=== PATIENT | female | born 1945 | race Caucasian/White ===

== ENCOUNTER 2021-10-24 14:24 | Inpatient (IN) | payer MEDICARE, BC ==
[~2021-10-24] VITALS: Ht 162.6 cm; Wt 88.7 kg
[~2021-10-24 14:24] MED LIST: ACET500T68 PO; APIX5TAB PO; ATOR10TA60 PO; CEFD300C PO; CHOL200059 PO; DILT120C99 PO; DIPH25CA58 PO; EZET10TA20 PO; GLUC-142 PO; IRBE300T23 PO; LACT1CAP21 PO; METO50TA4 PO; NYST15PO9 TP
--- NOTE | 2021-10-24 14:34 | PHYS DOC ---
Past Medical History Smoking Status: Never Smoker General Adult EDM: Chief Complaint: ABNORMAL LABS HPI: HPI: Patient is a 76-year-old female who presents to the emergency department for abnormal labs. Patient resides at [facility]. They did routine lab work and noted that her creatinine was 6.3 and her potassium was 5.7. Patient has a history of A. fib, dementia, anxiety, stage IV/V chronic kidney disease and congestive heart failure. He takes apixaban and Lasix. Patient has no complaints of pain, chest pain, shortness of breath, fevers, increased weight gain, increased leg swelling. Her vital signs are stable. Review of Systems: Review of Systems: Constitutional: negative unless reported in HPI Eyes: negative unless reported in HPI HENT: negative unless reported in HPI Respiratory: negative unless reported in HPI Cardiovascular: negative unless reported in HPI GI: negative unless reported in HPI : negative unless reported in HPI Musculoskeletal: negative unless reported in HPI Integument: negative unless reported in HPI Neurologic: negative unless reported in HPI Endocrine: negative unless reported in HPI Lymphatic: negative unless reported in HPI Psychiatric: negative unless reported in HPI Heart Score: C/O Chest Pain: No Risk Factors: Risk Factors: DM, Current or recent (<one month) smoker, HTN, HLP, family history of CAD, obesity. Risk Scores: Score 0 - 3: 2.5% MACE over next 6 weeks - Discharge Home Score 4 - 6: 20.3% MACE over next 6 weeks - Admit for Clinical Observation Score 7 - 10: 72.7% MACE over next 6 weeks - Early Invasive Strategies Allergies: Allergies: Allergies Coded Allergies Type Severity Reaction Last Updated Verified No Known Drug Allergies 12/17/20 No Physical Exam: PE: Constitutional: Well developed, well nourished, no acute distress, non-toxic appearance. [] HENT: Normocephalic, atraumatic, bilateral external ears normal, oropharynx sh[address] st, no oral exudates, nose normal. [] Eyes: PERRL, EOMI, conjunctiva normal, no discharge. [] Neck: Normal range of motion, no stridor Cardiovascular:Heart rate regular, irregular rhythm, no murmur [] Lungs & Thorax: Bilateral breath sounds clear to auscultation [] Abdomen: Bowel sounds normal, soft, no tenderness, no masses, no pulsatile masses. [] Skin: Warm, dry, no erythema, no rash. [] Back: Normal range of motion Extremities: No tenderness, no cyanosis, no clubbing, ROM intact, 1+ edema noted bilateral lower extremities Neurologic: Alert and oriented X 3, normal motor function, normal sensory function, no focal deficits noted. [] Psychologic: Affect normal, judgement normal, mood normal. [] Current Patient Data: Labs: Laboratory Tests Test 10/24/21 15:00 White Blood Count 11.0 x10^3/uL Red Blood Count 3.82 x10^6/uL Hemoglobin 12.1 g/dL Hematocrit 36.8 % Mean Corpuscular Volume 96 fL Mean Corpuscular Hemoglobin 32 pg Mean Corpuscular Hemoglobin Concent 33 g/dL Red Cell Distribution Width 16.2 % Platelet Count 230 x10^3/uL Neutrophils (%) (Auto) 81 % Lymphocytes (%) (Auto) 9 % Monocytes (%) (Auto) 7 % Eosinophils (%) (Auto) 2 % Basophils (%) (Auto) 1 % Neutrophils # (Auto) 8.9 x10^3/uL Lymphocytes # (Auto) 1.0 x10^3/uL Monocytes # (Auto) 0.8 x10^3/uL Eosinophils # (Auto) 0.2 x10^3/uL Basophils # (Auto) 0.1 x10^3/uL Sodium Level 130 mmol/L Potassium Level 6.2 mmol/L Chloride Level 100 mmol/L Carbon Dioxide Level 17 mmol/L Anion Gap 13 Blood Urea Nitrogen 123 mg/dL Creatinine 6.2 mg/dL Estimated GFR (Cockcroft-Gault) 6.5 BUN/Creatinine Ratio 20 Glucose Level 105 mg/dL Calcium Level 9.0 mg/dL Total Bilirubin 0.4 mg/dL Aspartate Amino Transf (AST/SGOT) 16 U/L Alanine Aminotransferase (ALT/SGPT) 14 U/L Alkaline Phosphatase 125 U/L Troponin I High Sensitivity 7 ng/L OA-Vex-H-Type Natriuretic Peptide 2064 pg/mL Total Protein 7.5 g/dL Albumin 3.3 g/dL Albumin/Globulin Ratio 0.8 Current Medications Medications (Trade) Dose Ordered Sig/Cailin Route PRN Reason Start Time Stop Time Status Last Admin Dose Admin Sodium Chloride 1,000 ml @ 75 mls/hr 1X ONCE IV 10/24/21 16:30 10/25/21 05:49 EKG: EKG: EKG performed by ER staff at 1525 shows A. fib, patient has a history of A. fib, rate of 61, no STEMI ready by Dr. Stringer[] Radiology/Procedures: Radiology/Procedures: []PROCEDURE: PORTABLE CHEST 1V XR CHEST 1V History: Renal failure Comparison: 08/27/2021 Technique: Portable AP radiograph of the chest. Findings: Mild elevation of the right diaphragm similar to comparison. No focal airspace consolidation, pleural effusion or pneumothorax. Cardiac silhouette is enlarged and there is cephalization of pulmonary vasculature. The osseous structures demonstrate advanced degenerative changes in the shoulders. Soft tissues are unremarkable. Impression: 1. Cardiomegaly with pulmonary vascular congestion. Electronically signed by: Tyrese Shah MD (10/24/2021 3:45 PM) [id number] DICTATED and SIGNED BY: TYRESE SHAH MD DATE: 10/24/21 [id number] Course & Med Decision Making: Course & Med Decision Making Pertinent Labs and Imaging studies reviewed. (See chart for details) [] Patient presents to the emergency department for abnormal labs with an elevated creatinine of 6.3 and potassium of 5.7. Patient has no current complaints. Patient does have a history of chronic kidney disease stage IV/V without dialysis. Work-up in the ER consisted of blood work, EKG, chest x-ray. Chest x-ray shows cardiomegaly and pulmonary vascular congestion. BNP [id number], normal CBC, potassium was 6.2, creatinine was 6.2, BUN was 123. I discussed these findings with Dr. Santamaria with nephrology and she is advised to administer IV fluids at 75ml/hr and place a Serrano and order urinalysis. I discussed these findings with Dr. Coffey who agreed to admit the patient under his services for hyperkalemia and chronic kidney disease. ER bridge orders placed at this time 1620. Bety Disclaimer: Bety Disclaimer: This electronic medical record was generated, in whole or in part, using a voice recognition dictation system. Departure Departure Impression: Primary Impression: Hyperkalemia Additional Impression: Chronic kidney disease Qualified Codes: N18.9 - Chronic kidney disease, unspecified Disposition: ADMITTED INPATIENT Admitting Physician: [facility] Condition: GOOD (Dr. Vivar) Referrals: VAUGHN CERVANTES MD (PCP) ELVIRA AVILES APRN Oct 24, 2021 14:34
[2021-10-24 15:05] LABS: BASO # 0.1 x10^3/uL (0.0-0.2); BASO % 1 % (0-3); EOS # 0.2 x10^3/uL (0.0-0.7); EOS % 2 % (0-3); HEMATOCRIT 36.8 % (36.0-47.0); HEMOGLOBIN 12.1 g/dL (12.0-15.5); LYMPH % 9 % (24-48); MEAN CORPUSCULAR HEMOGLOBIN 32 pg (25-35); MEAN CORPUSCULAR HGB CONC 33 g/dL (31-37); MEAN CORPUSCULAR VOLUME 96 fL (79-100); MONO # 0.8 x10^3/uL (0.0-1.1); MONO % 7 % (0-9); NEUT # 8.9 x10^3/uL (1.8-7.7); NEUT % 81 % (31-73); PLATELET COUNT 230 x10^3/uL (140-400); RED BLOOD COUNT 3.82 x10^6/uL (3.50-5.40); RED CELL DISTRIBUTION WIDTH 16.2 % (11.5-14.5)
[2021-10-24 15:25] LABS: ALBUMIN 3.3 g/dL (3.4-5.0); ALBUMIN/GLOBULIN RATIO 0.8 (1.0-1.7); CREATININE 6.2 mg/dL (0.6-1.0); GFR 6.5; TOTAL BILIRUBIN 0.4 mg/dL (0.2-1.0); TOTAL PROTEIN 7.5 g/dL (6.4-8.2)
[2021-10-24 15:29] LABS: POTASSIUM 6.2 mmol/L (3.5-5.1)
--- NOTE | 2021-10-24 15:34 | EKG ---
[facility] [address] [place] [address] Test Date: 2021-10-24 Test Time: 15:25:55 Pat Name: VICKY FOSTER Department: Room: Gender: F [employer] Director: : 1945 Requested By: ELVIRA AVILES Order Number: [id number] Reading MD: Marvin Szymanski MD Measurements Intervals [place] Rate: 61 P: ME: QRS: 197 QRSD: 84 T: 184 QT: 416 QTc: 424 Interpretive Statements PROBABLE ATRIAL FIBRILLATION Electronically Signed On 10-28-2021 9:36:46 DISTRIBUTION A [employer]EMAN by Marvin Szymanski MD
--- NOTE | 2021-10-24 15:47 | RAD ---
XR CHEST 1V History: Renal failure Comparison: 08/27/2021 Technique: Portable AP radiograph of the chest. Findings: Mild elevation of the right diaphragm similar to comparison. No focal airspace consolidation, pleural effusion or pneumothorax. Cardiac silhouette is enlarged and there is cephalization of pulmonary vas culature. The osseous structures demonstrate advanced degenerative changes in the shoulders. Soft tis sues are unremarkable. Impression: 1. Cardiomegaly with pulmonary vascular congestion. Electronically signed by: Tyrese Mandel MD (10/24/2021 3:45 PM) [id number]
[2021-10-24] MEDS ORDERED: IV NORMAL SALINE 1000ML BAG 1,000 ML IV ONE (16:30)
--- NOTE | 2021-10-24 19:14 | PDOC1 ---
History and Physical Date of Service: DOS: DATE: 10/24/21 TIME: 19:05 Chief Complaint: Chief Complain: abnormal labs History of Present Illness: HPI: ED HPI Patient is a 76-year-old female who presents to the emergency department for abnormal labs. Patient resides at [facility]. They did routine lab work and noted that her creatinine was 6.3 and her potassium was 5.7. Patient has a history of A. fib, dementia, anxiety, stage IV/V chronic kidney disease and congestive heart failure. He takes apixaban and Lasix. Patient has no complaints of pain, chest pain, shortness of breath, fevers, increased weight gain, increased leg swelling. Her vital signs are stable. When I evaluated the patient in the emergency department she was resting in bed. Informed the degree of her kidney injury; she reported to me that she does not know of any kidney problems that she has but it does look like on chart review she is CKD stage IV. Recommended that she be admitted and she initially was resistant. Said she would like to return to her . After telling her she could necessitate dialysis and if leaving may not make it back to the hospital alive. She understood this and still wanted to discharge. ER provider Nicolasa graciously spoke with patient who was then agreeable to admission. Past Medical/Surgical History: PMH/PSH: Hypertension, hyperlipidemia Allergies: Allergies: Coded Allergies: No Known Drug Allergies (Unverified , 10/24/21) Family History: Family History: Hypertension Social History: Social History: Denies alcohol tobacco or drug use Current Medications: Current Medications Current Medications Sodium Chloride 1,000 ml @ 75 mls/hr 1X ONCE IV Last administered on 10/24/21at 16:30; Start 10/24/21 at 16:30; Stop 10/25/21 at 05:49 Active Scripts Active Reported Osteo Bi-Flex Tablet (Glucosamine/D3/Boswellia Nancy) 1 Each Tablet 1 Each PO DAILY Irbesartan 300 Mg Tablet 300 Mg PO DAILY Benadryl (Diphenhydramine Hcl) 25 Mg Capsule 1 Cap PO QHS 30 Days Diltiazem 24HR Cd (Diltiazem Hcl) 120 Mg Cap.er.24h 120 Mg PO DAILY Nystatin 15 Gm Powder 1 Bryan TP BID 7 Days apply to affected area(s) Toprol XL (Metoprolol Succinate) 50 Mg Tab.er.24h 50 Mg PO BID Culturelle (Lactobacillus Rhamnosus Gg) 1 Each Capsule 1 Cap PO BID 30 Days Zetia (Ezetimibe) 10 Mg Tablet 10 Mg PO DAILY Vitamin D3 (Cholecalciferol (Vitamin D3)) 50 Mcg Tablet 50 Mcg PO DAILY Atorvastatin Calcium 10 Mg Tablet 10 Mg PO HS Acetaminophen 500 Mg Tablet 500 Mg PO PRN TID PRN ROS: Review of Systems Review of System Unless noted in HPI 14 point review of systems was negative Physical Exam: Vital Signs: Vital Signs Date Time Temp Pulse Resp B/P (MAP) Pulse Ox O2 Delivery O2 Flow Rate FiO2 10/24/21 17:46 65 17 101/59 (73) 97 Room Air 10/24/21 14:32 97.8 97.8 Physcial Exam: GEN: No apparent distress. Alert and oriented HEENT: Normal cephalic, atraumatic, external auditory canals are patent EYES: Extraocular muscles are intact, pupil are equally round and reactive to light and accommodation MUSCULOSKELETAL: Well developed , well nourished, good range of motion ENDOCRINE: No thyromegaly was palpated LYMPHATICS: No cervical chain or axillary nodes were noted HEMATOPOIETIC: No bruising NECK: Supple, no JVD, no thyromegaly was noted LUNGS: Clear to auscultation in all lung hodgson without rhonchi or wheezing HEART: RRR, S!, S2 present. Peripheral pulses intact, no obvious murmurs noted ABDOMEN: Soft, nontender. Positive bowel sounds, no organomegaly, normal bowel sounds EXTREMITIES: Without clubbing, cyanosis, or edema. Pedal pulses intact. Negative Homans sign NEUROLOGIC: Normal speech and tone. A&O x 3, moves all extremities, no obvious focal deficits PSYCHIATRIC: Normal affect, normal mood. Stable SKIN: No ulcerations or rashes, good skin turgor, no jaundice VASCULAR: Good capillary refill, neurovascular bundle appears to be intact Labs: Labs: Laboratory Tests Test 10/24/21 15:00 White Blood Count 11.0 x10^3/uL (4.0-11.0) Red Blood Count 3.82 x10^6/uL (3.50-5.40) Hemoglobin 12.1 g/dL (12.0-15.5) Hematocrit 36.8 % (36.0-47.0) Mean Corpuscular Volume 96 fL (79-100) Mean Corpuscular Hemoglobin 32 pg (25-35) Mean Corpuscular Hemoglobin Concent 33 g/dL (31-37) Red Cell Distribution Width 16.2 % (11.5-14.5) Platelet Count 230 x10^3/uL (140-400) Neutrophils (%) (Auto) 81 % (31-73) Lymphocytes (%) (Auto) 9 % (24-48) Monocytes (%) (Auto) 7 % (0-9) Eosinophils (%) (Auto) 2 % (0-3) Basophils (%) (Auto) 1 % (0-3) Neutrophils # (Auto) 8.9 x10^3/uL (1.8-7.7) Lymphocytes # (Auto) 1.0 x10^3/uL (1.0-4.8) Monocytes # (Auto) 0.8 x10^3/uL (0.0-1.1) Eosinophils # (Auto) 0.2 x10^3/uL (0.0-0.7) Basophils # (Auto) 0.1 x10^3/uL (0.0-0.2) Sodium Level 130 mmol/L (136-145) Potassium Level 6.2 mmol/L (3.5-5.1) Chloride Level 100 mmol/L (98-107) Carbon Dioxide Level 17 mmol/L (21-32) Anion Gap 13 (6-14) Blood Urea Nitrogen 123 mg/dL (7-20) Creatinine 6.2 mg/dL (0.6-1.0) Estimated GFR (Cockcroft-Gault) 6.5 BUN/Creatinine Ratio 20 (6-20) Glucose Level 105 mg/dL (70-99) Calcium Level 9.0 mg/dL (8.5-10.1) Total Bilirubin 0.4 mg/dL (0.2-1.0) Aspartate Amino Transf (AST/SGOT) 16 U/L (15-37) Alanine Aminotransferase (ALT/SGPT) 14 U/L (14-59) Alkaline Phosphatase 125 U/L (46-116) Troponin I High Sensitivity 7 ng/L (4-50) AG-Ora-Z-Type Natriuretic Peptide 2064 pg/mL (0-449) Total Protein 7.5 g/dL (6.4-8.2) Albumin 3.3 g/dL (3.4-5.0) Albumin/Globulin Ratio 0.8 (1.0-1.7) Laboratory Tests Test 10/24/21 15:00 White Blood Count 11.0 x10^3/uL (4.0-11.0) Red Blood Count 3.82 x10^6/uL (3.50-5.40) Hemoglobin 12.1 g/dL (12.0-15.5) Hematocrit 36.8 % (36.0-47.0) Mean Corpuscular Volume 96 fL (79-100) Mean Corpuscular Hemoglobin 32 pg (25-35) Mean Corpuscular Hemoglobin Concent 33 g/dL (31-37) Red Cell Distribution Width 16.2 % (11.5-14.5) Platelet Count 230 x10^3/uL (140-400) Neutrophils (%) (Auto) 81 % (31-73) Lymphocytes (%) (Auto) 9 % (24-48) Monocytes (%) (Auto) 7 % (0-9) Eosinophils (%) (Auto) 2 % (0-3) Basophils (%) (Auto) 1 % (0-3) Neutrophils # (Auto) 8.9 x10^3/uL (1.8-7.7) Lymphocytes # (Auto) 1.0 x10^3/uL (1.0-4.8) Monocytes # (Auto) 0.8 x10^3/uL (0.0-1.1) Eosinophils # (Auto) 0.2 x10^3/uL (0.0-0.7) Basophils # (Auto) 0.1 x10^3/uL (0.0-0.2) Sodium Level 130 mmol/L (136-145) Potassium Level 6.2 mmol/L (3.5-5.1) Chloride Level 100 mmol/L (98-107) Carbon Dioxide Level 17 mmol/L (21-32) Anion Gap 13 (6-14) Blood Urea Nitrogen 123 mg/dL (7-20) Creatinine 6.2 mg/dL (0.6-1.0) Estimated GFR (Cockcroft-Gault) 6.5 BUN/Creatinine Ratio 20 (6-20) Glucose Level 105 mg/dL (70-99) Calcium Level 9.0 mg/dL (8.5-10.1) Total Bilirubin 0.4 mg/dL (0.2-1.0) Aspartate Amino Transf (AST/SGOT) 16 U/L (15-37) Alanine Aminotransferase (ALT/SGPT) 14 U/L (14-59) Alkaline Phosphatase 125 U/L (46-116) Troponin I High Sensitivity 7 ng/L (4-50) YF-Hbp-N-Type Natriuretic Peptide 2064 pg/mL (0-449) Total Protein 7.5 g/dL (6.4-8.2) Albumin 3.3 g/dL (3.4-5.0) Albumin/Globulin Ratio 0.8 (1.0-1.7) Assessment/Plan Assessment/Plan LOGAN on CKD, hyperkalemia history hypertension hyperlipidemia early dementia -Presented today from care facility due to abnormal lab work notably creatinine up to 6.2 and potassium 6.2 -History of CKD stage IV on chart review. -Nephrology consulted in emergency room recommended starting fluids placing Serrano and checking UA -We will need to be cautious with fluids given pulmonary vascular congestion; will at least check an echocardiogram as I do not see one in our system -May necessitate dialysis will hold off on placing temporary catheter and defer this to nephrology -Daily BMP monitor ins and outs -Renal diet -DVT prophylaxis -Home meds resumed as indicated Justifications for Admission Other Justification AMANDA GERARDO MD Oct 24, 2021 19:14
[2021-10-24] MEDS ORDERED: SODIUM POLYSTYRENE SULFON/SORB 15 GM/60 ML ORAL.SUSP. PO ONE (19:15)
[2021-10-24] MEDS ORDERED: ONDANSETRON PF 4 MG/2 ML VIAL. IVP PRN (19:15)
[2021-10-24] MEDS ORDERED: ELECTROLYTE (NON-ICU) PROTOCOL. MC PRN (19:15)
[2021-10-24] MEDS ORDERED: CALCIUM CARBONATE 500 MG TAB.CHEW PO PRN (19:15)
[2021-10-24] MEDS ORDERED: ACETAMINOPHEN 325 MG TABLET. PO PRN (19:15)
[2021-10-24 21:04] VITALS: BP 110/59
[2021-10-24] MEDS: SENNOSIDES/DOCUSATE 8.6/50MG TABLET. PO SCH (22:03)
[2021-10-24] MEDS: ATORVASTATIN CALCIUM 10 MG TABLET. PO SCH (22:03)
[2021-10-24] MEDS: HEPARIN for SUB-Q USE 5,000 UNIT/ML VIAL. SQ SCH (22:04)
[2021-10-24 23:41] VITALS: BP 105/63
[2021-10-25 03:41] VITALS: BP 119/60
[2021-10-25 07:00] VITALS: BP 125/68
[2021-10-25] MEDS ORDERED: ALBUMIN HUMAN 25% 200 ML IV PRN (07:45)
[2021-10-25] MEDS ORDERED: DIALYSIS PATIENT. MC PRN ×2 (07:45)
[2021-10-25] MEDS ORDERED: 0.9 % SODIUM CHLORIDE 10 ML DISP.SYRIN. IV PRN ×2 (07:45)
[2021-10-25] MEDS ORDERED: IV NORMAL SALINE 1000ML BAG 1,000 ML IV PRN ×2 (07:45)
[2021-10-25 08:16] LABS: BASO % 1 % (0-3); EOS # 0.4 x10^3/uL (0.0-0.7); EOS % 4 % (0-3); HEMATOCRIT 37.5 % (36.0-47.0); HEMOGLOBIN 12.4 g/dL (12.0-15.5); LYMPH # 0.9 x10^3/uL (1.0-4.8); LYMPH % 10 % (24-48); MEAN CORPUSCULAR HEMOGLOBIN 32 pg (25-35); MEAN CORPUSCULAR HGB CONC 33 g/dL (31-37); MEAN CORPUSCULAR VOLUME 98 fL (79-100); MONO # 0.6 x10^3/uL (0.0-1.1); MONO % 7 % (0-9); NEUT # 6.6 x10^3/uL (1.8-7.7); NEUT % 78 % (31-73); PLATELET COUNT 208 x10^3/uL (140-400); RED BLOOD COUNT 3.85 x10^6/uL (3.50-5.40); RED CELL DISTRIBUTION WIDTH 16.1 % (11.5-14.5); WHITE BLOOD COUNT 8.4 x10^3/uL (4.0-11.0)
[2021-10-25 08:46] LABS: ALBUMIN/GLOBULIN RATIO 0.7 (1.0-1.7); CALCIUM 8.7 mg/dL (8.5-10.1); CREATININE 5.6 mg/dL (0.6-1.0); GFR 7.3; TOTAL BILIRUBIN 0.4 mg/dL (0.2-1.0); TOTAL PROTEIN 7.1 g/dL (6.4-8.2)
[2021-10-25] MEDS: HEPARIN for SUB-Q USE 5,000 UNIT/ML VIAL. SQ SCH ×2 (09:00→21:21)
[2021-10-25 09:16] LABS: POTASSIUM 5.1 mmol/L (3.5-5.1)
--- NOTE | 2021-10-25 10:05 | PDOC2 ---
CONSULT Date of Consult Date of Consult DATE: 10/25/21 TIME: 09:55 Reason for Consult Reason for Consult: LOGAN on CKD Source Source: Chart review History of Present Illness Reason for Visit: Patient is a 76-year-old CF who presents to the emergency department for abnormal labs. Patient resides at [facility]. They did routine lab work and noted that her creatinine was 6.3 and her potassium was 5.7. Patient has a history of A. fib, dementia, anxiety, stage IV/V chronic kidney disease and congestive heart failure. . Patient has no complaints of pain, chest pain, shortness of breath, fevers, increased weight gain, increased leg swelling. Denies any N/V/D . Denies any Urinary complaints .Reports never seen a Kidney doctor Past Medical History Past Medical History Significant for chronic kidney disease, morbid obesity with a body mass index more than 30, bilateral osteoarthritis of both knee joints, hypertensive disorder, chronic atrial fibrillation, hyperlipidemia, hyperglycemia, chronic pain syndrome and long-term use of anticoagulation. Family History Family History Only child , no siblings Her father in the early 70s due to myocardial infarction. Mother in her early 80s secondary to myocardial infarction. Social History Social History She is , has no children. She never smoked, does not drink alcohol or use recreational drugs. She is a carbajal. her is demented and cannot take care of himself. ALCOHOL: none Drugs: None Current Problem List Problem List Problems Medical Problems: (1) Chronic kidney disease Status: Acute (2) Hyperkalemia Status: Acute Current Medications Current Medications Current Medications Sodium Chloride 1,000 ml @ 75 mls/hr 1X ONCE IV Last administered on 10/24/21at 16:30; Start 10/24/21 at 16:30; Stop 10/25/21 at 05:49; Status DC Atorvastatin Calcium (Lipitor) 10 mg HS PO Last administered on 10/24/21at 22:03; Start 10/24/21 at 21:00 Diltiazem HCl (Cardizem 24hr Cd) 120 mg DAILY PO ; Start 10/25/21 at 09:00 EZETIMIBE (Zetia) 10 mg DAILY PO ; Start 10/25/21 at 09:00 Metoprolol Succinate (Toprol Xl) 50 mg DAILY PO ; Start 10/25/21 at 09:00 Vitamin D (Vitamin D3) 2,000 unit DAILY PO ; Start 10/25/21 at 09:00 Ondansetron HCl (Zofran) 4 mg PRN Q6HRS PRN IVP NAUSEA/VOMITING; Start 10/24/21 at 19:15 Calcium Carbonate/ Glycine (Tums) 500 mg PRN Q3HRS PRN PO UPSET STOMACH; Start 10/24/21 at 19:15 Zolpidem Tartrate (Ambien) 5 mg PRN QHS PRN PO INSOMNIA, MAY REPEAT IN 1HR; Start 10/24/21 at 19:15 Info (Non-Icu Electrolyte Protocol) 1 ea PRN DAILY PRN MC SEE COMMENTS; Start 10/24/21 at 19:15 Acetaminophen (Tylenol) 650 mg PRN Q6HRS PRN PO Headaches, Temp > 101.5F; Start 10/24/21 at 19:15 Senna/Docusate Sodium (Senna Plus) 1 tab BID PO Last administered on 10/24/21at 22:03; Start 10/24/21 at 21:00 Heparin Sodium (Porcine) (Heparin Sodium) 5,000 unit Q12HR SQ Last administered on 10/24/21at 22:04; Start 10/24/21 at 21:00 Sodium Polystyrene Sulfonate (Kayexalate) 15 gm 1X ONCE PO Last administered on 10/24/21at 22:05; Start 10/24/21 at 19:15; Stop 10/24/21 at 19:16; Status DC Sodium Chloride 1,000 ml @ 1,000 mls/hr Q1H PRN IV hypotension; Start 10/25/21 at 07:45; Stop 10/25/21 at 13:44 Albumin Human 200 ml @ 200 mls/hr 1X PRN PRN IV Hypotension; Start 10/25/21 at 07:45; Stop 10/25/21 at 13:44 Sodium Chloride (Normal Saline Flush) 10 ml 1X PRN PRN IV AP catheter pack; Start 10/25/21 at 07:45; Stop 10/26/21 at 07:44 Sodium Chloride (Normal Saline Flush) 10 ml 1X PRN PRN IV SUPERVISOR FINISHING catheter pack; Start 10/25/21 at 07:45; Stop 10/26/21 at 07:44 Sodium Chloride 1,000 ml @ 400 mls/hr Q2H30M PRN IV PATENCY; Start 10/25/21 at 07:45; Stop 10/25/21 at 19:44 Info (PHARMACY MONITORING -- do not chart) 1 each PRN DAILY PRN MC SEE COMMENTS; Start 10/25/21 at 07:45; Status UNV Info (PHARMACY MONITORING -- do not chart) 1 each PRN DAILY PRN MC SEE COMMENTS; Start 10/25/21 at 07:45 Active Scripts Active Reported Osteo Bi-Flex Tablet (Glucosamine/D3/Boswellia Nancy) 1 Each Tablet 1 Each PO DAILY Irbesartan 300 Mg Tablet 300 Mg PO DAILY Benadryl (Diphenhydramine Hcl) 25 Mg Capsule 1 Cap PO QHS 30 Days Diltiazem 24HR Cd (Diltiazem Hcl) 120 Mg Cap.er.24h 120 Mg PO DAILY Nystatin 15 Gm Powder 1 Bryan TP BID 7 Days apply to affected area(s) Toprol XL (Metoprolol Succinate) 50 Mg Tab.er.24h 50 Mg PO BID Culturelle (Lactobacillus Rhamnosus Gg) 1 Each Capsule 1 Cap PO BID 30 Days Zetia (Ezetimibe) 10 Mg Tablet 10 Mg PO DAILY Vitamin D3 (Cholecalciferol (Vitamin D3)) 50 Mcg Tablet 50 Mcg PO DAILY Atorvastatin Calcium 10 Mg Tablet 10 Mg PO HS Acetaminophen 500 Mg Tablet 500 Mg PO PRN TID PRN Allergies Allergies: Coded Allergies: No Known Drug Allergies (Unverified , 10/24/21) ROS Review of System As per HPI, rest of the ROS is negative Physical Exam Physical Exam GEN: No apparent distress. HEENT: Normal cephalic, atraumatic, external auditory canals are patent NECK: Supple, LUNGS: Clear to auscultation in all lung hodgson , non labored HEART: RRR, S!, S2 present. ABDOMEN: Soft, nontender. Positive bowel sounds, no organomegaly, normal bowel sounds EXTREMITIES: Without clubbing, cyanosis, or edema. P NEUROLOGIC: Normal speech and tone. A&O x 3, moves all extremities, no obvious focal deficits PSYCHIATRIC: Normal affect, normal mood. Stable SKIN: No ulcerations or rashes, good skin turgor, no jaundice No Serrano, No CVA or SP tenderness Vital Signs Vital Signs Date Time Temp Pulse Resp B/P (MAP) Pulse Ox O2 Delivery O2 Flow Rate FiO2 10/25/21 07:00 97.6 90 18 125/68 (87) 96 Room Air 97.6 Assessment & Plan LOGAN - Vasomotor / vs progression of CKD . Discussed with FORMULA ROOM WORKER in the ER last evening to check UA and Serrano placement - Not done.Recommended cautious IVF as [employer]NER reported and CxR unremarkable Mild Improvement in BUN/Cr ,Bladder scan ordered r/o retention , Check UA . Will place Temp HDC for Possibility of Dialysis over the weekend if no improvent in renal function On ARb per home med list. Held. Didn't see diuretics mentioned in the med list documented in the chart . CT scan in december 2020- Kidneys unremarkable . Supportive care, strict I/O , avoid nephrotoxins maintain hydration CKD stage 4- based on labs from 12/2020 Cr 2.6 -2.8 @ [facility] [place] (Neph not consulted) , no prior or interval labs available to me HyperKalemia- POA- improved HTN- On ARb at home. Holding currently Hx of GI bleed December 2020 - Hospitalized at [facility], . Suspected diverticular bleed Anemia - Improved since above admission, stable Hx of A Fib Labs Labs Laboratory Tests Test 10/24/21 15:00 10/24/21 19:28 10/25/21 07:20 White Blood Count 11.0 x10^3/uL (4.0-11.0) 8.4 x10^3/uL (4.0-11.0) Red Blood Count 3.82 x10^6/uL (3.50-5.40) 3.85 x10^6/uL (3.50-5.40) Hemoglobin 12.1 g/dL (12.0-15.5) 12.4 g/dL (12.0-15.5) Hematocrit 36.8 % (36.0-47.0) 37.5 % (36.0-47.0) Mean Corpuscular Volume 96 fL (79-100) 98 fL (79-100) Mean Corpuscular Hemoglobin 32 pg (25-35) 32 pg (25-35) Mean Corpuscular Hemoglobin Concent 33 g/dL (31-37) 33 g/dL (31-37) Red Cell Distribution Width 16.2 % (11.5-14.5) 16.1 % (11.5-14.5) Platelet Count 230 x10^3/uL (140-400) 208 x10^3/uL (140-400) Neutrophils (%) (Auto) 81 % (31-73) 78 % (31-73) Lymphocytes (%) (Auto) 9 % (24-48) 10 % (24-48) Monocytes (%) (Auto) 7 % (0-9) 7 % (0-9) Eosinophils (%) (Auto) 2 % (0-3) 4 % (0-3) Basophils (%) (Auto) 1 % (0-3) 1 % (0-3) Neutrophils # (Auto) 8.9 x10^3/uL (1.8-7.7) 6.6 x10^3/uL (1.8-7.7) Lymphocytes # (Auto) 1.0 x10^3/uL (1.0-4.8) 0.9 x10^3/uL (1.0-4.8) Monocytes # (Auto) 0.8 x10^3/uL (0.0-1.1) 0.6 x10^3/uL (0.0-1.1) Eosinophils # (Auto) 0.2 x10^3/uL (0.0-0.7) 0.4 x10^3/uL (0.0-0.7) Basophils # (Auto) 0.1 x10^3/uL (0.0-0.2) 0.0 x10^3/uL (0.0-0.2) Sodium Level 130 mmol/L (136-145) 138 mmol/L (136-145) Potassium Level 6.2 mmol/L (3.5-5.1) 5.1 mmol/L (3.5-5.1) Chloride Level 100 mmol/L (98-107) 106 mmol/L (98-107) Carbon Dioxide Level 17 mmol/L (21-32) 18 mmol/L (21-32) Anion Gap 13 (6-14) 14 (6-14) Blood Urea Nitrogen 123 mg/dL (7-20) 109 mg/dL (7-20) Creatinine 6.2 mg/dL (0.6-1.0) 5.6 mg/dL (0.6-1.0) Estimated GFR (Cockcroft-Gault) 6.5 7.3 BUN/Creatinine Ratio 20 (6-20) 19 (6-20) Glucose Level 105 mg/dL (70-99) 81 mg/dL (70-99) Calcium Level 9.0 mg/dL (8.5-10.1) 8.7 mg/dL (8.5-10.1) Total Bilirubin 0.4 mg/dL (0.2-1.0) 0.4 mg/dL (0.2-1.0) Aspartate Amino Transf (AST/SGOT) 16 U/L (15-37) 14 U/L (15-37) Alanine Aminotransferase (ALT/SGPT) 14 U/L (14-59) 14 U/L (14-59) Alkaline Phosphatase 125 U/L (46-116) 121 U/L (46-116) Troponin I High Sensitivity 7 ng/L (4-50) GI-Wiu-M-Type Natriuretic Peptide 2064 pg/mL (0-449) Total Protein 7.5 g/dL (6.4-8.2) 7.1 g/dL (6.4-8.2) Albumin 3.3 g/dL (3.4-5.0) 3.0 g/dL (3.4-5.0) Albumin/Globulin Ratio 0.8 (1.0-1.7) 0.7 (1.0-1.7) SARS-CoV-2 Antigen (Rapid) Negative (NEGATIVE) Laboratory Tests Test 10/24/21 15:00 10/24/21 19:28 10/25/21 07:20 White Blood Count 11.0 x10^3/uL (4.0-11.0) 8.4 x10^3/uL (4.0-11.0) Red Blood Count 3.82 x10^6/uL (3.50-5.40) 3.85 x10^6/uL (3.50-5.40) Hemoglobin 12.1 g/dL (12.0-15.5) 12.4 g/dL (12.0-15.5) Hematocrit 36.8 % (36.0-47.0) 37.5 % (36.0-47.0) Mean Corpuscular Volume 96 fL (79-100) 98 fL (79-100) Mean Corpuscular Hemoglobin 32 pg (25-35) 32 pg (25-35) Mean Corpuscular Hemoglobin Concent 33 g/dL (31-37) 33 g/dL (31-37) Red Cell Distribution Width 16.2 % (11.5-14.5) 16.1 % (11.5-14.5) Platelet Count 230 x10^3/uL (140-400) 208 x10^3/uL (140-400) Neutrophils (%) (Auto) 81 % (31-73) 78 % (31-73) Lymphocytes (%) (Auto) 9 % (24-48) 10 % (24-48) Monocytes (%) (Auto) 7 % (0-9) 7 % (0-9) Eosinophils (%) (Auto) 2 % (0-3) 4 % (0-3) Basophils (%) (Auto) 1 % (0-3) 1 % (0-3) Neutrophils # (Auto) 8.9 x10^3/uL (1.8-7.7) 6.6 x10^3/uL (1.8-7.7) Lymphocytes # (Auto) 1.0 x10^3/uL (1.0-4.8) 0.9 x10^3/uL (1.0-4.8) Monocytes # (Auto) 0.8 x10^3/uL (0.0-1.1) 0.6 x10^3/uL (0.0-1.1) Eosinophils # (Auto) 0.2 x10^3/uL (0.0-0.7) 0.4 x10^3/uL (0.0-0.7) Basophils # (Auto) 0.1 x10^3/uL (0.0-0.2) 0.0 x10^3/uL (0.0-0.2) Sodium Level 130 mmol/L (136-145) 138 mmol/L (136-145) Potassium Level 6.2 mmol/L (3.5-5.1) 5.1 mmol/L (3.5-5.1) Chloride Level 100 mmol/L (98-107) 106 mmol/L (98-107) Carbon Dioxide Level 17 mmol/L (21-32) 18 mmol/L (21-32) Anion Gap 13 (6-14) 14 (6-14) Blood Urea Nitrogen 123 mg/dL (7-20) 109 mg/dL (7-20) Creatinine 6.2 mg/dL (0.6-1.0) 5.6 mg/dL (0.6-1.0) Estimated GFR (Cockcroft-Gault) 6.5 7.3 BUN/Creatinine Ratio 20 (6-20) 19 (6-20) Glucose Level 105 mg/dL (70-99) 81 mg/dL (70-99) Calcium Level 9.0 mg/dL (8.5-10.1) 8.7 mg/dL (8.5-10.1) Total Bilirubin 0.4 mg/dL (0.2-1.0) 0.4 mg/dL (0.2-1.0) Aspartate Amino Transf (AST/SGOT) 16 U/L (15-37) 14 U/L (15-37) Alanine Aminotransferase (ALT/SGPT) 14 U/L (14-59) 14 U/L (14-59) Alkaline Phosphatase 125 U/L (46-116) 121 U/L (46-116) Troponin I High Sensitivity 7 ng/L (4-50) OC-Zmx-I-Type Natriuretic Peptide 2064 pg/mL (0-449) Total Protein 7.5 g/dL (6.4-8.2) 7.1 g/dL (6.4-8.2) Albumin 3.3 g/dL (3.4-5.0) 3.0 g/dL (3.4-5.0) Albumin/Globulin Ratio 0.8 (1.0-1.7) 0.7 (1.0-1.7) SARS-CoV-2 Antigen (Rapid) Negative (NEGATIVE) Review All relevant outside records, renal labs, imaging studies, telemetry/EKG's were reviewed. Images Images History: Renal failure Comparison: 08/27/2021 Technique: Portable AP radiograph of the chest. Findings: Mild elevation of the right diaphragm similar to comparison. No focal airspace consolidation, pleural effusion or pneumothorax. Cardiac silhouette is enlarged and there is cephalization of pulmonary vasculature. The osseous structures demonstrate advanced degenerative changes in the shoulders. Soft tissues are unremarkable. Impression: 1. Cardiomegaly with pulmonary vascular congestion. RGEY,ADENIKE MD Oct 25, 2021 10:05
[2021-10-25] MEDS: SENNOSIDES/DOCUSATE 8.6/50MG TABLET. PO SCH ×2 (10:19→21:18)
[2021-10-25] MEDS: METOPROLOL SUCC 24HR ER 50 MG TAB.ER.24H. PO SCH (10:19)
[2021-10-25] MEDS: EZETIMIBE 10 MG TABLET. PO SCH (10:19)
[2021-10-25] MEDS: CHOLECALCIFEROL (VITAMIN D3) 1,000 UNIT TABLET PO SCH (10:20)
--- NOTE | 2021-10-25 10:45 | NUR ---
Dr Santamaria requested bladder scan on patient to check for residual and possible need for beckford catheter. Pt bladder scanned and had 436ml of residual urine left. 16fr beckford catheter inserted per sterile technique until urine visualized, secured on R leg and bag hung on bed frame. Pt cleaned up and placed in comfortable position. bed low and locked. Addendum: 10/25/21 at 1221 by ISABELLA BAÑUELOS LPN LPN urine sample collected and sent to lab.
--- NOTE | 2021-10-25 10:53 | NUR ---
TEDDY following. Discussed with RN. TEDDY verified is a SNF pt from [facility], with plans to transition to roasterman care, room air, renal diet, COVID-19 negative. Nephrology following. Pt needing dialysis per RN. TEDDY will continue to follow.
[2021-10-25 11:00] VITALS: BP 123/70
[2021-10-25 11:25] LABS: BILIRUBIN,URINE NEGATIVE (NEG); CLARITY,URINE CLEAR; COLOR,URINE YELLOW; NITRITE,URINE NEGATIVE (NEG); PROTEIN,URINE NEGATIVE (NEG-TRACE); UROBILINOGEN,URINE 0.2 mg/dL (0.2 mg/dL)
[2021-10-25 11:50] LABS: RBC,URINE 0 /HPF (0-2)
[2021-10-25 11:51] LABS: BACTERIA,URINE 0 /HPF (0-FEW); WBC,URINE 0 /HPF (0-4)
--- NOTE | 2021-10-25 12:23 | NUR ---
Job Molina is a family friend and DPOA called to consent on the non-tunneled catheter for potential dialysis. Job in agreement and verbally consented to procedure. Rosa RAIN is second witness.
[2021-10-25] MEDS ORDERED: LIDOCAINE WITH 8.4% SOD BICARB 3 ML DISP.SYRIN. ONE (12:57)
--- NOTE | 2021-10-25 13:40 | PDOC ---
[employer] PROGRESS NOTE Date of Service DOS: DATE: 10/25/21 TIME: 13:36 Chief Complaint Chief Complaint Acute on chronic kidney injury, possibly due to vasomotor nephropathy versus progression of her CKD Hyperkalemia History of hypertension History of dyslipidemia History of mild dementia Nephrology consulted in emergency room recommended starting fluids placing Serrano and checking UA -We will need to be cautious with fluids given pulmonary vascular congestion; will at least check an echocardiogram as I do not see one in our system -May necessitate dialysis will hold off on placing temporary catheter and defer this to nephrology -Daily BMP monitor ins and outs -Renal diet -DVT prophylaxis -Home meds resumed as indicated History of Present Illness History of Present Illness 76-year-old female who presents to the emergency department for abnormal labs. Patient resides at [facility]. They did routine lab work and noted that her creatinine was 6.3 and her potassium was 5.7. Patient has a history of A. fib, dementia, anxiety, stage IV/V chronic kidney disease and congestive heart failure. He takes apixaban and Lasix. Patient has no complaints of pain, chest pain, shortness of breath, fevers, increased weight gain, increased leg swelling. Her vital signs are stable. 10/25/2021 No acute events overnight. Patient seen and examined bedside. Bladder scan showed 450 cc of urine and Serrano was placed. Patient does not know why her kidney is dysfunctioning. She does take multiple blood pressure medications. She states that her blood pressure is well controlledAnd measures around 120/80. She is on 3 antihypertensive medications. Pending possible temporary HD catheter placement for possible dialysis. Continue to trend creatinine and urine output. Vitals/I&O Vitals/I&O: Vital Signs Date Time Temp Pulse Resp B/P (MAP) Pulse Ox O2 Delivery O2 Flow Rate FiO2 10/25/21 11:00 97.3 88 18 123/70 (87) 95 Room Air 97.3 I & O 10/24/21 10/24/21 10/25/21 15:00 23:00 07:00 Output Total 1 ml Balance -1 ml Physical Exam General: Alert, Cooperative Heart: Regular rate Lungs: Clear Abdomen: Normal bowel sounds Extremities: No clubbing Skin: No rashes Labs Labs: Laboratory Tests Test 10/24/21 15:00 10/24/21 19:28 10/25/21 07:20 10/25/21 11:00 White Blood Count 11.0 x10^3/uL (4.0-11.0) 8.4 x10^3/uL (4.0-11.0) Red Blood Count 3.82 x10^6/uL (3.50-5.40) 3.85 x10^6/uL (3.50-5.40) Hemoglobin 12.1 g/dL (12.0-15.5) 12.4 g/dL (12.0-15.5) Hematocrit 36.8 % (36.0-47.0) 37.5 % (36.0-47.0) Mean Corpuscular Volume 96 fL (79-100) 98 fL (79-100) Mean Corpuscular Hemoglobin 32 pg (25-35) 32 pg (25-35) Mean Corpuscular Hemoglobin Concent 33 g/dL (31-37) 33 g/dL (31-37) Red Cell Distribution Width 16.2 % (11.5-14.5) 16.1 % (11.5-14.5) Platelet Count 230 x10^3/uL (140-400) 208 x10^3/uL (140-400) Neutrophils (%) (Auto) 81 % (31-73) 78 % (31-73) Lymphocytes (%) (Auto) 9 % (24-48) 10 % (24-48) Monocytes (%) (Auto) 7 % (0-9) 7 % (0-9) Eosinophils (%) (Auto) 2 % (0-3) 4 % (0-3) Basophils (%) (Auto) 1 % (0-3) 1 % (0-3) Neutrophils # (Auto) 8.9 x10^3/uL (1.8-7.7) 6.6 x10^3/uL (1.8-7.7) Lymphocytes # (Auto) 1.0 x10^3/uL (1.0-4.8) 0.9 x10^3/uL (1.0-4.8) Monocytes # (Auto) 0.8 x10^3/uL (0.0-1.1) 0.6 x10^3/uL (0.0-1.1) Eosinophils # (Auto) 0.2 x10^3/uL (0.0-0.7) 0.4 x10^3/uL (0.0-0.7) Basophils # (Auto) 0.1 x10^3/uL (0.0-0.2) 0.0 x10^3/uL (0.0-0.2) Sodium Level 130 mmol/L (136-145) 138 mmol/L (136-145) Potassium Level 6.2 mmol/L (3.5-5.1) 5.1 mmol/L (3.5-5.1) Chloride Level 100 mmol/L (98-107) 106 mmol/L (98-107) Carbon Dioxide Level 17 mmol/L (21-32) 18 mmol/L (21-32) Anion Gap 13 (6-14) 14 (6-14) Blood Urea Nitrogen 123 mg/dL (7-20) 109 mg/dL (7-20) Creatinine 6.2 mg/dL (0.6-1.0) 5.6 mg/dL (0.6-1.0) Estimated GFR (Cockcroft-Gault) 6.5 7.3 BUN/Creatinine Ratio 20 (6-20) 19 (6-20) Glucose Level 105 mg/dL (70-99) 81 mg/dL (70-99) Calcium Level 9.0 mg/dL (8.5-10.1) 8.7 mg/dL (8.5-10.1) Total Bilirubin 0.4 mg/dL (0.2-1.0) 0.4 mg/dL (0.2-1.0) Aspartate Amino Transf (AST/SGOT) 16 U/L (15-37) 14 U/L (15-37) Alanine Aminotransferase (ALT/SGPT) 14 U/L (14-59) 14 U/L (14-59) Alkaline Phosphatase 125 U/L (46-116) 121 U/L (46-116) Troponin I High Sensitivity 7 ng/L (4-50) UZ-Oqu-A-Type Natriuretic Peptide 2064 pg/mL (0-449) Total Protein 7.5 g/dL (6.4-8.2) 7.1 g/dL (6.4-8.2) Albumin 3.3 g/dL (3.4-5.0) 3.0 g/dL (3.4-5.0) Albumin/Globulin Ratio 0.8 (1.0-1.7) 0.7 (1.0-1.7) SARS-CoV-2 RNA (CRISTIAN) Negative (Negative) SARS-CoV-2 Antigen (Rapid) Negative (NEGATIVE) Hepatitis B Surface Antigen Nonreactive (Nonreactive) Hepatitis B Surface Antibody Nonreactive Urine Collection Type Unknown Urine Color Yellow Urine Clarity Clear Urine pH 5.0 (<5.0-8.0) Urine Specific [place] 1.015 (1.000-1.030) Urine Protein Negative mg/dL (NEG-TRACE) Urine Glucose (UA) Negative mg/dL (NEG) Urine Ketones (Stick) Negative mg/dL (NEG) Urine Blood Negative (NEG) Urine Nitrite Negative (NEG) Urine Bilirubin Negative (NEG) Urine Urobilinogen Dipstick 0.2 mg/dL (0.2 mg/dL) Urine Leukocyte Esterase Negative (NEG) Urine RBC 0 /HPF (0-2) Urine WBC 0 /HPF (0-4) Urine Squamous Epithelial Cells Few /LPF Urine Bacteria 0 /HPF (0-FEW) Assessment and Plan Assessmemt and Plan Problems Medical Problems: (1) Chronic kidney disease Status: Acute (2) Hyperkalemia Status: Acute Comment Review of Relevant I have reviewed the following items mariaa (where applicable) has been applied. Medications: Current Medications Medications (Trade) Dose Ordered Sig/Cailin Route PRN Reason Start Time Stop Time Status Last Admin Dose Admin Sodium Chloride 1,000 ml @ 75 mls/hr 1X ONCE IV 10/24/21 16:30 10/25/21 05:49 DC 10/24/21 16:30 Atorvastatin Calcium (Lipitor) 10 mg HS PO 10/24/21 21:00 10/24/21 22:03 Diltiazem HCl (Cardizem 24hr Cd) 120 mg DAILY PO 10/25/21 09:00 10/25/21 10:19 EZETIMIBE (Zetia) 10 mg DAILY PO 10/25/21 09:00 10/25/21 10:19 Metoprolol Succinate (Toprol Xl) 50 mg DAILY PO 10/25/21 09:00 10/25/21 10:19 Vitamin D (Vitamin D3) 2,000 unit DAILY PO 10/25/21 09:00 10/25/21 10:20 Senna/Docusate Sodium (Senna Plus) 1 tab BID PO 10/24/21 21:00 10/25/21 10:19 Heparin Sodium (Porcine) (Heparin Sodium) 5,000 unit Q12HR SQ 10/24/21 21:00 10/24/21 22:04 Sodium Polystyrene Sulfonate (Kayexalate) 15 gm 1X ONCE PO 10/24/21 19:15 10/24/21 19:16 DC 10/24/21 22:05 Justifications for Admission Other Justification LORNE KWON MD Oct 25, 2021 13:40
[2021-10-25 15:00] VITALS: BP 90/59
--- NOTE | 2021-10-25 15:01 | RAD ---
US RENAL BILAT History: Reason: LOGAN on CKD w/ some urinary retention;Serrano placed / Spl. Instructions: / History: Comparison: CT December 19, 2020 Procedure: Transabdominal ultrasound images are obtained of the kidneys and bladder. Findings: Right kidney: measures 4.8 x 6.0 x 6.7 cm. Echogenic renal cortex. Cortical thinning. No hydronephro sis. Renal cortical calcifications. Left kidney: measures 11.3 x 5.0 x 6.6 cm. Cortical thinning with increased renal cortical echotextu re. No hydronephrosis. Left renal cyst measures 3.9 cm. No follow-up imaging is recommended per conse nsus recommendations based on imaging criteria. Renal cortical calcific effusions. Urinary bladder: Serrano catheter within decompressed urinary bladder. Aorta and IVC not well seen due to light structures. IMPRESSION: 1. Bilateral renal cortical thinning with increased echotexture and calcifications, related to chron ic renal disease. Electronically signed by: Paxton Pablo DO (10/25/2021 2:58 PM) [id number]
[2021-10-25 19:00] VITALS: BP 168/78
[2021-10-25] MEDS: ATORVASTATIN CALCIUM 10 MG TABLET. PO SCH (21:18)
[2021-10-25 23:00] VITALS: BP 116/71
[2021-10-26 03:00] VITALS: BP 132/70
[2021-10-26 07:00] VITALS: BP 116/74
[2021-10-26 08:22] LABS: ALBUMIN 3.1 g/dL (3.4-5.0); CALCIUM 8.6 mg/dL (8.5-10.1); CREATININE 4.4 mg/dL (0.6-1.0); GFR 9.7; PHOSPHORUS 4.3 mg/dL (2.6-4.7); POTASSIUM 4.5 mmol/L (3.5-5.1)
[2021-10-26] MEDS: HEPARIN for SUB-Q USE 5,000 UNIT/ML VIAL. SQ SCH ×2 (09:00→20:54)
[2021-10-26] MEDS: SENNOSIDES/DOCUSATE 8.6/50MG TABLET. PO SCH ×2 (09:00→20:48)
[2021-10-26] MEDS ORDERED: IV NORMAL SALINE 1000ML BAG 1,000 ML IV PRN ×2 (10:00)
[2021-10-26] MEDS ORDERED: ALBUMIN HUMAN 25% 200 ML IV PRN (10:00)
[2021-10-26] MEDS ORDERED: diphenhydrAMINE 50 MG/ML VIAL IV PRN (10:00)
[2021-10-26] MEDS ORDERED: DIALYSIS PATIENT. MC PRN ×2 (10:45)
[2021-10-26 11:00] VITALS: BP 133/86
--- NOTE | 2021-10-26 11:24 | PDOC ---
Dialysis Progress Note Date of Service: DATE: 10/26/21 TIME: 11:23 Dialysis Note Dialysis Note Seen on Hemodialysis, tolerating treatment ] Okay so far Vitals on Hemodialysis: Blood pressure: 136/83 pulse 89 afebrile General Appearance: Suspect underlying dementia Awake: Alert Oriented x ? 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 Vitals Vital Signs Vital Signs Date Time Temp Pulse Resp B/P (MAP) Pulse Ox O2 Delivery O2 Flow Rate FiO2 10/26/21 07:00 97.4 75 18 116/74 (88) 94 Room Air 97.4 Labs Last Labs Laboratory Tests Test 10/24/21 15:00 10/24/21 19:28 10/25/21 07:20 10/25/21 11:00 White Blood Count 11.0 x10^3/uL (4.0-11.0) 8.4 x10^3/uL (4.0-11.0) Red Blood Count 3.82 x10^6/uL (3.50-5.40) 3.85 x10^6/uL (3.50-5.40) Hemoglobin 12.1 g/dL (12.0-15.5) 12.4 g/dL (12.0-15.5) Hematocrit 36.8 % (36.0-47.0) 37.5 % (36.0-47.0) Mean Corpuscular Volume 96 fL (79-100) 98 fL (79-100) Mean Corpuscular Hemoglobin 32 pg (25-35) 32 pg (25-35) Mean Corpuscular Hemoglobin Concent 33 g/dL (31-37) 33 g/dL (31-37) Red Cell Distribution Width 16.2 % (11.5-14.5) 16.1 % (11.5-14.5) Platelet Count 230 x10^3/uL (140-400) 208 x10^3/uL (140-400) Neutrophils (%) (Auto) 81 % (31-73) 78 % (31-73) Lymphocytes (%) (Auto) 9 % (24-48) 10 % (24-48) Monocytes (%) (Auto) 7 % (0-9) 7 % (0-9) Eosinophils (%) (Auto) 2 % (0-3) 4 % (0-3) Basophils (%) (Auto) 1 % (0-3) 1 % (0-3) Neutrophils # (Auto) 8.9 x10^3/uL (1.8-7.7) 6.6 x10^3/uL (1.8-7.7) Lymphocytes # (Auto) 1.0 x10^3/uL (1.0-4.8) 0.9 x10^3/uL (1.0-4.8) Monocytes # (Auto) 0.8 x10^3/uL (0.0-1.1) 0.6 x10^3/uL (0.0-1.1) Eosinophils # (Auto) 0.2 x10^3/uL (0.0-0.7) 0.4 x10^3/uL (0.0-0.7) Basophils # (Auto) 0.1 x10^3/uL (0.0-0.2) 0.0 x10^3/uL (0.0-0.2) Sodium Level 130 mmol/L (136-145) 138 mmol/L (136-145) Potassium Level 6.2 mmol/L (3.5-5.1) 5.1 mmol/L (3.5-5.1) Chloride Level 100 mmol/L (98-107) 106 mmol/L (98-107) Carbon Dioxide Level 17 mmol/L (21-32) 18 mmol/L (21-32) Anion Gap 13 (6-14) 14 (6-14) Blood Urea Nitrogen 123 mg/dL (7-20) 109 mg/dL (7-20) Creatinine 6.2 mg/dL (0.6-1.0) 5.6 mg/dL (0.6-1.0) Estimated GFR (Cockcroft-Gault) 6.5 7.3 BUN/Creatinine Ratio 20 (6-20) 19 (6-20) Glucose Level 105 mg/dL (70-99) 81 mg/dL (70-99) Calcium Level 9.0 mg/dL (8.5-10.1) 8.7 mg/dL (8.5-10.1) Total Bilirubin 0.4 mg/dL (0.2-1.0) 0.4 mg/dL (0.2-1.0) Aspartate Amino Transf (AST/SGOT) 16 U/L (15-37) 14 U/L (15-37) Alanine Aminotransferase (ALT/SGPT) 14 U/L (14-59) 14 U/L (14-59) Alkaline Phosphatase 125 U/L (46-116) 121 U/L (46-116) Troponin I High Sensitivity 7 ng/L (4-50) IT-Hgl-C-Type Natriuretic Peptide 2064 pg/mL (0-449) Total Protein 7.5 g/dL (6.4-8.2) 7.1 g/dL (6.4-8.2) Albumin 3.3 g/dL (3.4-5.0) 3.0 g/dL (3.4-5.0) Albumin/Globulin Ratio 0.8 (1.0-1.7) 0.7 (1.0-1.7) SARS-CoV-2 RNA (CRISTIAN) Negative (Negative) SARS-CoV-2 Antigen (Rapid) Negative (NEGATIVE) Hepatitis B Surface Antigen Nonreactive (Nonreactive) Hepatitis B Surface Antibody Nonreactive Urine Collection Type Unknown Urine Color Yellow Urine Clarity Clear Urine pH 5.0 (<5.0-8.0) Urine Specific [place] 1.015 (1.000-1.030) Urine Protein Negative mg/dL (NEG-TRACE) Urine Glucose (UA) Negative mg/dL (NEG) Urine Ketones (Stick) Negative mg/dL (NEG) Urine Blood Negative (NEG) Urine Nitrite Negative (NEG) Urine Bilirubin Negative (NEG) Urine Urobilinogen Dipstick 0.2 mg/dL (0.2 mg/dL) Urine Leukocyte Esterase Negative (NEG) Urine RBC 0 /HPF (0-2) Urine WBC 0 /HPF (0-4) Urine Squamous Epithelial Cells Few /LPF Urine Bacteria 0 /HPF (0-FEW) Test 10/26/21 06:15 Sodium Level 137 mmol/L (136-145) Potassium Level 4.5 mmol/L (3.5-5.1) Chloride Level 108 mmol/L (98-107) Carbon Dioxide Level 18 mmol/L (21-32) Anion Gap 11 (6-14) Blood Urea Nitrogen 84 mg/dL (7-20) Creatinine 4.4 mg/dL (0.6-1.0) Estimated GFR (Cockcroft-Gault) 9.7 Glucose Level 84 mg/dL (70-99) Calcium Level 8.6 mg/dL (8.5-10.1) Phosphorus Level 4.3 mg/dL (2.6-4.7) Albumin 3.1 g/dL (3.4-5.0) Laboratory Tests Test 10/26/21 06:15 Sodium Level 137 mmol/L (136-145) Potassium Level 4.5 mmol/L (3.5-5.1) Chloride Level 108 mmol/L (98-107) Carbon Dioxide Level 18 mmol/L (21-32) Anion Gap 11 (6-14) Blood Urea Nitrogen 84 mg/dL (7-20) Creatinine 4.4 mg/dL (0.6-1.0) Estimated GFR (Cockcroft-Gault) 9.7 Glucose Level 84 mg/dL (70-99) Calcium Level 8.6 mg/dL (8.5-10.1) Phosphorus Level 4.3 mg/dL (2.6-4.7) Albumin 3.1 g/dL (3.4-5.0) Assessment Assessment Problems Medical Problems: (1) Chronic kidney disease Status: Acute (2) Hyperkalemia Status: Acute Plan Plan of Care Problems Medical Problems: (1) Chronic kidney disease Status: Acute (2) Hyperkalemia Status: Acute JOE HARDY MD Oct 26, 2021 11:24
--- NOTE | 2021-10-26 12:04 | PDOC ---
[employer] PROGRESS NOTE Date of Service DOS: DATE: 10/26/21 TIME: 12:03 Chief Complaint Chief Complaint Acute on chronic kidney injury, possibly due to vasomotor nephropathy versus progression of her CKD Hyperkalemia History of hypertension History of dyslipidemia History of mild dementia Nephrology consulted in emergency room recommended starting fluids placing Serrano and checking UA -We will need to be cautious with fluids given pulmonary vascular congestion; will at least check an echocardiogram as I do not see one in our system -May necessitate dialysis will hold off on placing temporary catheter and defer this to nephrology -Daily BMP monitor ins and outs -Renal diet -DVT prophylaxis -Home meds resumed as indicated History of Present Illness History of Present Illness 76-year-old female who presents to the emergency department for abnormal labs. Patient resides at [facility]. They did routine lab work and noted that her creatinine was 6.3 and her potassium was 5.7. Patient has a history of A. fib, dementia, anxiety, stage IV/V chronic kidney disease and congestive heart failure. He takes apixaban and Lasix. Patient has no complaints of pain, chest pain, shortness of breath, fevers, increased weight gain, increased leg swelling. Her vital signs are stable. 10/25/2021 No acute events overnight. Patient seen and examined bedside. Bladder scan showed 450 cc of urine and Serrano was placed. Patient does not know why her kidney is dysfunctioning. She does take multiple blood pressure medications. She states that her blood pressure is well controlledAnd measures around 120/80. She is on 3 antihypertensive medications. Pending possible temporary HD catheter placement for possible dialysis. Continue to trend creatinine and urine output. 10/26/2021 No acute events overnight. Patient seen examined bedside. Currently receiving dialysis through hemodialysis catheter and tolerating well. AF and VSS. Patient's chart, labs, images were reviewed and discussed with RN Vitals/I&O Vitals/I&O: Vital Signs Date Time Temp Pulse Resp B/P (MAP) Pulse Ox O2 Delivery O2 Flow Rate FiO2 10/26/21 08:00 Room Air 10/26/21 07:00 97.4 75 18 116/74 (88) 94 97.4 I & O 10/25/21 10/25/21 10/26/21 15:00 23:00 07:00 Intake Total 75 ml 200 ml 200 ml Balance 75 ml 200 ml 200 ml Physical Exam General: Alert, Cooperative Heart: Regular rate Lungs: Clear Abdomen: Normal bowel sounds Extremities: No clubbing Skin: No rashes Labs Labs: Laboratory Tests Test 10/26/21 06:15 Sodium Level 137 mmol/L (136-145) Potassium Level 4.5 mmol/L (3.5-5.1) Chloride Level 108 mmol/L (98-107) Carbon Dioxide Level 18 mmol/L (21-32) Anion Gap 11 (6-14) Blood Urea Nitrogen 84 mg/dL (7-20) Creatinine 4.4 mg/dL (0.6-1.0) Estimated GFR (Cockcroft-Gault) 9.7 Glucose Level 84 mg/dL (70-99) Calcium Level 8.6 mg/dL (8.5-10.1) Phosphorus Level 4.3 mg/dL (2.6-4.7) Albumin 3.1 g/dL (3.4-5.0) Assessment and Plan Assessmemt and Plan Problems Medical Problems: (1) Chronic kidney disease Status: Acute (2) Hyperkalemia Status: Acute Comment Review of Relevant I have reviewed the following items mariaa (where applicable) has been applied. Medications: Current Medications Medications (Trade) Dose Ordered Sig/Cailin Route PRN Reason Start Time Stop Time Status Last Admin Dose Admin Diphenhydramine HCl (Benadryl) 25 mg 1X PRN PRN IV ITCHING 10/26/21 10:00 10/27/21 09:59 10/26/21 11:18 Justifications for Admission Other Justification LORNE KWON MD Oct 26, 2021 12:04
[2021-10-26] MEDS: CHOLECALCIFEROL (VITAMIN D3) 1,000 UNIT TABLET PO SCH (14:34)
[2021-10-26] MEDS: METOPROLOL SUCC 24HR ER 50 MG TAB.ER.24H. PO SCH (14:34)
[2021-10-26] MEDS: EZETIMIBE 10 MG TABLET. PO SCH (14:37)
[2021-10-26 15:00] VITALS: BP 139/94
[2021-10-26 19:00] VITALS: BP 116/68
[2021-10-26] MEDS: ATORVASTATIN CALCIUM 10 MG TABLET. PO SCH (20:48)
[2021-10-26] MEDS: ZOLPIDEM 5 MG TABLET. PO PRN (20:48)
[2021-10-26 23:15] VITALS: BP 95/68
[2021-10-27 03:18] VITALS: BP 133/78
[2021-10-27 07:00] VITALS: BP 114/64
[2021-10-27 07:58] LABS: ALBUMIN 3.1 g/dL (3.4-5.0); CALCIUM 8.8 mg/dL (8.5-10.1); CREATININE 3.5 mg/dL (0.6-1.0); GFR 12.6; PHOSPHORUS 3.6 mg/dL (2.6-4.7); POTASSIUM 3.9 mmol/L (3.5-5.1)
[2021-10-27] MEDS: SENNOSIDES/DOCUSATE 8.6/50MG TABLET. PO SCH ×2 (08:59→21:07)
[2021-10-27] MEDS: EZETIMIBE 10 MG TABLET. PO SCH (09:00)
[2021-10-27] MEDS: METOPROLOL SUCC 24HR ER 50 MG TAB.ER.24H. PO SCH (09:00)
[2021-10-27] MEDS: CHOLECALCIFEROL (VITAMIN D3) 1,000 UNIT TABLET PO SCH (09:00)
[2021-10-27] MEDS: HEPARIN for SUB-Q USE 5,000 UNIT/ML VIAL. SQ SCH ×2 (09:07→21:13)
--- NOTE | 2021-10-27 09:29 | PDOC ---
DATE OF SERVICE: DOS: DATE: 10/27/21 TIME: 09:24 SUBJECTIVE ROS Follow-up for acute renal failure, possible ATN Patient is minimally verbal with significant underlying dementia CVS: no Orthopnea, no CP RESP: no SOB, no SEPULEVDA GI: no Nausea, no Vomiting : no Dysuria, no Urgency OBJECTIVE Vital Signs Vital Signs Date Time Temp Pulse Resp B/P (MAP) Pulse Ox O2 Delivery O2 Flow Rate FiO2 10/27/21 09:00 103 114/64 10/27/21 07:00 97.6 18 98 Room Air 97.6 I & 0 Intake and Output 10/27/21 07:00 Intake Total 560 ml Output Total 1750 ml Balance -1190 ml Intake Oral 560 ml Output Urine Total 1750 ml # Voids 9 PHYSICAL EXAM Physical Exam GEN: Awake, Oriented x ? 1, In no visible distress EYES: Vision Unchanged, Conjunctiva Normal EN: No EN Drainage, Mucous Membranes moist NECK: no JVD, no JVP, Supple, no Thyromegaly CVS: S1S2, possible soft murmur, No Gallop, No Rub,no Edema RESP: no Rales, no Rhonchi,no Acc. Muscle Use GI: BS + ve, NO Bruit, Non Tender, Non Distended : no CVA tenderness, no Suprapubic Tenderness DIAGNOSIS/ASSESSMENT Assessment & Plan Acute kidney injury: Baseline not known. UA was benign. Sonogram does show some cortical thinning. Unclear if she has arterionephrosclerosis leading to ESRD yet. Urine output is good as documented. Current fluid and E-lyte status does not necessitate emergent need for dialysis. Will re-evaluate for dialysis in the am. Continue IV fluids and watch trend. May need permacath placement if dialysis is to be continued hereafter. Possible intravascular volume depletion cannot be ruled out. Abnormal chest x-ray suggestive of pulmonary edema: Echocardiogram pending. Patient asymptomatic from the standpoint hence gentle IV fluids will be started. Repeat chest x-ray is ordered Metabolic acidosis: Now resolved with 1 round of dialysis. Watch on normal saline HTN: Current BP meds as reviewed. See orders for changes. Marginal tachycardia with occasional hypotension: Await echocardiogram. Consider cardiology consultation. Unclear if tachycardia suggestive of intravascular volume depletion COMMENT/RELEVANT DATA Meds Current Medications Medications (Trade) Dose Ordered Sig/Cailin Start Time Stop Time Status Last Admin Dose Admin Acetaminophen (Tylenol) 650 mg PRN Q6HRS PRN 10/24/21 19:15 Albumin Human 200 ml @ 200 mls/hr 1X PRN PRN 10/26/21 10:00 10/26/21 15:59 DC Atorvastatin Calcium (Lipitor) 10 mg HS 10/24/21 21:00 10/26/21 20:48 10 MG Calcium Carbonate/ Glycine (Tums) 500 mg PRN Q3HRS PRN 10/24/21 19:15 Diltiazem HCl (Cardizem 24hr Cd) 120 mg DAILY 10/25/21 09:00 10/27/21 09:00 120 MG Diphenhydramine HCl (Benadryl) 25 mg 1X PRN PRN 10/26/21 10:00 10/27/21 09:59 10/26/21 11:18 25 MG EZETIMIBE (Zetia) 10 mg DAILY 10/25/21 09:00 10/27/21 09:00 10 MG Heparin Sodium (Porcine) (Heparin Sodium) 5,000 unit Q12HR 10/24/21 21:00 10/27/21 09:07 5,000 UNIT Info (Non-Icu Electrolyte Protocol) 1 ea PRN DAILY PRN 10/24/21 19:15 Info (PHARMACY MONITORING -- do not chart) 1 each PRN DAILY PRN 10/26/21 10:45 Metoprolol Succinate (Toprol Xl) 50 mg DAILY 10/25/21 09:00 10/27/21 09:00 50 MG Ondansetron HCl (Zofran) 4 mg PRN Q6HRS PRN 10/24/21 19:15 Senna/Docusate Sodium (Senna Plus) 1 tab BID 10/24/21 21:00 10/27/21 08:59 1 TAB Sodium Polystyrene Sulfonate (Kayexalate) 15 gm 1X ONCE 10/24/21 19:15 10/24/21 19:16 DC 10/24/21 22:05 15 GM Sodium Chloride 1,000 ml @ 400 mls/hr Q2H30M PRN 10/26/21 10:00 10/26/21 21:59 DC Sodium Chloride (Normal Saline Flush) 10 ml 1X PRN PRN 10/25/21 07:45 10/26/21 07:44 DC Vitamin D (Vitamin D3) 2,000 unit DAILY 10/25/21 09:00 10/27/21 09:00 2,000 UNIT Zolpidem Tartrate (Ambien) 5 mg PRN QHS PRN 10/24/21 19:15 10/26/21 20:48 5 MG Lab Laboratory Tests Test 10/27/21 06:30 Sodium Level 141 mmol/L (136-145) Potassium Level 3.9 mmol/L (3.5-5.1) Chloride Level 102 mmol/L (98-107) Carbon Dioxide Level 27 mmol/L (21-32) Anion Gap 12 (6-14) Blood Urea Nitrogen 33 mg/dL (7-20) Creatinine 3.5 mg/dL (0.6-1.0) Estimated GFR (Cockcroft-Gault) 12.6 Glucose Level 98 mg/dL (70-99) Calcium Level 8.8 mg/dL (8.5-10.1) Phosphorus Level 3.6 mg/dL (2.6-4.7) Albumin 3.1 g/dL (3.4-5.0) Results All relevant outside records, renal labs, imaging studies, telemetry/EKG's were reviewed. Other Renal ultrasound 10/25/2021: Findings: Right kidney: measures 4.8 x 6.0 x 6.7 cm. Echogenic renal cortex. Cortical thinning. No hydronephrosis. Renal cortical calcifications. Left kidney: measures 11.3 x 5.0 x 6.6 cm. Cortical thinning with increased renal cortical echotexture. No hydronephrosis. Left renal cyst measures 3.9 cm. No follow-up imaging is recommended per consensus recommendations based on imaging criteria. Renal cortical calcific effusions. Urinary bladder: Serrano catheter within decompressed urinary bladder. Aorta and IVC not well seen due to light structures. IMPRESSION: 1. Bilateral renal cortical thinning with increased echotexture and calcifications, related to chronic renal disease. Justicifation of Admission Dx: Justifications for Admission: Justification of Admission Dx: Yes JOE HARDY MD Oct 27, 2021 09:29
[2021-10-27 11:00] VITALS: BP 113/70
--- NOTE | 2021-10-27 11:58 | PDOC ---
[employer] PROGRESS NOTE Date of Service DOS: DATE: 10/27/21 TIME: 11:55 Chief Complaint Chief Complaint Acute on chronic kidney injury, possibly due to vasomotor nephropathy versus progression of her CKD Hyperkalemia History of hypertension History of dyslipidemia History of mild dementia Nephrology consulted in emergency room recommended starting fluids placing Serrano and checking UA -We will need to be cautious with fluids given pulmonary vascular congestion; will at least check an echocardiogram as I do not see one in our system -May necessitate dialysis will hold off on placing temporary catheter and defer this to nephrology -Daily BMP monitor ins and outs -Renal diet -DVT prophylaxis -Home meds resumed as indicated History of Present Illness History of Present Illness 76-year-old female who presents to the emergency department for abnormal labs. Patient resides at [facility]. They did routine lab work and noted that her creatinine was 6.3 and her potassium was 5.7. Patient has a history of A. fib, dementia, anxiety, stage IV/V chronic kidney disease and congestive heart failure. He takes apixaban and Lasix. Patient has no complaints of pain, chest pain, shortness of breath, fevers, increased weight gain, increased leg swelling. Her vital signs are stable. 10/25/2021 No acute events overnight. Patient seen and examined bedside. Bladder scan showed 450 cc of urine and Serrano was placed. Patient does not know why her kidney is dysfunctioning. She does take multiple blood pressure medications. She states that her blood pressure is well controlledAnd measures around 120/80. She is on 3 antihypertensive medications. Pending possible temporary HD catheter placement for possible dialysis. Continue to trend creatinine and urine output. 10/26/2021 No acute events overnight. Patient seen examined bedside. Currently receiving dialysis through hemodialysis catheter and tolerating well. AF and VSS. Patient's chart, labs, images were reviewed and discussed with RN 10/27/2021 No acute events or night. Patient seen examined bedside. Tolerated diet hemodialysis well with improvement in her lower extremity edema. Spoke with sponsor who is also her neighbor and DPOA and helps make decisions for and . Looking to go back to [facility] [place] when medically appropriate. I believe patient will need one more dialysis sessions before discharge. Afebrile and vital signs are stable. Some tachycardia and therefore fluids were restarted before considering continue on with dialysis. Nephrology following up with this. Saturating 93% on room air. Pending PT evaluation before discharge. Patient's chart, labs, images were reviewed and discussed with RN Vitals/I&O Vitals/I&O: Vital Signs Date Time Temp Pulse Resp B/P (MAP) Pulse Ox O2 Delivery O2 Flow Rate FiO2 10/27/21 11:00 98.1 96 18 113/70 (84) 93 Room Air 98.1 I & O 10/26/21 10/26/21 10/27/21 15:00 23:00 07:00 Intake Total 380 ml 180 ml Output Total 1450 ml 200 ml 100 ml Balance -1070 ml -20 ml -100 ml Physical Exam General: Alert, Cooperative Heart: Regular rate Lungs: Clear Abdomen: Normal bowel sounds Extremities: No clubbing Skin: No rashes Labs Labs: Laboratory Tests Test 10/27/21 06:30 Sodium Level 141 mmol/L (136-145) Potassium Level 3.9 mmol/L (3.5-5.1) Chloride Level 102 mmol/L (98-107) Carbon Dioxide Level 27 mmol/L (21-32) Anion Gap 12 (6-14) Blood Urea Nitrogen 33 mg/dL (7-20) Creatinine 3.5 mg/dL (0.6-1.0) Estimated GFR (Cockcroft-Gault) 12.6 Glucose Level 98 mg/dL (70-99) Calcium Level 8.8 mg/dL (8.5-10.1) Phosphorus Level 3.6 mg/dL (2.6-4.7) Albumin 3.1 g/dL (3.4-5.0) Assessment and Plan Assessmemt and Plan Problems Medical Problems: (1) Chronic kidney disease Status: Acute (2) Hyperkalemia Status: Acute Comment Review of Relevant I have reviewed the following items mariaa (where applicable) has been applied. Justifications for Admission Other Justification LORNE KWON MD Oct 27, 2021 11:58
--- NOTE | 2021-10-27 13:18 | RAD ---
XR CHEST 1V INDICATION: Reevaluate pulmonary edema COMPARISON STUDY: 10/25/2021. FINDINGS: Life Support Devices: Right IJ dual-lumen catheter terminating in the lower SVC. Lungs: Normal lung volume. Stable mild interstitial prominence. Pleura: No pleural effusion or pneumothorax. Heart and Mediastinum: Stable cardiomediastinal silhouette and great vessels. IMPRESSION: Stable mild interstitial prominence. Electronically signed by: Cuco Johnston MD (10/27/2021 1:16 PM) [id number]
[2021-10-27] MEDS: IV NORMAL SALINE 1000ML BAG 1,000 ML IV SCH ×2 (13:52→23:50)
[2021-10-27 15:00] VITALS: BP 113/74
[2021-10-27 19:00] VITALS: BP 108/67
[2021-10-27] MEDS: ATORVASTATIN CALCIUM 10 MG TABLET. PO SCH (21:07)
[2021-10-27] MEDS: ZOLPIDEM 5 MG TABLET. PO PRN (21:07)
[2021-10-27 23:00] VITALS: BP 116/71
[2021-10-28 03:00] VITALS: BP 123/69
[2021-10-28 07:00] VITALS: BP 135/81
[2021-10-28 08:22] LABS: ALBUMIN 2.7 g/dL (3.4-5.0); CALCIUM 8.7 mg/dL (8.5-10.1); CREATININE 3.7 mg/dL (0.6-1.0); GFR 11.8; PHOSPHORUS 3.5 mg/dL (2.6-4.7); POTASSIUM 3.6 mmol/L (3.5-5.1)
[2021-10-28] MEDS ORDERED: ALBUMIN HUMAN 25% 200 ML IV PRN (09:00)
[2021-10-28] MEDS ORDERED: DIALYSIS PATIENT. MC PRN (09:00)
[2021-10-28] MEDS ORDERED: IV NORMAL SALINE 1000ML BAG 1,000 ML IV PRN ×2 (09:00)
[2021-10-28] MEDS: EZETIMIBE 10 MG TABLET. PO SCH (09:17)
[2021-10-28] MEDS: SENNOSIDES/DOCUSATE 8.6/50MG TABLET. PO SCH ×2 (09:17→20:57)
[2021-10-28] MEDS: CHOLECALCIFEROL (VITAMIN D3) 1,000 UNIT TABLET PO SCH (09:17)
[2021-10-28] MEDS: HEPARIN for SUB-Q USE 5,000 UNIT/ML VIAL. SQ SCH ×2 (09:25→21:03)
--- NOTE | 2021-10-28 09:58 | PDOC ---
DATE OF SERVICE DATE: 10/28/21 TIME: 09:54 SUBJECTIVE ROS States feeling ok Denies N/V. Getting Echo at bedside OBJECTIVE Vital Signs Vital Signs Date Time Temp Pulse Resp B/P (MAP) Pulse Ox O2 Delivery O2 Flow Rate FiO2 10/28/21 07:40 Room Air 10/28/21 07:00 97.7 88 14 135/81 (99) 93 97.7 I & 0 Intake and Output 10/28/21 07:00 Intake Total 560 ml Output Total 1100 ml Balance -540 ml Intake Oral 560 ml Output Urine Total 1100 ml PHYSICAL EXAM Physical Exam GEN: No apparent distress. HEENT: Normal cephalic, atraumatic, external auditory canals are patent NECK: Supple, LUNGS: Clear to auscultation in all lung hodgson , non labored HEART: RRR, S!, S2 present. ABDOMEN: Soft, nontender. Positive bowel sounds, no organomegaly, normal bowel sounds EXTREMITIES: Without clubbing, cyanosis, or edema. P NEUROLOGIC: Normal speech and tone. A&O x 3, moves all extremities, no obvious focal deficits PSYCHIATRIC: Normal affect, normal mood. Stable SKIN: No ulcerations or rashes, good skin turgor, no jaundice No Serrano, No CVA or SP tenderness DIAGNOSIS/ASSESSMENT Assessment & Plan LOGAN - Initiated on Dialysis 10/26, stable renal function, Non Oliguric .UA benign. Sonogram does show some cortical thinning. Current fluid and E-lyte status does not necessitate emergent need for dialysis. Will re-evaluate for dialysis in the am. May need permacath placement if dialysis is to be continued . CT scan in december 2020- Kidneys unremarkable . Supportive care, strict I/O , avoid nephrotoxins maintain hydration CKD stage 4- based [place] labs [place] [facility] [place] , no prior or interval labs available to me HyperKalemia- POA- resolved HTN- On ARb at home. Holding currently Hx of GI bleed December 2020 - Hospitalized at [facility], . Suspected diverticular bleed Anemia - Improved since above admission, stable Hx of A Fib COMMENT/RELEVANT DATA Meds Current Medications Medications (Trade) Dose Ordered Sig/Cailin Start Time Stop Time Status Last Admin Dose Admin Acetaminophen (Tylenol) 650 mg PRN Q6HRS PRN 10/24/21 19:15 Albumin Human 200 ml @ 200 mls/hr 1X PRN PRN 10/28/21 09:00 10/28/21 14:59 Atorvastatin Calcium (Lipitor) 10 mg HS 10/24/21 21:00 10/27/21 21:07 10 MG Calcium Carbonate/ Glycine (Tums) 500 mg PRN Q3HRS PRN 10/24/21 19:15 Diltiazem HCl (Cardizem 24hr Cd) 120 mg DAILY 10/25/21 09:00 10/27/21 09:00 120 MG Diphenhydramine HCl (Benadryl) 25 mg 1X PRN PRN 10/26/21 10:00 10/27/21 09:59 DC 10/26/21 11:18 25 MG EZETIMIBE (Zetia) 10 mg DAILY 10/25/21 09:00 10/28/21 09:17 10 MG Heparin Sodium (Porcine) (Heparin Sodium) 5,000 unit Q12HR 10/24/21 21:00 10/28/21 09:25 5,000 UNIT Info (Non-Icu Electrolyte Protocol) 1 ea PRN DAILY PRN 10/24/21 19:15 Info (PHARMACY MONITORING -- do not chart) 1 each PRN DAILY PRN 10/28/21 09:00 Metoprolol Succinate (Toprol Xl) 50 mg DAILY 10/25/21 09:00 10/27/21 09:00 50 MG Ondansetron HCl (Zofran) 4 mg PRN Q6HRS PRN 10/24/21 19:15 Senna/Docusate Sodium (Senna Plus) 1 tab BID 10/24/21 21:00 10/28/21 09:17 1 TAB Sodium Polystyrene Sulfonate (Kayexalate) 15 gm 1X ONCE 10/24/21 19:15 10/24/21 19:16 DC 10/24/21 22:05 15 GM Sodium Chloride 1,000 ml @ 400 mls/hr Q2H30M PRN 10/28/21 09:00 10/28/21 20:59 Sodium Chloride (Normal Saline Flush) 10 ml 1X PRN PRN 10/25/21 07:45 10/26/21 07:44 DC Vitamin D (Vitamin D3) 2,000 unit DAILY 10/25/21 09:00 10/28/21 09:17 2,000 UNIT Zolpidem Tartrate (Ambien) 5 mg PRN QHS PRN 10/24/21 19:15 10/27/21 21:07 5 MG Lab Laboratory Tests Test 10/28/21 05:50 Sodium Level 137 mmol/L (136-145) Potassium Level 3.6 mmol/L (3.5-5.1) Chloride Level 102 mmol/L (98-107) Carbon Dioxide Level 27 mmol/L (21-32) Anion Gap 8 (6-14) Blood Urea Nitrogen 35 mg/dL (7-20) Creatinine 3.7 mg/dL (0.6-1.0) Estimated GFR (Cockcroft-Gault) 11.8 Glucose Level 84 mg/dL (70-99) Calcium Level 8.7 mg/dL (8.5-10.1) Phosphorus Level 3.5 mg/dL (2.6-4.7) Albumin 2.7 g/dL (3.4-5.0) Results All relevant outside records, renal labs, imaging studies, telemetry/EKG's were reviewed. Justicifation of Admission Dx: Justifications for Admission: Justification of Admission Dx: Yes ADENIKE EDMONDS MD Oct 28, 2021 09:58
--- NOTE | 2021-10-28 10:34 | NUR ---
SW following. Chart reviewed, awaiting further determination of whether pt needs a dialysis chair time arranged. [facility] SW will continue to follow.
[2021-10-28 10:54] VITALS: BP 118/71
[2021-10-28] MEDS ORDERED: PERFLUTREN PROTEIN-A MICROSPHR 0.22 MG/ML 3 ML VIAL. IV ONE ×3 (12:00→15:32)
[2021-10-28] MEDS: IV NORMAL SALINE 1000ML BAG 1,000 ML IV SCH (13:00)
--- NOTE | 2021-10-28 14:05 | PDOC ---
[employer] PROGRESS NOTE Date of Service DOS: DATE: 10/28/21 TIME: 14:02 Chief Complaint Chief Complaint Acute on chronic kidney injury, possibly due to vasomotor nephropathy versus progression of her CKD Hyperkalemia History of hypertension History of dyslipidemia History of mild dementia Nephrology consulted in emergency room recommended starting fluids placing Serrano and checking UA -We will need to be cautious with fluids given pulmonary vascular congestion; will at least check an echocardiogram as I do not see one in our system -May necessitate dialysis will hold off on placing temporary catheter and defer this to nephrology -Daily BMP monitor ins and outs -Renal diet -DVT prophylaxis -Home meds resumed as indicated History of Present Illness History of Present Illness 76-year-old female who presents to the emergency department for abnormal labs. Patient resides at [facility]. They did routine lab work and noted that her creatinine was 6.3 and her potassium was 5.7. Patient has a history of A. fib, dementia, anxiety, stage IV/V chronic kidney disease and congestive heart failure. He takes apixaban and Lasix. Patient has no complaints of pain, chest pain, shortness of breath, fevers, increased weight gain, increased leg swelling. Her vital signs are stable. 10/25/2021 No acute events overnight. Patient seen and examined bedside. Bladder scan showed 450 cc of urine and Serrano was placed. Patient does not know why her kidney is dysfunctioning. She does take multiple blood pressure medications. She states that her blood pressure is well controlledAnd measures around 120/80. She is on 3 antihypertensive medications. Pending possible temporary HD catheter placement for possible dialysis. Continue to trend creatinine and urine output. 10/26/2021 No acute events overnight. Patient seen examined bedside. Currently receiving dialysis through hemodialysis catheter and tolerating well. AF and VSS. Patient's chart, labs, images were reviewed and discussed with RN 10/27/2021 No acute events or night. Patient seen examined bedside. Tolerated diet hemodialysis well with improvement in her lower extremity edema. Spoke with sponsor who is also her neighbor and DPOA and helps make decisions for and . Looking to go back to [facility] when medically appropriate. I believe patient will need one more dialysis sessions before discharge. Afebrile and vital signs are stable. Some tachycardia and therefore fluids were restarted before considering continue on with dialysis. Nephrology following up with this. Saturating 93% on room air. Pending PT evaluation before discharge. Patient's chart, labs, images were reviewed and discussed with RN 10/28/2021 No acute events overnight. Patient seen and examined bedside. Tolerating hemodialysis and nephrology will reevaluate in the morning. Possible [facility] placement at time of discharge. Patient's chart, labs, images were revi ewed and discussed with RN Vitals/I&O Vitals/I&O: Vital Signs Date Time Temp Pulse Resp B/P (MAP) Pulse Ox O2 Delivery O2 Flow Rate FiO2 10/28/21 10:54 98.0 94 16 118/71 (87) 94 Room Air 98.0 I & O 10/27/21 10/27/21 10/28/21 15:00 23:00 07:00 Intake Total 380 ml 180 ml Output Total 200 ml 300 ml 600 ml Balance 180 ml -120 ml -600 ml Physical Exam General: Alert, Cooperative Heart: Regular rate Lungs: Clear Abdomen: Normal bowel sounds Extremities: No clubbing Skin: No rashes Labs Labs: Laboratory Tests Test 10/28/21 05:50 Sodium Level 137 mmol/L (136-145) Potassium Level 3.6 mmol/L (3.5-5.1) Chloride Level 102 mmol/L (98-107) Carbon Dioxide Level 27 mmol/L (21-32) Anion Gap 8 (6-14) Blood Urea Nitrogen 35 mg/dL (7-20) Creatinine 3.7 mg/dL (0.6-1.0) Estimated GFR (Cockcroft-Gault) 11.8 Glucose Level 84 mg/dL (70-99) Calcium Level 8.7 mg/dL (8.5-10.1) Phosphorus Level 3.5 mg/dL (2.6-4.7) Albumin 2.7 g/dL (3.4-5.0) Assessment and Plan Assessmemt and Plan Problems Medical Problems: (1) Chronic kidney disease Status: Acute (2) Hyperkalemia Status: Acute Comment Review of Relevant I have reviewed the following items mariaa (where applicable) has been applied. Justifications for Admission Other Justification LORNE KWON MD Oct 28, 2021 14:05
[2021-10-28] MEDS: METOPROLOL SUCC 24HR ER 50 MG TAB.ER.24H. PO SCH (14:24)
[2021-10-28 15:00] VITALS: BP 111/59
--- NOTE | 2021-10-28 18:23 | CARD ---
MR#: [id number] Date of Study: 10/28/2021 Ordering Physician: AMANDA GERARDO, Referring Physician: AMANDA GERARDO, Tech: Ailyn Villalpando [facility] APPROVED REPORT EXAM: Two-dimensional and M-mode echocardiogram with Doppler and color Doppler. Other Information Quality : Technically LimitedHR: 82bpm Rhythm : Atrial FibrillationTechnically limited study due to body habitus, unable to position INDICATION Congestive Heart Failure Echo Enhancing Agent Indication: Endocardial border delineation Agent/Amount Used: Optison 2mL RISK FACTORS Hypertension Obesity Hyperlipidemia Diabetes 2D DIMENSIONS RVDd2.5 (2.9-3.5cm)Left Atrium(2D)5.9 (1.6-4.0cm) IVSd1.2 (0.7-1.1cm)Aortic Root(2D)3.5 (2.0-3.7cm) LVDd4.3 (3.9-5.9cm)LVOT Diameter2.0 (1.8-2.4cm) PWd1.2 (0.7-1.1cm)LVDs1.8 (2.5-4.0cm) FS (%) 59.4 %SV75.6 ml LVEF(%)89.2 (>50%) Aortic Valve AoV Peak Aleks.143.0cm/sAoV VTI22.8cm AO Peak GR.8.2mmHgLVOT Peak Aleks.95.3cm/s AO Mean GR.4mmHgAVA (VMAX)2.18cm2 Mitral Valve MV E Pkdcvyqr38.6cm/s Pulmonary Valve PV Peak Ejqakzky00.6cm/s Tricuspid Valve TR P. Cxiqatnx499tt/sTR Peak Gr.28mmHg LEFT VENTRICLE The left ventricle is normal size. There is mild concentric left ventricular hypertrophy. The left ve ntricular systolic function is normal and the ejection fraction is within normal range. Estimated eje ction fraction 60%. There is normal LV segmental wall motion. Tissue Doppler imaging reveals moderate left ventricular diastolic dysfunction. RIGHT VENTRICLE The right ventricle is normal size. There is normal right ventricular wall thickness. The right ventr icular systolic function is normal. ATRIA The left atrium is mildly dilated. The right atrium size is normal. The interatrial septum is intact with no evidence for an atrial septal defect or patent foramen ovale as noted on 2-D or Doppler imagi ng. AORTIC VALVE The aortic valve is not well visualized. Doppler and Color Flow revealed no significant aortic regurg itation. There is no significant aortic valvular stenosis. MITRAL VALVE The mitral valve is normal in structure and function. There is no evidence of mitral valve prolapse. There is no mitral valve stenosis. Doppler and Color Flow revealed no mitral valve regurgitation note d. TRICUSPID VALVE The tricuspid valve is normal in structure and function. Doppler and Color Flow revealed trace tricus pid regurgitation. Estimated PAP 37 mmHg. There is no tricuspid valve stenosis. PULMONIC VALVE Doppler and Color Flow revealed no pulmonic valvular regurgitation. There is no pulmonic valvular rashaun nosis. GREAT VESSELS The aortic root is normal in size. The ascending aorta is normal in size. The IVC is dilated and leda apses <50% with inspiration. PERICARDIAL EFFUSION There is no evidence of significant pericardial effusion. Critical Notification Critical Value: No <Conclusion> The left ventricular systolic function is normal and the ejection fraction is within normal range. E stimated ejection fraction 60%. There is normal LV segmental wall motion. Technically difficult study. Signed by : Marvin Szymanski, Electronically Approved : 10/28/2021 18:22:25
[2021-10-28 19:00] VITALS: BP 121/71
[2021-10-28] MEDS: ATORVASTATIN CALCIUM 10 MG TABLET. PO SCH (20:57)
[2021-10-28] MEDS: ZOLPIDEM 5 MG TABLET. PO PRN (20:57)
[2021-10-28 23:02] VITALS: BP 106/53
[2021-10-29 03:00] VITALS: BP 136/71
[2021-10-29] MEDS: IV NORMAL SALINE 1000ML BAG 1,000 ML IV SCH ×2 (06:24→21:12)
[2021-10-29 07:00] VITALS: BP 121/41
[2021-10-29 08:18] LABS: ALBUMIN 2.5 g/dL (3.4-5.0); CALCIUM 8.3 mg/dL (8.5-10.1); CREATININE 3.4 mg/dL (0.6-1.0); GFR 13.1; PHOSPHORUS 3.3 mg/dL (2.6-4.7)
[2021-10-29] MEDS: METOPROLOL SUCC 24HR ER 50 MG TAB.ER.24H. PO SCH (09:00)
[2021-10-29] MEDS: EZETIMIBE 10 MG TABLET. PO SCH (09:18)
[2021-10-29] MEDS: CHOLECALCIFEROL (VITAMIN D3) 1,000 UNIT TABLET PO SCH (09:18)
[2021-10-29] MEDS: SENNOSIDES/DOCUSATE 8.6/50MG TABLET. PO SCH ×2 (09:18→21:13)
[2021-10-29] MEDS: HEPARIN for SUB-Q USE 5,000 UNIT/ML VIAL. SQ SCH ×2 (09:22→21:00)
--- NOTE | 2021-10-29 09:39 | NUR ---
SW following. Chart reviewed, pt getting dialysis today. SW to arrange outpatient dialysis chair time if needed. SW will continue to follow.
--- NOTE | 2021-10-29 10:02 | PDOC ---
DATE OF SERVICE DATE: 10/29/21 TIME: 09:56 SUBJECTIVE ROS States feeling ok Denies N/V. OBJECTIVE Vital Signs Vital Signs Date Time Temp Pulse Resp B/P (MAP) Pulse Ox O2 Delivery O2 Flow Rate FiO2 10/29/21 07:51 Room Air 10/29/21 07:00 97.9 98 12 121/41 (67) 92 97.9 I & 0 Intake and Output 10/29/21 07:00 Intake Total 1400 ml Output Total 1200 ml Balance 200 ml Intake Oral 400 ml IV Total 1000 ml Output Urine Total 1200 ml # Bowel Movements 1 PHYSICAL EXAM Physical Exam GEN: No apparent distress. HEENT: Normal cephalic, atraumatic, external auditory canals are patent NECK: Supple, LUNGS: Clear to auscultation in all lung hodgson , non labored HEART: RRR, S!, S2 present. ABDOMEN: Soft, nontender. Positive bowel sounds, no organomegaly, normal bowel sounds EXTREMITIES: Without clubbing, cyanosis, or edema. P NEUROLOGIC: Normal speech and tone. A&O x 3, moves all extremities, no obvious focal deficits PSYCHIATRIC: Normal affect, normal mood. Stable SKIN: No ulcerations or rashes, good skin turgor, no jaundice No Serrano, No CVA or SP tenderness DIAGNOSIS/ASSESSMENT Assessment & Plan [facility] - Initiated on Dialysis 10/26, Non Oliguric .UA benign. Sonogram does show some cortical thinning. CT scan in december 2020- Kidneys unremarkable .Dialysis today . Seen during treatment , tolerating well. Continue as ordered. Gavin MELÉNDEZ Permacath placement and OP chair time before discharge Supportive care, strict I/O , avoid nephrotoxins maintain hydration Gavin RN and Dr Templeton CKD stage 4- based on labs from 12/2020 Cr 2.6 -2.8 @ [facility] – [place] (Neph not consulted) , no prior or interval labs available to me HyperKalemia- POA- resolved HTN- On ARb at home. Holding currently Hx of GI bleed December 2020 - Hospitalized at [facility], . Suspected diverticular bleed Anemia - Improved since above admission, stable Hx of A Fib COMMENT/RELEVANT DATA Meds Current Medications Medications (Trade) Dose Ordered Sig/Cailin Start Time Stop Time Status Last Admin Dose Admin Acetaminophen (Tylenol) 650 mg PRN Q6HRS PRN 10/24/21 19:15 10/28/21 20:57 650 MG Albumin Human 200 ml @ 200 mls/hr 1X PRN PRN 10/28/21 09:00 10/28/21 14:59 DC Atorvastatin Calcium (Lipitor) 10 mg HS 10/24/21 21:00 10/28/21 20:57 10 MG Calcium Carbonate/ Glycine (Tums) 500 mg PRN Q3HRS PRN 10/24/21 19:15 Diltiazem HCl (Cardizem 24hr Cd) 120 mg DAILY 10/25/21 09:00 10/27/21 09:00 120 MG Diphenhydramine HCl (Benadryl) 25 mg 1X PRN PRN 10/26/21 10:00 10/27/21 09:59 DC 10/26/21 11:18 25 MG EZETIMIBE (Zetia) 10 mg DAILY 10/25/21 09:00 10/29/21 09:18 10 MG Heparin Sodium (Porcine) (Heparin Sodium) 5,000 unit Q12HR 10/24/21 21:00 10/29/21 09:22 5,000 UNIT Info (Non-Icu Electrolyte Protocol) 1 ea PRN DAILY PRN 10/24/21 19:15 Info (PHARMACY MONITORING -- do not chart) 1 each PRN DAILY PRN 10/28/21 09:00 Metoprolol Succinate (Toprol Xl) 50 mg DAILY 10/25/21 09:00 10/27/21 09:00 50 MG Ondansetron HCl (Zofran) 4 mg PRN Q6HRS PRN 10/24/21 19:15 Perflutren Protein Type A Microsphe (Optison) 0.66 mg 1X ONCE 10/28/21 15:30 10/28/21 15:33 DC Senna/Docusate Sodium (Senna Plus) 1 tab BID 10/24/21 21:00 10/29/21 09:18 1 TAB Sodium Polystyrene Sulfonate (Kayexalate) 15 gm 1X ONCE 10/24/21 19:15 10/24/21 19:16 DC 10/24/21 22:05 15 GM Sodium Chloride 1,000 ml @ 400 mls/hr Q2H30M PRN 10/28/21 09:00 10/28/21 20:59 DC Sodium Chloride (Normal Saline Flush) 10 ml 1X PRN PRN 10/25/21 07:45 10/26/21 07:44 DC Vitamin D (Vitamin D3) 2,000 unit DAILY 10/25/21 09:00 10/29/21 09:18 2,000 UNIT Zolpidem Tartrate (Ambien) 5 mg PRN QHS PRN 10/24/21 19:15 10/28/21 20:57 5 MG Lab Laboratory Tests Test 10/29/21 07:20 Sodium Level 138 mmol/L (136-145) Potassium Level 4.0 mmol/L (3.5-5.1) Chloride Level 107 mmol/L (98-107) Carbon Dioxide Level 23 mmol/L (21-32) Anion Gap 8 (6-14) Blood Urea Nitrogen 31 mg/dL (7-20) Creatinine 3.4 mg/dL (0.6-1.0) Estimated GFR (Cockcroft-Gault) 13.1 Glucose Level 83 mg/dL (70-99) Calcium Level 8.3 mg/dL (8.5-10.1) Phosphorus Level 3.3 mg/dL (2.6-4.7) Albumin 2.5 g/dL (3.4-5.0) Results All relevant outside records, renal labs, imaging studies, telemetry/EKG's were reviewed. Justicifation of Admission Dx: Justifications for Admission: Justification of Admission Dx: Yes ADENIKE EDMONDS MD Oct 29, 2021 10:02
--- NOTE | 2021-10-29 10:45 | NUR ---
Dialysis by bed.
[2021-10-29] MEDS ORDERED: DIALYSIS PATIENT. MC PRN ×2 (11:45)
[2021-10-29] MEDS ORDERED: IV NORMAL SALINE 1000ML BAG 1,000 ML IV PRN ×2 (11:45)
[2021-10-29 13:41] LABS: PROTHROMBIN TIME PATIENT 12.7 SEC (11.7-14.0)
--- NOTE | 2021-10-29 13:59 | PDOC ---
[employer] PROGRESS NOTE Date of Service DOS: DATE: 10/29/21 TIME: 13:58 Chief Complaint Chief Complaint Acute on chronic kidney injury, possibly due to vasomotor nephropathy versus progression of her CKD Hyperkalemia History of hypertension History of dyslipidemia History of mild dementia Nephrology consulted in emergency room recommended starting fluids placing Serrano and checking UA -We will need to be cautious with fluids given pulmonary vascular congestion; will at least check an echocardiogram as I do not see one in our system -May necessitate dialysis will hold off on placing temporary catheter and defer this to nephrology -Daily BMP monitor ins and outs -Renal diet -DVT prophylaxis -Home meds resumed as indicated History of Present Illness History of Present Illness 76-year-old female who presents to the emergency department for abnormal labs. Patient resides at [facility]. They did routine lab work and noted that her creatinine was 6.3 and her potassium was 5.7. Patient has a history of A. fib, dementia, anxiety, stage IV/V chronic kidney disease and congestive heart failure. He takes apixaban and Lasix. Patient has no complaints of pain, chest pain, shortness of breath, fevers, increased weight gain, increased leg swelling. Her vital signs are stable. 10/25/2021 No acute events overnight. Patient seen and examined bedside. Bladder scan showed 450 cc of urine and Serrano was placed. Patient does not know why her kidney is dysfunctioning. She does take multiple blood pressure medications. She states that her blood pressure is well controlledAnd measures around 120/80. She is on 3 antihypertensive medications. Pending possible temporary HD catheter placement for possible dialysis. Continue to trend creatinine and urine output. 10/26/2021 No acute events overnight. Patient seen examined bedside. Currently receiving dialysis through hemodialysis catheter and tolerating well. AF and VSS. Patient's chart, labs, images were reviewed and discussed with RN 10/27/2021 No acute events or night. Patient seen examined bedside. Tolerated diet hemodialysis well with improvement in her lower extremity edema. Spoke with sponsor who is also her neighbor and DPOA and helps make decisions for and . Looking to go back to [facility] when medically appropriate. I believe patient will need one more dialysis sessions before discharge. Afebrile and vital signs are stable. Some tachycardia and therefore fluids were restarted before considering continue on with dialysis. Nephrology following up with this. Saturating 93% on room air. Pending PT evaluation before discharge. Patient's chart, labs, images were reviewed and discussed with RN 10/28/2021 No acute events overnight. Patient seen and examined bedside. Tolerating hemodialysis and nephrology will reevaluate in the morning. Possible [facility] placement at time of discharge. Patient's chart, labs, images were revi ewed and discussed with RN 10/29/2021 No acute events overnight. Patient seen and examined bedside. Patient will had from the dialysis session today and permacath placement. Pending outpatient dialysis chair time after discharge. Discussed with Dr. Santamaria. Patient's chart, labs, images were reviewed and discussed with RN Vitals/I&O Vitals/I&O: Vital Signs Date Time Temp Pulse Resp B/P (MAP) Pulse Ox O2 Delivery O2 Flow Rate FiO2 10/29/21 07:51 Room Air 10/29/21 07:00 97.9 98 12 121/41 (67) 92 97.9 I & O 10/28/21 10/28/21 10/29/21 15:00 23:00 07:00 Intake Total 200 ml 1200 ml Output Total 600 ml 600 ml Balance -400 ml 600 ml Physical Exam General: Alert, Cooperative Heart: Regular rate Lungs: Clear Abdomen: Normal bowel sounds Extremities: No clubbing Skin: No rashes Labs Labs: Laboratory Tests Test 10/29/21 07:20 10/29/21 13:05 Sodium Level 138 mmol/L (136-145) Potassium Level 4.0 mmol/L (3.5-5.1) Chloride Level 107 mmol/L (98-107) Carbon Dioxide Level 23 mmol/L (21-32) Anion Gap 8 (6-14) Blood Urea Nitrogen 31 mg/dL (7-20) Creatinine 3.4 mg/dL (0.6-1.0) Estimated GFR (Cockcroft-Gault) 13.1 Glucose Level 83 mg/dL (70-99) Calcium Level 8.3 mg/dL (8.5-10.1) Phosphorus Level 3.3 mg/dL (2.6-4.7) Albumin 2.5 g/dL (3.4-5.0) Prothrombin Time 12.7 SEC (11.7-14.0) Prothromb Time International Ratio 1.0 (0.8-1.1) Assessment and Plan Assessmemt and Plan Problems Medical Problems: (1) Chronic kidney disease Status: Acute (2) Hyperkalemia Status: Acute Comment Review of Relevant I have reviewed the following items mariaa (where applicable) has been applied. Justifications for Admission Other Justification LORNE KWON MD Oct 29, 2021 13:59
--- NOTE | 2021-10-29 14:15 | NUR ---
Pt returned back to room from dialysis by bed. No c/o at this time. Refused lunch. But wanted pudding and apple juice. Cont. monitor.
[2021-10-29 15:00] VITALS: BP 119/70
[2021-10-29 19:00] VITALS: BP 101/59
[2021-10-29] MEDS: ZOLPIDEM 5 MG TABLET. PO PRN (21:13)
[2021-10-29] MEDS: ATORVASTATIN CALCIUM 10 MG TABLET. PO SCH (21:13)
[2021-10-29 23:00] VITALS: BP 137/70
[2021-10-30 03:00] VITALS: BP 121/71
[2021-10-30] MEDS: HEPARIN for SUB-Q USE 5,000 UNIT/ML VIAL. SQ SCH ×2 (06:50→21:00)
[2021-10-30 07:32] LABS: ALBUMIN 2.2 g/dL (3.4-5.0); CALCIUM 7.3 mg/dL (8.5-10.1); CREATININE 2.1 mg/dL (0.6-1.0); GFR 22.8; PHOSPHORUS 2.3 mg/dL (2.6-4.7); POTASSIUM 3.2 mmol/L (3.5-5.1)
[2021-10-30] MEDS: METOPROLOL SUCC 24HR ER 50 MG TAB.ER.24H. PO SCH (07:33)
[2021-10-30] MEDS: SENNOSIDES/DOCUSATE 8.6/50MG TABLET. PO SCH ×2 (07:33→21:38)
[2021-10-30] MEDS: CHOLECALCIFEROL (VITAMIN D3) 1,000 UNIT TABLET PO SCH (07:34)
[2021-10-30] MEDS: EZETIMIBE 10 MG TABLET. PO SCH (07:34)
[2021-10-30 07:59] VITALS: BP 150/79
[2021-10-30] MEDS: IV NORMAL SALINE 1000ML BAG 1,000 ML IV SCH ×2 (08:39→15:46)
[2021-10-30] MEDS ORDERED: ceFAZolin 2GM PREMIX 2 GM/50 ML BAG IV ONE (11:00)
--- NOTE | 2021-10-30 11:14 | PDOC ---
DATE OF SERVICE DATE: 10/30/21 TIME: 11:07 SUBJECTIVE ROS States feeling fine . Denies any N/V OBJECTIVE Vital Signs Vital Signs Date Time Temp Pulse Resp B/P (MAP) Pulse Ox O2 Delivery O2 Flow Rate FiO2 10/30/21 07:59 98.3 120 150/79 (102) 93 98.3 10/30/21 07:36 Room Air 10/30/21 03:00 20 I & 0 Intake and Output 10/30/21 07:00 Intake Total 840 ml Output Total 700 ml Balance 140 ml Intake Oral 840 ml Output Urine Total 700 ml # Bowel Movements 1 PHYSICAL EXAM Physical Exam GEN: No apparent distress. Sitting up in bed HEENT: Normal cephalic, atraumatic, external auditory canals are patent NECK: Supple, LUNGS: Clear to auscultation in all lung hodgson , non labored HEART: RRR, S!, S2 present. ABDOMEN: Soft, nontender. Positive bowel sounds, no organomegaly, normal bowel sounds EXTREMITIES: Without clubbing, cyanosis, or edema. P NEUROLOGIC: Normal speech and tone. A&O x 3, moves all extremities, no obvious focal deficits PSYCHIATRIC: Normal affect, normal mood. Stable SKIN: No ulcerations or rashes, good skin turgor, no jaundice DIAGNOSIS/ASSESSMENT Assessment & Plan LOGAN vs New Onset ESRD - Initiated on Dialysis 10/26, Non Oliguric .UA benign. Sonogram does show some cortical thinning. CT scan in december 2020- Kidneys unremarkable . Currently No indication for dialysis today Ordered Permacath placement and SW for OP chair time Supportive care, strict I/O , avoid nephrotoxins maintain hydration . Monitor for renal recovery .Gavin RN and Dr Templeton CKD stage 4- based [place] labs [place] 12/2020 [place] [facility] [place] , no prior or interval labs available to me HyperKalemia- POA- resolved HTN- On ARb at home. Holding currently Hx of GI bleed December 2020 - Hospitalized at [facility], . Suspected diverticular bleed Anemia - Improved since above admission, stable Hx of A Fib COMMENT/RELEVANT DATA Meds Current Medications Medications (Trade) Dose Ordered Sig/Cailin Start Time Stop Time Status Last Admin Dose Admin Acetaminophen (Tylenol) 650 mg PRN Q6HRS PRN 10/24/21 19:15 10/28/21 20:57 650 MG Albumin Human 200 ml @ 200 mls/hr 1X PRN PRN 10/28/21 09:00 10/28/21 14:59 DC Atorvastatin Calcium (Lipitor) 10 mg HS 10/24/21 21:00 10/29/21 21:13 10 MG Calcium Carbonate/ Glycine (Tums) 500 mg PRN Q3HRS PRN 10/24/21 19:15 Diltiazem HCl (Cardizem 24hr Cd) 120 mg DAILY 10/25/21 09:00 10/27/21 09:00 120 MG Diphenhydramine HCl (Benadryl) 25 mg 1X PRN PRN 10/26/21 10:00 10/27/21 09:59 DC 10/26/21 11:18 25 MG EZETIMIBE (Zetia) 10 mg DAILY 10/25/21 09:00 10/29/21 09:18 10 MG Heparin Sodium (Porcine) (Heparin Sodium) 5,000 unit Q12HR 10/24/21 21:00 10/29/21 09:22 5,000 UNIT Info (Non-Icu Electrolyte Protocol) 1 ea PRN DAILY PRN 10/24/21 19:15 Info (PHARMACY MONITORING -- do not chart) 1 each PRN DAILY PRN 10/29/21 11:45 Lidocaine HCl (Buffered Lidocaine 1%) 3 ml STK-MED ONCE 10/25/21 12:57 10/29/21 13:06 DC Metoprolol Succinate (Toprol Xl) 50 mg DAILY 10/25/21 09:00 10/27/21 09:00 50 MG Ondansetron HCl (Zofran) 4 mg PRN Q6HRS PRN 10/24/21 19:15 Perflutren Protein Type A Microsphe (Optison) 0.66 mg STK-MED ONCE 10/28/21 15:32 10/29/21 13:39 DC Senna/Docusate Sodium (Senna Plus) 1 tab BID 10/24/21 21:00 10/29/21 21:13 1 TAB Sodium Polystyrene Sulfonate (Kayexalate) 15 gm 1X ONCE 10/24/21 19:15 10/24/21 19:16 DC 10/24/21 22:05 15 GM Sodium Chloride 1,000 ml @ 400 mls/hr Q2H30M PRN 10/29/21 11:45 10/29/21 23:44 DC Sodium Chloride (Normal Saline Flush) 10 ml 1X PRN PRN 10/25/21 07:45 10/26/21 07:44 DC Vitamin D (Vitamin D3) 2,000 unit DAILY 10/25/21 09:00 10/29/21 09:18 2,000 UNIT Zolpidem Tartrate (Ambien) 5 mg PRN QHS PRN 10/24/21 19:15 10/29/21 21:13 5 MG Lab Laboratory Tests Test 10/29/21 13:05 10/29/21 20:52 10/30/21 04:25 Prothrombin Time 12.7 SEC (11.7-14.0) Prothromb Time International Ratio 1.0 (0.8-1.1) Glucose (Fingerstick) 100 mg/dL (70-99) Sodium Level 143 mmol/L (136-145) Potassium Level 3.2 mmol/L (3.5-5.1) Chloride Level 110 mmol/L (98-107) Carbon Dioxide Level 23 mmol/L (21-32) Anion Gap 10 (6-14) Blood Urea Nitrogen 12 mg/dL (7-20) Creatinine 2.1 mg/dL (0.6-1.0) Estimated GFR (Cockcroft-Gault) 22.8 Glucose Level 73 mg/dL (70-99) Calcium Level 7.3 mg/dL (8.5-10.1) Phosphorus Level 2.3 mg/dL (2.6-4.7) Albumin 2.2 g/dL (3.4-5.0) Results All relevant outside records, renal labs, imaging studies, telemetry/EKG's were reviewed. Justicifation of Admission Dx: Justifications for Admission: Justification of Admission Dx: Yes ADENIKE EDMONDS MD Oct 30, 2021 11:14
[2021-10-30 11:59] VITALS: BP 131/84
[2021-10-30] MEDS ORDERED: LIDOCAINE 1%/EPI 1:100,000 20 ML VIAL. ONE (12:35)
[2021-10-30] MEDS ORDERED: MIDAZOLAM HCL/PF 2 MG/2 ML VIAL. ONE (12:38)
[2021-10-30] MEDS ORDERED: fentaNYL PF VIAL 100 MCG/2 ML VIAL ONE (12:38)
--- NOTE | 2021-10-30 13:42 | NUR ---
SW following. Discussed with RN, pt not able to get permanent dialysis catheter placed today as she was given lunch. SW awaiting one more dialysis lab to be able to send admissions packet to [facility]. SW will continue to follow.
--- NOTE | 2021-10-30 14:42 | PDOC ---
[employer] PROGRESS NOTE Date of Service DOS: DATE: 10/30/21 TIME: 14:40 Chief Complaint Chief Complaint Acute on chronic kidney injury, possibly due to vasomotor nephropathy versus progression of her CKD Hyperkalemia History of hypertension History of dyslipidemia History of mild dementia Nephrology consulted in emergency room recommended starting fluids placing Serrano and checking UA -We will need to be cautious with fluids given pulmonary vascular congestion; will at least check an echocardiogram as I do not see one in our system -May necessitate dialysis will hold off on placing temporary catheter and defer this to nephrology -Daily BMP monitor ins and outs -Renal diet -DVT prophylaxis -Home meds resumed as indicated History of Present Illness History of Present Illness 76-year-old female who presents to the emergency department for abnormal labs. Patient resides at [facility]. They did routine lab work and noted that her creatinine was 6.3 and her potassium was 5.7. Patient has a history of A. fib, dementia, anxiety, stage IV/V chronic kidney disease and congestive heart failure. He takes apixaban and Lasix. Patient has no complaints of pain, chest pain, shortness of breath, fevers, increased weight gain, increased leg swelling. Her vital signs are stable. 10/25/2021 No acute events overnight. Patient seen and examined bedside. Bladder scan showed 450 cc of urine and Serrano was placed. Patient does not know why her kidney is dysfunctioning. She does take multiple blood pressure medications. She states that her blood pressure is well controlledAnd measures around 120/80. She is on 3 antihypertensive medications. Pending possible temporary HD catheter placement for possible dialysis. Continue to trend creatinine and urine output. 10/26/2021 No acute events overnight. Patient seen examined bedside. Currently receiving dialysis through hemodialysis catheter and tolerating well. AF and VSS. Patient's chart, labs, images were reviewed and discussed with RN 10/27/2021 No acute events or night. Patient seen examined bedside. Tolerated diet hemodialysis well with improvement in her lower extremity edema. Spoke with sponsor who is also her neighbor and DPOA and helps make decisions for and . Looking to go back to [facility] [place] when medically appropriate. I believe patient will need one more dialysis sessions before discharge. Afebrile and vital signs are stable. Some tachycardia and therefore fluids were restarted before considering continue on with dialysis. Nephrology following up with this. Saturating 93% on room air. Pending PT evaluation before discharge. Patient's chart, labs, images were reviewed and discussed with RN 10/28/2021 No acute events overnight. Patient seen and examined bedside. Tolerating hemodialysis and nephrology will reevaluate in the morning. Possible [facility] [place] placement at time of discharge. Patient's chart, labs, images were revi ewed and discussed with RN 10/29/2021 No acute events overnight. Patient seen and examined bedside. Patient will had from the dialysis session today and permacath placement. Pending outpatient dialysis chair time after discharge. Discussed with Dr. Santamaria. Patient's chart, labs, images were reviewed and discussed with RN 10/30/2021 No acute events overnight. Patient seen examined bedside. Patient in good spirits. Pending permacath placement and dialysis today. Okay for discharge once dialysis chair set up with Jace and patient will return to [facility] [place]. Patient's chart, labs, images were reviewed and discussed with RN Vitals/I&O Vitals/I&O: Vital Signs Date Time Temp Pulse Resp B/P (MAP) Pulse Ox O2 Delivery O2 Flow Rate FiO2 10/30/21 11:59 98.2 118 20 131/84 (100) 96 Room Air 98.2 I & O 10/29/21 10/29/21 10/30/21 15:00 23:00 07:00 Intake Total 240 ml 400 ml 200 ml Output Total 550 ml 150 ml Balance 240 ml -150 ml 50 ml Physical Exam General: Alert, Cooperative Heart: Regular rate Lungs: Clear Abdomen: Normal bowel sounds Extremities: No clubbing Skin: No rashes Labs Labs: Laboratory Tests Test 10/29/21 20:52 10/30/21 04:25 Glucose (Fingerstick) 100 mg/dL (70-99) Sodium Level 143 mmol/L (136-145) Potassium Level 3.2 mmol/L (3.5-5.1) Chloride Level 110 mmol/L (98-107) Carbon Dioxide Level 23 mmol/L (21-32) Anion Gap 10 (6-14) Blood Urea Nitrogen 12 mg/dL (7-20) Creatinine 2.1 mg/dL (0.6-1.0) Estimated GFR (Cockcroft-Gault) 22.8 Glucose Level 73 mg/dL (70-99) Calcium Level 7.3 mg/dL (8.5-10.1) Phosphorus Level 2.3 mg/dL (2.6-4.7) Albumin 2.2 g/dL (3.4-5.0) Assessment and Plan Assessmemt and Plan Problems Medical Problems: (1) Chronic kidney disease Status: Acute (2) Hyperkalemia Status: Acute Comment Review of Relevant I have reviewed the following items mariaa (where applicable) has been applied. Justifications for Admission Other Justification LORNE KWON MD Oct 30, 2021 14:42
[2021-10-30 15:00] VITALS: BP 125/67
[2021-10-30] MEDS ORDERED: POTASSIUM CHLORIDE 20 MEQ TABLET.ER. PO SCH (15:00)
[2021-10-30] MEDS: POTASSIUM & SODIUM PHOSPHATES PACKET. PO SCH ×2 (15:45→21:38)
[2021-10-30 19:00] VITALS: BP 142/79
--- NOTE | 2021-10-30 19:55 | RAD ---
Procedure: Temporary hemodialysis catheter placement Total fluoroscopy time: 0.1 Min Dose area product 1 mGycm2 Sterility: All elements of maximal sterile barrier technique including the use of a cap, mask, steril e gown, sterile gloves, large sterile sheet, appropriate hand hygiene, and 2% chlorhexidine for cutan eous antisepsis (or acceptable alternative antiseptic per current guidelines) were followed for this procedure. Consent: The procedure was explained in its entirety to the patient or the patients designated repres entative by a member of the treatment team, including a discussion of the risks, benefits and commonl y accepted alternatives to the procedure, as well as the expected consequences of no therapy whatsoev er. Discussion of the risks included, but was not limited to, those that are most frequent and thos e that are rare but possibly severe or life-threatening, as well as the possibility of unforeseen com plications. Technique and Findings: Following informed consent, the patient was prepped and draped in the usual s terile fashion. Ultrasound interrogation of the right neck revealed patency and compressibility of t he right internal jugular vein. A 21-gauge micropuncture was then used to gain access to this vein u nder ultrasound guidance. A hard copy ultrasound image was recorded. A guidewire was advanced centra lly over which, following dilatation, a temporary dialysis catheter was placed. The new catheter wa s found to flush and aspirate normally. The catheter was secured in place. Sterile dressings were man lied. No immediate complications were identified. IMPRESSION: Placement of a temporary dialysis catheter Electronically signed by: Elpidio Day MD (10/30/2021 4:26 PM) [id number]
[2021-10-30] MEDS: ZOLPIDEM 5 MG TABLET. PO PRN (21:38)
[2021-10-30] MEDS: ATORVASTATIN CALCIUM 10 MG TABLET. PO SCH (21:38)
[2021-10-30 23:11] VITALS: BP 136/77
[2021-10-31 03:19] VITALS: BP 133/73
[2021-10-31 07:00] VITALS: BP 132/81
[2021-10-31] MEDS ORDERED: DIALYSIS PATIENT. MC PRN (08:30)
[2021-10-31] MEDS ORDERED: IV NORMAL SALINE 1000ML BAG 1,000 ML IV PRN ×2 (08:30)
[2021-10-31 08:32] LABS: ALBUMIN 2.5 g/dL (3.4-5.0); CALCIUM 8.4 mg/dL (8.5-10.1); CREATININE 2.6 mg/dL (0.6-1.0); GFR 17.8; PHOSPHORUS 3.7 mg/dL (2.6-4.7); POTASSIUM 4.4 mmol/L (3.5-5.1)
[2021-10-31] MEDS: HEPARIN for SUB-Q USE 5,000 UNIT/ML VIAL. SQ SCH ×2 (09:00→21:00)
[2021-10-31] MEDS: SENNOSIDES/DOCUSATE 8.6/50MG TABLET. PO SCH ×2 (09:00→16:07)
[2021-10-31] MEDS ORDERED: diphenhydrAMINE 50 MG/ML VIAL IV PRN ×2 (09:30)
--- NOTE | 2021-10-31 10:20 | PDOC ---
DATE OF SERVICE DATE: 10/31/21 TIME: 10:19 SUBJECTIVE ROS Seen during dialysis , No complaints . Denies any N/V OBJECTIVE Vital Signs Vital Signs Date Time Temp Pulse Resp B/P (MAP) Pulse Ox O2 Delivery O2 Flow Rate FiO2 10/31/21 07:00 97.9 111 16 132/81 (98) 96 Room Air 97.9 I & 0 Intake and Output 10/31/21 07:00 Output Total 400 ml Balance -400 ml Output Urine Total 400 ml PHYSICAL EXAM Physical Exam GEN: No apparent distress. Sitting up in bed HEENT: Normal cephalic, atraumatic, external auditory canals are patent NECK: Supple, LUNGS: Clear to auscultation in all lung hodgson , non labored HEART: RRR, S!, S2 present. ABDOMEN: Soft, nontender. Positive bowel sounds, no organomegaly, normal bowel sounds EXTREMITIES: Without clubbing, cyanosis, or edema. P NEUROLOGIC: Normal speech and tone. A&O x 3, moves all extremities, no obvious focal deficits PSYCHIATRIC: Normal affect, normal mood. Stable SKIN: No ulcerations or rashes, good skin turgor, no jaundice DIAGNOSIS/ASSESSMENT Assessment & Plan LOGAN vs New Onset ESRD - Initiated on Dialysis 10/26, Non Oliguric .UA benign. Sonogram does show some cortical thinning. CT scan in december 2020- Kidneys unremarkable . Seen during dialysis, Tolerating well. continue as ordered. Gavin MELÉNDEZ Ordered Permacath placement on 10/29 ; SW for OP chair time Supportive care, strict I/O , avoid nephrotoxins maintain hydration . Monitor for renal recovery .Gavin RN and Dr Templeton CKD stage 4- based on labs from 12/2020 Cr 2.6 -2.8 @ [facility] [place] (Neph not consulted) , no prior or interval labs available to me HyperKalemia- POA- resolved HTN- On ARb at home. Holding currently Hx of GI bleed December 2020 - Hospitalized at [facility], . Suspected diverticular bleed Anemia - Improved since above admission, stable Hx of A Fib COMMENT/RELEVANT DATA Meds Current Medications Medications (Trade) Dose Ordered Sig/Cailin Start Time Stop Time Status Last Admin Dose Admin Acetaminophen (Tylenol) 650 mg PRN Q6HRS PRN 10/24/21 19:15 10/28/21 20:57 650 MG Albumin Human 200 ml @ 200 mls/hr 1X PRN PRN 10/28/21 09:00 10/28/21 14:59 DC Atorvastatin Calcium (Lipitor) 10 mg HS 10/24/21 21:00 10/30/21 21:38 10 MG Calcium Carbonate/ Glycine (Tums) 500 mg PRN Q3HRS PRN 10/24/21 19:15 Cefazolin Sodium/ Dextrose 50 ml @ As Directed STK-MED ONCE 10/30/21 12:38 10/30/21 12:38 DC Diltiazem HCl (Cardizem 24hr Cd) 120 mg DAILY 10/25/21 09:00 10/27/21 09:00 120 MG Diphenhydramine HCl (Benadryl) 25 mg 1X PRN PRN 10/31/21 09:30 11/01/21 09:29 EZETIMIBE (Zetia) 10 mg DAILY 10/25/21 09:00 10/29/21 09:18 10 MG Fentanyl Citrate (Fentanyl 2ml Vial) 100 mcg STK-MED ONCE 10/30/21 12:38 10/30/21 12:38 DC Heparin Sodium (Porcine) (Heparin Sodium) 5,000 unit Q12HR 10/24/21 21:00 10/29/21 09:22 5,000 UNIT Info (Non-Icu Electrolyte Protocol) 1 ea PRN DAILY PRN 10/24/21 19:15 Info (PHARMACY MONITORING -- do not chart) 1 each PRN DAILY PRN 10/31/21 08:30 Lidocaine HCl (Buffered Lidocaine 1%) 3 ml STK-MED ONCE 10/25/21 12:57 10/29/21 13:06 DC Lidocaine/ Epinephrine (LIDOCAINE 1%-EPI 1:100,000 Multi-Dose) 20 ml STK-MED ONCE 10/30/21 12:35 10/30/21 12:35 DC Metoprolol Succinate (Toprol Xl) 50 mg DAILY 10/25/21 09:00 10/27/21 09:00 50 MG Midazolam HCl (Versed) 2 mg STK-MED ONCE 10/30/21 12:38 10/30/21 12:38 DC Ondansetron HCl (Zofran) 4 mg PRN Q6HRS PRN 10/24/21 19:15 Perflutren Protein Type A Microsphe (Optison) 0.66 mg STK-MED ONCE 10/28/21 15:32 10/29/21 13:39 DC Potassium Chloride (Klor-Con) 20 meq Q2H 10/30/21 15:00 10/30/21 17:01 Cancel Potassium Phos/ Sodium Phos (Phos-Nak) 1 pkt BID 10/30/21 15:00 10/30/21 21:01 DC 10/30/21 21:38 1 PKT Senna/Docusate Sodium (Senna Plus) 1 tab BID 10/24/21 21:00 10/30/21 21:38 1 TAB Sodium Polystyrene Sulfonate (Kayexalate) 15 gm 1X ONCE 10/24/21 19:15 10/24/21 19:16 DC 10/24/21 22:05 15 GM Sodium Chloride 1,000 ml @ 400 mls/hr Q2H30M PRN 10/31/21 08:30 10/31/21 20:29 Sodium Chloride (Normal Saline Flush) 10 ml 1X PRN PRN 10/25/21 07:45 10/26/21 07:44 DC Vitamin D (Vitamin D3) 2,000 unit DAILY 10/25/21 09:00 10/29/21 09:18 2,000 UNIT Zolpidem Tartrate (Ambien) 5 mg PRN QHS PRN 10/24/21 19:15 10/30/21 21:38 5 MG Lab Laboratory Tests Test 10/31/21 07:10 Sodium Level 141 mmol/L (136-145) Potassium Level 4.4 mmol/L (3.5-5.1) Chloride Level 108 mmol/L (98-107) Carbon Dioxide Level 26 mmol/L (21-32) Anion Gap 7 (6-14) Blood Urea Nitrogen 15 mg/dL (7-20) Creatinine 2.6 mg/dL (0.6-1.0) Estimated GFR (Cockcroft-Gault) 17.8 Glucose Level 81 mg/dL (70-99) Calcium Level 8.4 mg/dL (8.5-10.1) Phosphorus Level 3.7 mg/dL (2.6-4.7) Albumin 2.5 g/dL (3.4-5.0) Results All relevant outside records, renal labs, imaging studies, telemetry/EKG's were reviewed. Justicifation of Admission Dx: Justifications for Admission: Justification of Admission Dx: Yes ADENIKE EDMONDS MD Oct 31, 2021 10:20
--- NOTE | 2021-10-31 10:36 | NUR ---
[facility] following. Discussed with RN, [facility]DY faxed admissions packet for dialysis chair time to [facility]. Pt getting permanent cath placed today. [facility] will continue to follow. Addendum: 10/31/21 at 1537 by MENDEZ ESPINAL Colin contacted [facility] with a confirmed chair time at [facility] for T, , at 6am, start date 11/02/21 at 0530am. TEDDY notified Paolo at [facility] and Dr. Templeton. Plan for discharge tomorrow back to facility per Dr. Templeton.
[2021-10-31] MEDS ORDERED: LIDOCAINE 1%/EPI 1:100,000 20 ML VIAL. ONE (12:42)
[2021-10-31] MEDS ORDERED: fentaNYL PF VIAL 100 MCG/2 ML VIAL ONE (13:08)
[2021-10-31] MEDS ORDERED: MIDAZOLAM HCL/PF 2 MG/2 ML VIAL. ONE (13:08)
[2021-10-31] MEDS ORDERED: MIDAZOLAM HCL/PF 2 MG/2 ML VIAL. IV ONE (13:30)
[2021-10-31] MEDS ORDERED: LIDOCAINE 1%/EPI 1:100,000 20 ML VIAL. SQ ONE (13:30)
[2021-10-31] MEDS ORDERED: fentaNYL PF VIAL 100 MCG/2 ML VIAL IV ONE (13:30)
[2021-10-31 13:34] VITALS: BP 131/62
--- NOTE | 2021-10-31 14:26 | PDOC ---
[employer] PROGRESS NOTE Date of Service DOS: DATE: 10/31/21 TIME: 14:25 Chief Complaint Chief Complaint Acute on chronic kidney injury, possibly due to vasomotor nephropathy versus progression of her CKD Hyperkalemia History of hypertension History of dyslipidemia History of mild dementia Nephrology consulted in emergency room recommended starting fluids placing Serrano and checking UA -We will need to be cautious with fluids given pulmonary vascular congestion; will at least check an echocardiogram as I do not see one in our system -May necessitate dialysis will hold off on placing temporary catheter and defer this to nephrology -Daily BMP monitor ins and outs -Renal diet -DVT prophylaxis -Home meds resumed as indicated History of Present Illness History of Present Illness 76-year-old female who presents to the emergency department for abnormal labs. Patient resides at [facility]. They did routine lab work and noted that her creatinine was 6.3 and her potassium was 5.7. Patient has a history of A. fib, dementia, anxiety, stage IV/V chronic kidney disease and congestive heart failure. He takes apixaban and Lasix. Patient has no complaints of pain, chest pain, shortness of breath, fevers, increased weight gain, increased leg swelling. Her vital signs are stable. 10/25/2021 No acute events overnight. Patient seen and examined bedside. Bladder scan showed 450 cc of urine and Serrano was placed. Patient does not know why her kidney is dysfunctioning. She does take multiple blood pressure medications. She states that her blood pressure is well controlledAnd measures around 120/80. She is on 3 antihypertensive medications. Pending possible temporary HD catheter placement for possible dialysis. Continue to trend creatinine and urine output. 10/26/2021 No acute events overnight. Patient seen examined bedside. Currently receiving dialysis through hemodialysis catheter and tolerating well. AF and VSS. Patient's chart, labs, images were reviewed and discussed with RN 10/27/2021 No acute events or night. Patient seen examined bedside. Tolerated diet hemodialysis well with improvement in her lower extremity edema. Spoke with sponsor who is also her neighbor and DPOA and helps make decisions for and . Looking to go back to [facility] [place] when medically appropriate. I believe patient will need one more dialysis sessions before discharge. Afebrile and vital signs are stable. Some tachycardia and therefore fluids were restarted before considering continue on with dialysis. Nephrology following up with this. Saturating 93% on room air. Pending PT evaluation before discharge. Patient's chart, labs, images were reviewed and discussed with RN 10/28/2021 No acute events overnight. Patient seen and examined bedside. Tolerating hemodialysis and nephrology will reevaluate in the morning. Possible [facility] [place] placement at time of discharge. Patient's chart, labs, images were revi ewed and discussed with RN 10/29/2021 No acute events overnight. Patient seen and examined bedside. Patient will had from the dialysis session today and permacath placement. Pending outpatient dialysis chair time after discharge. Discussed with Dr. Santamaria. Patient's chart, labs, images were reviewed and discussed with RN 10/30/2021 No acute events overnight. Patient seen examined bedside. Patient in good spirits. Pending permacath placement and dialysis today. Okay for discharge once dialysis chair set up with Jace and patient will return to [facility] [place]. Patient's chart, labs, images were reviewed and discussed with RN 10/31/2021 No acute events overnight. Patient seen examined bedside. Pending per minute HD catheter placement today. We will set up outpatient dialysis chair soon. Pending discharge to [facility] [place]. Patient's chart, labs, images were reviewed and discussed with RN Vitals/I&O Vitals/I&O: Vital Signs Date Time Temp Pulse Resp B/P (MAP) Pulse Ox O2 Delivery O2 Flow Rate FiO2 10/31/21 13:34 124 22 98 Room Air 10/31/21 13:30 2.0 10/31/21 07:00 97.9 132/81 (98) 97.9 I & O 10/30/21 10/30/21 10/31/21 15:00 23:00 07:00 Output Total 400 ml Balance -400 ml Physical Exam General: Alert, Cooperative Heart: Regular rate Lungs: Clear Abdomen: Normal bowel sounds Extremities: No clubbing Skin: No rashes Labs Labs: Laboratory Tests Test 10/31/21 07:10 Sodium Level 141 mmol/L (136-145) Potassium Level 4.4 mmol/L (3.5-5.1) Chloride Level 108 mmol/L (98-107) Carbon Dioxide Level 26 mmol/L (21-32) Anion Gap 7 (6-14) Blood Urea Nitrogen 15 mg/dL (7-20) Creatinine 2.6 mg/dL (0.6-1.0) Estimated GFR (Cockcroft-Gault) 17.8 Glucose Level 81 mg/dL (70-99) Calcium Level 8.4 mg/dL (8.5-10.1) Phosphorus Level 3.7 mg/dL (2.6-4.7) Albumin 2.5 g/dL (3.4-5.0) Assessment and Plan Assessmemt and Plan Problems Medical Problems: (1) Chronic kidney disease Status: Acute (2) Hyperkalemia Status: Acute Comment Review of Relevant I have reviewed the following items mariaa (where applicable) has been applied. Medications: Current Medications Medications (Trade) Dose Ordered Sig/Cailin Route PRN Reason Start Time Stop Time Status Last Admin Dose Admin Potassium Phos/ Sodium Phos (Phos-Nak) 1 pkt BID PO 10/30/21 15:00 10/30/21 21:01 DC 10/30/21 21:38 Diphenhydramine HCl (Benadryl) 25 mg 1X PRN PRN IV ITCHING 10/31/21 09:30 11/01/21 09:29 10/31/21 09:36 Midazolam HCl (Versed) 2 mg 1X ONCE IV 10/31/21 13:30 10/31/21 13:31 DC 10/31/21 13:30 Fentanyl Citrate (Fentanyl 2ml Vial) 100 mcg 1X ONCE IV 10/31/21 13:30 10/31/21 13:31 DC 10/31/21 13:30 Lidocaine/ Epinephrine (LIDOCAINE 1%-EPI 1:100,000 Multi-Dose) 12 ml 1X ONCE SQ 10/31/21 13:30 10/31/21 13:31 DC 10/31/21 13:30 Cefazolin Sodium/ Dextrose 50 ml @ 100 mls/hr 1X ONCE IV 10/31/21 13:30 10/31/21 13:59 DC 10/31/21 13:30 Justifications for Admission Other Justification LORNE KWON MD Oct 31, 2021 14:26
[2021-10-31] MEDS ORDERED: oxyCODONE/APAP 5/325 1 TAB TABLET PO PRN (14:30)
[2021-10-31 15:00] VITALS: BP 143/72
[2021-10-31] MEDS: CHOLECALCIFEROL (VITAMIN D3) 1,000 UNIT TABLET PO SCH (16:05)
[2021-10-31] MEDS: METOPROLOL SUCC 24HR ER 50 MG TAB.ER.24H. PO SCH (16:05)
[2021-10-31] MEDS: EZETIMIBE 10 MG TABLET. PO SCH (16:07)
[2021-10-31] MEDS: IV NORMAL SALINE 1000ML BAG 1,000 ML IV SCH (16:08)
[2021-10-31 19:00] VITALS: BP 126/70
[2021-10-31] MEDS: ATORVASTATIN CALCIUM 10 MG TABLET. PO SCH (21:11)
[2021-10-31 23:27] VITALS: BP 126/65
[2021-11-01 03:36] VITALS: BP 122/69
[2021-11-01 07:00] VITALS: BP 130/67
[2021-11-01] MEDS ORDERED: SENN-209 PO (07:29)
--- NOTE | 2021-11-01 07:33 | DISCH ---
DISCHARGE INSTRUCTIONS Condition on Discharge Condition on Discharge: Stable Activity After Discharge Activity Instructions for Disc: Activity as tolerated Diet after Discharge Diet after Discharge: Cardiac Follow-Up Follow up with: PCP within 2 weeks of discharge Follow Up With: Nephrology for your scheduled hemodialysis sessions Treatment/Equipment after DC Comment: RIJ Tunneled Dialysis Catheter LORNE KWON MD Nov 01, 2021 07:33
[2021-11-01] MEDS: SENNOSIDES/DOCUSATE 8.6/50MG TABLET. PO SCH (08:33)
[2021-11-01] MEDS: IV NORMAL SALINE 1000ML BAG 1,000 ML IV SCH ×2 (08:33→10:30)
[2021-11-01] MEDS: EZETIMIBE 10 MG TABLET. PO SCH (08:36)
[2021-11-01] MEDS: METOPROLOL SUCC 24HR ER 50 MG TAB.ER.24H. PO SCH (08:36)
[2021-11-01] MEDS: CHOLECALCIFEROL (VITAMIN D3) 1,000 UNIT TABLET PO SCH (08:36)
[2021-11-01] MEDS: HEPARIN for SUB-Q USE 5,000 UNIT/ML VIAL. SQ SCH (08:44)
--- NOTE | 2021-11-01 08:49 | SNU/HH DC ---
DISCHARGE ORDERS DISCHARGE INFORMATION: DISCHARGE DATE: Nov 01, 2021 FINAL DIAGNOSIS Problems Medical Problems: (1) Chronic kidney disease Status: Acute (2) Hyperkalemia Status: Acute CONDITION ON DISCHARGE: Stable CODE STATUS: Code Status: Full FDC: SNF STAY <30 DAYS: Yes POST DISCHARGE ORDERS: ACTIVITY ORDERS: Activity as tolerated WEIGHT BEARING STATUS: As tolerated DIET AFTER DISCHARGE: Cardiac CHECKS AFTER DISCHARGE: COMMENTS: [facility] Tunneled Dialysis Catheter FOLLOW-UP: PHYSICIAN FOLLOW-UP: PCP within 2 weeks of discharge ADDITIONAL FOLLOW-UP: Nephrology for your scheduled hemodialysis sessions TREATMENT/EQUIPMENT ORDERS: Physical Therapy For: Evalulation/Treatment Occupational Therapy For: Evaluation/Treatment DISCHARGE MEDICATIONS: Home Meds Active Scripts Sennosides/Docusate Sodium (Stool Softener-Stimulant Lax) 1 Each Tablet, 1 TAB PO BID for constipation for 30 Days, #60 TAB Prov:LORNE KWON MD 11/01/21 Reported Medications Glucosamine/D3/Boswellia Nancy (Osteo Bi-Flex Tablet) 1 Each Tablet, 1 EACH PO DAILY for supplement, TAB 12/17/20 Irbesartan (IRBESARTAN) 300 Mg Tablet, 300 MG PO DAILY for heart, TAB 12/17/20 Diphenhydramine Hcl (BENADRYL) 25 Mg Capsule, 1 CAP PO QHS for sleep for 30 Days, #30 CAP 0 Refills 12/17/20 Diltiazem Hcl (DILTIAZEM 24HR CD) 120 Mg Cap.er.24h, 120 MG PO DAILY for heart rhythm, CAP.SR 12/17/20 Nystatin (NYSTATIN) 15 Gm Powder, 1 MARCIE TP BID for yeast for 7 Days, #1 BOTTLE 0 Refills apply to affected area(s) 12/17/20 Metoprolol Succinate (Toprol XL) 50 Mg Tab.er.24h, 50 MG PO BID for FOR HYPERTENSION, TAB.SR 12/17/20 Lactobacillus Rhamnosus Gg (CULTURELLE) 1 Each Capsule, 1 CAP PO BID for supplement for 30 Days, #60 CAP 0 Refills 12/17/20 Ezetimibe (ZETIA) 10 Mg Tablet, 10 MG PO DAILY for cholesterol, TAB 12/17/20 Cholecalciferol (Vitamin D3) (Vitamin D3) 50 Mcg Tablet, 50 MCG PO DAILY for supplement, TAB 12/17/20 Atorvastatin Calcium (ATORVASTATIN CALCIUM) 10 Mg Tablet, 10 MG PO HS for FOR CHOLESTEROL, #30 TAB 0 Refills 12/17/20 Acetaminophen (ACETAMINOPHEN) 500 Mg Tablet, 500 MG PO PRN TID PRN for MILD PAIN / TEMP > 100.3'F, TAB 12/17/20 LORNE KWON MD Nov 01, 2021 08:49
--- NOTE | 2021-11-01 10:00 | PDOC ---
DATE OF SERVICE DATE: 11/01/21 TIME: 09:57 SUBJECTIVE ROS No complaints . Denies any N/V OBJECTIVE Vital Signs Vital Signs Date Time Temp Pulse Resp B/P (MAP) Pulse Ox O2 Delivery O2 Flow Rate FiO2 11/01/21 08:36 82 130/67 11/01/21 07:00 98.0 17 98.0 11/01/21 03:36 95 Room Air 10/31/21 16:33 2.0 I & 0 Intake and Output 11/01/21 07:00 Output Total 200 ml Balance -200 ml Output Urine Total 200 ml PHYSICAL EXAM Physical Exam EN: No apparent distress. Sitting up in bed HEENT: Normal cephalic, atraumatic, external auditory canals are patent NECK: Supple, LUNGS: Clear to auscultation in all lung hodgson , non labored HEART: RRR, S!, S2 present. ABDOMEN: Soft, nontender. Positive bowel sounds, no organomegaly, normal bowel sounds EXTREMITIES: Without clubbing, cyanosis, or edema. P NEUROLOGIC: Normal speech and tone. A&O x 3, moves all extremities, no obvious focal deficits PSYCHIATRIC: Normal affect, normal mood. Stable SKIN: No ulcerations or rashes, good skin turgor, no jaundice DIAGNOSIS/ASSESSMENT Assessment & Plan LOGAN vs New Onset ESRD - Initiated on Dialysis 10/26, Currently on TTS schedule . Non Oliguric UA benign. Sonogram does show some cortical thinning. CT scan in december 2020- Kidneys unremarkable Ordered Permacath placement on 10/29 ; [facility] Supportive care, strict I/O , avoid nephrotoxins maintain hydration . Monitor for renal recovery .Dw Dr Templeton CKD stage 4- based on labs from 12/2020 Cr 2.6 -2.8 @ [facility] [place] (Neph not consulted) , no prior or interval labs available to me HyperKalemia- POA- resolved HTN- On ARb at home. Holding currently Hx of GI bleed December 2020 - Hospitalized at [facility], . Suspected diverticular bleed Anemia - Improved since above admission, stable Hx of A Fib COMMENT/RELEVANT DATA Meds Current Medications Medications (Trade) Dose Ordered Sig/Cailin Start Time Stop Time Status Last Admin Dose Admin Acetaminophen (Tylenol) 650 mg PRN Q6HRS PRN 10/24/21 19:15 10/28/21 20:57 650 MG Albumin Human 200 ml @ 200 mls/hr 1X PRN PRN 10/28/21 09:00 10/28/21 14:59 DC Atorvastatin Calcium (Lipitor) 10 mg HS 10/24/21 21:00 10/31/21 21:11 10 MG Calcium Carbonate/ Glycine (Tums) 500 mg PRN Q3HRS PRN 10/24/21 19:15 Cefazolin Sodium/ Dextrose 50 ml @ 100 mls/hr 1X ONCE 10/31/21 13:30 10/31/21 13:59 DC 10/31/21 13:30 100 MLS/HR Cefazolin Sodium/ Dextrose (Ancef 2gm Premix) 2 gm STK-MED ONCE 10/30/21 11:00 10/31/21 13:06 DC Diltiazem HCl (Cardizem 24hr Cd) 120 mg DAILY 10/25/21 09:00 11/01/21 08:36 120 MG Diphenhydramine HCl (Benadryl) 25 mg 1X PRN PRN 10/31/21 09:30 11/01/21 09:29 DC EZETIMIBE (Zetia) 10 mg DAILY 10/25/21 09:00 11/01/21 08:36 10 MG Fentanyl Citrate (Fentanyl 2ml Vial) 100 mcg 1X ONCE 10/31/21 13:30 10/31/21 13:31 DC 10/31/21 13:30 100 MCG Heparin Sodium (Porcine) (Heparin Sodium) 5,000 unit Q12HR 10/24/21 21:00 11/01/21 08:44 5,000 UNIT Info (Non-Icu Electrolyte Protocol) 1 ea PRN DAILY PRN 10/24/21 19:15 Info (PHARMACY MONITORING -- do not chart) 1 each PRN DAILY PRN 10/31/21 08:30 Lidocaine HCl (Buffered Lidocaine 1%) 3 ml STK-MED ONCE 10/25/21 12:57 10/29/21 13:06 DC Lidocaine/ Epinephrine (LIDOCAINE 1%-EPI 1:100,000 Multi-Dose) 12 ml 1X ONCE 10/31/21 13:30 10/31/21 13:31 DC 10/31/21 13:30 12 ML Metoprolol Succinate (Toprol Xl) 50 mg DAILY 10/25/21 09:00 11/01/21 08:36 50 MG Midazolam HCl (Versed) 2 mg 1X ONCE 10/31/21 13:30 10/31/21 13:31 DC 10/31/21 13:30 2 MG Ondansetron HCl (Zofran) 4 mg PRN Q6HRS PRN 10/24/21 19:15 Oxycodone/ Acetaminophen (Percocet 5/325) 1 tab PRN Q6HRS PRN 10/31/21 14:30 10/31/21 16:03 1 TAB Perflutren Protein Type A Microsphe (Optison) 0.66 mg STK-MED ONCE 10/28/21 15:32 10/29/21 13:39 DC Potassium Chloride (Klor-Con) 20 meq Q2H 10/30/21 15:00 10/30/21 17:01 Cancel Potassium Phos/ Sodium Phos (Phos-Nak) 1 pkt BID 10/30/21 15:00 10/30/21 21:01 DC 10/30/21 21:38 1 PKT Senna/Docusate Sodium (Senna Plus) 1 tab BID 10/24/21 21:00 10/30/21 21:38 1 TAB Sodium Polystyrene Sulfonate (Kayexalate) 15 gm 1X ONCE 10/24/21 19:15 10/24/21 19:16 DC 10/24/21 22:05 15 GM Sodium Chloride 1,000 ml @ 400 mls/hr Q2H30M PRN 10/31/21 08:30 10/31/21 20:29 DC Sodium Chloride (Normal Saline Flush) 10 ml 1X PRN PRN 10/25/21 07:45 10/26/21 07:44 DC Vitamin D (Vitamin D3) 2,000 unit DAILY 10/25/21 09:00 11/01/21 08:36 2,000 UNIT Zolpidem Tartrate (Ambien) 5 mg PRN QHS PRN 10/24/21 19:15 10/30/21 21:38 5 MG Results All relevant outside records, renal labs, imaging studies, telemetry/EKG's were reviewed. Justicifation of Admission Dx: Justifications for Admission: Justification of Admission Dx: Yes ADENIKE EDMONDS MD Nov 01, 2021 10:00
[2021-11-01] MEDS ORDERED: LIDOCAINE WITH 8.4% SOD BICARB 3 ML DISP.SYRIN. ONE (10:27)
--- NOTE | 2021-11-01 10:28 | NUR ---
TEDDY following. Discussed with RN, discharge orders faxed to [facility], awaiting transportation time. TEDDY will continue to follow. Addendum: 11/01/21 at 1303 by MENDEZ ESPINAL Transportation arranged for between [phone]. RN notified. Family aware per RN.
[2021-11-01 11:00] VITALS: BP 141/57
--- NOTE | 2021-11-01 13:01 | RAD ---
Conversion of a right internal jugular temporary hemodialysis catheter to tunneled catheter INDICATION: Longer term dialysis access needed Consent: The procedure was explained in its entirety to the patient or the patients designated repres entative by a member of the treatment team, including a discussion of the risks, benefits and commonl y accepted alternatives to the procedure, as well as the expected consequences of no therapy whatsoev er. Discussion of the risks included, but was not limited to, those that are most frequent and thos e that are rare but possibly severe or life-threatening, as well as the possibility of unforeseen com plications. Discussion: A timeout procedure was performed. The right neck and chest including the pre-existing di alysis catheter were prepped and draped using sterile barrier technique. Under fluoroscopic guidance a guidewire was advanced into the IVC. A new 19 cm tip to cuff palindrome dialysis catheter was tunne led from a small dermatotomy several centimeters inferior to the right clavicle, to the access site. We'll catheter was removed over the wire. Peel-away sheath was delivered into the right atrium. The c atheter was delivered through the peel-away sheath such that the catheter tip was in the proximal rig ht atrium with the patient supine. The catheter flushes and aspirates normally. Sterile dressings wer e applied. No immediate complications were identified. Total fluoroscopy time 0.8 minutes Dose area product 3 Alvares centimeter squared Sedation: The procedure was performed under conscious sedation including continuous cardiopulmonary m onitoring via a dedicated sedation nurse. [id number] sedation time: 27 minutes IMPRESSION: Conversion of right internal jugular temporary hemodialysis catheter to tunneled catheter . Electronically signed by: Elpidio Day MD (11/01/2021 12:59 PM) [id number]
--- NOTE | 2021-11-01 14:08 | NUR ---
Report has been called to receiving nurse Fiona at [facility]. Nurse informed of dialysis chair times. IV access has been discontinued from left arm. Belongings in room sent with patient. Pt denied having cell phone. Copy of chart info as provided by social media editor sent with patient. Have informed Job of patient's departure (Job and pt's were up to see patient approx 11:45. Fiona provided with [facility]N ph number for any questions.
--- NOTE | 2021-11-04 13:09 | PDOC3 ---
[facility]-Discharge Summary Date of Admission: Date of Admission: Oct 24, 2021 Date of Discharge: Date of Discharge: Nov 01, 2021 Discharge Diagnosis: Discharge Diagnosis: Acute on chronic kidney injury, possibly due to vasomotor nephropathy versus progression of her CKD started on hemodialysis with permacath placement during this hospitalization Hyperkalemia History of hypertension History of dyslipidemia History of mild dementia Hospital Course: Hospital Course: 76-year-old female who presents to the emergency department for abnormal labs. Patient resides at [facility]. They did routine lab work and noted that her creatinine was 6.3 and her potassium was 5.7. Patient has a history of A. fib, dementia, anxiety, stage IV/V chronic kidney disease and congestive heart failure. He takes apixaban and Lasix. Patient has no complaints of pain, chest pain, shortness of breath, fevers, increased weight gain, increased leg swelling. Her vital signs are stable. 10/25/2021 No acute events overnight. Patient seen and examined bedside. Bladder scan showed 450 cc of urine and Serrano was placed. Patient does not know why her kidney is dysfunctioning. She does take multiple blood pressure medications. She states that her blood pressure is well controlledAnd measures around 120/80. She is on 3 antihypertensive medications. Pending possible temporary HD catheter placement for possible dialysis. Continue to trend creatinine and urine output. 10/26/2021 No acute events overnight. Patient seen examined bedside. Currently receiving dialysis through hemodialysis catheter and tolerating well. AF and VSS. Patient's chart, labs, images were reviewed and discussed with RN 10/27/2021 No acute events or night. Patient seen examined bedside. Tolerated diet hemodialysis well with improvement in her lower extremity edema. Spoke with sponsor who is also her neighbor and DPOA and helps make decisions for and . Looking to go back to [facility] when medically appropriate. I believe patient will need one more dialysis sessions before discharge. Afebrile and vital signs are stable. Some tachycardia and therefore fluids were restarted before considering continue on with dialysis. Nephrology following up with this. Saturating 93% on room air. Pending PT evaluation before discharge. Patient's chart, labs, images were reviewed and discussed with RN 10/28/2021 No acute events overnight. Patient seen and examined bedside. Tolerating hemodialysis and nephrology will reevaluate in the morning. Possible [facility] placement at time of discharge. Patient's chart, labs, images were reviewed and discussed with RN 10/29/2021 No acute events overnight. Patient seen and examined bedside. Patient will had from the dialysis session today and permacath placement. Pending outpatient dialysis chair time after discharge. Discussed with Dr. Santamaria. Patient's chart, labs, images were reviewed and discussed with RN 10/30/2021 No acute events overnight. Patient seen examined bedside. Patient in good spirits. Pending permacath placement and dialysis today. Okay for discharge once dialysis chair set up with Jace and patient will return to [facility]. Patient's chart, labs, images were reviewed and discussed with RN 10/31/2021 No acute events overnight. Patient seen examined bedside. Pending per minute HD catheter placement today. We will set up outpatient dialysis chair soon. Pending discharge to [facility]. Patient's chart, labs, images were reviewed and discussed with RN By day of discharge, patient was clinically stable and tolerating hemodialysis. She will continue with her hemodialysis and follow-up with commodity management specialist closely. Patient will be discharged to [facility]. Rest of hospital course was uneventful. Disposition: Disposition/Orders: D/C to Home Activity: Activity: Resume previous activity Diet: Diet: Renal Medications: Home Meds Active Scripts Sennosides/Docusate Sodium (Stool Softener-Stimulant Lax) 1 Each Tablet, 1 TAB PO BID for constipation for 30 Days, #60 TAB Prov:LORNE KWON MD 11/01/21 Reported Medications Glucosamine/D3/Boswellia Nancy (Osteo Bi-Flex Tablet) 1 Each Tablet, 1 EACH PO DAILY for supplement, TAB 12/17/20 Irbesartan (IRBESARTAN) 300 Mg Tablet, 300 MG PO DAILY for heart, TAB 12/17/20 Diphenhydramine Hcl (BENADRYL) 25 Mg Capsule, 1 CAP PO QHS for sleep for 30 Days, #30 CAP 0 Refills 12/17/20 Diltiazem Hcl (DILTIAZEM 24HR CD) 120 Mg Cap.er.24h, 120 MG PO DAILY for heart rhythm, CAP.SR 12/17/20 Nystatin (NYSTATIN) 15 Gm Powder, 1 MARCIE TP BID for yeast for 7 Days, #1 BOTTLE 0 Refills apply to affected area(s) 12/17/20 Metoprolol Succinate (Toprol XL) 50 Mg Tab.er.24h, 50 MG PO BID for FOR HYPERTENSION, TAB.SR 12/17/20 Lactobacillus Rhamnosus Gg (CULTURELLE) 1 Each Capsule, 1 CAP PO BID for supplement for 30 Days, #60 CAP 0 Refills 12/17/20 Ezetimibe (ZETIA) 10 Mg Tablet, 10 MG PO DAILY for cholesterol, TAB 12/17/20 Cholecalciferol (Vitamin D3) (Vitamin D3) 50 Mcg Tablet, 50 MCG PO DAILY for supplement, TAB 12/17/20 Atorvastatin Calcium (ATORVASTATIN CALCIUM) 10 Mg Tablet, 10 MG PO HS for FOR CH OLESTEROL, #30 TAB 0 Refills 12/17/20 Acetaminophen (ACETAMINOPHEN) 500 Mg Tablet, 500 MG PO PRN TID PRN for MILD PAIN / TEMP > 100.3'F, TAB 12/17/20 Scheduled Atorvastatin Calcium (Atorvastatin Calcium), 10 MG PO HS, (Reported) Cholecalciferol (Vitamin D3) (Vitamin D3), 50 MCG PO DAILY, (Reported) Diltiazem Hcl (Diltiazem 24HR Cd), 120 MG PO DAILY, (Reported) Diphenhydramine Hcl (Benadryl), 1 CAP PO QHS, (Reported) Ezetimibe (Zetia), 10 MG PO DAILY, (Reported) Glucosamine/D3/Boswellia Nancy (Osteo Bi-Flex Tablet), 1 EACH PO DAILY, (Repor antwan) Irbesartan (Irbesartan), 300 MG PO DAILY, (Reported) Lactobacillus Rhamnosus Gg (Culturelle), 1 CAP PO BID, (Reported) Metoprolol Succinate (Toprol XL), 50 MG PO BID, (Reported) Nystatin (Nystatin), 1 MARCIE TP BID, (Reported) Sennosides/Docusate Sodium (Stool Softener-Stimulant Lax), 1 TAB PO BID Scheduled PRN Acetaminophen (Acetaminophen), 500 MG PO PRN TID PRN for MILD PAIN / TEMP > 100.3'F, (Reported) Total Time: Total Time: Total time spent was 34 minutes in preparing scripts, discharge planning with SWI and RN and preparing this discharge summary Patient seen and examined on day of discharge. No acute abnormal findings. Justicifation of Admission Dx: Justifications for Admission: Justification of Admission Dx: Yes LORNE KWON MD Nov 04, 2021 13:09
== END 2021-11-01 14:00 | DRG 674 ==
LOC: ER 14:24 → 5 NORTH 17:46
PROVIDERS: ADMIT Student in an Organized Health Care Education/Training Program; ATTEND Student in an Organized Health Care Education/Training Program
PROC: 5A1D70Z Performance of Urinary Filtration, Intermittent, Less than 6 Hours Per Day (ICD-10-PCS; 2021-10-26)
PROC: 5A1D70Z Performance of Urinary Filtration, Intermittent, Less than 6 Hours Per Day (ICD-10-PCS; 2021-10-27)
PROC: 02HV33Z Insertion of Infusion Device into Superior Vena Cava, Percutaneous Approach (ICD-10-PCS; principal; 2021-10-30)
PROC: B548ZZA Ultrasonography of Superior Vena Cava, Guidance (ICD-10-PCS; 2021-10-30)
PROC: 5A1D70Z Performance of Urinary Filtration, Intermittent, Less than 6 Hours Per Day (ICD-10-PCS; 2021-10-31)
PROC: 0JH63XZ Insertion of Tunneled Vascular Access Device into Chest Subcutaneous Tissue and Fascia, Percutaneous Approach (ICD-10-PCS; 2021-11-01)
PROC: 02PAX3Z Removal of Infusion Device from Heart, External Approach (ICD-10-PCS; 2021-11-01)
PROC: 02H633Z Insertion of Infusion Device into Right Atrium, Percutaneous Approach (ICD-10-PCS; 2021-11-01)
PROC: B5181ZA Fluoroscopy of Superior Vena Cava using Low Osmolar Contrast, Guidance (ICD-10-PCS; 2021-11-01)
DX: N17.9 Acute kidney failure, unspecified (principal); I13.0 Hypertensive heart and chronic kidney disease with heart failure and stage 1 through stage 4 chronic kidney disease, or unspecified chronic kidney disease; I48.20 Chronic atrial fibrillation, unspecified; E87.5 Hyperkalemia; N18.4 Chronic kidney disease, stage 4 (severe); E78.5 Hyperlipidemia, unspecified; F03.90 Unspecified dementia, unspecified severity, without behavioral disturbance, psychotic disturbance, mood disturbance, and anxiety; G89.4 Chronic pain syndrome; I50.9 Heart failure, unspecified; Z82.49 Family history of ischemic heart disease and other diseases of the circulatory system; Z99.2 Dependence on renal dialysis; E66.01 Morbid (severe) obesity due to excess calories; F41.9 Anxiety disorder, unspecified; M19.90 Unspecified osteoarthritis, unspecified site; D64.9 Anemia, unspecified
CPT/HCPCS: 96360; 99285; C8929; 36415; 36556; 36581; 71045; 76770; 77001; 80053; 80069; 81001; 82962; 83880; 84484; 85025; 85610; 86704; 86706; 87340; 87426; 93005; 99152; 99153; C1750; C1892; J0690; J1200; J1644; J2250; J3010; J3490; J7030; Q9956; U0003; U0005; G0378

== ENCOUNTER 2021-11-08 10:50 | Emergency (ER) | payer BC, MEDICARE ==
[~2021-11-08] VITALS: Ht 165.1 cm; Wt 90.9 kg
[~2021-11-08 10:50] MED LIST changes: +SENN-209 PO
--- NOTE | 2021-11-08 10:58 | PHYS DOC ---
Past Medical History Past Surgical History: Other Additional Past Surgical Histo: patient unsure Smoking Status: Never Smoker Alcohol Use: None General Adult EDM: Chief Complaint: HYPERTENSION HPI: HPI: Patient is a 76 year old female brought in by EMS from her group home facility for reported low oxygen level. The patient denies dyspnea. She denies chest pain. Reportedly, her room air oxygen saturation was in the high 80s. EMS placed her on 3 L per nasal cannula. She is taken off of oxygen on arrival, her oxygen saturation has been stable on room air, in the mid and high 90s. She also had some relative hypotension in route. The patient has chronic atrial fibrillation, she is anticoagulated. The patient reports generalized but chronic weakness, which is unchanged. She has multiple bruises, specifically of her right knee and her right scalp. She reports that about 1 week ago, she fell off of the toilet, while waiting for help from someone from her facility. She denies loss of consciousness. She denies dizziness. She denies headache. She denies abdominal pain, nausea, vomiting. She does report slightly decreased appetite. She has recently had a negative rapid Covid antigen test. She has b een vaccinated against Covid per her report. She denies any cough or hemoptysis. Review of Systems: Review of Systems: Constitutional: Denies fever or chills. [] Eyes: Denies change in visual acuity. [] HENT: Denies nasal congestion or sore throat. [] Respiratory: Denies cough or shortness of breath. [] Cardiovascular: Denies chest pain GI: Denies abdominal pain, nausea, vomiting, or diarrhea : Denies urinary symptoms Musculoskeletal: Denies back pain or joint pain. [] Integument: Denies rash. Multiple bruises--scalp, shoulder, hands, right knee Neurologic: Denies headache, focal weakness or sensory changes. Generalized weakness. Psychiatric: Denies depression or anxiety. [] Heart Score: C/O Chest Pain: No Risk Factors: Risk Factors: DM, Current or recent (<one month) smoker, HTN, HLP, family history of CAD, obesity. Risk Scores: Score 0 - 3: 2.5% MACE over next 6 weeks - Discharge Home Score 4 - 6: 20.3% MACE over next 6 weeks - Admit for Clinical Observation Score 7 - 10: 72.7% MACE over next 6 weeks - Early Invasive Strategies Allergies: Allergies: Allergies Coded Allergies Type Severity Reaction Last Updated Verified No Known Drug Allergies 10/24/21 No Physical Exam: PE: Constitutional: Well developed, well nourished, no acute distress, non-toxic appearance. Chronically ill appearing. HENT: Soft tissue swelling and contusion of the right frontal and parietal scalp. No tenderness. No step-offs. Oropharynx is patent and clear, mucous membranes are tacky. TMs are clear bilaterally. No otorrhea no hemotympanum. Nares are patent without rhinorrhea epistaxis Eyes: PERRL, EOMI, conjunctiva demonstrate mild pallor, no discharge. No nystagmus. No scleral icterus. Neck: Normal range of motion, no tenderness, supple, no stridor. No midline tenderness or step-offs. No deformity. Cardiovascular: Irregularly irregular, atrial fibrillation with rapid ventricular response, rate in the 110s to 120s, +2 radial pulses bilaterally. Cap refill is brisk. Lungs & Thorax: Mildly diminished breath sounds in bilateral bases. Mid and upper lung hodgson are clear to auscultation bilaterally, no rales, rhonchi or wheezes, no stridor. Equal chest rise. Speaks in full and clear senses. No cyanosis. No evidence of distress Abdomen: Maggie is obese, soft, nondistended, nontender to palpation. No obvious flank or abdominal ecchymoses. No palpable pulsatile mass noted Skin: Warm, dry, no erythema, no rash. No open wounds. Contusion of the right scalp, as detailed above. There is a large contusion of the right anterior knee. There is a small contusion of the posterior right shoulder. Multiple superficial contusions of bilateral hands and bilateral forearms, mostly involving the dorsal surfaces of each. No focal areas of tenderness. Back: No tenderness, no CVA tenderness. No deformity. Moderate kyphosis. No midline tenderness or step-offs Extremities: Pelvis is stable. No focal tenderness. Moderate soft tissue swelling and contusion of the right anterior knee. Superficial contusion of the right posterior shoulder. Contusions of the bilateral upper extremities, as detailed above. No focal bony tenderness. Full painless active and passive range of motion of bilateral upper and lower extremities, all joints. Mildly limited active range of motion of the right knee, secondary to soft tissue swelling. No calf tenderness is noted. Neurologic: She is awake, alert, oriented x3, no facial asymmetry, generalized but nonfocal and symmetric proximal weakness. Equal cpo bilaterally. No limb ataxia. Speech is clear and fluent. Sensation is grossly intact. Psychologic: Affect is flat, she is cooperative. [] EKG: EKG: EKG is interpreted at 1105 Rhythm is irreguarly irregular, AF with RVR Rate is 110 bpm [place] is left Low voltage artifact No STEMI Radiology/Procedures: Radiology/Procedures: IMAGING REPORT Signed PATIENT: VICKY FOSTER ACCOUNT: [id number] : 1945 LOCATION: ER AGE: 76 SEX: F EXAM STATUS: REG ER ORD. PHYSICIAN: JOVANNI CAMACHO DO REASON: weakness PROCEDURE: PORTABLE CHEST 1V XR CHEST 1V History: Fall, weakness. Comparison: 10/27/2021 Technique: Portable AP chest radiograph. FINDINGS/ IMPRESSION: Tubes and lines: Right IJ approach dialysis catheter with tip at the lower SVC. Lungs and pleura: Lungs are hyperinflated. No focal consolidation, pleural effusion or pneumothorax. Cardiac silhouette and pulmonary vasculature: Heart size is normal. Minimal prominence of the pulmonary vasculature. Osseous structures and other: Advanced degenerative changes of the shoulders. Multilevel marginal osteophytes in the thoracic spine. Electronically signed by: Tyrese Shah MD (11/08/2021 12:11 PM) [id number] DICTATED and SIGNED BY: TYRESE SHAH MD DATE: 11/08/21 [id number] IMAGING REPORT Signed PATIENT: VICKY FOSTER ACCOUNT: [id number] : 1945 LOCATION: ER AGE: 76 SEX: F EXAM STATUS: REG ER ORD. PHYSICIAN: JOVANNI CAMACHO DO REASON: weakness, hip pain PROCEDURE: PELVIS XR PELVIS 1-2V Clinical Indication: Reason: weakness, hip pain / Spl. Instructions: / History: Comparison: None. Findings: No acute displaced pelvic fracture is identified. No dislocation of the hips. There is moderate arthropathy of the hips. The sacroiliac joints are symmetric. There is degenerative spondylosis of the visualized lumbar spine. Soft tissues unremarkable. IMPRESSION: No acute fracture. Electronically signed by: Liam Mcdonald MD (11/08/2021 12:19 PM) [id number] DICTATED and SIGNED BY: LIAM MCDONALD MD DATE: 11/08/21 [id number] IMAGING REPORT Signed PATIENT: VICKY FOSTER ACCOUNT: [id number] : 1945 LOCATION: ER AGE: 76 SEX: F EXAM STATUS: REG ER ORD. PHYSICIAN: JOVANNI CAMACHO DO REASON: weakness, rt knee pain PROCEDURE: KNEE RIGHT 3V XR KNEE 3 VIEWS_RT Clinical Indication: Reason: weakness, rt knee pain / Spl. Instructions: / History: Comparison: None. Findings: There is severe medial compartment narrowing. There are large tricompartmental marginal osteophytes. There is moderate patellofemoral joint space narrowing. Large patellar enthesophyte. Question suprapatellar loose joint body. No acute fracture is seen. No joint effusion is seen. Patella in anatomic position. Arterial calcifications are noted. IMPRESSION: 1. No acute fracture. 2. Severe arthropathy. 3. Question loose joint body. Electronically signed by: Liam Mcdonald MD (11/08/2021 12:16 PM) [id number] DICTATED and SIGNED BY: LIAM MCDONALD MD DATE: 11/08/21 [id number] 0 IMAGING REPORT Signed PATIENT: VICKY FOSTER ACCOUNT: [id number] : 1945 LOCATION: ER AGE: 76 SEX: F EXAM STATUS: REG ER ORD. PHYSICIAN: JOVANNI CAMACHO DO REASON: fall, scalp contusion PROCEDURE: CT HEAD AND CERVICAL SPINE WO CT HEAD AND C-SPINE WO History: Fall, scalp contusion Comparison: None. Technique: Noncontrast CT of the head and cervical spine. Findings: CT HEAD: There is no evidence for intracranial mass or hemorrhage. There is no hydrocephalus or midline shift. No abnormal extra-axial fluid collections are present. No evidence of acute territorial infarction. Periventricular and deep white matter hypodensity compatible with chronic microvascular ischemic changes. Mild bilateral maxillary sinus mucoperiosteal thickening. The mastoid air cells are clear. There is a partially calcified subcutaneous nodule in the posterior occipital scalp measuring 1.6 cm. No skull fracture. Mild hyperostosis frontalis. CT CERVICAL SPINE: There is no evidence for fracture in the cervical spine. Alignment is normal. Disc space narrowing C5-C6 and C6-C7 with uncovertebral hypertrophy and facet hypertrophy at multiple levels. Neural foraminal narrowing on the left at C4-C5 and C3-C4 No destructive osseous lesions are seen. Limited evaluation of the soft tissues of the neck and of the upper chest is unremarkable. Partially visualized right chest IJ dialysis catheter. The lung apices are clear. Enlarged right thyroid nodule measuring approximately 2.8 cm diameter. Impression: 1. No acute intracranial findings. 2. No acute osseous abnormality in the cervical spine. 3. Large right thyroid nodule measuring approximately 2.8 cm diameter. Recommend thyroid ultrasound for further evaluation. ------- Exposure: One or more of the following individualized dose reduction techniques were utilized for this examination: 1. Automated exposure control 2. Adjustment of the mA and/or kV according to patient size 3. Use of iterative reconstruction technique. Electronically signed by: Tyrese Shah MD (11/08/2021 12:22 PM) [id number] DICTATED and SIGNED BY: TYRESE SHAH MD DATE: 11/08/21 [id number] 0 Course & Med Decision Making: Course & Med Decision Making Pertinent Labs and Imaging studies reviewed. (See chart for details) Patient is given IV fluids. She reports feeling much better. She is urinated several times. She still atrial fibrillation, however her heart rate is in the 80s and 90s. Blood pressure is markedly improved. Lactic acid trended down to normal. She clinically does not appear to be septic. She has no leukocytosis. Her renal failure is chronic, creatinine is at baseline. Anion gap is normal. She denies any other subjective complaints. She is afebrile. I have discussed all the findings, differential diagnosis and plan of care with the patient. There is no current indication for the invasive exam, imaging or admission based on current clinical presentation. If blood cultures returned positive or abnormal, she should be contacted or notified about these results. She will be discharged back to her group home facility. She should continue taking metoprolol as directed. She may continue taking anticoagulant medication as directed. Strict return precautions are provided. Dragon Disclaimer: Dragon Disclaimer: This electronic medical record was generated, in whole or in part, using a voice recognition dictation system. Departure Departure Impression: Primary Impression: Dehydration Additional Impressions: Chronic kidney disease on chronic dialysis Lactic acidosis Chronic atrial fibrillation History of fall Scalp contusion Qualified Codes: S00.03XA - Contusion of scalp, initial encounter Contusion of right knee Qualified Codes: S80.01XA - Contusion of right knee, initial encounter Disposition: 03 ASSISTED FACILITY Condition: STABLE Referrals: VAUGHN CERVANTES MD (PCP) Patient Instructions: Atrial Fibrillation, Dehydration, Adult Additional Instructions: Please return to the ER for chest pain, shortness of breath, uncontrolled vomiting, abdominal pain, if you have any acute injury or trauma or any other concerns. You appear to have been dehydrated today. Your oxygen level has been normal. Your chest x-ray does not show any fluid or pneumonia. Your blood pressure was slightly low, but improved greatly with IV fluids. Your atrial fibrillation is chronic, please continue taking your regularly prescribed medications for this. You may continue taking your blood thinning medication as directed. Your CAT scans and x-rays did not show any broken bones or bleeding. Please contact your primary care doctor for further follow-up and management. JOVANNI CAMACHO DO Nov 08, 2021 10:58
[2021-11-08] MEDS ORDERED: IV NORMAL SALINE 1000ML BAG 1,000 ML IV ONE ×2 (11:15→12:45)
[2021-11-08 11:43] LABS: BASO # 0.1 x10^3/uL (0.0-0.2); BASO % 1 % (0-3); EOS # 0.3 x10^3/uL (0.0-0.7); EOS % 3 % (0-3); HEMATOCRIT 36.3 % (36.0-47.0); HEMOGLOBIN 11.9 g/dL (12.0-15.5); LYMPH # 1.4 x10^3/uL (1.0-4.8); LYMPH % 15 % (24-48); MEAN CORPUSCULAR HEMOGLOBIN 32 pg (25-35); MEAN CORPUSCULAR HGB CONC 33 g/dL (31-37); MEAN CORPUSCULAR VOLUME 97 fL (79-100); MONO % 11 % (0-9); NEUT # 6.7 x10^3/uL (1.8-7.7); NEUT % 71 % (31-73); PLATELET COUNT 273 x10^3/uL (140-400); RED BLOOD COUNT 3.75 x10^6/uL (3.50-5.40); WHITE BLOOD COUNT 9.4 x10^3/uL (4.0-11.0)
[2021-11-08 11:58] LABS: CREATININE 3.1 mg/dL (0.6-1.0); GFR 14.5; POTASSIUM 3.7 mmol/L (3.5-5.1)
[2021-11-08 12:11] LABS: ALBUMIN 2.6 g/dL (3.4-5.0); ALBUMIN/GLOBULIN RATIO 0.8 (1.0-1.7); MAGNESIUM 1.7 mg/dL (1.8-2.4); PHOSPHORUS 2.8 mg/dL (2.6-4.7); TOTAL BILIRUBIN 0.6 mg/dL (0.2-1.0); TOTAL PROTEIN 5.9 g/dL (6.4-8.2)
--- NOTE | 2021-11-08 12:13 | RAD ---
XR CHEST 1V History: Fall, weakness. Comparison: 10/27/2021 Technique: Portable AP chest radiograph. FINDINGS/ IMPRESSION: Tubes and lines: Right IJ approach dialysis catheter with tip at the lower SVC. Lungs and pleura: Lungs are hyperinflated. No focal consolidation, pleural effusion or pneumothorax. Cardiac silhouette and pulmonary vasculature: Heart size is normal. Minimal prominence of the pulmona ry vasculature. Osseous structures and other: Advanced degenerative changes of the shoulders. Multilevel marginal ost eophytes in the thoracic spine. Electronically signed by: Tyrese Mandel MD (11/08/2021 12:11 PM) [id number]
--- NOTE | 2021-11-08 12:18 | RAD ---
XR KNEE 3 VIEWS_RT Clinical Indication: Reason: weakness, rt knee pain / Spl. Instructions: / History: Comparison: None. Findings: There is severe medial compartment narrowing. There are large tricompartmental marginal osteophytes. There is moderate patellofemoral joint space narrowing. Large patellar enthesophyte. Question suprapa tellar loose joint body. No acute fracture is seen. No joint effusion is seen. Patella in anatomic po sition. Arterial calcifications are noted. IMPRESSION: 1. No acute fracture. 2. Severe arthropathy. 3. Question loose joint body. Electronically signed by: Liam Mcdonald MD (11/08/2021 12:16 PM) [id number]
[2021-11-08 12:19] LABS: INFLUENZA A PATIENT NEGATIVE (NEGATIVE); INFLUENZA B PATIENT NEGATIVE (NEGATIVE)
--- NOTE | 2021-11-08 12:21 | RAD ---
XR PELVIS 1-2V Clinical Indication: Reason: weakness, hip pain / Spl. Instructions: / History: Comparison: None. Findings: No acute displaced pelvic fracture is identified. No dislocation of the hips. There is moderate arthr opathy of the hips. The sacroiliac joints are symmetric. There is degenerative spondylosis of the vis ualized lumbar spine. Soft tissues unremarkable. IMPRESSION: No acute fracture. Electronically signed by: Liam Mcdonald MD (11/08/2021 12:19 PM) [id number]
--- NOTE | 2021-11-08 12:25 | RAD ---
CT HEAD AND C-SPINE WO History: Fall, scalp contusion Comparison: None. Technique: Noncontrast CT of the head and cervical spine. Findings: CT HEAD: There is no evidence for intracranial mass or hemorrhage. There is no hydrocephalus or midline shift. No abnormal extra-axial fluid collections are present. No evidence of acute territorial infarction. Periventricular and deep white matter hypodensity compat ible with chronic microvascular ischemic changes. Mild bilateral maxillary sinus mucoperiosteal thickening. The mastoid air cells are clear. There is a partially calcified subcutaneous nodule in the posterior occipital scalp measuring 1.6 cm. No skull fracture. Mild hyperostosis frontalis. CT CERVICAL SPINE: There is no evidence for fracture in the cervical spine. Alignment is normal. Disc space narrowing C5-C6 and C6-C7 with uncovertebral hypertrophy and facet hypertrophy at multiple levels. Neural foraminal narrowing on the left at C4-C5 and C3-C4 No destructive osseous lesions are seen. Limited evaluation of the soft tissues of the neck and of the upper chest is unremarkable. Partially visualized right chest IJ dialysis catheter. The lung apices are clear. Enlarged right thyroid nodule measuring approximately 2.8 cm diameter. Impression: 1. No acute intracranial findings. 2. No acute osseous abnormality in the cervical spine. 3. Large right thyroid nodule measuring approximately 2.8 cm diameter. Recommend thyroid ultrasound for further evaluation. ------- Exposure: One or more of the following individualized dose reduction techniques were utilized for thi s examination: 1. Automated exposure control 2. Adjustment of the mA and/or kV according to patient size 3. Use of iterative reconstruction technique. Electronically signed by: Tyrese Mandel MD (11/08/2021 12:22 PM) [id number]
--- NOTE | 2021-11-08 17:00 | EKG ---
[facility] [address] [place] [address] Test Date: 2021-11-08 Test Time: 11:01:40 Pat Name: VICKY FOSTER Department: Room: Gender: F [employer]: : 1945 Requested By: JOVANNI CAMACHO Order Number: [id number] Reading MD: Cain Ruvalcaba Measurements Intervals Ages [place] Rate: 110 P: MO: QRS: -24 QRSD: 72 T: -9 QT: 350 QTc: 479 Interpretive Statements ATRIAL FIBRILLATION LEFTWARD AXIS LOW LIMB LEAD VOLTAGE Electronically Signed On 11-11-2021 12:22:48 [employer] by Cain Ruvalcaba
[2021-11-08 18:50] VITALS: BP 159/94
== END 2021-11-08 21:10 | disposition home or self-care (01) ==
LOC: ER 10:50
DX: S00.03XA Contusion of scalp, initial encounter (principal); S80.01XA Contusion of right knee, initial encounter; N18.6 End stage renal disease; Z20.822 Contact with and (suspected) exposure to COVID-19; E87.2 Acidosis; I48.20 Chronic atrial fibrillation, unspecified; Z91.81 History of falling; E86.0 Dehydration; W18.11XA Fall from or off toilet without subsequent striking against object, initial encounter; Y93.89 Activity, other specified; Y92.89 Other specified places as the place of occurrence of the external cause; Y99.8 Other external cause status
CPT/HCPCS: 36415; 70450; 71045; 72125; 72170; 73562; 80053; 82550; 83605; 83735; 83880; 84100; 84484; 85025; 87040; 87426; 87428; 93005; 96360; 96361; 99285; J7030; U0003; U0005

== ENCOUNTER 2021-12-24 13:37 | Inpatient (IN) | payer MEDICARE, BC ==
[~2021-12-24] VITALS: Ht 165.1 cm; Wt 73.9 kg
--- NOTE | 2021-12-24 13:59 | PHYS DOC ---
Past Medical History Additional Past Medical Histor: COVID-AUG 2021 Past Surgical History: Other Additional Past Surgical Histo: patient unsure Smoking Status: Never Smoker Alcohol Use: None Adult General Chief Complaint Chief Complaint: ALTERED MENTAL STATUS HPI HPI Patient is a 76 year old female who presents with confusion. The patient resides at a assisted care facility or custodial. Her mental status has declined for the last 2 or 3 days according to staff members there. When arnaldo stafford arrived to dialysis today the dialysis team also noticed an alteration in the patient's level of consciousness and she was thus transported to the emergency department. The patient is pretty much a nonhistorian. She was noted to have an axillary temp of 99.7. She did have a cath urine specimen obtained today as the patient has a history of recently diagnosed UTI, urine is come back cloudy. We are unable to obtain any further history at this time due to the patient's alteration in level of consciousness. Review of Systems Review of Systems Review of systems not obtainable secondary to patient's altered level of consciousness Current Medications Current Medications Current Medications Medications (Trade) Dose Ordered Sig/Cailin Start Time Stop Time Status Last Admin Dose Admin Ceftriaxone Sodium (Rocephin) 1 gm 1X ONCE 12/24/21 14:00 12/24/21 14:01 DC 12/24/21 14:38 1 GM Vancomycin HCl 1 gm/Sodium Chloride 250 ml @ 166.667 mls/hr 1X ONCE 12/24/21 14:30 12/24/21 15:59 DC 12/24/21 15:52 166.667 MLS/HR Allergies Allergies Allergies Coded Allergies Type Severity Reaction Last Updated Verified No Known Drug Allergies 10/24/21 No Physical Exam Physical Exam Constitutional: Somewhat disheveled 76-year-old female who looks her stated age HENT: Normocephalic, atraumatic, bilateral external ears normal, mucosa dry, nose normal. Eyes: EOMI, conjunctiva normal, no discharge. Neck: Normal range of motion, supple, no stridor, no meningeal signs. Cardiovascular: Regular rate and rhythm Lungs & Thorax: Bilateral breath sounds clear to auscultation Abdomen: Soft, no tenderness or obvious masses Skin: Warm, dry, no erythema, stage II decubitus ulcers over the sacrum Extremities: No tenderness, no cyanosis, no clubbing, ROM intact, chronic venous stasis changes of the lower extremities bilaterally Neurologic: Patient is not alert nor oriented, she does not have any focal sensory or motor deficits. Psychologic: Flat affect, somewhat irritable mood. Current Patient Data Vital Signs Vital Signs Date Time Temp Pulse Resp B/P (MAP) Pulse Ox O2 Delivery O2 Flow Rate FiO2 12/24/21 16:04 99.7 69 20 159/84 (109) 99 Nasal Cannula 2.0 99.7 Lab Values Laboratory Tests Test 12/24/21 13:42 12/24/21 13:54 12/24/21 14:47 Urine Opiates Screen Neg (NEG) Urine Methadone Screen Neg (NEG) Urine Barbiturates Neg (NEG) Urine Phencyclidine Screen Neg (NEG) Urine Amphetamine/Methamphetamine Neg (NEG) Urine Benzodiazepines Screen Neg (NEG) Urine Cocaine Screen Neg (NEG) Urine Cannabinoids Screen Neg (NEG) Urine Ethyl Alcohol Neg (NEG) White Blood Count 18.4 x10^3/uL (4.0-11.0) H Red Blood Count 3.17 x10^6/uL (3.50-5.40) L Hemoglobin 10.3 g/dL (12.0-15.5) L Hematocrit 31.4 % (36.0-47.0) L Mean Corpuscular Volume 99 fL (79-100) Mean Corpuscular Hemoglobin 33 pg (25-35) Mean Corpuscular Hemoglobin Concent 33 g/dL (31-37) Red Cell Distribution Width 16.1 % (11.5-14.5) H Platelet Count 356 x10^3/uL (140-400) Neutrophils (%) (Auto) 87 % (31-73) H Lymphocytes (%) (Auto) 7 % (24-48) L Monocytes (%) (Auto) 6 % (0-9) Eosinophils (%) (Auto) 0 % (0-3) Basophils (%) (Auto) 0 % (0-3) Neutrophils # (Auto) 16.1 x10^3/uL (1.8-7.7) H Lymphocytes # (Auto) 1.2 x10^3/uL (1.0-4.8) Monocytes # (Auto) 1.1 x10^3/uL (0.0-1.1) Eosinophils # (Auto) 0.0 x10^3/uL (0.0-0.7) Basophils # (Auto) 0.0 x10^3/uL (0.0-0.2) Segmented Neutrophils % 92 % (35-66) H Lymphocytes % 6 % (24-48) L Monocytes % 2 % (0-10) Platelet Estimate Increased (ADEQUATE) Rachna Cells Present Prothrombin Time 27.4 SEC (11.7-14.0) H Prothrombin Time INR 2.6 (0.8-1.1) H Activated Partial Thromboplast Time 49 SEC (24-38) H Sodium Level 139 mmol/L (136-145) Potassium Level 4.0 mmol/L (3.5-5.1) Chloride Level 99 mmol/L (98-107) Carbon Dioxide Level 28 mmol/L (21-32) Anion Gap 12 (6-14) Blood Urea Nitrogen 81 mg/dL (7-20) H Creatinine 4.9 mg/dL (0.6-1.0) H Estimated GFR (Cockcroft-Gault) 8.6 BUN/Creatinine Ratio 17 (6-20) Glucose Level 119 mg/dL (70-99) H Lactic Acid Level 2.8 mmol/L (0.4-2.0) H Calcium Level 9.7 mg/dL (8.5-10.1) Magnesium Level 2.7 mg/dL (1.8-2.4) H Total Bilirubin 0.7 mg/dL (0.2-1.0) Aspartate Amino Transferase (AST) 49 U/L (15-37) H Alanine Aminotransferase (ALT) 19 U/L (14-59) Alkaline Phosphatase 123 U/L (46-116) H Creatine Kinase 390 U/L (26-192) H Troponin I High Sensitivity 30 ng/L (4-50) C-Reactive Protein, Quantitative 304.2 mg/L (0-3.3) H Total Protein 7.2 g/dL (6.4-8.2) Albumin 1.8 g/dL (3.4-5.0) L Albumin/Globulin Ratio 0.3 (1.0-1.7) L Lipase 159 U/L (73-393) Salicylates Level 2.4 mg/dL (2.8-20.0) L Salicylate Last Dose Date Unknown Salicylate Last Dose Time Unknown Acetaminophen Level < 2 mcg/ml (10-30) L Acetaminophen Last Dose Date Unknown Acetaminophen Last Dose Time Unknown Ethyl Alcohol Level < 10 mg/dL (0-10) Influenza Type A Antigen Negative (NEGATIVE) Influenza Type B Antigen Negative (NEGATIVE) SARS-CoV-2 Antigen (Rapid) Negative (NEGATIVE) Laboratory Tests 12/24/21 13:54 Laboratory Tests 12/24/21 13:54 EKG EKG [] Interpretation Time: Twelve-lead EKG shows a sinus rhythm with a rate of 82 bpm. NJ, QRS and QT corrected intervals are within normal limits with a borderline QRS at [address] segment elevation or depression. Borderline left axis deviation. Radiology/Procedures Radiology/Procedures [] Impressions: PATIENT: LEROY FOSTERCOUNT: [id number]#: [id number] : 1945 LOCATION: ER AGE: 76 SEX: F EXAM STATUS: PRE ER ORD. PHYSICIAN: JESS ODONNELL MD REASON: fever PROCEDURE: CHEST AP ONLY XR CHEST 1V History: Reason: fever / Spl. Instructions: / History: Comparison: November 08, 2021 Findings: Mild left basilar linear atelectasis. No consolidation or pleural effusion. Normal heart size. No pneumothorax. 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 Unchanged left-sided central line. Mild elevation of the right hemidiaphragm. Impression: 1. Mild linear left basilar atelectasis. Electronically signed by: Paxton Pablo DO (12/24/2021 2:13 PM) [id number] DICTATED and SIGNED BY: PAXTON PABLO DO DATE: 12/24/21 1412 Course & Med Decision Making Course & Med Decision Making Pertinent Labs and Imaging studies reviewed. (See chart for details) [] Is a 76-year-old female with altered mentation. She was recently diagnosed with urinary tract infection I suspect she continues to have 1. We are not able to obtain enough urine for the lab to do a urinalysis for us. She does have a white count of 18,000 and a axillary temp of 99.7. We have held off on fluid boluses as it is unclear whether she was completely dialyzed today or not and she is not tachycardic nor hypotensive. We have given her ceftriaxone and vancomycin as well. I spoke to the hospitalist has been kind enough to keep her for further management, patient is in stable guarded condition. Dragon Disclaimer Dragon Disclaimer This electronic medical record was generated, in whole or in part, using a voice recognition dictation system. Departure Departure Impression: Primary Impression: Sepsis Additional Impressions: UTI (urinary tract infection) Decubitus ulcer Disposition: ADMITTED INPATIENT Condition: GUARDED Referrals: TSERING MATHIS (PCP) Problem Qualifiers JESS ODONNELL MD Dec 24, 2021 13:59
[2021-12-24] MEDS ORDERED: cefTRIAXone IV Push 1 GM VIAL. IVP ONE (14:00)
[2021-12-24 14:14] LABS: BASO % 0 % (0-3); EOS % 0 % (0-3); HEMATOCRIT 31.4 % (36.0-47.0); HEMOGLOBIN 10.3 g/dL (12.0-15.5); LYMPH # 1.2 x10^3/uL (1.0-4.8); LYMPH % 7 % (24-48); MEAN CORPUSCULAR HEMOGLOBIN 33 pg (25-35); MEAN CORPUSCULAR HGB CONC 33 g/dL (31-37); MEAN CORPUSCULAR VOLUME 99 fL (79-100); MONO # 1.1 x10^3/uL (0.0-1.1); MONO % 6 % (0-9); NEUT # 16.1 x10^3/uL (1.8-7.7); NEUT % 87 % (31-73); PLATELET COUNT 356 x10^3/uL (140-400); RED BLOOD COUNT 3.17 x10^6/uL (3.50-5.40); RED CELL DISTRIBUTION WIDTH 16.1 % (11.5-14.5); WHITE BLOOD COUNT 18.4 x10^3/uL (4.0-11.0)
--- NOTE | 2021-12-24 14:16 | RAD ---
XR CHEST 1V History: Reason: fever / Spl. Instructions: / History: Comparison: November 08, 2021 Findings: Mild left basilar linear atelectasis. No consolidation or pleural effusion. Normal heart size. No pne umothorax. 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 U nchanged left-sided central line. Mild elevation of the right hemidiaphragm. Impression: 1. Mild linear left basilar atelectasis. Electronically signed by: Paxton Pablo DO (12/24/2021 2:13 PM) [id number]
[2021-12-24 14:23] LABS: CALCIUM 9.7 mg/dL (8.5-10.1); CREATININE 4.9 mg/dL (0.6-1.0); GFR 8.6
[2021-12-24 14:25] LABS: BARBITURATES NEG (NEG); BENZODIAZEPINES NEG (NEG); CANNABINOIDS NEG (NEG); COCAINE NEG (NEG); METHADONE NEG (NEG); OPIATES NEG (NEG); PHENCYCLIDINE NEG (NEG)
[2021-12-24 14:27] LABS: ACETAMIN < 2 mcg/ml (10-30); ETHANOL < 10 mg/dL (0-10); SALIC 2.4 mg/dL (2.8-20.0)
[2021-12-24 14:27] LABS: AMPHETAMINE/METHAMPHETAMINE NEG (NEG)
[2021-12-24 14:30] LABS: ALBUMIN 1.8 g/dL (3.4-5.0); ALBUMIN/GLOBULIN RATIO 0.3 (1.0-1.7); MAGNESIUM 2.7 mg/dL (1.8-2.4); TOTAL BILIRUBIN 0.7 mg/dL (0.2-1.0); TOTAL PROTEIN 7.2 g/dL (6.4-8.2)
[2021-12-24] MEDS ORDERED: VANCOMYCIN 1 GM in IV NORMAL SALINE 250ML 250 ML IV ONE (14:30)
[2021-12-24 14:31] LABS: PROTHROMBIN TIME PATIENT 27.4 SEC (11.7-14.0)
[2021-12-24 14:52] LABS: % LYMPHS 6 % (24-48); % MONOS 2 % (0-10); % SEGS 92 % (35-66); C-REACTIVE PROTEIN 304.2 mg/L (0-3.3)
[2021-12-24 14:54] LABS: BURR CELLS PRESENT; PLT ESTIMATE INCREASED (ADEQUATE)
[2021-12-24 15:19] LABS: INFLUENZA A PATIENT NEGATIVE (NEGATIVE); INFLUENZA B PATIENT NEGATIVE (NEGATIVE)
--- NOTE | 2021-12-24 19:14 | PDOC1 ---
History and Physical Date of Admission Date of Admission DATE: 12/24/21 TIME: 19:10 Source Source: Chart review History of Present Illness History of Present Illness Ms. Cook is a 76 year old female admit form her dialysis with acute confusion. She lives at assisted care facility, and they reported a mental status declined over days and very confused today at HD. TOday, she withdrawn and lethargic and did not talk and was transported to the emergency department. T 99.7 noted in ER, with cloudy urine gladys has a sacaral ulcer, and was recently diagnosed with a UTI, Past Medical History Cardiovascular: HTN Renal/: Chronic renal failure Past Surgical History Past Surgical History: Other Family History Family History: No Significant Social History Smoke: No ALCOHOL: none Drugs: None Current Problem List Problem List Problems Medical Problems: (1) Decubitus ulcer Status: Acute (2) Sepsis Status: Acute (3) UTI (urinary tract infection) Status: Acute Current Medications Current Medications Current Medications Ceftriaxone Sodium (Rocephin) 1 gm 1X ONCE IVP Last administered on 12/24/21at 14:38; Start 12/24/21 at 14:00; Stop 12/24/21 at 14:01; Status DC Vancomycin HCl 1 gm/Sodium Chloride 250 ml @ 166.667 mls/hr 1X ONCE IV Last administered on 12/24/21at 15:52; Start 12/24/21 at 14:30; Stop 12/24/21 at 15:59; Status DC Active Scripts Active Stool Softener-Stimulant Lax (Sennosides/Docusate Sodium) 1 Each Tablet 1 Tab PO BID 30 Days Reported Osteo Bi-Flex Tablet (Glucosamine/D3/Boswellia Nancy) 1 Each Tablet 1 Each PO DAILY Irbesartan 300 Mg Tablet 300 Mg PO DAILY Benadryl (Diphenhydramine Hcl) 25 Mg Capsule 1 Cap PO QHS 30 Days Diltiazem 24HR Cd (Diltiazem Hcl) 120 Mg Cap.er.24h 120 Mg PO DAILY Nystatin 15 Gm Powder 1 Bryan TP BID 7 Days apply to affected area(s) Toprol XL (Metoprolol Succinate) 50 Mg Tab.er.24h 50 Mg PO BID Culturelle (Lactobacillus Rhamnosus Gg) 1 Each Capsule 1 Cap PO BID 30 Days Zetia (Ezetimibe) 10 Mg Tablet 10 Mg PO DAILY Vitamin D3 (Cholecalciferol (Vitamin D3)) 50 Mcg Tablet 50 Mcg PO DAILY Atorvastatin Calcium 10 Mg Tablet 10 Mg PO HS Acetaminophen 500 Mg Tablet 500 Mg PO PRN TID PRN Allergies Allergies: Coded Allergies: No Known Drug Allergies (Unverified , 10/24/21) ROS Review of System unable, acute confusion Physical Exam General: Cooperative, No acute distress, Other (looks away, does not talk, does follow some commands, poor eye contact, no verbal) Abdomen: Normal bowel sounds, No tenderness Extremities: No edema, Normal pulses Skin: Other (sacral ulcer) Neuro: Normal gait, Normal tone Psych/Mental Status: Mood NL Vitals Vitals Vital Signs Date Time Temp Pulse Resp B/P (MAP) Pulse Ox O2 Delivery O2 Flow Rate FiO2 12/24/21 18:34 99.7 84 24 144/89 (107) 96 Nasal Cannula 2.0 99.7 Labs Labs Laboratory Tests Test 12/24/21 13:42 12/24/21 13:54 12/24/21 14:47 12/24/21 17:35 Urine Opiates Screen Neg (NEG) Urine Methadone Screen Neg (NEG) Urine Barbiturates Neg (NEG) Urine Phencyclidine Screen Neg (NEG) Urine Amphetamine/Methamphetamine Neg (NEG) Urine Benzodiazepines Screen Neg (NEG) Urine Cocaine Screen Neg (NEG) Urine Cannabinoids Screen Neg (NEG) Urine Ethyl Alcohol Neg (NEG) White Blood Count 18.4 x10^3/uL (4.0-11.0) Red Blood Count 3.17 x10^6/uL (3.50-5.40) Hemoglobin 10.3 g/dL (12.0-15.5) Hematocrit 31.4 % (36.0-47.0) Mean Corpuscular Volume 99 fL (79-100) Mean Corpuscular Hemoglobin 33 pg (25-35) Mean Corpuscular Hemoglobin Concent 33 g/dL (31-37) Red Cell Distribution Width 16.1 % (11.5-14.5) Platelet Count 356 x10^3/uL (140-400) Neutrophils (%) (Auto) 87 % (31-73) Lymphocytes (%) (Auto) 7 % (24-48) Monocytes (%) (Auto) 6 % (0-9) Eosinophils (%) (Auto) 0 % (0-3) Basophils (%) (Auto) 0 % (0-3) Neutrophils # (Auto) 16.1 x10^3/uL (1.8-7.7) Lymphocytes # (Auto) 1.2 x10^3/uL (1.0-4.8) Monocytes # (Auto) 1.1 x10^3/uL (0.0-1.1) Eosinophils # (Auto) 0.0 x10^3/uL (0.0-0.7) Basophils # (Auto) 0.0 x10^3/uL (0.0-0.2) Segmented Neutrophils % 92 % (35-66) Lymphocytes % 6 % (24-48) Monocytes % 2 % (0-10) Platelet Estimate Increased (ADEQUATE) Martell Cells Present Prothrombin Time 27.4 SEC (11.7-14.0) Prothromb Time International Ratio 2.6 (0.8-1.1) Activated Partial Thromboplast Time 49 SEC (24-38) Sodium Level 139 mmol/L (136-145) Potassium Level 4.0 mmol/L (3.5-5.1) Chloride Level 99 mmol/L (98-107) Carbon Dioxide Level 28 mmol/L (21-32) Anion Gap 12 (6-14) Blood Urea Nitrogen 81 mg/dL (7-20) Creatinine 4.9 mg/dL (0.6-1.0) Estimated GFR (Cockcroft-Gault) 8.6 BUN/Creatinine Ratio 17 (6-20) Glucose Level 119 mg/dL (70-99) Lactic Acid Level 2.8 mmol/L (0.4-2.0) 2.5 mmol/L (0.4-2.0) Calcium Level 9.7 mg/dL (8.5-10.1) Magnesium Level 2.7 mg/dL (1.8-2.4) Total Bilirubin 0.7 mg/dL (0.2-1.0) Aspartate Amino Transf (AST/SGOT) 49 U/L (15-37) Alanine Aminotransferase (ALT/SGPT) 19 U/L (14-59) Alkaline Phosphatase 123 U/L (46-116) Creatine Kinase 390 U/L (26-192) Troponin I High Sensitivity 30 ng/L (4-50) C-Reactive Protein, Quantitative 304.2 mg/L (0-3.3) Total Protein 7.2 g/dL (6.4-8.2) Albumin 1.8 g/dL (3.4-5.0) Albumin/Globulin Ratio 0.3 (1.0-1.7) Lipase 159 U/L (73-393) Salicylates Level 2.4 mg/dL (2.8-20.0) Salicylate Last Dose Date Unknown Salicylate Last Dose Time Unknown Acetaminophen Level < 2 mcg/ml (10-30) Acetaminophen Last Dose Date Unknown Acetaminophen Last Dose Time Unknown Ethyl Alcohol Level < 10 mg/dL (0-10) Influenza Type A Antigen Negative (NEGATIVE) Influenza Type B Antigen Negative (NEGATIVE) SARS-CoV-2 Antigen (Rapid) Negative (NEGATIVE) Laboratory Tests Test 12/24/21 13:42 12/24/21 13:54 12/24/21 14:47 12/24/21 17:35 Urine Opiates Screen Neg (NEG) Urine Methadone Screen Neg (NEG) Urine Barbiturates Neg (NEG) Urine Phencyclidine Screen Neg (NEG) Urine Amphetamine/Methamphetamine Neg (NEG) Urine Benzodiazepines Screen Neg (NEG) Urine Cocaine Screen Neg (NEG) Urine Cannabinoids Screen Neg (NEG) Urine Ethyl Alcohol Neg (NEG) White Blood Count 18.4 x10^3/uL (4.0-11.0) Red Blood Count 3.17 x10^6/uL (3.50-5.40) Hemoglobin 10.3 g/dL (12.0-15.5) Hematocrit 31.4 % (36.0-47.0) Mean Corpuscular Volume 99 fL (79-100) Mean Corpuscular Hemoglobin 33 pg (25-35) Mean Corpuscular Hemoglobin Concent 33 g/dL (31-37) Red Cell Distribution Width 16.1 % (11.5-14.5) Platelet Count 356 x10^3/uL (140-400) Neutrophils (%) (Auto) 87 % (31-73) Lymphocytes (%) (Auto) 7 % (24-48) Monocytes (%) (Auto) 6 % (0-9) Eosinophils (%) (Auto) 0 % (0-3) Basophils (%) (Auto) 0 % (0-3) Neutrophils # (Auto) 16.1 x10^3/uL (1.8-7.7) Lymphocytes # (Auto) 1.2 x10^3/uL (1.0-4.8) Monocytes # (Auto) 1.1 x10^3/uL (0.0-1.1) Eosinophils # (Auto) 0.0 x10^3/uL (0.0-0.7) Basophils # (Auto) 0.0 x10^3/uL (0.0-0.2) Segmented Neutrophils % 92 % (35-66) Lymphocytes % 6 % (24-48) Monocytes % 2 % (0-10) Platelet Estimate Increased (ADEQUATE) Rachna Cells Present Prothrombin Time 27.4 SEC (11.7-14.0) Prothromb Time International Ratio 2.6 (0.8-1.1) Activated Partial Thromboplast Time 49 SEC (24-38) Sodium Level 139 mmol/L (136-145) Potassium Level 4.0 mmol/L (3.5-5.1) Chloride Level 99 mmol/L (98-107) Carbon Dioxide Level 28 mmol/L (21-32) Anion Gap 12 (6-14) Blood Urea Nitrogen 81 mg/dL (7-20) Creatinine 4.9 mg/dL (0.6-1.0) Estimated GFR (Cockcroft-Gault) 8.6 BUN/Creatinine Ratio 17 (6-20) Glucose Level 119 mg/dL (70-99) Lactic Acid Level 2.8 mmol/L (0.4-2.0) 2.5 mmol/L (0.4-2.0) Calcium Level 9.7 mg/dL (8.5-10.1) Magnesium Level 2.7 mg/dL (1.8-2.4) Total Bilirubin 0.7 mg/dL (0.2-1.0) Aspartate Amino Transf (AST/SGOT) 49 U/L (15-37) Alanine Aminotransferase (ALT/SGPT) 19 U/L (14-59) Alkaline Phosphatase 123 U/L (46-116) Creatine Kinase 390 U/L (26-192) Troponin I High Sensitivity 30 ng/L (4-50) C-Reactive Protein, Quantitative 304.2 mg/L (0-3.3) Total Protein 7.2 g/dL (6.4-8.2) Albumin 1.8 g/dL (3.4-5.0) Albumin/Globulin Ratio 0.3 (1.0-1.7) Lipase 159 U/L (73-393) Salicylates Level 2.4 mg/dL (2.8-20.0) Salicylate Last Dose Date Unknown Salicylate Last Dose Time Unknown Acetaminophen Level < 2 mcg/ml (10-30) Acetaminophen Last Dose Date Unknown Acetaminophen Last Dose Time Unknown Ethyl Alcohol Level < 10 mg/dL (0-10) Influenza Type A Antigen Negative (NEGATIVE) Influenza Type B Antigen Negative (NEGATIVE) SARS-CoV-2 Antigen (Rapid) Negative (NEGATIVE) VTE Prophylaxis Ordered VTE Prophylaxis Devices: No VTE Pharmacological Prophylaxi: Yes Assessment/Plan Assessment/Plan acute metabolic encephalopathy ESRD, sepsis, UTI, got vanc and rocephin, cont rocephin, check random vanc lab obese, BMI 33 weakness, debility, sacral wound htn lipids INR is therapeutic, I amsure of indication admit Justifications for Admission Other Justification ASTRID MATHIS MD Dec 24, 2021 19:14
[2021-12-24] MEDS ORDERED: ACETAMINOPHEN 500 MG TABLET PO PRN (19:15)
[2021-12-24 20:00] VITALS: BP 156/72
[2021-12-24] MEDS: SENNOSIDES/DOCUSATE 8.6/50MG TABLET. PO SCH (20:59)
[2021-12-24] MEDS: NYSTATIN TOPICAL POWDER 15GM BOTTLE. TP SCH (21:00)
[2021-12-24] MEDS: METOPROLOL SUCC 24HR ER 50 MG TAB.ER.24H. PO SCH (21:00)
[2021-12-24] MEDS: ATORVASTATIN CALCIUM 10 MG TABLET. PO SCH (21:00)
[2021-12-24 23:12] VITALS: BP 121/72
[2021-12-25 03:00] VITALS: BP_SYST 121
--- NOTE | 2021-12-25 06:03 | EKG ---
[facility] [address] [place] [address] Test Date: 2021-12-24 Test Time: 14:34:32 Pat Name: VICKY FOSTER Department: Room: [facility] Gender: F Call Center Associate: : 1945 Requested By: JESS ODONNELL Order Number: [id number] Reading MD: Marvin Szymanski MD Measurements Intervals Beatrice Rate: 82 P: 6 WV: 182 QRS: -22 QRSD: 78 T: 43 QT: 402 QTc: 473 Interpretive Statements SINUS RHYTHM Low limb lead voltage Left axis deviation NON-SPECIFIC ST/T CHANGES Electronically Signed On 12-27-2021 17:58:16 CDT by Marvin Szymanski MD
[2021-12-25 07:00] VITALS: BP 112/58
--- NOTE | 2021-12-25 08:12 | PDOC ---
[employer] PROGRESS NOTE Date of Service DOS: DATE: 12/25/21 TIME: 08:10 Chief Complaint Chief Complaint Acute metabolic encephalopathy ESRD, Sepsis, UTI, got vanc and rocephin, cont rocephin, check random vanc lab Obese, BMI 33 Weakness, debility Sacral wound HTN History of Present Illness History of Present Illness Ms Cook is a 76yo female with PMHx dementia and new ESRD who was admitted through the ED for worsening confusion. 12/25: Blood cultures positive x2 for gram-positive cocci. Still pretty confused. Discussed with nephrology likely will need dialysis next 2 days and potential blood cultures versus her dialysis line may need it removed and temporary dialysis catheter inserted. Will consult infectious diseases in the meantime. Vitals/I&O Vitals/I&O: Vital Signs Date Time Temp Pulse Resp B/P (MAP) Pulse Ox O2 Delivery O2 Flow Rate FiO2 12/25/21 03:00 97.6 96 18 121/ 96 Room Air 2.0 97.6 I & O 12/24/21 12/24/21 12/25/21 15:00 23:00 07:00 Intake Total 250 ml 0 ml Output Total 1 ml Balance 250 ml -1 ml Physical Exam General: Cooperative, No acute distress, Other (looks away, does not talk, does follow some commands, poor eye contact, no verbal) Lungs: Clear Abdomen: Normal bowel sounds, No tenderness Extremities: No edema, Normal pulses Skin: Other (sacral ulcer) Labs Labs: Laboratory Tests Test 12/24/21 13:42 12/24/21 13:54 12/24/21 14:47 12/24/21 17:35 Urine Opiates Screen Neg (NEG) Urine Methadone Screen Neg (NEG) Urine Barbiturates Neg (NEG) Urine Phencyclidine Screen Neg (NEG) Urine Amphetamine/Methamphetamine Neg (NEG) Urine Benzodiazepines Screen Neg (NEG) Urine Cocaine Screen Neg (NEG) Urine Cannabinoids Screen Neg (NEG) Urine Ethyl Alcohol Neg (NEG) White Blood Count 18.4 x10^3/uL (4.0-11.0) Red Blood Count 3.17 x10^6/uL (3.50-5.40) Hemoglobin 10.3 g/dL (12.0-15.5) Hematocrit 31.4 % (36.0-47.0) Mean Corpuscular Volume 99 fL (79-100) Mean Corpuscular Hemoglobin 33 pg (25-35) Mean Corpuscular Hemoglobin Concent 33 g/dL (31-37) Red Cell Distribution Width 16.1 % (11.5-14.5) Platelet Count 356 x10^3/uL (140-400) Neutrophils (%) (Auto) 87 % (31-73) Lymphocytes (%) (Auto) 7 % (24-48) Monocytes (%) (Auto) 6 % (0-9) Eosinophils (%) (Auto) 0 % (0-3) Basophils (%) (Auto) 0 % (0-3) Neutrophils # (Auto) 16.1 x10^3/uL (1.8-7.7) Lymphocytes # (Auto) 1.2 x10^3/uL (1.0-4.8) Monocytes # (Auto) 1.1 x10^3/uL (0.0-1.1) Eosinophils # (Auto) 0.0 x10^3/uL (0.0-0.7) Basophils # (Auto) 0.0 x10^3/uL (0.0-0.2) Segmented Neutrophils % 92 % (35-66) Lymphocytes % 6 % (24-48) Monocytes % 2 % (0-10) Platelet Estimate Increased (ADEQUATE) Rachna Cells Present Prothrombin Time 27.4 SEC (11.7-14.0) Prothromb Time International Ratio 2.6 (0.8-1.1) Activated Partial Thromboplast Time 49 SEC (24-38) Sodium Level 139 mmol/L (136-145) Potassium Level 4.0 mmol/L (3.5-5.1) Chloride Level 99 mmol/L (98-107) Carbon Dioxide Level 28 mmol/L (21-32) Anion Gap 12 (6-14) Blood Urea Nitrogen 81 mg/dL (7-20) Creatinine 4.9 mg/dL (0.6-1.0) Estimated GFR (Cockcroft-Gault) 8.6 BUN/Creatinine Ratio 17 (6-20) Glucose Level 119 mg/dL (70-99) Lactic Acid Level 2.8 mmol/L (0.4-2.0) 2.5 mmol/L (0.4-2.0) Calcium Level 9.7 mg/dL (8.5-10.1) Magnesium Level 2.7 mg/dL (1.8-2.4) Total Bilirubin 0.7 mg/dL (0.2-1.0) Aspartate Amino Transf (AST/SGOT) 49 U/L (15-37) Alanine Aminotransferase (ALT/SGPT) 19 U/L (14-59) Alkaline Phosphatase 123 U/L (46-116) Creatine Kinase 390 U/L (26-192) Troponin I High Sensitivity 30 ng/L (4-50) C-Reactive Protein, Quantitative 304.2 mg/L (0-3.3) Total Protein 7.2 g/dL (6.4-8.2) Albumin 1.8 g/dL (3.4-5.0) Albumin/Globulin Ratio 0.3 (1.0-1.7) Lipase 159 U/L (73-393) Salicylates Level 2.4 mg/dL (2.8-20.0) Salicylate Last Dose Date Unknown Salicylate Last Dose Time Unknown Acetaminophen Level < 2 mcg/ml (10-30) Acetaminophen Last Dose Date Unknown Acetaminophen Last Dose Time Unknown Ethyl Alcohol Level < 10 mg/dL (0-10) Influenza Type A Antigen Negative (NEGATIVE) Influenza Type B Antigen Negative (NEGATIVE) SARS-CoV-2 Antigen (Rapid) Negative (NEGATIVE) Assessment and Plan Assessmemt and Plan Problems Medical Problems: (1) Decubitus ulcer Status: Acute (2) Sepsis Status: Acute (3) UTI (urinary tract infection) Status: Acute Comment Review of Relevant I have reviewed the following items mariaa (where applicable) has been applied. Medications: Current Medications Medications (Trade) Dose Ordered Sig/Cailin Route PRN Reason Start Time Stop Time Status Last Admin Dose Admin Ceftriaxone Sodium (Rocephin) 1 gm 1X ONCE IVP 12/24/21 14:00 12/24/21 14:01 DC 12/24/21 14:38 Vancomycin HCl 1 gm/Sodium Chloride 250 ml @ 166.667 mls/hr 1X ONCE IV 12/24/21 14:30 12/24/21 15:59 DC 12/24/21 15:52 Atorvastatin Calcium (Lipitor) 10 mg HS PO 12/24/21 21:00 12/24/21 21:00 Metoprolol Succinate (Toprol Xl) 50 mg BID PO 12/24/21 21:00 12/24/21 21:00 Senna/Docusate Sodium (Senna Plus) 1 tab BID PO 12/24/21 21:00 12/24/21 20:59 Justifications for Admission Other Justification AMANDA VELAZCO MD Dec 25, 2021 08:11
[2021-12-25] MEDS: METOPROLOL SUCC 24HR ER 50 MG TAB.ER.24H. PO SCH ×2 (09:00→11:07)
[2021-12-25] MEDS ORDERED: cefTRIAXone IV Push 1 GM VIAL. IVP SCH (09:00)
[2021-12-25] MEDS: SENNOSIDES/DOCUSATE 8.6/50MG TABLET. PO SCH ×3 (09:00→20:43)
--- NOTE | 2021-12-25 09:09 | PDOC2 ---
CONSULT Date of Consult Date of Consult DATE: 12/25/21 TIME: 09:09 Reason for Consult Reason for Consult: ESRD Referring Physician Referring Physician: Dr Miller Source Source: Chart review History of Present Illness Reason for Visit: Patient is a 76 year old CF who presents to the ER with confusion. She resides at a assisted care facility or custodial. Her mental status has declined for the last 2 or 3 days according to staff members . She went for dialysis today the dialysis on 12/24 and noticed alteration in the patient's level of consciousness by the staff . She was transported to the emergency department. Unable to obtain history from the patient MS . No reported N/V.No diarrhea. No CP In the ER she was noted to have an axillary temp of 99.7. Cath urine specimen obtained in the ER as she has recent diagnosed UTI, urine was cloudy. . Past Medical History Cardiovascular: HTN Renal/: Chronic renal failure Past Surgical History Past Surgical History: Other Family History Family History: No Significant Social History No ALCOHOL: none Drugs: None Current Problem List Problem List Problems Medical Problems: (1) Decubitus ulcer Status: Acute (2) Sepsis Status: Acute (3) UTI (urinary tract infection) Status: Acute Current Medications Current Medications Current Medications Ceftriaxone Sodium (Rocephin) 1 gm 1X ONCE IVP Last administered on 12/24/21at 14:38; Start 12/24/21 at 14:00; Stop 12/24/21 at 14:01; Status DC Vancomycin HCl 1 gm/Sodium Chloride 250 ml @ 166.667 mls/hr 1X ONCE IV Last administered on 12/24/21at 15:52; Start 12/24/21 at 14:30; Stop 12/24/21 at 15:59; Status DC Ceftriaxone Sodium (Rocephin) 1 gm DAILY IVP ; Start 12/25/21 at 09:00 Acetaminophen (Tylenol) 500 mg PRN TID PRN PO MILD PAIN / TEMP > 100.3'F; Start 12/24/21 at 19:15 Atorvastatin Calcium (Lipitor) 10 mg HS PO Last administered on 12/24/21at 21:00; Start 12/24/21 at 21:00 Diltiazem HCl (Cardizem 24hr Cd) 120 mg DAILY PO ; Start 12/25/21 at 09:00 Metoprolol Succinate (Toprol Xl) 50 mg BID PO Last administered on 12/24/21at 2 1:00; Start 12/24/21 at 21:00 Nystatin (Nystop) 1 bryan BID TP ; Start 12/24/21 at 21:00 Senna/Docusate Sodium (Senna Plus) 1 tab BID PO Last administered on 12/24/21at 20:59; Start 12/24/21 at 21:00 Active Scripts Active Stool Softener-Stimulant Lax (Sennosides/Docusate Sodium) 1 Each Tablet 1 Tab PO BID 30 Days Reported Osteo Bi-Flex Tablet (Glucosamine/D3/Boswellia Nancy) 1 Each Tablet 1 Each PO DAILY Irbesartan 300 Mg Tablet 300 Mg PO DAILY Benadryl (Diphenhydramine Hcl) 25 Mg Capsule 1 Cap PO QHS 30 Days Diltiazem 24HR Cd (Diltiazem Hcl) 120 Mg Cap.er.24h 120 Mg PO DAILY Nystatin 15 Gm Powder 1 Bryan TP BID 7 Days apply to affected area(s) Toprol XL (Metoprolol Succinate) 50 Mg Tab.er.24h 50 Mg PO BID Culturelle (Lactobacillus Rhamnosus Gg) 1 Each Capsule 1 Cap PO BID 30 Days Zetia (Ezetimibe) 10 Mg Tablet 10 Mg PO DAILY Vitamin D3 (Cholecalciferol (Vitamin D3)) 50 Mcg Tablet 50 Mcg PO DAILY Atorvastatin Calcium 10 Mg Tablet 10 Mg PO HS Acetaminophen 500 Mg Tablet 500 Mg PO PRN TID PRN Allergies Allergies: Coded Allergies: No Known Drug Allergies (Unverified , 10/24/21) ROS Review of System Unable to Obtain 2/2 AMS. Rest as in HPI Physical Exam Physical Exam GEN: Mild Resp distress HEENT: Normal cephalic, atraumatic, O2 by NC NECK: Supple, LUNGS: Decreased at bases Mildly labored HEART: RRR, S!, S2 present. ABDOMEN: Soft, nontender. Positive bowel sounds, no organomegaly EXTREMITIES: Without clubbing, cyanosis, or edema. NEUROLOGIC: Awake , Not answering questions , moves all extremities PSYCHIATRIC: Unable to Obtain SKIN: No ulcerations or rashes, No Serrano, No CVA or SP tenderness Has Tunneled HDC Rt side Vital Signs Vital Signs Date Time Temp Pulse Resp B/P (MAP) Pulse Ox O2 Delivery O2 Flow Rate FiO2 12/25/21 03:00 97.6 96 18 121/ 96 Room Air 2.0 97.6 Assessment & Plan ESRD - Dx with LOGAN on CKD 4 in Oct , initiated on Dialysis 10/26, Sonogram does show some cortical thinning. Has been on Dialysis since- TTS at [facility] . Dialyzed yesterday only for an hour, sent to ER . CxR no e/o Congestion/Pulm edema reported Dialysis today , discussed treatment plan with Bruce Access- Tunneled HDC Acute metabolic encephalopathy suspect 2/2 sepsis . ID consult Sepsis/ Elevated WBC - ? Infected Tunneled HDC . Currently on vanc and rocephin . UA unremarkable, no e/o UTI ID consult pending Sacral wound HTN-BP's on the low side Hx of GI bleed December 2020 - Hospitalized at [facility], . Suspected diverticular bleed Anemia - Noted Hgb trended down, Monitor Hx of A Fib Labs Labs Laboratory Tests Test 12/24/21 13:42 12/24/21 13:54 12/24/21 14:47 12/24/21 17:35 Urine Opiates Screen Neg (NEG) Urine Methadone Screen Neg (NEG) Urine Barbiturates Neg (NEG) Urine Phencyclidine Screen Neg (NEG) Urine Amphetamine/Methamphetamine Neg (NEG) Urine Benzodiazepines Screen Neg (NEG) Urine Cocaine Screen Neg (NEG) Urine Cannabinoids Screen Neg (NEG) Urine Ethyl Alcohol Neg (NEG) White Blood Count 18.4 x10^3/uL (4.0-11.0) Red Blood Count 3.17 x10^6/uL (3.50-5.40) Hemoglobin 10.3 g/dL (12.0-15.5) Hematocrit 31.4 % (36.0-47.0) Mean Corpuscular Volume 99 fL (79-100) Mean Corpuscular Hemoglobin 33 pg (25-35) Mean Corpuscular Hemoglobin Concent 33 g/dL (31-37) Red Cell Distribution Width 16.1 % (11.5-14.5) Platelet Count 356 x10^3/uL (140-400) Neutrophils (%) (Auto) 87 % (31-73) Lymphocytes (%) (Auto) 7 % (24-48) Monocytes (%) (Auto) 6 % (0-9) Eosinophils (%) (Auto) 0 % (0-3) Basophils (%) (Auto) 0 % (0-3) Neutrophils # (Auto) 16.1 x10^3/uL (1.8-7.7) Lymphocytes # (Auto) 1.2 x10^3/uL (1.0-4.8) Monocytes # (Auto) 1.1 x10^3/uL (0.0-1.1) Eosinophils # (Auto) 0.0 x10^3/uL (0.0-0.7) Basophils # (Auto) 0.0 x10^3/uL (0.0-0.2) Segmented Neutrophils % 92 % (35-66) Lymphocytes % 6 % (24-48) Monocytes % 2 % (0-10) Platelet Estimate Increased (ADEQUATE) Rachna Cells Present Prothrombin Time 27.4 SEC (11.7-14.0) Prothromb Time International Ratio 2.6 (0.8-1.1) Activated Partial Thromboplast Time 49 SEC (24-38) Sodium Level 139 mmol/L (136-145) Potassium Level 4.0 mmol/L (3.5-5.1) Chloride Level 99 mmol/L (98-107) Carbon Dioxide Level 28 mmol/L (21-32) Anion Gap 12 (6-14) Blood Urea Nitrogen 81 mg/dL (7-20) Creatinine 4.9 mg/dL (0.6-1.0) Estimated GFR (Cockcroft-Gault) 8.6 BUN/Creatinine Ratio 17 (6-20) Glucose Level 119 mg/dL (70-99) Lactic Acid Level 2.8 mmol/L (0.4-2.0) 2.5 mmol/L (0.4-2.0) Calcium Level 9.7 mg/dL (8.5-10.1) Magnesium Level 2.7 mg/dL (1.8-2.4) Total Bilirubin 0.7 mg/dL (0.2-1.0) Aspartate Amino Transf (AST/SGOT) 49 U/L (15-37) Alanine Aminotransferase (ALT/SGPT) 19 U/L (14-59) Alkaline Phosphatase 123 U/L (46-116) Creatine Kinase 390 U/L (26-192) Troponin I High Sensitivity 30 ng/L (4-50) C-Reactive Protein, Quantitative 304.2 mg/L (0-3.3) Total Protein 7.2 g/dL (6.4-8.2) Albumin 1.8 g/dL (3.4-5.0) Albumin/Globulin Ratio 0.3 (1.0-1.7) Lipase 159 U/L (73-393) Salicylates Level 2.4 mg/dL (2.8-20.0) Salicylate Last Dose Date Unknown Salicylate Last Dose Time Unknown Acetaminophen Level < 2 mcg/ml (10-30) Acetaminophen Last Dose Date Unknown Acetaminophen Last Dose Time Unknown Ethyl Alcohol Level < 10 mg/dL (0-10) Influenza Type A Antigen Negative (NEGATIVE) Influenza Type B Antigen Negative (NEGATIVE) SARS-CoV-2 Antigen (Rapid) Negative (NEGATIVE) Laboratory Tests Test 12/24/21 13:42 12/24/21 13:54 12/24/21 14:47 12/24/21 17:35 Urine Opiates Screen Neg (NEG) Urine Methadone Screen Neg (NEG) Urine Barbiturates Neg (NEG) Urine Phencyclidine Screen Neg (NEG) Urine Amphetamine/Methamphetamine Neg (NEG) Urine Benzodiazepines Screen Neg (NEG) Urine Cocaine Screen Neg (NEG) Urine Cannabinoids Screen Neg (NEG) Urine Ethyl Alcohol Neg (NEG) White Blood Count 18.4 x10^3/uL (4.0-11.0) Red Blood Count 3.17 x10^6/uL (3.50-5.40) Hemoglobin 10.3 g/dL (12.0-15.5) Hematocrit 31.4 % (36.0-47.0) Mean Corpuscular Volume 99 fL (79-100) Mean Corpuscular Hemoglobin 33 pg (25-35) Mean Corpuscular Hemoglobin Concent 33 g/dL (31-37) Red Cell Distribution Width 16.1 % (11.5-14.5) Platelet Count 356 x10^3/uL (140-400) Neutrophils (%) (Auto) 87 % (31-73) Lymphocytes (%) (Auto) 7 % (24-48) Monocytes (%) (Auto) 6 % (0-9) Eosinophils (%) (Auto) 0 % (0-3) Basophils (%) (Auto) 0 % (0-3) Neutrophils # (Auto) 16.1 x10^3/uL (1.8-7.7) Lymphocytes # (Auto) 1.2 x10^3/uL (1.0-4.8) Monocytes # (Auto) 1.1 x10^3/uL (0.0-1.1) Eosinophils # (Auto) 0.0 x10^3/uL (0.0-0.7) Basophils # (Auto) 0.0 x10^3/uL (0.0-0.2) Segmented Neutrophils % 92 % (35-66) Lymphocytes % 6 % (24-48) Monocytes % 2 % (0-10) Platelet Estimate Increased (ADEQUATE) Rachna Cells Present Prothrombin Time 27.4 SEC (11.7-14.0) Prothromb Time International Ratio 2.6 (0.8-1.1) Activated Partial Thromboplast Time 49 SEC (24-38) Sodium Level 139 mmol/L (136-145) Potassium Level 4.0 mmol/L (3.5-5.1) Chloride Level 99 mmol/L (98-107) Carbon Dioxide Level 28 mmol/L (21-32) Anion Gap 12 (6-14) Blood Urea Nitrogen 81 mg/dL (7-20) Creatinine 4.9 mg/dL (0.6-1.0) Estimated GFR (Cockcroft-Gault) 8.6 BUN/Creatinine Ratio 17 (6-20) Glucose Level 119 mg/dL (70-99) Lactic Acid Level 2.8 mmol/L (0.4-2.0) 2.5 mmol/L (0.4-2.0) Calcium Level 9.7 mg/dL (8.5-10.1) Magnesium Level 2.7 mg/dL (1.8-2.4) Total Bilirubin 0.7 mg/dL (0.2-1.0) Aspartate Amino Transf (AST/SGOT) 49 U/L (15-37) Alanine Aminotransferase (ALT/SGPT) 19 U/L (14-59) Alkaline Phosphatase 123 U/L (46-116) Creatine Kinase 390 U/L (26-192) Troponin I High Sensitivity 30 ng/L (4-50) C-Reactive Protein, Quantitative 304.2 mg/L (0-3.3) Total Protein 7.2 g/dL (6.4-8.2) Albumin 1.8 g/dL (3.4-5.0) Albumin/Globulin Ratio 0.3 (1.0-1.7) Lipase 159 U/L (73-393) Salicylates Level 2.4 mg/dL (2.8-20.0) Salicylate Last Dose Date Unknown Salicylate Last Dose Time Unknown Acetaminophen Level < 2 mcg/ml (10-30) Acetaminophen Last Dose Date Unknown Acetaminophen Last Dose Time Unknown Ethyl Alcohol Level < 10 mg/dL (0-10) Influenza Type A Antigen Negative (NEGATIVE) Influenza Type B Antigen Negative (NEGATIVE) SARS-CoV-2 Antigen (Rapid) Negative (NEGATIVE) Review All relevant outside records, renal labs, imaging studies, telemetry/EKG's were reviewed. Images Images History: Reason: fever / Spl. Instructions: / History: Comparison: November 08, 2021 Findings: Mild left basilar linear atelectasis. No consolidation or pleural effusion. Normal heart size. No pneumothorax. 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 Unchanged left-sided central line. Mild elevation of the right hemidiaphragm. Impression: 1. Mild linear left basilar atelectasis. ADENIKE EDMONDS MD Dec 25, 2021 09:09
[2021-12-25] MEDS: NYSTATIN TOPICAL POWDER 15GM BOTTLE. TP SCH ×2 (10:58→20:43)
[2021-12-25 11:00] VITALS: BP 117/56
--- NOTE | 2021-12-25 11:16 | NUR ---
This RN attempted to administer pt her morning medications, pt not following commands and spit pills out. Pt continues saying "help me." Unable to obtain any meaningful information from pt. Pt's respirations 24, all other VSS. Dr. Miller notified of situation. Orders placed by Dr. Miller.
[2021-12-25] MEDS: APIXABAN 5 MG TABLET. PO SCH ×2 (11:29→20:42)
[2021-12-25] MEDS ORDERED: IV NORMAL SALINE 1000ML BAG 1,000 ML IV PRN ×2 (12:15)
--- NOTE | 2021-12-25 12:15 | NUR ---
SW following. Discussed with RN. TEDDY verified pt is a SNF resident at [facility] LV, 2L, renal diet, rapid COVID-19 negative. ID, Woundcare and Nephrology following. Pt does dialysis. SW will continue to follow.
[2021-12-25] MEDS ORDERED: DIALYSIS PATIENT. MC PRN (12:30)
[2021-12-25] MEDS: MIDODRINE 2.5 MG TABLET PO SCH ×2 (12:50→18:00)
[2021-12-25] MEDS: ceFAZolin SODIUM IV Push 1 GM VIAL. IVP SCH (14:20)
[2021-12-25] MEDS: VANCOMYCIN PER PHARMACY MC PRN (15:11)
[2021-12-25 19:00] VITALS: BP 82/51
[2021-12-25] MEDS ORDERED: VANCOMYCIN 1 GM in IV NORMAL SALINE 250ML 250 ML IV ONE (20:00)
[2021-12-25] MEDS: ATORVASTATIN CALCIUM 10 MG TABLET. PO SCH (20:42)
--- NOTE | 2021-12-25 20:43 | NUR ---
Unable to administer oral medications at this time. Pt will not open mouth and swats at pills when administration attempted.
[2021-12-25] MEDS ORDERED: DEXTROSE 5% IV SCH (21:00)
[2021-12-25] MEDS ORDERED: CEFAZOLIN SODIUM IV SCH (21:00)
--- NOTE | 2021-12-25 22:09 | CONS ---
DATE OF CONSULTATION: 12/25/2021 REQUESTING PHYSICIAN: Dr. Miller. REASON FOR CONSULTATION: Blood culture positive. HISTORY OF PRESENT ILLNESS: This is a 76-year-old female who is a correction resident, also has dementia, who was brought in because of confusion. The patient was withdrawn and lethargic. The patient had low-grade fever, leukocytosis and blood culture done, which are positive with Gram-positive cocci in clusters. The patient was given one dose of vancomycin, is on Rocephin. The patient is awake, says something that I am unable to understand. According to RN, there is no nausea, vomiting, diarrhea. PAST MEDICAL HISTORY: Positive for end-stage renal disease, on hemodialysis, dementia, congestive heart failure, peripheral vascular disease, hyperlipidemia, atrial fibrillation, hypertension, history of depression, anxiety. SOCIAL HISTORY: Negative for smoking, alcohol, illicit drug use. snf resident. ALLERGIES: No known drug allergies. CURRENT MEDICATIONS: Reviewed. REVIEW OF SYSTEMS: As in HPI. All other systems reviewed are negative. PHYSICAL EXAMINATION: GENERAL: Alert, but not oriented female, not in distress. VITAL SIGNS: Temperature max is 99.7, pulse 77, respirations 24, blood pressure 117/56. HEENT: Both pupils are round and reacting. No conjunctival lesion, no lesion in the mouth. NECK: Supple, no JVP, no lymphadenopathy. LUNGS: Clear. HEART: S1, S2, regular. ABDOMEN: Soft, nontender, no organomegaly. EXTREMITIES: No edema, cyanosis. SKIN: Unremarkable. Hemodialysis tunneled catheter in the right upper chest, which is not showing obvious signs of infection. NEUROLOGIC: The patient is awake, mumbles few words, but really meaningful communication not possible. LABORATORY DATA: White count is 18.4. BUN and creatinine 81 and 4.9. Lactic acid up to 2.8. Blood culture, Gram-positive cocci in clusters, ID pending. Chest x-ray is unremarkable. IMPRESSION: 1. Encephalopathy. 2. Fever. 3. Leukocytosis. 4. Gram-positive cocci in clusters bacteremia. 5. End-stage renal disease, on hemodialysis. 6. Hypertension. 7. Congestive heart failure. RECOMMENDATIONS: We will use vancomycin and cefazolin. Await for identification. Supportive care and we will continue to follow. Thank you very much, Dr. Miller, for giving me opportunity to participate in this patient's care. COMPA/SAADIA/AMI DR: COMPA/shellie TID: [id number]
[2021-12-25 23:00] VITALS: BP 92/42
[2021-12-26 03:00] VITALS: BP 128/52
[2021-12-26] MEDS ORDERED: VANCOMYCIN RANDOM LEVEL. MC ONE (07:00)
[2021-12-26] MEDS: MIDODRINE 2.5 MG TABLET PO SCH ×3 (07:00→18:00)
[2021-12-26 07:08] LABS: BASO # 0.1 x10^3/uL (0.0-0.2); BASO % 0 % (0-3); EOS % 0 % (0-3); HEMATOCRIT 31.5 % (36.0-47.0); HEMOGLOBIN 10.3 g/dL (12.0-15.5); LYMPH # 1.5 x10^3/uL (1.0-4.8); LYMPH % 10 % (24-48); MEAN CORPUSCULAR HEMOGLOBIN 32 pg (25-35); MEAN CORPUSCULAR HGB CONC 33 g/dL (31-37); MEAN CORPUSCULAR VOLUME 99 fL (79-100); MONO # 1.1 x10^3/uL (0.0-1.1); MONO % 7 % (0-9); NEUT # 12.4 x10^3/uL (1.8-7.7); NEUT % 83 % (31-73); PLATELET COUNT 388 x10^3/uL (140-400); RED CELL DISTRIBUTION WIDTH 15.7 % (11.5-14.5); WHITE BLOOD COUNT 15.1 x10^3/uL (4.0-11.0)
[2021-12-26 07:26] LABS: CALCIUM 9.7 mg/dL (8.5-10.1); CREATININE 3.1 mg/dL (0.6-1.0); GFR 14.5
[2021-12-26] MEDS ORDERED: IV NORMAL SALINE 1000ML BAG 1,000 ML IV PRN ×2 (07:45)
[2021-12-26] MEDS ORDERED: DIALYSIS PATIENT. MC PRN ×2 (07:45)
[2021-12-26] MEDS: ASPIRIN ENTERIC COATED 81 MG TABLET.DR. PO SCH (08:00)
[2021-12-26] MEDS: APIXABAN 5 MG TABLET. PO SCH ×2 (09:00→21:40)
[2021-12-26] MEDS: SENNOSIDES/DOCUSATE 8.6/50MG TABLET. PO SCH ×2 (09:00→21:40)
[2021-12-26] MEDS: CITALOPRAM 20 MG TABLET. PO SCH (09:00)
--- NOTE | 2021-12-26 09:46 | PDOC ---
DATE OF SERVICE DATE: 12/26/21 TIME: 09:45 SUBJECTIVE ROS Speaking a few words today, slightly more alert Breathing improved OBJECTIVE Vital Signs Vital Signs Date Time Temp Pulse Resp B/P (MAP) Pulse Ox O2 Delivery O2 Flow Rate FiO2 12/26/21 03:00 97.5 85 20 128/52 (77) 92 Nasal Cannula 2.0 97.5 I & 0 Intake and Output 12/26/21 07:00 Intake Total 0 ml Balance 0 ml Intake Oral 0 ml PHYSICAL EXAM Physical Exam GEN: NAD HEENT: Normal cephalic, atraumatic, O2 by NC NECK: Supple, LUNGS: Decreased at bases Non labored HEART: RRR, S!, S2 present. ABDOMEN: Soft, nontender. Positive bowel sounds, no organomegaly EXTREMITIES: Without clubbing, cyanosis, or edema. NEUROLOGIC: Awake , says only yes , moves all extremities PSYCHIATRIC: Unable to Obtain SKIN: No ulcerations or rashes, No Serrano, No CVA or SP tenderness Has Tunneled HDC Rt side DIAGNOSIS/ASSESSMENT Assessment & Plan ESRD - Dx with LOGAN on CKD 4 in Oct , initiated on Dialysis 10/26, Sonogram does show some cortical thinning. Has been on Dialysis since- TTS at [facility] . Dialyzed yesterday Dialysis again today , seen during treatment , tolerating well. Continue as ordered. Gavin DRn Access- Tunneled HDC . Recommend DC Permacath after dialysis today; replace with Temp HDC . Will need Perm HDC prior to dc after OKed by ID . GAVIN Primary Acute metabolic encephalopathy suspect 2/2 sepsis . ID consult Sepsis/ Elevated WBC - ? Infected Tunneled HDC . Currently on vanc and rocephin . UA unremarkable, no e/o UTI ID following Sacral wound HTN-BP's on the low side Hx of GI bleed December 2020 - Hospitalized at [facility], . Suspected diverticular bleed Anemia - Noted Hgb trended down, Monitor Hx of A Fib COMMENT/RELEVANT DATA Meds Current Medications Medications (Trade) Dose Ordered Sig/Cailin Start Time Stop Time Status Last Admin Dose Admin Acetaminophen (Tylenol) 500 mg PRN TID PRN 12/24/21 19:15 Apixaban (Eliquis) 5 mg BID 12/25/21 11:30 Aspirin (Ecotrin) 81 mg [id number] 12/26/21 08:00 Atorvastatin Calcium (Lipitor) 10 mg HS 12/24/21 21:00 12/24/21 21:00 10 MG Cefazolin Sodium (Ancef) 1 gm Q24H 12/25/21 14:00 12/25/21 14:20 1 GM Cefazolin Sodium 500 mg/Dextrose 50 ml @ 100 mls/hr Q12HR 12/25/21 21:00 UNV Ceftriaxone Sodium (Rocephin) 1 gm DAILY 12/25/21 09:00 12/25/21 13:01 DC 12/25/21 11:03 1 GM Citalopram Hydrobromide (CeleXA) 20 mg DAILY 12/26/21 09:00 Diltiazem HCl (Cardizem 24hr Cd) 120 mg DAILY 12/25/21 09:00 12/25/21 11:26 DC Info (PHARMACY MONITORING -- do not chart) 1 each PRN DAILY PRN 12/26/21 07:45 Metoprolol Succinate (Toprol Xl) 50 mg BID 12/24/21 21:00 12/25/21 11:26 DC 12/24/21 21:00 50 MG Midodrine (Proamatine) 2.5 mg [id number] 12/25/21 13:00 Nystatin (Nystop) 1 man BID 12/24/21 21:00 12/25/21 10:58 1 MAN Olanzapine (ZyPREXA ZYDIS) 5 mg PRN BID PRN 12/25/21 11:30 12/25/21 14:21 5 MG Senna/Docusate Sodium (Senna Plus) 1 tab BID 12/24/21 21:00 12/24/21 20:59 1 TAB Sodium Chloride 1,000 ml @ 400 mls/hr Q2H30M PRN 12/26/21 07:45 12/26/21 19:44 Vancomycin HCl (Vanco Per Pharmacy) 1 each PRN DAILY PRN 12/25/21 13:00 12/25/21 15:11 1 EACH Vancomycin HCl (Vancomycin Random Level) 1 each 1X ONCE 12/26/21 07:00 12/26/21 07:01 DC Vancomycin HCl 1 gm/Sodium Chloride 250 ml @ 250 mls/hr 1X ONCE 12/25/21 20:00 12/25/21 20:59 DC 12/25/21 20:40 250 MLS/HR Lab Laboratory Tests Test 12/26/21 06:55 White Blood Count 15.1 x10^3/uL (4.0-11.0) Red Blood Count 3.20 x10^6/uL (3.50-5.40) Hemoglobin 10.3 g/dL (12.0-15.5) Hematocrit 31.5 % (36.0-47.0) Mean Corpuscular Volume 99 fL (79-100) Mean Corpuscular Hemoglobin 32 pg (25-35) Mean Corpuscular Hemoglobin Concent 33 g/dL (31-37) Red Cell Distribution Width 15.7 % (11.5-14.5) Platelet Count 388 x10^3/uL (140-400) Neutrophils (%) (Auto) 83 % (31-73) Lymphocytes (%) (Auto) 10 % (24-48) Monocytes (%) (Auto) 7 % (0-9) Eosinophils (%) (Auto) 0 % (0-3) Basophils (%) (Auto) 0 % (0-3) Neutrophils # (Auto) 12.4 x10^3/uL (1.8-7.7) Lymphocytes # (Auto) 1.5 x10^3/uL (1.0-4.8) Monocytes # (Auto) 1.1 x10^3/uL (0.0-1.1) Eosinophils # (Auto) 0.0 x10^3/uL (0.0-0.7) Basophils # (Auto) 0.1 x10^3/uL (0.0-0.2) Sodium Level 144 mmol/L (136-145) Potassium Level 4.0 mmol/L (3.5-5.1) Chloride Level 104 mmol/L (98-107) Carbon Dioxide Level 28 mmol/L (21-32) Anion Gap 12 (6-14) Blood Urea Nitrogen 39 mg/dL (7-20) Creatinine 3.1 mg/dL (0.6-1.0) Estimated GFR (Cockcroft-Gault) 14.5 Glucose Level 92 mg/dL (70-99) Calcium Level 9.7 mg/dL (8.5-10.1) Random Vancomycin Level 29.4 mcg/mL Results All relevant outside records, renal labs, imaging studies, telemetry/EKG's were reviewed. Cassandration of Admission Dx: Justifications for Admission: Justification of Admission Dx: Yes ADENIKE EDMONDS MD Dec 26, 2021 09:46
[2021-12-26 09:47] VITALS: BP 109/67
--- NOTE | 2021-12-26 12:24 | PDOC ---
[employer] PROGRESS NOTE Date of Service DOS: DATE: 12/26/21 TIME: 12:21 Chief Complaint Chief Complaint Staph aureus bacteremia Acute metabolic/infectious encephalopathy ESRD, Sepsis, UTI, got vanc and rocephin, cont rocephin, check random vanc lab Obese, BMI 33 Weakness, debility Sacral wound HTN Pending blood culture sensitivities Appreciate ID recommendations to continue vancomycin and cefepime Nephrology consult for hemodialysis IR consult for removal of permacath and replacement with temporary HD catheter. Plan for permanent HD catheter placement once clearance of staph aureus in the blood. Will coordinate with ID. History of Present Illness History of Present Illness Ms Cook is a 76yo female with PMHx dementia and new ESRD who was admitted through the ED for worsening confusion. 12/25: Blood cultures positive x2 for gram-positive cocci. Still pretty confused. Discussed with nephrology likely will need dialysis next 2 days and potential blood cultures versus her dialysis line may need it removed and temporary dialysis catheter inserted. Will consult infectious diseases in the meantime. 12/26/2021 No acute events overnight. Patient seen examined during dialysis. Still confused. Plan for permacath remova and placement with a temporary catheter. Patient's chart, labs, images were reviewed and discussed with RN Vitals/I&O Vitals/I&O: Vital Signs Date Time Temp Pulse Resp B/P (MAP) Pulse Ox O2 Delivery O2 Flow Rate FiO2 12/26/21 09:47 99.5 109 20 109/67 (81) 98 Nasal Cannula 2.0 99.5 I & O 12/25/21 12/25/21 12/26/21 15:00 23:00 07:00 Intake Total 0 ml 10 ml Balance 0 ml 10 ml Physical Exam General: Cooperative, No acute distress, Other (looks away, does not talk, does follow some commands, poor eye contact, no verbal) Lungs: Clear Abdomen: Normal bowel sounds, No tenderness Extremities: No edema, Normal pulses Skin: Other (sacral ulcer) Labs Labs: Laboratory Tests Test 12/26/21 06:55 White Blood Count 15.1 x10^3/uL (4.0-11.0) Red Blood Count 3.20 x10^6/uL (3.50-5.40) Hemoglobin 10.3 g/dL (12.0-15.5) Hematocrit 31.5 % (36.0-47.0) Mean Corpuscular Volume 99 fL (79-100) Mean Corpuscular Hemoglobin 32 pg (25-35) Mean Corpuscular Hemoglobin Concent 33 g/dL (31-37) Red Cell Distribution Width 15.7 % (11.5-14.5) Platelet Count 388 x10^3/uL (140-400) Neutrophils (%) (Auto) 83 % (31-73) Lymphocytes (%) (Auto) 10 % (24-48) Monocytes (%) (Auto) 7 % (0-9) Eosinophils (%) (Auto) 0 % (0-3) Basophils (%) (Auto) 0 % (0-3) Neutrophils # (Auto) 12.4 x10^3/uL (1.8-7.7) Lymphocytes # (Auto) 1.5 x10^3/uL (1.0-4.8) Monocytes # (Auto) 1.1 x10^3/uL (0.0-1.1) Eosinophils # (Auto) 0.0 x10^3/uL (0.0-0.7) Basophils # (Auto) 0.1 x10^3/uL (0.0-0.2) Sodium Level 144 mmol/L (136-145) Potassium Level 4.0 mmol/L (3.5-5.1) Chloride Level 104 mmol/L (98-107) Carbon Dioxide Level 28 mmol/L (21-32) Anion Gap 12 (6-14) Blood Urea Nitrogen 39 mg/dL (7-20) Creatinine 3.1 mg/dL (0.6-1.0) Estimated GFR (Cockcroft-Gault) 14.5 Glucose Level 92 mg/dL (70-99) Calcium Level 9.7 mg/dL (8.5-10.1) Random Vancomycin Level 29.4 mcg/mL Assessment and Plan Assessmemt and Plan Problems Medical Problems: (1) Decubitus ulcer Status: Acute (2) Sepsis Status: Acute (3) UTI (urinary tract infection) Status: Acute Comment Review of Relevant I have reviewed the following items mariaa (where applicable) has been applied. Medications: Current Medications Medications (Trade) Dose Ordered Sig/Cailin Route PRN Reason Start Time Stop Time Status Last Admin Dose Admin Vancomycin HCl (Vanco Per Pharmacy) 1 each PRN DAILY PRN MC SEE COMMENTS 3/23/22 13:00 12/25/21 15:11 Cefazolin Sodium (Ancef) 1 gm Q24H IVP 12/25/21 14:00 12/25/21 14:20 Vancomycin HCl 1 gm/Sodium Chloride 250 ml @ 250 mls/hr 1X ONCE IV 12/25/21 20:00 12/25/21 20:59 DC 12/25/21 20:40 Justifications for Admission Other Justification LORNE KWON MD Dec 26, 2021 12:24
--- NOTE | 2021-12-26 13:29 | PDOC ---
Infectious Disease Note Subjective Subjective pt is feeling good says ROS ROS no n/v/d/sob Vital Sign Vital Signs Vital Signs Date Time Temp Pulse Resp B/P (MAP) Pulse Ox O2 Delivery O2 Flow Rate FiO2 12/26/21 09:47 99.5 109 20 109/67 (81) 98 Nasal Cannula 2.0 99.5 Physical Exam PHYSICAL EXAM GENERAL: Alert, but not oriented female, not in distress. VITAL SIGNS: stable HEENT: Both pupils are round and reacting. No conjunctival lesion, no lesion in the mouth. NECK: Supple, no JVP, no lymphadenopathy. LUNGS: Clear. HEART: S1, S2, regular. ABDOMEN: Soft, nontender, no organomegaly. EXTREMITIES: No edema, cyanosis. SKIN: Unremarkable. Hemodialysis tunneled catheter in the right upper chest, which is not showing obvious signs of infection. NEUROLOGIC: The patient is awake, mumbles few words, but really meaningful communication not possible. Labs Lab Laboratory Tests Test 12/26/21 06:55 White Blood Count 15.1 x10^3/uL (4.0-11.0) Red Blood Count 3.20 x10^6/uL (3.50-5.40) Hemoglobin 10.3 g/dL (12.0-15.5) Hematocrit 31.5 % (36.0-47.0) Mean Corpuscular Volume 99 fL (79-100) Mean Corpuscular Hemoglobin 32 pg (25-35) Mean Corpuscular Hemoglobin Concent 33 g/dL (31-37) Red Cell Distribution Width 15.7 % (11.5-14.5) Platelet Count 388 x10^3/uL (140-400) Neutrophils (%) (Auto) 83 % (31-73) Lymphocytes (%) (Auto) 10 % (24-48) Monocytes (%) (Auto) 7 % (0-9) Eosinophils (%) (Auto) 0 % (0-3) Basophils (%) (Auto) 0 % (0-3) Neutrophils # (Auto) 12.4 x10^3/uL (1.8-7.7) Lymphocytes # (Auto) 1.5 x10^3/uL (1.0-4.8) Monocytes # (Auto) 1.1 x10^3/uL (0.0-1.1) Eosinophils # (Auto) 0.0 x10^3/uL (0.0-0.7) Basophils # (Auto) 0.1 x10^3/uL (0.0-0.2) Sodium Level 144 mmol/L (136-145) Potassium Level 4.0 mmol/L (3.5-5.1) Chloride Level 104 mmol/L (98-107) Carbon Dioxide Level 28 mmol/L (21-32) Anion Gap 12 (6-14) Blood Urea Nitrogen 39 mg/dL (7-20) Creatinine 3.1 mg/dL (0.6-1.0) Estimated GFR (Cockcroft-Gault) 14.5 Glucose Level 92 mg/dL (70-99) Calcium Level 9.7 mg/dL (8.5-10.1) Random Vancomycin Level 29.4 mcg/mL Micro Microbiology 12/24/21 Blood Culture - Preliminary, Resulted Staphylococcus Aureus Objective Assessment IMPRESSION: 1. Encephalopathy. 2. Fever. 3. Leukocytosis. 4. Gram-positive cocci in clusters bacteremia./staph aureus 5. End-stage renal disease, on hemodialysis. 6. Hypertension. 7. Congestive heart failure. Plan Plan of Care cont antibiotics HD cath removal today Temp cath tomorrow MARTHA HARDY MD Dec 26, 2021 13:29
[2021-12-26] MEDS: VANCOMYCIN PER PHARMACY MC PRN (14:13)
--- NOTE | 2021-12-26 14:18 | NUR ---
Pharmacy Vancomycin Dosing Note S:Consulted to monitor and dose vancomycin started 12/24/21. O:VICKY FOSTER is a 76 year old F with Cellulitis Other Antibiotics: CEFAZOLIN LABS: Last BUN: 39 Last Creatinine: 3.1 Creatinine Clearance: DIALYSIS PATIENT mL/min Last WBC: 15.1 Tmax (past 24 hours): 99.8 Drug Levels: Last Random level: 29.4 on 12/26/21 at 0655 Last dose given 12/24/21 at 1552 Vancomycin Dosing: Loading Dose: 1000 mg x1 Target Trough: 10-20 A: Based on: elevated RANDOM 29.4 plan repeat RANDOM 12/28 AM P: 1. Begin Vancomycin IV Dose Per Levels 2. Follow up Random level as above 3. Pharmacy will continue to monitor, follow and adjust therapy as needed. NORBERTO JAVIER RPH, 12/26/21 [id number]
[2021-12-26] MEDS: ceFAZolin SODIUM IV Push 1 GM VIAL. IVP SCH (14:52)
[2021-12-26] MEDS: NYSTATIN TOPICAL POWDER 15GM BOTTLE. TP SCH ×2 (14:59→21:39)
[2021-12-26 15:00] VITALS: BP 93/46
--- NOTE | 2021-12-26 15:21 | RAD ---
Removal of right internal jugular tunneled hemodialysis catheter. 12/26/2021 1:20 PM Indication: Infection Discussion: The catheter was removed by the medical technologist chief under supervision of the radiologi st. The procedure was explained in its entirety to the patient or the patients designated representat loco by a member of the treatment team, including a discussion of the risks, benefits and commonly acc epted alternatives to the procedure, as well as the expected consequences of no therapy whatsoever. Discussion of the risks included, but was not limited to, those that are most frequent and those amber t are rare but possibly severe or life-threatening, as well as the possibility of unforeseen complica tions. The procedure was performed at the patient's bedside. A time procedure was performed. The [facility] chest including the catheter was prepped and draped using sterile barrier technique. The catheter was removed traction. Manual pressure was held. Sterile dressings were applied. Impression: Removal of right internal jugular tunneled hemodialysis catheter Electronically signed by: Elpidio Day MD (12/26/2021 3:18 PM) [id number]
--- NOTE | 2021-12-26 16:30 | NUR ---
Wound/Ostomy Care Wound Type/Assessment: 76 y/o female seen for several wound. Wound #1 is a Stage 2 skin tear with partial tissue loss. Wound #2 is located at the left upper thigh/groin area and is Stage 2 pressure injury related to a tight brief. Wound 3 is located on coccyx and is a Stage 3 pressure ulcer. Wounds were cleaned and assessed (see interventions for detailed assessment). Currently all wounds present with no odor or signs of active infection. Patient was assessed for additional wounds and positioned for comfort and offloading of coccyx. Treatment Recommendations/Plan: After cleaning and assessment, Xeroform and Aquacel foam applied to each active wound. Education provided: None at this time. Offloading surface/device: Wedge to back and pillows to float heels and protect knees Recommended Referrals/Tests: None Discharge Recommendations for dressings: Maintain current treatment.
[2021-12-26] MEDS ORDERED: IV NORMAL SALINE 250ML 250 ML IV ONE (18:30)
[2021-12-26 19:00] VITALS: BP 135/68
--- NOTE | 2021-12-26 19:38 | NUR ---
Dialysis cath removed at bedside today, temporary to be placed tomorrow. Dressing CD&I will continue to monitor.
--- NOTE | 2021-12-26 20:00 | NUR ---
Assessment completed, dialysis catheter site dressing CDI. No s/s of pain. Call light in reach. Bed alarm on.
[2021-12-26] MEDS: ATORVASTATIN CALCIUM 10 MG TABLET. PO SCH (21:40)
[2021-12-26 22:57] VITALS: BP 109/63
[2021-12-27 03:03] VITALS: BP 110/62
[2021-12-27 07:00] VITALS: BP 105/54
[2021-12-27] MEDS: MIDODRINE 2.5 MG TABLET PO SCH ×3 (07:00→18:00)
[2021-12-27] MEDS: ASPIRIN ENTERIC COATED 81 MG TABLET.DR. PO SCH (08:00)
[2021-12-27] MEDS: SENNOSIDES/DOCUSATE 8.6/50MG TABLET. PO SCH ×2 (09:00→20:55)
[2021-12-27] MEDS: CITALOPRAM 20 MG TABLET. PO SCH (09:00)
--- NOTE | 2021-12-27 09:13 | PDOC ---
[employer] PROGRESS NOTE Date of Service DOS: DATE: 12/27/21 TIME: 09:12 Chief Complaint Chief Complaint Staph aureus bacteremia Acute metabolic/infectious encephalopathy ESRD, Sepsis, UTI, got vanc and rocephin, cont rocephin, check random vanc lab Obese, BMI 33 Weakness, debility Sacral wound HTN Pending blood culture sensitivities Appreciate ID recommendations to continue vancomycin and cefepime Nephrology consult for hemodialysis IR consult for removal of permacath and replacement with temporary HD catheter. Plan for permanent HD catheter placement once clearance of staph aureus in the blood. Will coordinate with ID. History of Present Illness History of Present Illness Ms Cook is a 76yo female with PMHx dementia and new ESRD who was admitted through the ED for worsening confusion. 12/25: Blood cultures positive x2 for gram-positive cocci. Still pretty confused. Discussed with nephrology likely will need dialysis next 2 days and potential blood cultures versus her dialysis line may need it removed and temporary dialysis catheter inserted. Will consult infectious diseases in the meantime. 12/26/2021 No acute events overnight. Patient seen examined during dialysis. Still confused. Plan for permacath remova and placement with a temporary catheter. Patient's chart, labs, images were reviewed and discussed with RN 12/27/21 No acute events overnight. Pt seen and examined bedside. Pleasantly confused. AF and VSS. Plan for temp cath placement today. Patient's chart, labs, images were reviewed and discussed with RN Vitals/I&O Vitals/I&O: Vital Signs Date Time Temp Pulse Resp B/P (MAP) Pulse Ox O2 Delivery O2 Flow Rate FiO2 12/27/21 07:00 98.4 59 20 105/54 (71) 91 Nasal Cannula 2.0 98.4 I & O 12/26/21 12/26/21 12/27/21 15:00 23:00 07:00 Intake Total 50 ml 0 ml Output Total 400 ml Balance -350 ml 0 ml Physical Exam Physical Exam: GENERAL: Alert, but not oriented female, not in distress. VITAL SIGNS: stable HEENT: Both pupils are round and reacting. No conjunctival lesion, no lesion in the mouth. NECK: Supple, no JVP, no lymphadenopathy. LUNGS: Clear. HEART: S1, S2, regular. ABDOMEN: Soft, nontender, no organomegaly. EXTREMITIES: No edema, cyanosis. SKIN: Unremarkable. Hemodialysis tunneled catheter in the right upper chest, which is not showing obvious signs of infection. NEUROLOGIC: The patient is awake, mumbles few words, but really meaningful communication not possible. General: Cooperative, No acute distress, Other (looks away, does not talk, does follow some commands, poor eye contact, no verbal) Lungs: Clear Abdomen: Normal bowel sounds, No tenderness Extremities: No edema, Normal pulses Skin: Other (sacral ulcer) Assessment and Plan Assessmemt and Plan Problems Medical Problems: (1) Decubitus ulcer Status: Acute (2) Sepsis Status: Acute (3) UTI (urinary tract infection) Status: Acute Comment Review of Relevant I have reviewed the following items mariaa (where applicable) has been applied. Medications: Current Medications Medications (Trade) Dose Ordered Sig/Cailin Route PRN Reason Start Time Stop Time Status Last Admin Dose Admin Sodium Chloride 250 ml @ 250 mls/hr 1X ONCE IV 12/26/21 18:30 12/26/21 19:29 DC 12/26/21 18:30 Justifications for Admission Other Justification LORNE KWON MD Dec 27, 2021 09:13
--- NOTE | 2021-12-27 10:40 | NUR ---
SW following. Discussed with RN, pt from [facility], 2L, renal diet, COVID-19 negative. Pt having temporary dialysis cath placed today. Pt not medically ready for discharge. Updates faxed to [facility]. SW will continue to follow.
[2021-12-27] MEDS ORDERED: LIDOCAINE WITH 8.4% SOD BICARB 3 ML DISP.SYRIN. ONE ×2 (10:43→12:50)
[2021-12-27] MEDS ORDERED: HEPARIN for ARTERIAL LINE 0 ML ONE (10:43)
[2021-12-27] MEDS ORDERED: IODIXANOL 320 MG/ML 100 ML VIAL. ONE (10:43)
[2021-12-27 11:00] VITALS: BP 98/54
--- NOTE | 2021-12-27 12:56 | PDOC ---
Infectious Disease Note Subjective Subjective Patient is mumbling ROS ROS No nausea vomiting diarrhea or fever Vital Sign Vital Signs Vital Signs Date Time Temp Pulse Resp B/P (MAP) Pulse Ox O2 Delivery O2 Flow Rate FiO2 12/27/21 11:00 98.4 61 22 98/54 (69) 94 Nasal Cannula 2.0 98.4 Physical Exam PHYSICAL EXAM GENERAL: Alert, but not oriented female, not in distress. VITAL SIGNS: stable HEENT: Both pupils are round and reacting. No conjunctival lesion, no lesion in the mouth. NECK: Supple, no JVP, no lymphadenopathy. LUNGS: Clear. HEART: S1, S2, regular. ABDOMEN: Soft, nontender, no organomegaly. EXTREMITIES: No edema, cyanosis. SKIN: Unremarkable. Hemodialysis tunneled catheter in the right upper chest, which is not showing obvious signs of infection. NEUROLOGIC: The patient is awake, mumbles few words, but really meaningful communication not possible. Labs Micro Microbiology 12/24/21 Blood Culture - Preliminary, Resulted Staphylococcus Aureus Objective Assessment IMPRESSION: 1. Encephalopathy. 2. Fever. 3. Leukocytosis. 4. MSSA bacteremia 5. End-stage renal disease, on hemodialysis. 6. Hypertension. 7. Congestive heart failure. Plan Plan of Care cont antibiotics HD cath removed Temp cath today Repeat blood culture MARTHA HARDY MD Dec 27, 2021 12:56
[2021-12-27] MEDS ORDERED: LIDOCAINE WITH 8.4% SOD BICARB 3 ML DISP.SYRIN. INJ ONE (13:00)
--- NOTE | 2021-12-27 14:22 | PDOC ---
DATE OF SERVICE DATE: 12/27/21 TIME: 14:19 SUBJECTIVE ROS Stable, No acute concerns OBJECTIVE Vital Signs Vital Signs Date Time Temp Pulse Resp B/P (MAP) Pulse Ox O2 Delivery O2 Flow Rate FiO2 12/27/21 11:00 98.4 61 22 98/54 (69) 94 Nasal Cannula 2.0 98.4 I & 0 Intake and Output 12/27/21 07:00 Intake Total 50 ml Output Total 400 ml Balance -350 ml Intake Oral 50 ml Output Urine Total 400 ml PHYSICAL EXAM Physical Exam GEN: NAD HEENT: Normal cephalic, atraumatic, O2 by NC NECK: Supple, LUNGS: Decreased at bases Non labored HEART: RRR, S!, S2 present. ABDOMEN: Soft, nontender. Positive bowel sounds, no organomegaly EXTREMITIES: Without clubbing, cyanosis, or edema. NEUROLOGIC: Awake , says only yes , moves all extremities PSYCHIATRIC: Unable to Obtain SKIN: No ulcerations or rashes, No Serrano, No CVA or SP tenderness Has Tunneled HDC Rt side DIAGNOSIS/ASSESSMENT Assessment & Plan ESRD - Dx with [facility]AN on CKD 4 in Oct , initiated on Dialysis 10/26, Sonogram does show some cortical thinning. Has been on Dialysis since- TTS at [facility] . Dialyzed yesterday Dialysis again today , seen during treatment , tolerating well. Continue as ordered. Gavin Barrera Access- Tunneled HDC - Removed 12/26 . Scheduled for Temp HDC today- discussed with historical records administrator metabolic encephalopathy suspect 2/2 sepsis . ID consult Sepsis/ Elevated WBC - Infected Tunneled HDC , removed, Tip Staph aureus . UA unremarkable, ID following Sacral wound HTN-BP's on the low side Hx of GI bleed December 2020 - Hospitalized at [facility], . Suspected diverticular bleed Anemia - hgb stable Hx of A Fib COMMENT/RELEVANT DATA Meds Current Medications Medications (Trade) Dose Ordered Sig/Cailin Start Time Stop Time Status Last Admin Dose Admin Acetaminophen (Tylenol) 500 mg PRN TID PRN 12/24/21 19:15 Apixaban (Eliquis) 5 mg BID 12/25/21 11:30 12/27/21 13:19 DC Aspirin (Ecotrin) 81 mg [id number] 12/26/21 08:00 Atorvastatin Calcium (Lipitor) 10 mg HS 12/24/21 21:00 12/24/21 21:00 10 MG Cefazolin Sodium (Ancef) 1 gm Q24H 12/25/21 14:00 12/26/21 14:52 1 GM Cefazolin Sodium 500 mg/Dextrose 50 ml @ 100 mls/hr Q12HR 12/25/21 21:00 UNV Ceftriaxone Sodium (Rocephin) 1 gm DAILY 12/25/21 09:00 12/25/21 13:01 DC 12/25/21 11:03 1 GM Citalopram Hydrobromide (CeleXA) 20 mg DAILY 12/26/21 09:00 Diltiazem HCl (Cardizem 24hr Cd) 120 mg DAILY 12/25/21 09:00 12/25/21 11:26 DC Heparin Sodium (Porcine) (Heparin Sodium) 5,000 unit Q8HRS 12/27/21 14:00 Heparin Sodium/ Sodium Chloride 0 ml @ As Directed STK-MED ONCE 12/27/21 10:43 12/27/21 11:03 DC Info (PHARMACY MONITORING -- do not chart) 1 each PRN DAILY PRN 12/26/21 07:45 Cancel Iodixanol (Visipaque 320) 100 ml STK-MED ONCE 12/27/21 10:43 12/27/21 11:03 DC Lidocaine HCl (Buffered Lidocaine 1%) 6 ml 1X ONCE 12/27/21 13:00 12/27/21 13:01 DC 12/27/21 13:43 5 ML Metoprolol Succinate (Toprol Xl) 50 mg BID 12/24/21 21:00 12/25/21 11:26 DC 12/24/21 21:00 50 MG Midodrine (Proamatine) 2.5 mg [id number] 12/25/21 13:00 12/26/21 14:54 2.5 MG Nystatin (Nystop) 1 man BID 12/24/21 21:00 12/26/21 21:39 1 MAN Olanzapine (ZyPREXA ZYDIS) 5 mg PRN BID PRN 12/25/21 11:30 12/25/21 14:21 5 MG Senna/Docusate Sodium (Senna Plus) 1 tab BID 12/24/21 21:00 12/24/21 20:59 1 TAB Sodium Chloride 250 ml @ 250 mls/hr 1X ONCE 12/26/21 18:30 12/26/21 19:29 DC 12/26/21 18:30 250 MLS/HR Vancomycin HCl (Vanco Per Pharmacy) 1 each PRN DAILY PRN 12/25/21 13:00 12/27/21 12:57 DC 12/26/21 14:13 1 EACH Vancomycin HCl (Vancomycin Random Level) 1 each 1X ONCE 12/28/21 05:00 12/27/21 12:58 DC Vancomycin HCl 1 gm/Sodium Chloride 250 ml @ 250 mls/hr 1X ONCE 12/25/21 20:00 12/25/21 20:59 DC 12/25/21 20:40 250 MLS/HR Results All relevant outside records, renal labs, imaging studies, telemetry/EKG's were reviewed. Justicifation of Admission Dx: Justifications for Admission: Justification of Admission Dx: Yes ADENIKE EDMONDS MD Dec 27, 2021 14:22
[2021-12-27 15:00] VITALS: BP 98/54
--- NOTE | 2021-12-27 15:29 | RAD ---
Procedure: Temporary hemodialysis catheter placement Total fluoroscopy time: 0.5 Min Dose area product 2 mGycm2 Sterility: All elements of maximal sterile barrier technique including the use of a cap, mask, steril e gown, sterile gloves, large sterile sheet, appropriate hand hygiene, and 2% chlorhexidine for cutan eous antisepsis (or acceptable alternative antiseptic per current guidelines) were followed for this procedure. Consent: The procedure was explained in its entirety to the patient or the patients designated repres entative by a member of the treatment team, including a discussion of the risks, benefits and commonl y accepted alternatives to the procedure, as well as the expected consequences of no therapy whatsoev er. Discussion of the risks included, but was not limited to, those that are most frequent and thos e that are rare but possibly severe or life-threatening, as well as the possibility of unforeseen com plications. Technique and Findings: Following informed consent, the patient was prepped and draped in the usual s terile fashion. Ultrasound interrogation of the right neck revealed patency and compressibility of t he right internal jugular vein. A 21-gauge micropuncture was then used to gain access to this vein u nder ultrasound guidance. A hard copy ultrasound image was recorded. A guidewire was advanced centra lly over which, following dilatation, a temporary dialysis catheter was placed. The new catheter wa s found to flush and aspirate normally. The catheter was secured in place. Sterile dressings were man lied. No immediate complications were identified. IMPRESSION: Placement of a temporary dialysis catheter Electronically signed by: Elpidio Day MD (12/27/2021 3:27 PM) [id number]
[2021-12-27] MEDS: ceFAZolin SODIUM IV Push 1 GM VIAL. IVP SCH (15:47)
[2021-12-27] MEDS: NYSTATIN TOPICAL POWDER 15GM BOTTLE. TP SCH ×2 (15:48→20:59)
[2021-12-27] MEDS: HEPARIN for SUB-Q USE 5,000 UNIT/ML VIAL. SQ SCH ×2 (15:53→21:00)
[2021-12-27 19:00] VITALS: BP 84/39
[2021-12-27] MEDS: ATORVASTATIN CALCIUM 10 MG TABLET. PO SCH (20:55)
[2021-12-27] MEDS ORDERED: DIGOXIN IV 500 MCG/2 ML AMPUL. IV ONE (22:00)
[2021-12-27] MEDS ORDERED: IV NORMAL SALINE 1000ML BAG 1,000 ML IV ONE (22:00)
[2021-12-27 23:00] VITALS: BP 122/78
[2021-12-28] VITALS (8 sets, daily range): BP systolic 85–134; BP diastolic 45–66
[2021-12-28] MEDS: METOPROLOL IV PUSH 5 MG/5 ML VIAL. IVP SCH ×4 (00:14→18:00)
[2021-12-28] MEDS ORDERED: VANCOMYCIN RANDOM LEVEL. MC ONE (05:00)
[2021-12-28] MEDS: HEPARIN for SUB-Q USE 5,000 UNIT/ML VIAL. SQ SCH ×3 (06:21→21:15)
[2021-12-28] MEDS: MIDODRINE 2.5 MG TABLET PO SCH ×4 (06:23→18:00)
[2021-12-28] MEDS ORDERED: DIALYSIS PATIENT. MC PRN ×2 (07:15)
[2021-12-28] MEDS ORDERED: IV NORMAL SALINE 1000ML BAG 1,000 ML IV PRN ×2 (07:15)
[2021-12-28] MEDS: SENNOSIDES/DOCUSATE 8.6/50MG TABLET. PO SCH ×2 (09:00→21:13)
--- NOTE | 2021-12-28 09:55 | PDOC ---
Dialysis Progress Note Date of Service: DATE: 12/28/21 TIME: 09:53 Dialysis Note Dialysis Note Seen on Hemodialysis, tolerating treatment Okay Vitals on Hemodialysis: 95 / 67 103 afeb General Appearance: confused, altered on HD Neck: No JVD or JVP Chest: CTA Jim Heart: S1 S2 Abdomen - Soft NTND Extremities - Tr Edema ESRD: Dialysis as below F 180 NR 3.0 Hrs 3 K 2.5 Ca 140 Na 35 HC03 Qb 350 + Qd 500+ Heparin 0 Units Uf 0 Kgs or to dry weight as tolerate May give 25-50 gms of 25% Albumin if needed to maintain Hemodynamic stability Treatment plan reviewed and discussed with software developer consultant Vitals Vital Signs Vital Signs Date Time Temp Pulse Resp B/P (MAP) Pulse Ox O2 Delivery O2 Flow Rate FiO2 12/28/21 08:17 120 20 93/60 (71) 95 Nasal Cannula 3.0 12/28/21 03:00 98.6 98.6 Assessment Assessment Problems Medical Problems: (1) Decubitus ulcer Status: Acute (2) Sepsis Status: Acute (3) UTI (urinary tract infection) Status: Acute Plan Plan of Care Problems Medical Problems: (1) Decubitus ulcer Status: Acute (2) Sepsis Status: Acute (3) UTI (urinary tract infection) Status: Acute JOE HARDY MD Dec 28, 2021 09:55
--- NOTE | 2021-12-28 10:46 | PDOC ---
[employer] PROGRESS NOTE Date of Service DOS: DATE: 12/28/21 TIME: 10:42 Chief Complaint Chief Complaint MSSA bacteremia Acute metabolic/infectious encephalopathy ESRD, Sepsis, UTI, got vanc and rocephin, cont rocephin, check random vanc lab status post temp cath placement on 12/27/2021 Obese, BMI 33 Weakness, debility Sacral wound HTN Albumin infusion during dialysis Appreciate ID recommendations to continue vancomycin and cefepime Nephrology consult for hemodialysis IR consult for removal of permacath and replacement with temporary HD catheter. Plan for permanent HD catheter placement once clearance of staph aureus in the blood. Will coordinate with ID. History of Present Illness History of Present Illness Ms Cook is a 76yo female with PMHx dementia and new ESRD who was admitted through the ED for worsening confusion. 12/25: Blood cultures positive x2 for gram-positive cocci. Still pretty confused. Discussed with nephrology likely will need dialysis next 2 days and potential blood cultures versus her dialysis line may need it removed and temporary dialysis catheter inserted. Will consult infectious diseases in the meantime. 12/26/2021 No acute events overnight. Patient seen examined during dialysis. Still confused. Plan for permacath remova and placement with a temporary catheter. Patient's chart, labs, images were reviewed and discussed with RN 12/27/21 No acute events overnight. Pt seen and examined bedside. Pleasantly confused. AF and VSS. Plan for temp cath placement today. Patient's chart, labs, images were reviewed and discussed with RN 12/28/2021 No acute events overnight. Patient seen examined bedside. Patient still co nfused. Hypotensive down into the 90s over 60s. Patient currently seen in dialysis and getting albumin transfusion. Patient's chart, labs, images were reviewed and discussed with RN Vitals/I&O Vitals/I&O: Vital Signs Date Time Temp Pulse Resp B/P (MAP) Pulse Ox O2 Delivery O2 Flow Rate FiO2 12/28/21 08:17 120 20 93/60 (71) 95 Nasal Cannula 3.0 12/28/21 03:00 98.6 98.6 I & O 12/27/21 12/27/21 12/28/21 15:00 23:00 07:00 Intake Total 0 ml 0 ml Output Total 0 ml Balance 0 ml 0 ml Physical Exam Physical Exam: GENERAL: Alert, but not oriented female, not in distress. VITAL SIGNS: stable HEENT: Both pupils are round and reacting. No conjunctival lesion, no lesion in the mouth. NECK: Supple, no JVP, no lymphadenopathy. LUNGS: Clear. HEART: S1, S2, regular. ABDOMEN: Soft, nontender, no organomegaly. EXTREMITIES: No edema, cyanosis. SKIN: Unremarkable. Hemodialysis tunneled catheter in the right upper chest, which is not showing obvious signs of infection. NEUROLOGIC: The patient is awake, mumbles few words, but really meaningful communication not possible. General: Alert, Cooperative, No acute distress, Other (looks away, does not talk, does follow some commands, poor eye contact, no verbal) Lungs: Clear Abdomen: Normal bowel sounds, No tenderness Extremities: No edema, Normal pulses Skin: Other (sacral ulcer) Assessment and Plan Assessmemt and Plan Problems Medical Problems: (1) Decubitus ulcer Status: Acute (2) Sepsis Status: Acute (3) UTI (urinary tract infection) Status: Acute Comment Review of Relevant I have reviewed the following items mariaa (where applicable) has been applied. Medications: Current Medications Medications (Trade) Dose Ordered Sig/Cailin Route PRN Reason Start Time Stop Time Status Last Admin Dose Admin Lidocaine HCl (Buffered Lidocaine 1%) 6 ml 1X ONCE INJ 12/27/21 13:00 12/27/21 13:01 DC 12/27/21 13:43 Heparin Sodium (Porcine) (Heparin Sodium) 5,000 unit Q8HRS SQ 12/27/21 14:00 12/28/21 06:21 Digoxin (Lanoxin) 250 mcg 1X ONCE IV 12/27/21 22:00 12/27/21 22:01 DC 12/27/21 21:49 Metoprolol Tartrate (Lopressor Vial) 5 mg Q6HRS IVP 12/28/21 00:00 12/28/21 06:23 Sodium Chloride 1,000 ml @ 150 mls/hr 1X ONCE IV 12/27/21 22:00 12/28/21 04:39 DC 12/27/21 21:58 Albumin Human 100 ml @ 100 mls/hr 1X ONCE IV 12/28/21 11:00 12/28/21 11:59 12/28/21 10:19 Justifications for Admission Other Justification LORNE KWON MD Dec 28, 2021 10:46
[2021-12-28] MEDS ORDERED: ALBUMIN HUMAN 25% 100 ML IV ONE (11:00)
[2021-12-28] MEDS: CITALOPRAM 20 MG TABLET. PO SCH (12:51)
[2021-12-28] MEDS: ASPIRIN ENTERIC COATED 81 MG TABLET.DR. PO SCH (12:53)
[2021-12-28] MEDS: NYSTATIN TOPICAL POWDER 15GM BOTTLE. TP SCH ×2 (13:00→21:13)
[2021-12-28] MEDS: ceFAZolin SODIUM IV Push 1 GM VIAL. IVP SCH (15:55)
[2021-12-28] MEDS: ATORVASTATIN CALCIUM 10 MG TABLET. PO SCH (21:13)
[2021-12-29] VITALS (7 sets, daily range): BP systolic 90–120; BP diastolic 40–70
[2021-12-29] MEDS: METOPROLOL IV PUSH 5 MG/5 ML VIAL. IVP SCH ×4 (00:23→19:39)
[2021-12-29] MEDS: HEPARIN for SUB-Q USE 5,000 UNIT/ML VIAL. SQ SCH ×3 (06:35→21:15)
[2021-12-29] MEDS: MIDODRINE 2.5 MG TABLET PO SCH ×3 (07:00→18:00)
--- NOTE | 2021-12-29 07:19 | NUR ---
Lab called @ 0614 w/ + BC 2/ bottles (gram + cocci in clusters). Dr. Pizarro notified @ 0680 and gave NNO. ID already following.
[2021-12-29] MEDS: SENNOSIDES/DOCUSATE 8.6/50MG TABLET. PO SCH ×2 (09:00→21:16)
[2021-12-29] MEDS: CITALOPRAM 20 MG TABLET. PO SCH (10:19)
[2021-12-29] MEDS: ASPIRIN ENTERIC COATED 81 MG TABLET.DR. PO SCH (10:19)
[2021-12-29] MEDS: NYSTATIN TOPICAL POWDER 15GM BOTTLE. TP SCH ×2 (10:20→21:17)
--- NOTE | 2021-12-29 11:28 | PDOC ---
Infectious Disease Note Subjective Subjective Patient is mumbling ROS ROS no n/v/d/ Vital Sign Vital Signs Vital Signs Date Time Temp Pulse Resp B/P (MAP) Pulse Ox O2 Delivery O2 Flow Rate FiO2 12/29/21 08:00 Nasal Cannula 3.0 12/29/21 07:00 103 115/55 12/29/21 07:00 97.7 18 90 97.7 Physical Exam PHYSICAL EXAM GENERAL: Alert, but not oriented female, not in distress. VITAL SIGNS: stable HEENT: Both pupils are round and reacting. No conjunctival lesion, no lesion in the mouth. NECK: Supple, no JVP, no lymphadenopathy. LUNGS: Clear. HEART: S1, S2, regular. ABDOMEN: Soft, nontender, no organomegaly. EXTREMITIES: No edema, cyanosis. SKIN: Unremarkable. Hemodialysis tunneled catheter in the right upper chest, which is not showing obvious signs of infection. NEUROLOGIC: The patient is awake, mumbles few words, but really meaningful communication not possible. Labs Micro Microbiology 12/24/21 Blood Culture - Preliminary, Resulted Staphylococcus Aureus Objective Assessment IMPRESSION: 1. Encephalopathy. 2. Fever. 3. Leukocytosis. 4. MSSA bacteremia 5. End-stage renal disease, on hemodialysis. 6. Hypertension. 7. Congestive heart failure. Plan Plan of Care cont antibiotics HD cath removed Temp cath Repeat blood culture + MARTHA HARDY MD Dec 29, 2021 11:28
--- NOTE | 2021-12-29 11:37 | PDOC ---
[employer] PROGRESS NOTE Date of Service DOS: DATE: 12/29/21 TIME: 11:36 Chief Complaint Chief Complaint MSSA bacteremia Acute metabolic/infectious encephalopathy ESRD, Sepsis, UTI, got vanc and rocephin, cont rocephin, check random vanc lab status post temp cath placement on 12/27/2021 Obese, BMI 33 Weakness, debility Sacral wound HTN Albumin infusion during dialysis Appreciate ID recommendations to continue vancomycin and cefepime Nephrology consult for hemodialysis IR consult for removal of permacath and replacement with temporary HD catheter. Plan for permanent HD catheter placement once clearance of staph aureus in the blood. Will coordinate with ID. History of Present Illness History of Present Illness Ms Cook is a 76yo female with PMHx dementia and new ESRD who was admitted through the ED for worsening confusion. 12/25: Blood cultures positive x2 for gram-positive cocci. Still pretty confused. Discussed with nephrology likely will need dialysis next 2 days and potential blood cultures versus her dialysis line may need it removed and temporary dialysis catheter inserted. Will consult infectious diseases in the meantime. 12/26/2021 No acute events overnight. Patient seen examined during dialysis. Still confused. Plan for permacath remova and placement with a temporary catheter. Patient's chart, labs, images were reviewed and discussed with RN 12/27/21 No acute events overnight. Pt seen and examined bedside. Pleasantly confused. AF and VSS. Plan for temp cath placement today. Patient's chart, labs, images were reviewed and discussed with RN 12/28/2021 No acute events overnight. Patient seen examined bedside. Patient still co nfused. Hypotensive down into the 90s over 60s. Patient currently seen in dialysis and getting albumin transfusion. Patient's chart, labs, images were reviewed and discussed with RN 12/29/2021 No acute events overnight. Patient seen examined bedside. AF and VSS still confused and lethargic appearing. Blood pressures have improved after dialysis and albumin infusion. Blood culture still persistently positive. Repeat blood cultures drawn today. Patient's chart, labs, images were reviewed and discussed with RN Vitals/I&O Vitals/I&O: Vital Signs Date Time Temp Pulse Resp B/P (MAP) Pulse Ox O2 Delivery O2 Flow Rate FiO2 12/29/21 08:00 Nasal Cannula 3.0 12/29/21 07:00 103 115/55 12/29/21 07:00 97.7 18 90 97.7 I & O 12/28/21 12/28/21 12/29/21 15:00 23:00 07:00 Intake Total 120 ml 60 ml Balance 120 ml 60 ml Physical Exam Physical Exam: GENERAL: Alert, but not oriented female, not in distress. VITAL SIGNS: stable HEENT: Both pupils are round and reacting. No conjunctival lesion, no lesion in the mouth. NECK: Supple, no JVP, no lymphadenopathy. LUNGS: Clear. HEART: S1, S2, regular. ABDOMEN: Soft, nontender, no organomegaly. EXTREMITIES: No edema, cyanosis. SKIN: Unremarkable. Hemodialysis tunneled catheter in the right upper chest, which is not showing obvious signs of infection. NEUROLOGIC: The patient is awake, mumbles few words, but really meaningful communication not possible. General: Alert, Cooperative, No acute distress, Other (looks away, does not talk, does follow some commands, poor eye contact, no verbal) Lungs: Clear Abdomen: Normal bowel sounds, No tenderness Extremities: No edema, Normal pulses Skin: Other (sacral ulcer) Assessment and Plan Assessmemt and Plan Problems Medical Problems: (1) Decubitus ulcer Status: Acute (2) Sepsis Status: Acute (3) UTI (urinary tract infection) Status: Acute Comment Review of Relevant I have reviewed the following items mariaa (where applicable) has been applied. Justifications for Admission Other Justification LORNE KWON MD Dec 29, 2021 11:37
[2021-12-29] MEDS ORDERED: LACTOBACILLUS RHAMNOSUS GG 1 CAPSULE. PO SCH (12:00)
--- NOTE | 2021-12-29 13:17 | PDOC ---
DATE OF SERVICE: DOS: DATE: 12/29/21 TIME: 13:16 SUBJECTIVE ROS Follow-up for ESRD on hemodialysis Thursday Patient currently claims she is feeling better. She appears to look a little better also Still not awake and alert enough to answer review of system questions OBJECTIVE Vital Signs Vital Signs Date Time Temp Pulse Resp B/P (MAP) Pulse Ox O2 Delivery O2 Flow Rate FiO2 12/29/21 08:00 Nasal Cannula 3.0 12/29/21 07:00 103 115/55 12/29/21 07:00 97.7 18 90 97.7 I & 0 Intake and Output 12/29/21 07:00 Intake Total 180 ml Balance 180 ml Intake Oral 180 ml # Voids 1 PHYSICAL EXAM Physical Exam GEN: Awake, Oriented x 0-1, In no distress EYES: Vision Unchanged, Conjunctiva Normal EN: No EN Drainage, Mucous Membranes moist NECK: no JVD, no JVP, Supple, no Thyromegaly CVS: S1S2, soft murmur, ongoing tachycardia RESP: no Rales, no Rhonchi,no Acc. Muscle Use GI: BS + ve, NO Bruit, Non Tender, Non Distended : no CVA tenderness, no Suprapubic Tenderness DIAGNOSIS/ASSESSMENT Assessment & Plan ESRD: Current fluid and E-lyte status does not necessitate emergent need for dialysis. Will re-evaluate for dialysis in the am and continue on TTSat schedule. ANEMIA; Epogen as ordered/needed, transfuse as needed Hypotension: Now resolved. May need IV normal saline boluses or IV albumin BONE & MINERAL: Follow phosphorus levels and alter binder regimen as needed is on oral intake Infected dialysis access, permacath once cleared by infectious disease specialist COMMENT/RELEVANT DATA Meds Current Medications Medications (Trade) Dose Ordered Sig/Cailin Start Time Stop Time Status Last Admin Dose Admin Acetaminophen (Tylenol) 500 mg PRN TID PRN 12/24/21 19:15 Albumin Human 100 ml @ 100 mls/hr 1X ONCE 12/28/21 11:00 12/28/21 11:59 DC 12/28/21 10:19 100 MLS/HR Apixaban (Eliquis) 5 mg BID 12/25/21 11:30 12/27/21 13:19 DC Aspirin (Ecotrin) 81 mg [id number] 12/26/21 08:00 12/29/21 10:19 81 MG Atorvastatin Calcium (Lipitor) 10 mg HS 12/24/21 21:00 12/28/21 21:13 10 MG Cefazolin Sodium (Ancef) 1 gm Q24H 12/25/21 14:00 12/28/21 15:55 1 GM Cefazolin Sodium 500 mg/Dextrose 50 ml @ 100 mls/hr Q12HR 12/25/21 21:00 UNV Ceftriaxone Sodium (Rocephin) 1 gm DAILY 12/25/21 09:00 12/25/21 13:01 DC 12/25/21 11:03 1 GM Citalopram Hydrobromide (CeleXA) 20 mg DAILY 12/26/21 09:00 12/29/21 10:19 20 MG Digoxin (Lanoxin) 250 mcg 1X ONCE 12/27/21 22:00 12/27/21 22:01 DC 12/27/21 21:49 250 MCG Diltiazem HCl (Cardizem 24hr Cd) 120 mg DAILY 12/25/21 09:00 12/25/21 11:26 DC Heparin Sodium (Porcine) (Heparin Sodium) 5,000 unit Q8HRS 12/27/21 14:00 12/29/21 06:35 5,000 UNIT Heparin Sodium/ Sodium Chloride 0 ml @ As Directed STK-MED ONCE 12/27/21 10:43 12/27/21 11:03 DC Info (PHARMACY MONITORING -- do not chart) 1 each PRN DAILY PRN 12/28/21 07:15 Iodixanol (Visipaque 320) 100 ml STK-MED ONCE 12/27/21 10:43 12/27/21 11:03 DC Lactobacillus Rhamnosus (Culturelle) 1 cap BID 12/29/21 12:00 Cancel Lidocaine HCl (Buffered Lidocaine 1%) 6 ml 1X ONCE 12/27/21 13:00 12/27/21 13:01 DC 12/27/21 13:43 5 ML Metoprolol Succinate (Toprol Xl) 50 mg BID 12/24/21 21:00 12/25/21 11:26 DC 12/24/21 21:00 50 MG Metoprolol Tartrate (Lopressor Vial) 5 mg Q6HRS 12/28/21 00:00 12/29/21 06:33 5 MG Midodrine (Proamatine) 2.5 mg [id number] 12/25/21 13:00 12/28/21 12:51 2.5 MG Nystatin (Nystop) 1 man BID 12/24/21 21:00 12/29/21 10:20 1 MAN Olanzapine (ZyPREXA ZYDIS) 5 mg PRN BID PRN 12/25/21 11:30 12/25/21 14:21 5 MG Senna/Docusate Sodium (Senna Plus) 1 tab BID 12/24/21 21:00 12/28/21 21:13 1 TAB Sodium Chloride 1,000 ml @ 400 mls/hr Q2H30M PRN 12/28/21 07:15 12/28/21 19:14 DC Vancomycin HCl (Vanco Per Pharmacy) 1 each PRN DAILY PRN 12/25/21 13:00 12/27/21 12:57 DC 12/26/21 14:13 1 EACH Vancomycin HCl (Vancomycin Random Level) 1 each 1X ONCE 12/28/21 05:00 12/27/21 12:58 DC Vancomycin HCl 1 gm/Sodium Chloride 250 ml @ 250 mls/hr 1X ONCE 12/25/21 20:00 12/25/21 20:59 DC 12/25/21 20:40 250 MLS/HR Results All relevant outside records, renal labs, imaging studies, telemetry/EKG's were reviewed. Justicifation of Admission Dx: Justifications for Admission: Justification of Admission Dx: Yes JOE HARDY MD Dec 29, 2021 13:17
[2021-12-29] MEDS ORDERED: ALBUMIN HUMAN 5% 500 ML IV ONE (14:00)
[2021-12-29] MEDS: ceFAZolin SODIUM IV Push 1 GM VIAL. IVP SCH (15:41)
[2021-12-29] MEDS: ATORVASTATIN CALCIUM 10 MG TABLET. PO SCH (21:16)
[2021-12-30 03:16] VITALS: BP 80/39
[2021-12-30] MEDS: METOPROLOL IV PUSH 5 MG/5 ML VIAL. IVP SCH ×6 (06:00→23:29)
[2021-12-30] MEDS: MIDODRINE 2.5 MG TABLET PO SCH ×3 (06:09→17:00)
[2021-12-30] MEDS: HEPARIN for SUB-Q USE 5,000 UNIT/ML VIAL. SQ SCH ×3 (06:10→21:32)
[2021-12-30 07:00] VITALS: BP 98/53
[2021-12-30] MEDS: ASPIRIN ENTERIC COATED 81 MG TABLET.DR. PO SCH (08:57)
[2021-12-30] MEDS: SENNOSIDES/DOCUSATE 8.6/50MG TABLET. PO SCH ×2 (08:57→21:26)
[2021-12-30] MEDS: CITALOPRAM 20 MG TABLET. PO SCH (08:57)
[2021-12-30] MEDS: NYSTATIN TOPICAL POWDER 15GM BOTTLE. TP SCH ×2 (08:59→21:26)
[2021-12-30 11:00] VITALS: BP 89/62
--- NOTE | 2021-12-30 11:06 | PDOC ---
[employer] PROGRESS NOTE Date of Service DOS: DATE: 12/30/21 TIME: 11:05 Chief Complaint Chief Complaint MSSA bacteremia Acute metabolic/infectious encephalopathy ESRD, Sepsis, UTI, got vanc and rocephin, cont rocephin, check random vanc lab status post temp cath placement on 12/27/2021 Obese, BMI 33 Weakness, debility Sacral wound HTN Albumin infusion during dialysis Appreciate ID recommendations to continue vancomycin and cefepime Nephrology consult for hemodialysis IR consult for removal of permacath and replacement with temporary HD catheter. Plan for permanent HD catheter placement once clearance of staph aureus in the blood. Will coordinate with ID. History of Present Illness History of Present Illness Ms Cook is a 76yo female with PMHx dementia and new ESRD who was admitted through the ED for worsening confusion. 12/25: Blood cultures positive x2 for gram-positive cocci. Still pretty confused. Discussed with nephrology likely will need dialysis next 2 days and potential blood cultures versus her dialysis line may need it removed and temporary dialysis catheter inserted. Will consult infectious diseases in the meantime. 12/26/2021 No acute events overnight. Patient seen examined during dialysis. Still confused. Plan for permacath remova and placement with a temporary catheter. Patient's chart, labs, images were reviewed and discussed with RN 12/27/21 No acute events overnight. Pt seen and examined bedside. Pleasantly confused. AF and VSS. Plan for temp cath placement today. Patient's chart, labs, images were reviewed and discussed with RN 12/28/2021 No acute events overnight. Patient seen examined bedside. Patient still co nfused. Hypotensive down into the 90s over 60s. Patient currently seen in dialysis and getting albumin transfusion. Patient's chart, labs, images were reviewed and discussed with RN 12/29/2021 No acute events overnight. Patient seen examined bedside. AF and VSS still confused and lethargic appearing. Blood pressures have improved after dialysis and albumin infusion. Blood culture still persistently positive. Repeat blood cultures drawn today. Patient's chart, labs, images were reviewed and discussed with RN 12/30 Patient evaluated examined at bedside. Quite lethargic and confused still but easily awoken. Blood culture still positive. Infectious disease following. Dialysis per nephrology. Vitals/I&O Vitals/I&O: Vital Signs Date Time Temp Pulse Resp B/P (MAP) Pulse Ox O2 Delivery O2 Flow Rate FiO2 12/30/21 07:00 98.3 98 20 98/53 (68) 93 Room Air 98.3 12/29/21 20:26 3.0 I & O 12/29/21 12/29/21 12/30/21 15:00 23:00 07:00 Intake Total 60 ml Balance 60 ml Physical Exam Physical Exam: GENERAL: Alert, but not oriented female, not in distress. VITAL SIGNS: stable HEENT: Both pupils are round and reacting. No conjunctival lesion, no lesion in the mouth. NECK: Supple, no JVP, no lymphadenopathy. LUNGS: Clear. HEART: S1, S2, regular. ABDOMEN: Soft, nontender, no organomegaly. EXTREMITIES: No edema, cyanosis. SKIN: Unremarkable. Hemodialysis tunneled catheter in the right upper chest, which is not showing obvious signs of infection. NEUROLOGIC: The patient is awake, mumbles few words, but really meaningful communication not possible. General: Alert, Cooperative, No acute distress, Other (looks away, does not talk, does follow some commands, poor eye contact, no verbal) Heart: Regular rate Lungs: Clear Abdomen: Normal bowel sounds, No tenderness Extremities: No edema, Normal pulses Skin: Other (sacral ulcer) Assessment and Plan Assessmemt and Plan Problems Medical Problems: (1) Decubitus ulcer Status: Acute (2) Sepsis Status: Acute (3) UTI (urinary tract infection) Status: Acute Comment Review of Relevant I have reviewed the following items mariaa (where applicable) has been applied. Medications: Current Medications Medications (Trade) Dose Ordered Sig/Cailin Route PRN Reason Start Time Stop Time Status Last Admin Dose Admin Albumin Human 500 ml @ 100 mls/hr 1X ONCE IV 12/29/21 14:00 12/29/21 18:59 DC 12/29/21 15:41 Justifications for Admission Other Justification AMANDA GERARDO MD Dec 30, 2021 11:06
--- NOTE | 2021-12-30 11:20 | PDOC ---
DATE OF SERVICE DATE: 12/30/21 TIME: 11:18 SUBJECTIVE ROS Stable, No acute concerns OBJECTIVE Vital Signs Vital Signs Date Time Temp Pulse Resp B/P (MAP) Pulse Ox O2 Delivery O2 Flow Rate FiO2 12/30/21 11:00 98.1 99 20 89/62 (71) 96 Room Air 98.1 12/29/21 20:26 3.0 I & 0 Intake and Output 12/30/21 07:00 Intake Total 60 ml Balance 60 ml Intake Oral 60 ml # Voids 1 PHYSICAL EXAM Physical Exam GEN: NAD HEENT: Normal cephalic, atraumatic, O2 by NC NECK: Supple, LUNGS: Decreased at bases Non labored HEART: RRR, S!, S2 present. ABDOMEN: Soft, nontender. Positive bowel sounds, no organomegaly EXTREMITIES: Without clubbing, cyanosis, or edema. NEUROLOGIC: Awake , says only yes , moves all extremities PSYCHIATRIC: Unable to Obtain SKIN: No ulcerations or rashes, No Serrano, No CVA or SP tenderness Has Tunneled HDC Rt side DIAGNOSIS/ASSESSMENT Assessment & Plan ESRD - Dx with LOGAN on CKD 4 in Oct , initiated on Dialysis 10/26, Sonogram does show some cortical thinning. Has been on Dialysis since- TTS at [facility] . No Indication for HD today Access- Temp HDC . Tunneled HDC - Removed 12/26 . New permcath prior to dc once cleared by infectious disease specialist Acute metabolic encephalopathy suspect 2/2 sepsis . Improved Sepsis/ Elevated WBC - Infected Tunneled HDC , removed, Tip Staph aureus . UA unremarkable, Repeat blood culture neg from 12/29 ID following Sacral wound HTN-BP's on the low side Hx of GI bleed December 2020 - Hospitalized at [facility], . Suspected diverticular bleed Anemia - hgb stable Hx of A Fib COMMENT/RELEVANT DATA Meds Current Medications Medications (Trade) Dose Ordered Sig/Cailin Start Time Stop Time Status Last Admin Dose Admin Acetaminophen (Tylenol) 500 mg PRN TID PRN 12/24/21 19:15 Albumin Human 500 ml @ 100 mls/hr 1X ONCE 12/29/21 14:00 12/29/21 18:59 DC 12/29/21 15:41 100 MLS/HR Apixaban (Eliquis) 5 mg BID 12/25/21 11:30 12/27/21 13:19 DC Aspirin (Ecotrin) 81 mg [id number] 12/26/21 08:00 12/30/21 08:57 81 MG Atorvastatin Calcium (Lipitor) 10 mg HS 12/24/21 21:00 12/29/21 21:16 10 MG Cefazolin Sodium (Ancef) 1 gm Q24H 12/25/21 14:00 12/29/21 15:41 1 GM Cefazolin Sodium 500 mg/Dextrose 50 ml @ 100 mls/hr Q12HR 12/25/21 21:00 UNV Ceftriaxone Sodium (Rocephin) 1 gm DAILY 12/25/21 09:00 12/25/21 13:01 DC 12/25/21 11:03 1 GM Citalopram Hydrobromide (CeleXA) 20 mg DAILY 12/26/21 09:00 12/30/21 08:57 20 MG Digoxin (Lanoxin) 250 mcg 1X ONCE 12/27/21 22:00 12/27/21 22:01 DC 12/27/21 21:49 250 MCG Diltiazem HCl (Cardizem 24hr Cd) 120 mg DAILY 12/25/21 09:00 12/25/21 11:26 DC Heparin Sodium (Porcine) (Heparin Sodium) 5,000 unit Q8HRS 12/27/21 14:00 12/30/21 06:10 5,000 UNIT Heparin Sodium/ Sodium Chloride 0 ml @ As Directed STK-MED ONCE 12/27/21 10:43 12/27/21 11:03 DC Info (PHARMACY MONITORING -- do not chart) 1 each PRN DAILY PRN 12/28/21 07:15 Iodixanol (Visipaque 320) 100 ml STK-MED ONCE 12/27/21 10:43 12/27/21 11:03 DC Lactobacillus Rhamnosus (Culturelle) 1 cap BID 12/29/21 12:00 Cancel Lidocaine HCl (Buffered Lidocaine 1%) 6 ml 1X ONCE 12/27/21 13:00 12/27/21 13:01 DC 12/27/21 13:43 5 ML Metoprolol Succinate (Toprol Xl) 50 mg BID 12/24/21 21:00 12/25/21 11:26 DC 12/24/21 21:00 50 MG Metoprolol Tartrate (Lopressor Vial) 5 mg Q6HRS 12/28/21 00:00 12/30/21 06:54 5 MG Midodrine (Proamatine) 2.5 mg [id number] 12/25/21 13:00 12/30/21 06:09 2.5 MG Nystatin (Nystop) 1 man BID 12/24/21 21:00 12/30/21 08:59 1 MAN Olanzapine (ZyPREXA ZYDIS) 5 mg PRN BID PRN 12/25/21 11:30 12/25/21 14:21 5 MG Senna/Docusate Sodium (Senna Plus) 1 tab BID 12/24/21 21:00 12/30/21 08:57 1 TAB Sodium Chloride 1,000 ml @ 400 mls/hr Q2H30M PRN 12/28/21 07:15 12/28/21 19:14 DC Vancomycin HCl (Vanco Per Pharmacy) 1 each PRN DAILY PRN 12/25/21 13:00 12/27/21 12:57 DC 12/26/21 14:13 1 EACH Vancomycin HCl (Vancomycin Random Level) 1 each 1X ONCE 12/28/21 05:00 12/27/21 12:58 DC Vancomycin HCl 1 gm/Sodium Chloride 250 ml @ 250 mls/hr 1X ONCE 12/25/21 20:00 12/25/21 20:59 DC 12/25/21 20:40 250 MLS/HR Results All relevant outside records, renal labs, imaging studies, telemetry/EKG's were reviewed. Justicifation of Admission Dx: Justifications for Admission: Justification of Admission Dx: Yes ADENIKE EDMONDS MD Dec 30, 2021 11:20
--- NOTE | 2021-12-30 12:06 | PDOC ---
Infectious Disease Note Subjective Subjective Patient is mumbling ROS ROS no n/v/d/sob Vital Sign Vital Signs Vital Signs Date Time Temp Pulse Resp B/P (MAP) Pulse Ox O2 Delivery O2 Flow Rate FiO2 12/30/21 11:22 99 89/62 12/30/21 11:00 98.1 20 96 Room Air 98.1 12/29/21 20:26 3.0 Physical Exam PHYSICAL EXAM GENERAL: Alert, but not oriented female, not in distress. VITAL SIGNS: stable HEENT: Both pupils are round and reacting. No conjunctival lesion, no lesion in the mouth. NECK: Supple, no JVP, no lymphadenopathy. LUNGS: Clear. HEART: S1, S2, regular. ABDOMEN: Soft, nontender, no organomegaly. EXTREMITIES: No edema, cyanosis. SKIN: Unremarkable. Hemodialysis tunneled catheter in the right upper chest, which is not showing obvious signs of infection. NEUROLOGIC: The patient is awake, mumbles few words, but really meaningful communication not possible. Labs Micro Microbiology 12/24/21 Blood Culture - Preliminary, Resulted Staphylococcus Aureus Objective Assessment IMPRESSION: 1. Encephalopathy. 2. Fever. 3. Leukocytosis. 4. MSSA bacteremia 12/24 and 12/27 5. End-stage renal disease, on hemodialysis. 6. Hypertension. 7. Congestive heart failure. Plan Plan of Care cont antibiotics HD cath removed Temp cath Repeat blood culture neg from 12/29 MARTHA HARDY MD Dec 30, 2021 12:06
[2021-12-30] MEDS: ceFAZolin SODIUM IV Push 1 GM VIAL. IVP SCH (13:08)
[2021-12-30 15:00] VITALS: BP 133/54
--- NOTE | 2021-12-30 17:53 | NUR ---
Wound/Ostomy Care Wound Type/Assessment: Patient seen per follow up for wound care regarding skin tears to right lower leg, left lower leg skin tears, pressure ulcers to left and right buttocks, and DTI to the left upper medial thigh. Wounds cleansed and assessed. See wound assessment for details. Currently all wounds present with no odor or signs of active infection. Skin tears are healing from last assessment, buttocks shows improvement as well, good skin edges with granulation and minimal slough. Treatment Recommendations/Plan: Recommendations for xeroform gauze and foams to left and right lower legs and left and right buttock wounds. Change on and Thursday. Continue to apply skin prep daily to the left DTI thigh wound and leave patient brief less. Dressings applied and no other wounds noted upon complete head to toe assessment. Education provided: Unable to educate patient due to mental status. Offloading surface/device: Patient turned to left side using wedge and bilateral heels floated using pillows. Recommended Referrals/Tests: None Discharge Recommendations for dressings: Dressing change instructions left in room. Bed lowered and call light in reach and bed alarm in place. Wound care will follow on 01/06/22.
[2021-12-30] MEDS: METOPROLOL IV PUSH 5 MG/5 ML VIAL. IVP PRN (18:29)
[2021-12-30 19:00] VITALS: BP 106/59
[2021-12-30] MEDS: ATORVASTATIN CALCIUM 10 MG TABLET. PO SCH (21:26)
[2021-12-30 23:00] VITALS: BP 102/52
[2021-12-31 03:00] VITALS: BP 96/46
[2021-12-31] MEDS: HEPARIN for SUB-Q USE 5,000 UNIT/ML VIAL. SQ SCH ×3 (04:55→21:55)
[2021-12-31] MEDS: METOPROLOL IV PUSH 5 MG/5 ML VIAL. IVP SCH ×5 (04:57→23:38)
[2021-12-31 07:00] VITALS: BP 82/55
[2021-12-31] MEDS: MIDODRINE 2.5 MG TABLET PO SCH ×3 (07:37→17:33)
[2021-12-31] MEDS ORDERED: IV NORMAL SALINE 1000ML BAG 1,000 ML IV PRN ×2 (07:45)
[2021-12-31] MEDS ORDERED: DIALYSIS PATIENT. MC PRN ×2 (07:45)
--- NOTE | 2021-12-31 09:56 | PDOC ---
DATE OF SERVICE DATE: 12/31/21 TIME: 09:56 SUBJECTIVE ROS Stable, No acute concerns OBJECTIVE Vital Signs Vital Signs Date Time Temp Pulse Resp B/P (MAP) Pulse Ox O2 Delivery O2 Flow Rate FiO2 12/31/21 08:00 Nasal Cannula 2.0 12/31/21 07:37 114 92/50 12/31/21 07:00 97.7 18 97 97.7 I & 0 Intake and Output 12/31/21 07:00 Intake Total 250 ml Balance 250 ml Intake Oral 250 ml # Voids 4 PHYSICAL EXAM Physical Exam GEN: NAD HEENT: Normal cephalic, atraumatic, O2 by NC NECK: Supple, LUNGS: Decreased at bases Non labored HEART: RRR, S!, S2 present. ABDOMEN: Soft, nontender. Positive bowel sounds, no organomegaly EXTREMITIES: Without clubbing, cyanosis, or edema. NEUROLOGIC: Awake , says only yes , moves all extremities PSYCHIATRIC: Unable to Obtain SKIN: No ulcerations or rashes, No Serrano, No CVA or SP tenderness Has Tunneled HDC Rt side DIAGNOSIS/ASSESSMENT Assessment & Plan ESRD - Dx with LOGAN on CKD 4 in Oct , initiated on Dialysis 10/26, Sonogram does show some cortical thinning. Has been on Dialysis since- TTS at [facility] . Seen during treatment .No complaints, tolerating well. Continue as ordered, Gavin MELÉNDEZ Access- Temp HDC . Tunneled HDC - Removed 12/26 . Needs permcath prior to dc once cleared by infectious disease specialist Acute metabolic encephalopathy suspect 2/2 sepsis . Improved Sepsis/ Elevated WBC - Infected Tunneled HDC , removed, Tip Staph aureus . UA unremarkable, Repeat blood culture neg from 12/29 ID following Sacral wound HTN-BP's on the low side Hx of GI bleed December 2020 - Hospitalized at [facility], . Suspected diverticular bleed Anemia - hgb stable Hx of A Fib COMMENT/RELEVANT DATA Meds Current Medications Medications (Trade) Dose Ordered Sig/Cailin Start Time Stop Time Status Last Admin Dose Admin Acetaminophen (Tylenol) 500 mg PRN TID PRN 12/24/21 19:15 Albumin Human 500 ml @ 100 mls/hr 1X ONCE 12/29/21 14:00 12/29/21 18:59 DC 12/29/21 15:41 100 MLS/HR Apixaban (Eliquis) 5 mg BID 12/25/21 11:30 12/27/21 13:19 DC Aspirin (Ecotrin) 81 mg [id number] 12/26/21 08:00 12/30/21 08:57 81 MG Atorvastatin Calcium (Lipitor) 10 mg HS 12/24/21 21:00 12/30/21 21:26 10 MG Cefazolin Sodium (Ancef) 1 gm Q24H 12/25/21 14:00 12/30/21 13:08 1 GM Cefazolin Sodium 500 mg/Dextrose 50 ml @ 100 mls/hr Q12HR 12/25/21 21:00 UNV Ceftriaxone Sodium (Rocephin) 1 gm DAILY 12/25/21 09:00 12/25/21 13:01 DC 12/25/21 11:03 1 GM Citalopram Hydrobromide (CeleXA) 20 mg DAILY 12/26/21 09:00 12/30/21 08:57 20 MG Digoxin (Lanoxin) 250 mcg 1X ONCE 12/27/21 22:00 12/27/21 22:01 DC 12/27/21 21:49 250 MCG Diltiazem HCl (Cardizem 24hr Cd) 120 mg DAILY 12/25/21 09:00 12/25/21 11:26 DC Heparin Sodium (Porcine) (Heparin Sodium) 5,000 unit Q8HRS 12/27/21 14:00 12/31/21 04:55 5,000 UNIT Heparin Sodium/ Sodium Chloride 0 ml @ As Directed STK-MED ONCE 12/27/21 10:43 12/27/21 11:03 DC Info (PHARMACY MONITORING -- do not chart) 1 each PRN DAILY PRN 12/31/21 07:45 Iodixanol (Visipaque 320) 100 ml STK-MED ONCE 12/27/21 10:43 12/27/21 11:03 DC Lactobacillus Rhamnosus (Culturelle) 1 cap BID 12/29/21 12:00 Cancel Lidocaine HCl (Buffered Lidocaine 1%) 6 ml 1X ONCE 12/27/21 13:00 12/27/21 13:01 DC 12/27/21 13:43 5 ML Metoprolol Succinate (Toprol Xl) 50 mg BID 12/24/21 21:00 12/25/21 11:26 DC 12/24/21 21:00 50 MG Metoprolol Tartrate (Lopressor Vial) 5 mg Q6HRS 12/28/21 00:00 12/31/21 04:57 5 MG Midodrine (Proamatine) 2.5 mg [id number] 12/25/21 13:00 12/31/21 07:37 2.5 MG Nystatin (Nystop) 1 man BID 12/24/21 21:00 12/30/21 21:26 1 MAN Olanzapine (ZyPREXA ZYDIS) 5 mg PRN BID PRN 12/25/21 11:30 12/30/21 21:26 5 MG Senna/Docusate Sodium (Senna Plus) 1 tab BID 12/24/21 21:00 12/30/21 21:26 1 TAB Sodium Chloride 1,000 ml @ 400 mls/hr Q2H30M PRN 12/31/21 07:45 12/31/21 19:44 Vancomycin HCl (Vanco Per Pharmacy) 1 each PRN DAILY PRN 12/25/21 13:00 12/27/21 12:57 DC 12/26/21 14:13 1 EACH Vancomycin HCl (Vancomycin Random Level) 1 each 1X ONCE 12/28/21 05:00 12/27/21 12:58 DC Vancomycin HCl 1 gm/Sodium Chloride 250 ml @ 250 mls/hr 1X ONCE 12/25/21 20:00 12/25/21 20:59 DC 12/25/21 20:40 250 MLS/HR Results All relevant outside records, renal labs, imaging studies, telemetry/EKG's were reviewed. Justicifation of Admission Dx: Justifications for Admission: Justification of Admission Dx: Yes ADENIKE EDMONDS MD Dec 31, 2021 09:56
[2021-12-31 10:23] LABS: CALCIUM 8.9 mg/dL (8.5-10.1); CREATININE 2.3 mg/dL (0.6-1.0); GFR 20.5; POTASSIUM 3.2 mmol/L (3.5-5.1)
[2021-12-31] MEDS: CITALOPRAM 20 MG TABLET. PO SCH (11:28)
[2021-12-31] MEDS: SENNOSIDES/DOCUSATE 8.6/50MG TABLET. PO SCH ×2 (11:28→21:09)
[2021-12-31] MEDS: ASPIRIN ENTERIC COATED 81 MG TABLET.DR. PO SCH (11:28)
[2021-12-31] MEDS: NYSTATIN TOPICAL POWDER 15GM BOTTLE. TP SCH ×2 (11:29→21:10)
[2021-12-31 12:33] VITALS: BP 92/80
--- NOTE | 2021-12-31 12:51 | PDOC ---
[employer] PROGRESS NOTE Date of Service DOS: DATE: 12/31/21 TIME: 12:50 Chief Complaint Chief Complaint MSSA bacteremia Acute metabolic/infectious encephalopathy ESRD, Sepsis, UTI, got vanc and rocephin, cont rocephin, check random vanc lab status post temp cath placement on 12/27/2021 Obese, BMI 33 Weakness, debility Sacral wound HTN Albumin infusion during dialysis Appreciate ID recommendations to continue vancomycin and cefepime Nephrology consult for hemodialysis IR consult for removal of permacath and replacement with temporary HD catheter. Plan for permanent HD catheter placement once clearance of staph aureus in the blood. Will coordinate with ID. History of Present Illness History of Present Illness Ms Cook is a 76yo female with PMHx dementia and new ESRD who was admitted through the ED for worsening confusion. 12/25: Blood cultures positive x2 for gram-positive cocci. Still pretty confused. Discussed with nephrology likely will need dialysis next 2 days and potential blood cultures versus her dialysis line may need it removed and temporary dialysis catheter inserted. Will consult infectious diseases in the meantime. 12/26/2021 No acute events overnight. Patient seen examined during dialysis. Still confused. Plan for permacath remova and placement with a temporary catheter. Patient's chart, labs, images were reviewed and discussed with RN 12/27/21 No acute events overnight. Pt seen and examined bedside. Pleasantly confused. AF and VSS. Plan for temp cath placement today. Patient's chart, labs, images were reviewed and discussed with RN 12/28/2021 No acute events overnight. Patient seen examined bedside. Patient still co nfused. Hypotensive down into the 90s over 60s. Patient currently seen in dialysis and getting albumin transfusion. Patient's chart, labs, images were reviewed and discussed with RN 12/29/2021 No acute events overnight. Patient seen examined bedside. AF and VSS still confused and lethargic appearing. Blood pressures have improved after dialysis and albumin infusion. Blood culture still persistently positive. Repeat blood cultures drawn today. Patient's chart, labs, images were reviewed and discussed with RN 12/30 Patient evaluated examined at bedside. Quite lethargic and confused still but easily awoken. Blood culture still positive. Infectious disease following. Dialysis per nephrology. 12/31 Evaluated examined at bedside. Repeat cultures finally negative to date. Continue antibiotics. ID nephro following. Vitals/I&O Vitals/I&O: Vital Signs Date Time Temp Pulse Resp B/P (MAP) Pulse Ox O2 Delivery O2 Flow Rate FiO2 12/31/21 12:35 76 92/80 12/31/21 12:33 98.8 98.8 12/31/21 08:00 Nasal Cannula 2.0 12/31/21 07:00 18 97 I & O 12/30/21 12/30/21 12/31/21 15:00 23:00 07:00 Intake Total 100 ml 150 ml Balance 100 ml 150 ml Physical Exam Physical Exam: GENERAL: Alert, but not oriented female, not in distress. VITAL SIGNS: stable HEENT: Both pupils are round and reacting. No conjunctival lesion, no lesion in the mouth. NECK: Supple, no JVP, no lymphadenopathy. LUNGS: Clear. HEART: S1, S2, regular. ABDOMEN: Soft, nontender, no organomegaly. EXTREMITIES: No edema, cyanosis. SKIN: Unremarkable. Hemodialysis tunneled catheter in the right upper chest, which is not showing obvious signs of infection. NEUROLOGIC: The patient is awake, mumbles few words, but really meaningful communication not possible. General: Alert, Cooperative, No acute distress, Other (looks away, does not talk, does follow some commands, poor eye contact, no verbal) Heart: Regular rate Lungs: Clear Abdomen: Normal bowel sounds, No tenderness Extremities: No edema, Normal pulses Skin: Other (sacral ulcer) Labs Labs: Laboratory Tests Test 12/31/21 10:00 Sodium Level 143 mmol/L (136-145) Potassium Level 3.2 mmol/L (3.5-5.1) Chloride Level 104 mmol/L (98-107) Carbon Dioxide Level 28 mmol/L (21-32) Anion Gap 11 (6-14) Blood Urea Nitrogen 19 mg/dL (7-20) Creatinine 2.3 mg/dL (0.6-1.0) Estimated GFR (Cockcroft-Gault) 20.5 Glucose Level 78 mg/dL (70-99) Calcium Level 8.9 mg/dL (8.5-10.1) Assessment and Plan Assessmemt and Plan Problems Medical Problems: (1) Decubitus ulcer Status: Acute (2) Sepsis Status: Acute (3) UTI (urinary tract infection) Status: Acute Comment Review of Relevant I have reviewed the following items mariaa (where applicable) has been applied. Justifications for Admission Other Justification AMANDA GERARDO MD Dec 31, 2021 12:51
[2021-12-31] MEDS: ceFAZolin SODIUM IV Push 1 GM VIAL. IVP SCH (13:17)
--- NOTE | 2021-12-31 13:50 | PDOC ---
Infectious Disease Note Subjective Subjective Patient is sleepy ROS ROS No nausea vomiting diarrhea or fever per RN Vital Sign Vital Signs Vital Signs Date Time Temp Pulse Resp B/P (MAP) Pulse Ox O2 Delivery O2 Flow Rate FiO2 12/31/21 12:35 76 92/80 12/31/21 12:33 98.8 98.8 12/31/21 08:00 Nasal Cannula 2.0 12/31/21 07:00 18 97 Physical Exam PHYSICAL EXAM GENERAL: Alert, but not oriented female, not in distress. VITAL SIGNS: stable HEENT: Both pupils are round and reacting. No conjunctival lesion, no lesion in the mouth. NECK: Supple, no JVP, no lymphadenopathy. LUNGS: Clear. HEART: S1, S2, regular. ABDOMEN: Soft, nontender, no organomegaly. EXTREMITIES: No edema, cyanosis. SKIN: Unremarkable. Hemodialysis tunneled catheter in the right upper chest, which is not showing obvious signs of infection. NEUROLOGIC: The patient is awake, mumbles few words, but really meaningful communication not possible. Labs Lab Laboratory Tests Test 12/31/21 10:00 Sodium Level 143 mmol/L (136-145) Potassium Level 3.2 mmol/L (3.5-5.1) Chloride Level 104 mmol/L (98-107) Carbon Dioxide Level 28 mmol/L (21-32) Anion Gap 11 (6-14) Blood Urea Nitrogen 19 mg/dL (7-20) Creatinine 2.3 mg/dL (0.6-1.0) Estimated GFR (Cockcroft-Gault) 20.5 Glucose Level 78 mg/dL (70-99) Calcium Level 8.9 mg/dL (8.5-10.1) Micro Microbiology 12/24/21 Blood Culture - Preliminary, Resulted Staphylococcus Aureus Objective Assessment IMPRESSION: 1. Encephalopathy. 2. Fever. 3. Leukocytosis. 4. MSSA bacteremia 12/24 and 12/27 5. End-stage renal disease, on hemodialysis. 6. Hypertension. 7. Congestive heart failure. Plan Plan of Care cont antibiotics HD cath removed Temp cath Repeat blood culture neg from 12/29 If blood culture negative tomorrow permacath can be done and then patient can be discharged to [facility] on IV cefazolin through dialysis for 6 weeks Ideally patient needs comfort care MARTHA HARDY MD Dec 31, 2021 13:50
[2021-12-31 15:00] VITALS: BP 97/56
[2021-12-31] MEDS: ASCORBIC ACID 500 MG TABLET PO SCH (15:03)
[2021-12-31] MEDS: MULTIVITAMIN with MINERAL TABLET. PO SCH (15:04)
--- NOTE | 2021-12-31 16:44 | NUR ---
SS following up with discharge planning. SS reviewed pt chart and discussed with pt RN. Pt is currently requiring oxygen at two liters nasal canula. COVID19 negative. ID and Nephrology following. Pt on IV Ancef. Hemodialysis Thursday, , and Thursday. Pt is resident from [facility] in [place], ; fax [phone]. SS will continue to follow for discharge planning.
[2021-12-31 19:00] VITALS: BP 98/55
[2021-12-31] MEDS: ATORVASTATIN CALCIUM 10 MG TABLET. PO SCH (21:10)
[2021-12-31 23:00] VITALS: BP 91/52
[2022-01-01 03:00] VITALS: BP 93/44
[2022-01-01] MEDS: METOPROLOL IV PUSH 5 MG/5 ML VIAL. IVP SCH ×2 (05:54→11:23)
[2022-01-01] MEDS: HEPARIN for SUB-Q USE 5,000 UNIT/ML VIAL. SQ SCH ×2 (05:57→10:59)
[2022-01-01] MEDS: MIDODRINE 2.5 MG TABLET PO SCH ×3 (06:54→17:29)
[2022-01-01 07:00] VITALS: BP 85/42
[2022-01-01] MEDS: ASCORBIC ACID 500 MG TABLET PO SCH (08:33)
[2022-01-01] MEDS: MULTIVITAMIN with MINERAL TABLET. PO SCH (08:33)
[2022-01-01] MEDS: ASPIRIN ENTERIC COATED 81 MG TABLET.DR. PO SCH (08:34)
[2022-01-01] MEDS: SENNOSIDES/DOCUSATE 8.6/50MG TABLET. PO SCH ×3 (08:34→22:05)
[2022-01-01] MEDS: CITALOPRAM 20 MG TABLET. PO SCH (08:34)
[2022-01-01] MEDS: NYSTATIN TOPICAL POWDER 15GM BOTTLE. TP SCH ×3 (08:34→22:05)
--- NOTE | 2022-01-01 10:08 | PDOC ---
[employer] PROGRESS NOTE Date of Service DOS: DATE: 01/01/22 TIME: 10:06 Chief Complaint Chief Complaint MSSA bacteremia Acute metabolic/infectious encephalopathy ESRD, Sepsis, UTI, got vanc and rocephin, cont rocephin, check random vanc lab status post temp cath placement on 12/27/2021 Obese, BMI 33 Weakness, debility Sacral wound HTN Albumin infusion during dialysis Appreciate ID recommendations to continue vancomycin and cefepime Nephrology consult for hemodialysis IR consult for removal of permacath and replacement with temporary HD catheter. Plan for permanent HD catheter placement once clearance of staph aureus in the blood. Will coordinate with ID. History of Present Illness History of Present Illness Ms Cook is a 76yo female with PMHx dementia and new ESRD who was admitted through the ED for worsening confusion. 12/25: Blood cultures positive x2 for gram-positive cocci. Still pretty confused. Discussed with nephrology likely will need dialysis next 2 days and potential blood cultures versus her dialysis line may need it removed and temporary dialysis catheter inserted. Will consult infectious diseases in the meantime. 12/26/2021 No acute events overnight. Patient seen examined during dialysis. Still confused. Plan for permacath remova and placement with a temporary catheter. Patient's chart, labs, images were reviewed and discussed with RN 12/27/21 No acute events overnight. Pt seen and examined bedside. Pleasantly confused. AF and VSS. Plan for temp cath placement today. Patient's chart, labs, images were reviewed and discussed with RN 12/28/2021 No acute events overnight. Patient seen examined bedside. Patient still co nfused. Hypotensive down into the 90s over 60s. Patient currently seen in dialysis and getting albumin transfusion. Patient's chart, labs, images were reviewed and discussed with RN 12/29/2021 No acute events overnight. Patient seen examined bedside. AF and VSS still confused and lethargic appearing. Blood pressures have improved after dialysis and albumin infusion. Blood culture still persistently positive. Repeat blood cultures drawn today. Patient's chart, labs, images were reviewed and discussed with RN 12/30 Patient evaluated examined at bedside. Quite lethargic and confused still but easily awoken. Blood culture still positive. Infectious disease following. Dialysis per nephrology. 12/31 Evaluated examined at bedside. Repeat cultures finally negative to date. Continue antibiotics. ID nephro following. 01/01 Patient seen and examined at bedside. Resting in bed and lethargic when I woke her and she quickly fell back asleep. Cultures have finally cleared consult to interventional radiology for permacath placement for antibiotics and dialysis. Hopeful for discharge in the next 24 hours. Vitals/I&O Vitals/I&O: Vital Signs Date Time Temp Pulse Resp B/P (MAP) Pulse Ox O2 Delivery O2 Flow Rate FiO2 01/01/22 08:00 Nasal Cannula 2.0 01/01/22 07:00 98.9 118 32 85/42 (56) 90 98.9 I & O 12/31/21 12/31/21 01/01/22 15:00 23:00 07:00 Intake Total 0 ml Output Total 0 ml Balance 0 ml 0 ml Physical Exam Physical Exam: GENERAL: Alert, but not oriented female, not in distress. VITAL SIGNS: stable HEENT: Both pupils are round and reacting. No conjunctival lesion, no lesion in the mouth. NECK: Supple, no JVP, no lymphadenopathy. LUNGS: Clear. HEART: S1, S2, regular. ABDOMEN: Soft, nontender, no organomegaly. EXTREMITIES: No edema, cyanosis. SKIN: Unremarkable. Hemodialysis tunneled catheter in the right upper chest, which is not showing obvious signs of infection. NEUROLOGIC: The patient is awake, mumbles few words, but really meaningful communication not possible. General: Alert, Cooperative, No acute distress, Other (looks away, does not talk, does follow some commands, poor eye contact, no verbal) Heart: Regular rate Lungs: Clear Abdomen: Normal bowel sounds, No tenderness Extremities: No edema, Normal pulses Skin: Other (sacral ulcer) Assessment and Plan Assessmemt and Plan Problems Medical Problems: (1) Decubitus ulcer Status: Acute (2) Sepsis Status: Acute (3) UTI (urinary tract infection) Status: Acute Comment Review of Relevant I have reviewed the following items mariaa (where applicable) has been applied. Medications: Current Medications Medications (Trade) Dose Ordered Sig/Cailin Route PRN Reason Start Time Stop Time Status Last Admin Dose Admin Multivitamins (Thera M Plus) 1 tab DAILY PO 12/31/21 15:00 01/01/22 08:33 Ascorbic Acid (Vitamin C) 500 mg DAILY PO 12/31/21 15:00 01/01/22 08:33 Justifications for Admission Other Justification AMANDA GERARDO MD Jan 01, 2022 10:08
--- NOTE | 2022-01-01 10:29 | PDOC ---
DATE OF SERVICE DATE: 01/01/22 TIME: 10:26 SUBJECTIVE ROS Stable, sleeping , arousable OBJECTIVE Vital Signs Vital Signs Date Time Temp Pulse Resp B/P (MAP) Pulse Ox O2 Delivery O2 Flow Rate FiO2 01/01/22 08:00 Nasal Cannula 2.0 01/01/22 07:00 98.9 118 32 85/42 (56) 90 98.9 I & 0 Intake and Output 01/01/22 07:00 Intake Total 0 ml Output Total 0 ml Balance 0 ml Intake Oral 0 ml Output Urine Total 0 ml # Voids 2 PHYSICAL EXAM Physical Exam GEN: NAD HEENT: Normal cephalic, atraumatic, O2 by NC NECK: Supple, LUNGS: Decreased at bases Non labored HEART: RRR, S!, S2 present. ABDOMEN: Soft, nontender. Positive bowel sounds, no organomegaly EXTREMITIES: Without clubbing, cyanosis, or edema. NEUROLOGIC: Awake , says only yes , moves all extremities PSYCHIATRIC: Unable to Obtain SKIN: No ulcerations or rashes, No Serrano, No CVA or SP tenderness Has Tunneled HDC Rt side DIAGNOSIS/ASSESSMENT Assessment & Plan ESRD - Dx with [facility] on CKD 4 in Oct , initiated on Dialysis 10/26, Sonogram does show some cortical thinning. Has been on Dialysis since- TTS at [facility] . No indication for dialysis today Access- Temp HDC . Tunneled HDC - Removed 12/26 . Permcath ordered - Cx Negative, cleared by infectious disease specialist Acute metabolic encephalopathy suspect 2/2 sepsis . Improved Sepsis/ Elevated WBC - Infected Tunneled HDC , removed, Tip Staph aureus . UA unremarkable, Repeat blood culture neg from 12/29 ID following Sacral wound HTN-BP's on the low side Hx of GI bleed December 2020 - Hospitalized at [facility], . Suspected diverticular bleed Anemia - hgb stable Hx of A Fib COMMENT/RELEVANT DATA Meds Current Medications Medications (Trade) Dose Ordered Sig/Cailin Start Time Stop Time Status Last Admin Dose Admin Acetaminophen (Tylenol) 500 mg PRN TID PRN 12/24/21 19:15 Albumin Human 500 ml @ 100 mls/hr 1X ONCE 12/29/21 14:00 12/29/21 18:59 DC 12/29/21 15:41 100 MLS/HR Apixaban (Eliquis) 5 mg BID 12/25/21 11:30 12/27/21 13:19 DC Ascorbic Acid (Vitamin C) 500 mg DAILY 12/31/21 15:00 01/01/22 08:33 500 MG Aspirin (Ecotrin) 81 mg [id number] 12/26/21 08:00 01/01/22 08:34 81 MG Atorvastatin Calcium (Lipitor) 10 mg HS 12/24/21 21:00 12/31/21 21:10 10 MG Cefazolin Sodium (Ancef) 1 gm Q24H 12/25/21 14:00 12/31/21 13:17 1 GM Cefazolin Sodium 500 mg/Dextrose 50 ml @ 100 mls/hr Q12HR 12/25/21 21:00 UNV Ceftriaxone Sodium (Rocephin) 1 gm DAILY 12/25/21 09:00 12/25/21 13:01 DC 12/25/21 11:03 1 GM Citalopram Hydrobromide (CeleXA) 20 mg DAILY 12/26/21 09:00 01/01/22 08:34 20 MG Digoxin (Lanoxin) 250 mcg 1X ONCE 12/27/21 22:00 12/27/21 22:01 DC 12/27/21 21:49 250 MCG Diltiazem HCl (Cardizem 24hr Cd) 120 mg DAILY 12/25/21 09:00 12/25/21 11:26 DC Heparin Sodium (Porcine) (Heparin Sodium) 5,000 unit Q8HRS 12/27/21 14:00 01/01/22 05:57 5,000 UNIT Heparin Sodium/ Sodium Chloride 0 ml @ As Directed STK-MED ONCE 12/27/21 10:43 12/27/21 11:03 DC Info (PHARMACY MONITORING -- do not chart) 1 each PRN DAILY PRN 12/31/21 07:45 Iodixanol (Visipaque 320) 100 ml STK-MED ONCE 12/27/21 10:43 12/27/21 11:03 DC Lactobacillus Rhamnosus (Culturelle) 1 cap BID 12/29/21 12:00 Cancel Lidocaine HCl (Buffered Lidocaine 1%) 6 ml 1X ONCE 12/27/21 13:00 12/27/21 13:01 DC 12/27/21 13:43 5 ML Metoprolol Succinate (Toprol Xl) 50 mg BID 12/24/21 21:00 12/25/21 11:26 DC 12/24/21 21:00 50 MG Metoprolol Tartrate (Lopressor Vial) 5 mg Q6HRS 12/28/21 00:00 12/31/21 23:38 5 MG Midodrine (Proamatine) 2.5 mg [id number] 12/25/21 13:00 01/01/22 06:54 2.5 MG Multivitamins (Thera M Plus) 1 tab DAILY 12/31/21 15:00 01/01/22 08:33 1 TAB Nystatin (Nystop) 1 man BID 12/24/21 21:00 01/01/22 08:34 1 MAN Olanzapine (ZyPREXA ZYDIS) 5 mg PRN BID PRN 12/25/21 11:30 12/30/21 21:26 5 MG Senna/Docusate Sodium (Senna Plus) 1 tab BID 12/24/21 21:00 01/01/22 08:34 1 TAB Sodium Chloride 1,000 ml @ 400 mls/hr Q2H30M PRN 12/31/21 07:45 12/31/21 19:44 DC Vancomycin HCl (Vanco Per Pharmacy) 1 each PRN DAILY PRN 12/25/21 13:00 12/27/21 12:57 DC 12/26/21 14:13 1 EACH Vancomycin HCl (Vancomycin Random Level) 1 each 1X ONCE 12/28/21 05:00 12/27/21 12:58 DC Vancomycin HCl 1 gm/Sodium Chloride 250 ml @ 250 mls/hr 1X ONCE 12/25/21 20:00 12/25/21 20:59 DC 12/25/21 20:40 250 MLS/HR Results All relevant outside records, renal labs, imaging studies, telemetry/EKG's were reviewed. Justicifation of Admission Dx: Justifications for Admission: Justification of Admission Dx: Yes ADENIKE EDMONDS MD Jan 01, 2022 10:29
--- NOTE | 2022-01-01 10:59 | NUR ---
Held 01/01 Heparin due to procedure in early AM
[2022-01-01 11:09] LABS: PROTHROMBIN TIME PATIENT 19.9 SEC (11.7-14.0)
--- NOTE | 2022-01-01 13:02 | PDOC ---
Infectious Disease Note Subjective Subjective Patient is awake able to say she is feeling okay ROS ROS No nausea vomiting diarrhea Vital Sign Vital Signs Vital Signs Date Time Temp Pulse Resp B/P (MAP) Pulse Ox O2 Delivery O2 Flow Rate FiO2 01/01/22 12:41 118 85/42 01/01/22 08:00 Nasal Cannula 2.0 01/01/22 07:00 98.9 32 90 98.9 Physical Exam PHYSICAL EXAM GENERAL: Alert, but not oriented female, not in distress. VITAL SIGNS: stable HEENT: Both pupils are round and reacting. No conjunctival lesion, no lesion in the mouth. NECK: Supple, no JVP, no lymphadenopathy. LUNGS: Clear. HEART: S1, S2, regular. ABDOMEN: Soft, nontender, no organomegaly. EXTREMITIES: No edema, cyanosis. SKIN: Unremarkable. Hemodialysis tunneled catheter in the right upper chest, which is not showing obvious signs of infection. NEUROLOGIC: The patient is awake, mumbles few words, but really meaningful communication not possible. Labs Lab Laboratory Tests Test 01/01/22 10:45 Prothrombin Time 19.9 SEC (11.7-14.0) Prothromb Time International Ratio 1.7 (0.8-1.1) Micro Microbiology 12/24/21 Blood Culture - Preliminary, Resulted Staphylococcus Aureus Objective Assessment IMPRESSION: 1. Encephalopathy. 2. Fever. 3. Leukocytosis. 4. MSSA bacteremia 12/24 and 12/27 5. End-stage renal disease, on hemodialysis. 6. Hypertension. 7. Congestive heart failure. Plan Plan of Care cont antibiotics HD cath removed Temp cath Repeat blood culture neg from 12/29 permacath can be done and then patient can be discharged to [facility] on IV cefazolin through dialysis for 6 weeks Ideally patient needs comfort care MARTHA HARDY MD Jan 01, 2022 13:02
--- NOTE | 2022-01-01 13:03 | NUR ---
SS following up with discharge planning. SS reviewed pt chart and discussed with pt RN. Pt is currently requiring oxygen at two liters nasal canula. COVID19 negative. Pt on IV Ancef. Hemodialysis Thursday, , and Thursday. Pt is resident from [facility] in [place], ; fax [phone]. Clinical updates phoned and faxed to [facility] in [place]. SS will continue to follow for discharge planning. Addendum: 01/01/22 at 1421 by ELIESER MARCUS SS SS received script for IV Cefazolin at dialysis. SS phoned and faxed script and clinical to [facility], ; fax [phone]. Pt's RN notified.
[2022-01-01] MEDS: ceFAZolin SODIUM IV Push 1 GM VIAL. IVP SCH (13:13)
[2022-01-01 13:55] VITALS: BP 100/36
[2022-01-01 15:00] VITALS: BP 106/67
[2022-01-01 19:47] VITALS: BP 106/53
[2022-01-01] MEDS: ATORVASTATIN CALCIUM 10 MG TABLET. PO SCH ×2 (21:00→22:05)
[2022-01-01] MEDS: LACTOBACILLUS RHAMNOSUS GG 1 CAPSULE. PO SCH ×2 (21:00→22:04)
[2022-01-01 23:55] VITALS: BP 124/67
[2022-01-02 03:20] VITALS: BP 112/58
[2022-01-02] MEDS: MIDODRINE 2.5 MG TABLET PO SCH ×3 (05:22→16:56)
[2022-01-02 07:00] VITALS: BP 113/68
[2022-01-02 08:28] LABS: CALCIUM 9.5 mg/dL (8.5-10.1); CREATININE 5.4 mg/dL (0.6-1.0); GFR 7.7; POTASSIUM 4.1 mmol/L (3.5-5.1)
[2022-01-02] MEDS ORDERED: LIDOCAINE 1%/EPI 1:100,000 20 ML VIAL. ONE (08:32)
[2022-01-02] MEDS: SENNOSIDES/DOCUSATE 8.6/50MG TABLET. PO SCH ×2 (08:43→21:00)
[2022-01-02] MEDS: CITALOPRAM 20 MG TABLET. PO SCH (08:43)
[2022-01-02] MEDS: ASCORBIC ACID 500 MG TABLET PO SCH (08:43)
[2022-01-02] MEDS: LACTOBACILLUS RHAMNOSUS GG 1 CAPSULE. PO SCH ×2 (08:44→21:00)
[2022-01-02] MEDS: MULTIVITAMIN with MINERAL TABLET. PO SCH (08:44)
[2022-01-02] MEDS: ASPIRIN ENTERIC COATED 81 MG TABLET.DR. PO SCH (08:44)
[2022-01-02] MEDS: NYSTATIN TOPICAL POWDER 15GM BOTTLE. TP SCH ×2 (08:44→21:00)
[2022-01-02] MEDS ORDERED: fentaNYL PF VIAL 100 MCG/2 ML VIAL ONE (09:07)
[2022-01-02] MEDS ORDERED: MIDAZOLAM HCL/PF 2 MG/2 ML VIAL. ONE (09:07)
--- NOTE | 2022-01-02 09:12 | PDOC ---
DATE OF SERVICE DATE: 01/02/22 TIME: 09:12 SUBJECTIVE ROS Stable OBJECTIVE Vital Signs Vital Signs Date Time Temp Pulse Resp B/P (MAP) Pulse Ox O2 Delivery O2 Flow Rate FiO2 01/02/22 08:44 134 113/68 01/02/22 08:00 Nasal Cannula 2.0 01/02/22 07:00 99.2 20 93 99.2 I & 0 Intake and Output 01/02/22 07:00 Intake Total 210 ml Balance 210 ml Intake Oral 210 ml PHYSICAL EXAM Physical Exam GEN: NAD HEENT: Normal cephalic, atraumatic, O2 by NC NECK: Supple, LUNGS: Decreased at bases Non labored HEART: RRR, S!, S2 present. ABDOMEN: Soft, nontender. Positive bowel sounds, no organomegaly EXTREMITIES: Without clubbing, cyanosis, or edema. NEUROLOGIC: Awake , says only yes , moves all extremities PSYCHIATRIC: Unable to Obtain SKIN: No ulcerations or rashes, No Serrano, No CVA or SP tenderness Has Tunneled HDC Rt side DIAGNOSIS/ASSESSMENT Assessment & Plan ESRD - Dx with [facility] on CKD 4 in Oct , initiated on Dialysis 10/2021, Sonogram does show some cortical thinning. Has been on Dialysis since- TTS at [facility] . Dialysis today , discussed treatment plan with [facility]- scheduled for Tunneled HDC today Acute metabolic encephalopathy suspect 2/2 sepsis . Improved Sepsis/ Elevated WBC - Infected Tunneled HDC , removed, Tip Staph aureus . UA unremarkable, Repeat blood culture neg from 12/29 ID following Sacral wound HTN-BP's on the low side Hx of GI bleed December 2020 - Hospitalized at [facility], . Suspected diverticular bleed Anemia - hgb stable Hx of A Fib COMMENT/RELEVANT DATA Meds Current Medications Medications (Trade) Dose Ordered Sig/Cailin Start Time Stop Time Status Last Admin Dose Admin Acetaminophen (Tylenol) 500 mg PRN TID PRN 12/24/21 19:15 Albumin Human 500 ml @ 100 mls/hr 1X ONCE 12/29/21 14:00 12/29/21 18:59 DC 12/29/21 15:41 100 MLS/HR Apixaban (Eliquis) 5 mg BID 01/02/22 21:00 Ascorbic Acid (Vitamin C) 500 mg DAILY 12/31/21 15:00 01/02/22 08:43 500 MG Aspirin (Ecotrin) 81 mg [id number] 12/26/21 08:00 01/02/22 08:44 81 MG Atorvastatin Calcium (Lipitor) 10 mg HS 12/24/21 21:00 12/31/21 21:10 10 MG Cefazolin Sodium (Ancef) 1 gm Q24H 12/25/21 14:00 01/01/22 13:13 1 GM Cefazolin Sodium 500 mg/Dextrose 50 ml @ 100 mls/hr Q12HR 12/25/21 21:00 UNV Ceftriaxone Sodium (Rocephin) 1 gm DAILY 12/25/21 09:00 12/25/21 13:01 DC 12/25/21 11:03 1 GM Citalopram Hydrobromide (CeleXA) 20 mg DAILY 12/26/21 09:00 01/02/22 08:43 20 MG Digoxin (Lanoxin) 250 mcg 1X ONCE 12/27/21 22:00 12/27/21 22:01 DC 12/27/21 21:49 250 MCG Diltiazem HCl (Cardizem 24hr Cd) 120 mg DAILY 01/01/22 18:00 01/02/22 08:44 120 MG Fentanyl Citrate (Fentanyl 2ml Vial) 100 mcg STK-MED ONCE 01/02/22 09:07 01/02/22 09:08 DC Heparin Sodium (Porcine) (Heparin Sodium) 5,000 unit Q8HRS 12/27/21 14:00 01/01/22 21:01 DC 01/01/22 05:57 5,000 UNIT Heparin Sodium/ Sodium Chloride 0 ml @ As Directed STK-MED ONCE 12/27/21 10:43 12/27/21 11:03 DC Info (PHARMACY MONITORING -- do not chart) 1 each PRN DAILY PRN 12/31/21 07:45 Iodixanol (Visipaque 320) 100 ml STK-MED ONCE 12/27/21 10:43 12/27/21 11:03 DC Lactobacillus Rhamnosus (Culturelle) 1 cap BID 01/01/22 21:00 01/02/22 08:44 1 CAP Lidocaine HCl (Buffered Lidocaine 1%) 6 ml 1X ONCE 12/27/21 13:00 12/27/21 13:01 DC 12/27/21 13:43 5 ML Lidocaine/ Epinephrine (LIDOCAINE 1%-EPI 1:100,000 Multi-Dose) 20 ml STK-MED ONCE 01/02/22 08:32 01/02/22 08:32 DC Metoprolol Succinate (Toprol Xl) 50 mg BID 12/24/21 21:00 12/25/21 11:26 DC 12/24/21 21:00 50 MG Metoprolol Tartrate (Lopressor Vial) 5 mg Q6HRS 12/28/21 00:00 01/01/22 12:56 DC 12/31/21 23:38 5 MG Midazolam HCl (Versed) 2 mg STK-MED ONCE 01/02/22 09:07 01/02/22 09:08 DC Midodrine (Proamatine) 2.5 mg [id number] 12/25/21 13:00 01/01/22 17:29 2.5 MG Multivitamins (Thera M Plus) 1 tab DAILY 12/31/21 15:00 01/02/22 08:44 1 TAB Nystatin (Nystop) 1 man BID 12/24/21 21:00 01/02/22 08:44 1 MAN Olanzapine (ZyPREXA ZYDIS) 5 mg PRN BID PRN 12/25/21 11:30 12/30/21 21:26 5 MG Senna/Docusate Sodium (Senna Plus) 1 tab BID 12/24/21 21:00 01/02/22 08:43 1 TAB Sodium Chloride 1,000 ml @ 400 mls/hr Q2H30M PRN 12/31/21 07:45 12/31/21 19:44 DC Vancomycin HCl (Vanco Per Pharmacy) 1 each PRN DAILY PRN 12/25/21 13:00 12/27/21 12:57 DC 12/26/21 14:13 1 EACH Vancomycin HCl (Vancomycin Random Level) 1 each 1X ONCE 12/28/21 05:00 12/27/21 12:58 DC Vancomycin HCl 1 gm/Sodium Chloride 250 ml @ 250 mls/hr 1X ONCE 12/25/21 20:00 12/25/21 20:59 DC 12/25/21 20:40 250 MLS/HR Lab Laboratory Tests Test 01/01/22 10:45 01/02/22 07:25 Prothrombin Time 19.9 SEC (11.7-14.0) Prothromb Time International Ratio 1.7 (0.8-1.1) Sodium Level 140 mmol/L (136-145) Potassium Level 4.1 mmol/L (3.5-5.1) Chloride Level 103 mmol/L (98-107) Carbon Dioxide Level 25 mmol/L (21-32) Anion Gap 12 (6-14) Blood Urea Nitrogen 45 mg/dL (7-20) Creatinine 5.4 mg/dL (0.6-1.0) Estimated GFR (Cockcroft-Gault) 7.7 Glucose Level 73 mg/dL (70-99) Calcium Level 9.5 mg/dL (8.5-10.1) Results All relevant outside records, renal labs, imaging studies, telemetry/EKG's were reviewed. Justicifation of Admission Dx: Justifications for Admission: Justification of Admission Dx: Yes ADENIKE EDMONDS MD Jan 02, 2022 09:12
[2022-01-02] MEDS ORDERED: ceFAZolin SODIUM IV Push 1 GM VIAL. IVP ONE ×2 (09:41→10:00)
[2022-01-02] MEDS ORDERED: MIDAZOLAM HCL/PF 2 MG/2 ML VIAL. IV ONE (10:00)
[2022-01-02] MEDS ORDERED: fentaNYL PF VIAL 100 MCG/2 ML VIAL IV ONE (10:00)
[2022-01-02] MEDS ORDERED: LIDOCAINE 1%/EPI 1:100,000 20 ML VIAL. INJ ONE (10:00)
[2022-01-02 10:06] VITALS: BP 129/61
[2022-01-02 11:00] VITALS: BP 100/58
--- NOTE | 2022-01-02 11:06 | PDOC2 ---
JACKY HOLT [employer] 01/02/22 1106: CARDIAC CONSULT DATE OF CONSULT Date of Consult DATE: 01/02/22 TIME: 11:03 REASON FOR CONSULT Reason for Consult: AFIB with RVR REFERRING PHYSICIAN Referring Physician: Dr. Vivar SOURCE Source: Chart review, Patient HISTORY OF PRESENT ILLNESS HISTORY OF PRESENT ILLNESS This is a 76 yo female who presented from nursing facility secondary to altered mental status. Was noted with leukocytosis, fever, and bacteremia. Patient has a history of AFIB and was noted in AFIB with RVR, which prompted this consult. Patient is presently drowsy and unable to provide meaningful information. Does deny any chest pain, palpitations, dizziness, or nausea/vomiting. PAST MEDICAL HISTORY Past Medical History Cardiovascular: AFIB, CAD, CHF, HTN, hyperipidemia, AFIB Psych: Anxiety Musculoskeletal: Osteoarthritis Renal/: Chronic renal insuff PAST SURGICAL HISTORY Past Surgical History: No pertinent history FAMILY HISTORY Family History: Heart Disease, Hypertension SOCIAL HISTORY Smoke: No ALCOHOL: none Drugs: None Lives: Custodial CURRENT MEDICATIONS CURRENT MEDICATIONS Current Medications Medications (Trade) Dose Ordered Sig/Cailin Route PRN Reason Start Time Stop Time Status Last Admin Dose Admin Lactobacillus Rhamnosus (Culturelle) 1 cap BID PO 01/01/22 21:00 01/02/22 08:44 Diltiazem HCl (Cardizem 24hr Cd) 120 mg DAILY PO 01/01/22 18:00 01/02/22 08:44 Midazolam HCl (Versed) 2 mg 1X ONCE IV 01/02/22 10:00 01/02/22 10:04 DC 01/02/22 10:00 Fentanyl Citrate (Fentanyl 2ml Vial) 100 mcg 1X ONCE IV 01/02/22 10:00 01/02/22 10:04 DC 01/02/22 10:00 Lidocaine/ Epinephrine (LIDOCAINE 1%-EPI 1:100,000 Multi-Dose) 20 ml 1X ONCE INJ 01/02/22 10:00 01/02/22 10:04 DC 01/02/22 10:00 Cefazolin Sodium (Ancef) 1 gm 1X ONCE IVP 01/02/22 10:00 01/02/22 10:04 DC 01/02/22 10:00 ALLERGIES ALLERGIES: Coded Allergies: No Known Drug Allergies (Unverified , 10/24/21) ROS Review of System 14point ROS conducted with pertinent positives noted above in HPI PHYSICAL EXAM General: Alert, Cooperative, No acute distress HEENT: Atraumatic Lungs: Other (diminished bases) Abdomen: Soft Extremities: No edema Skin: No significant lesion Neuro: Sensation intact Psych/Mental Status: Other (drowsy, confused ) MUSCULOSKELETAL: Osteoarthritic changes both hands VITALS/I&O VITALS/I&O: Vital Signs Date Time Temp Pulse Resp B/P (MAP) Pulse Ox O2 Delivery O2 Flow Rate FiO2 01/02/22 10:06 122 17 97 Nasal Cannula 2.0 01/02/22 08:44 113/68 01/02/22 07:00 99.2 99.2 I & O 01/01/22 01/01/22 01/02/22 14:59 22:59 06:59 Intake Total 100 ml 110 ml 0 ml Balance 100 ml 110 ml 0 ml LABS Lab: Laboratory Tests Test 01/02/22 07:25 Sodium Level 140 mmol/L (136-145) Potassium Level 4.1 mmol/L (3.5-5.1) Chloride Level 103 mmol/L (98-107) Carbon Dioxide Level 25 mmol/L (21-32) Anion Gap 12 (6-14) Blood Urea Nitrogen 45 mg/dL (7-20) H Creatinine 5.4 mg/dL (0.6-1.0) H Estimated GFR (Cockcroft-Gault) 7.7 Glucose Level 73 mg/dL (70-99) Calcium Level 9.5 mg/dL (8.5-10.1) Laboratory Tests 01/02/22 07:25 ECHOCARDIOGRAM ECHOCARDIOGRAM <Conclusion> The left ventricular systolic function is normal and the ejection fraction is within normal range. Estimated ejection fraction 60%. There is normal LV segmental wall motion. Technically difficult study. DATE: 10/28/21 [id number] ASSESSMENT/PLAN ASSESSMENT/PLAN 1. Chronic AFIB, with RVR; on Cardizem for rate control. Also given IV lopressor 2. Leukocytosis, fevers, sepsis, UTI 3. MSSA bacteremia 4. Acute metabolic encephalopathy 5. ESRD on HD 6. Chronic diastolic CHF; appears compensated 7. HTN; low end 8. Weakness, debility, sacral wound Recommendations Unable to uptitrate Cardizem due to low end blood pressure Will discontinue Cardizem and start metoprolol for rate control May also use IV digoxin sparingly Eliquis for stroke prophylaxis. Fluid offloading/management via HD Ongoing antibiotic therapy, treatment of sepsis/bacteremia Supportive care BARRY CHESTER MD 01/02/22 3483: CARDIAC CONSULT ASSESSMENT/PLAN ASSESSMENT/PLAN Patient seen and examined. Agree with above nurse practitioner note. JACKY HOLT APRN Jan 02, 2022 11:06 BARRY CHESTER MD Jan 02, 2022 17:59
[2022-01-02] MEDS ORDERED: DIALYSIS PATIENT. MC PRN (11:15)
[2022-01-02] MEDS ORDERED: IV NORMAL SALINE 1000ML BAG 1,000 ML IV PRN ×2 (11:15)
[2022-01-02] MEDS: METOPROLOL IV PUSH 5 MG/5 ML VIAL. IVP PRN (11:59)
--- NOTE | 2022-01-02 12:00 | NUR ---
SS following up with discharge planning. SS reviewed pt chart and discussed with pt RN. Pt is resident from [facility] in [place], ; fax [phone]. COVID19 negative. Pt on IV Ancef. Pt has outpatient hemodialysis at [facility], ; fax [phone]. IV antibiotics have been arranged with [facility] in [place]. Pt is currently requiring oxygen at two liters nasal canula. NPO. ST evaluation and video swallow tomorrow. SS will continue to follow for discharge planning.
[2022-01-02] MEDS: ceFAZolin SODIUM IV Push 1 GM VIAL. IVP SCH (13:03)
--- NOTE | 2022-01-02 13:57 | PDOC ---
Infectious Disease Note Subjective Subjective Patient is awake able to say she is feeling better ROS ROS No nausea vomiting diarrhea chest pain shortness of breath Vital Sign Vital Signs Vital Signs Date Time Temp Pulse Resp B/P (MAP) Pulse Ox O2 Delivery O2 Flow Rate FiO2 01/02/22 11:59 117 100/58 01/02/22 10:06 17 97 Nasal Cannula 2.0 01/02/22 07:00 99.2 99.2 Physical Exam PHYSICAL EXAM GENERAL: Alert, but not oriented female, not in distress. VITAL SIGNS: stable HEENT: Both pupils are round and reacting. No conjunctival lesion, no lesion in the mouth. NECK: Supple, no JVP, no lymphadenopathy. LUNGS: Clear. HEART: S1, S2, regular. ABDOMEN: Soft, nontender, no organomegaly. EXTREMITIES: No edema, cyanosis. SKIN: Unremarkable. Hemodialysis tunneled catheter in the right upper chest, which is not showing obvious signs of infection. NEUROLOGIC: The patient is awake, mumbles few words, but really meaningful communication not possible. Labs Lab Laboratory Tests Test 01/02/22 07:25 Sodium Level 140 mmol/L (136-145) Potassium Level 4.1 mmol/L (3.5-5.1) Chloride Level 103 mmol/L (98-107) Carbon Dioxide Level 25 mmol/L (21-32) Anion Gap 12 (6-14) Blood Urea Nitrogen 45 mg/dL (7-20) Creatinine 5.4 mg/dL (0.6-1.0) Estimated GFR (Cockcroft-Gault) 7.7 Glucose Level 73 mg/dL (70-99) Calcium Level 9.5 mg/dL (8.5-10.1) Micro Microbiology 12/24/21 Blood Culture - Preliminary, Resulted Staphylococcus Aureus Objective Assessment IMPRESSION: 1. Encephalopathy. 2. Fever. 3. Leukocytosis. 4. MSSA bacteremia 12/24 and 12/27 5. End-stage renal disease, on hemodialysis. 6. Hypertension. 7. Congestive heart failure. Plan Plan of Care cont antibiotics Repeat blood culture neg from 12/29 Continue cefazolin Patient will need postdialysis 2 g to a gram and 3 g for 6 weeks Follow-up with us in 3 weeks MARTHA HARDY MD Jan 02, 2022 13:57
--- NOTE | 2022-01-02 14:08 | RAD ---
Procedure: Exchange of a temporary for tunneled hemodialysis catheter Clinical Indication: Adult female requiring long-term hemodialysis Sedation: Conscious sedation using a combination of Versed and fentanyl was provided for 17 minutes, including continuous monitoring of the patients heart rate, rhythm, blood pressure, oxygen saturation and level of arousability by a trained independent observer. Antibiotics: Antibiotic was administered intravenously within 1 hour of the procedure start time. Exposure: Kerma-Area Product: 2 Gycm2 Sterility: All elements of maximal sterile barrier technique including the use of a cap, mask, steril e gown, sterile gloves, large sterile sheet, appropriate hand hygiene, and 2% chlorhexidine for cutan eous antisepsis (or acceptable alternative antiseptic per current guidelines) were followed for this procedure. Consent: The procedure was explained in its entirety to the patient or the patients designated repres entative by a member of the treatment team, including a discussion of the risks, benefits and commonl y accepted alternatives to the procedure, as well as the expected consequences of not performing the procedure. Discussion of the risks included, but was not limited to, those that are most frequent an d those that are rare but possibly severe or life-threatening, as well as the possibility of unforese en complications. Technique and Findings: Following informed consent, the patient was prepped and draped in usual steri le fashion. Preliminary fluoroscopic spot view revealed an intact temporary hemodialysis catheter. 1 percent lidocaine was used to achieve local anesthesia over the right anterior chest wall and a small dermatotomy was made. A 23 Center palindrome tunneled hemodialysis catheter was then tunneled subcut aneously towards the neck dermatotomy. The existing catheter was then removed over wire and a large c aliber peel-away sheath was placed and used under fluoroscopic guidance to deploy the new tunnel cath eter such that the distal tip resided in the right atrium. Manual flow rates were assessed and found to be excellent. The new catheter was flushed, capped, and sutured to the skin. Single 4-0 Vicryl sut ure was used to close the dermatotomy over the neck. Complications: No immediate Impression: 1. Exchange of a temporary for tunneled hemodialysis catheter through same venous access as described . PQRS Compliance Statement: One or more of the following individualized dose reduction techniques were utilized for this examinat ion: 1. Automated exposure control 2. Adjustment of the mA and/or kV according to patient size 3. Use of iterative reconstruction technique Electronically signed by: Fran Reis MD (01/02/2022 2:05 PM) [id number]
[2022-01-02 19:00] VITALS: BP 141/75
[2022-01-02] MEDS: ATORVASTATIN CALCIUM 10 MG TABLET. PO SCH (21:00)
[2022-01-02] MEDS: APIXABAN 5 MG TABLET. PO SCH (21:00)
[2022-01-02 23:00] VITALS: BP 91/39
[2022-01-02] MEDS ORDERED: fentaNYL PF VIAL 100 MCG/2 ML VIAL IVP PRN (23:45)
[2022-01-03 03:00] VITALS: BP 98/46
[2022-01-03] MEDS: MIDODRINE 2.5 MG TABLET PO SCH ×2 (05:41→14:25)
[2022-01-03 07:00] VITALS: BP 133/74
[2022-01-03] MEDS: ASPIRIN ENTERIC COATED 81 MG TABLET.DR. PO SCH (08:00)
[2022-01-03] MEDS: SENNOSIDES/DOCUSATE 8.6/50MG TABLET. PO SCH (09:00)
[2022-01-03] MEDS ORDERED: METOPROLOL TART IMMED RELEASE 50 MG TABLET. PO SCH (09:00)
[2022-01-03] MEDS: LACTOBACILLUS RHAMNOSUS GG 1 CAPSULE. PO SCH (09:00)
[2022-01-03] MEDS: MULTIVITAMIN with MINERAL TABLET. PO SCH (09:00)
[2022-01-03] MEDS: ASCORBIC ACID 500 MG TABLET PO SCH (09:00)
--- NOTE | 2022-01-03 09:51 | PDOC ---
LEANDRA MARTI OUTREACH LIBRARIAN 01/03/22 0951: CARDIO Progress Notes Date and Time Date of Service 01/03/2022 Time of Evaluation 0930 Subjective Subjective: No Chest Pain, No shortness of breath, No Palpitations Vitals Vitals Vital Signs Date Time Temp Pulse Resp B/P (MAP) Pulse Ox O2 Delivery O2 Flow Rate FiO2 01/03/22 07:00 97.5 110 19 133/74 (93) 93 Nasal Cannula 2.0 97.5 Weight Weight [ ] Input and Output Intake and Output Intake and Output 01/03/22 07:00 Intake Total 50 ml Balance 50 ml Intake Oral 50 ml # Voids 4 Microbiology Micro Microbiology 12/29/21 Blood Culture - Preliminary, Resulted NO GROWTH AFTER 4 DAYS 12/26/21 Aerobic Culture - Final, Complete Staphylococcus Aureus Physical Exam HEENT: Neck Supple W Full Motion Chest: Symmetric LUNGS: Other (diminished bases) Heart: irregularly irregular (AFIB) Abdomen: Soft N/T Extremities: No Calf Tenderness, Other (trace to 1+ bilateral LE pitting edema) Neurology: alert, follow commands Assessment Assessment 1. Chronic AFIB with RVR: rate 100-120 2. Leukocytosis, fevers, sepsis, UTI 3. MSSA bacteremia 4. Acute metabolic encephalopathy 5. ESRD on HD 6. Chronic diastolic CHF; appears compensated 7. HTN; low end 8. Weakness, debility, sacral wound Recommendations Continue metoprolol PO when able to take PO. dig IV x1 May also use IV digoxin sparingly Eliquis for stroke prophylaxis. Fluid offloading/management via HD Ongoing antibiotic therapy, treatment of sepsis/bacteremia Supportive care Justicifation of Admission Dx: Justifications for Admission: Justification of Admission Dx: Yes BARRY CHESTER MD 01/03/22 2089: CARDIO Progress Notes Plan Plan Pt. seen and examined. Agree with above BARREL RIFLER HOOK note. Supportive care. LEANDRA MARTI OUTREACH LIBRARIAN Jan 03, 2022 09:51 BARRY CHESTER MD Jan 03, 2022 23:09
[2022-01-03] MEDS ORDERED: DIGOXIN IV 500 MCG/2 ML AMPUL. IV ONE (10:00)
--- NOTE | 2022-01-03 10:16 | PDOC ---
[facility] PROGRESS NOTE Date of Service DOS: Late entry for 01/02/22 Chief Complaint Chief Complaint MSSA bacteremia Acute metabolic/infectious encephalopathy ESRD, Sepsis, UTI, got vanc and rocephin, cont rocephin, check random vanc lab status post temp cath placement on 12/27/2021 Obese, BMI 33 Weakness, debility Sacral wound HTN Albumin infusion during dialysis Appreciate ID recommendations to continue vancomycin and cefepime Nephrology consult for hemodialysis IR consult for removal of permacath and replacement with temporary HD catheter. Plan for permanent HD catheter placement once clearance of staph aureus in the blood. Will coordinate with ID. History of Present Illness History of Present Illness Ms Cook is a 76yo female with PMHx dementia and new ESRD who was admitted through the ED for worsening confusion. 12/25: Blood cultures positive x2 for gram-positive cocci. Still pretty c onfused. Discussed with nephrology likely will need dialysis next 2 days and potential blood cultures versus her dialysis line may need it removed and temporary dialysis catheter inserted. Will consult infectious diseases in the meantime. 12/26/2021 No acute events overnight. Patient seen examined during dialysis. Still confused. Plan for permacath remova and placement with a temporary catheter. Patient's chart, labs, images were reviewed and discussed with RN 12/27/21 No acute events overnight. Pt seen and examined bedside. Pleasantly confused. AF and VSS. Plan for temp cath placement today. Patient's chart, labs, images were reviewed and discussed with RN 12/28/2021 No acute events overnight. Patient seen examined bedside. Patient still confus ed. Hypotensive down into the 90s over 60s. Patient currently seen in dialysis and getting albumin transfusion. Patient's chart, labs, images were reviewed and discussed with RN 12/29/2021 No acute events overnight. Patient seen examined bedside. AF and VSS still confused and lethargic appearing. Blood pressures have improved after dialysis and albumin infusion. Blood culture still persistently positive. Repeat blood cultures drawn today. Patient's chart, labs, images were reviewed and discussed with RN 12/30 Patient evaluated examined at bedside. Quite lethargic and confused still but easily awoken. Blood culture still positive. Infectious disease following. Dialysis per nephrology. 12/31 Evaluated examined at bedside. Repeat cultures finally negative to date. Continue antibiotics. ID nephro following. 01/01 Patient seen and examined at bedside. Resting in bed and lethargic when I woke her and she quickly fell back asleep. Cultures have finally cleared consult to interventional radiology for permacath placement for antibiotics and dialysis. Hopeful for discharge in the next 24 hours. 01/02 Evaluate examined at bedside. Resting in bed. Still NPO. Planning for swallow study tomorrow. Vitals/I&O Vitals/I&O: Vital Signs Date Time Temp Pulse Resp B/P (MAP) Pulse Ox O2 Delivery O2 Flow Rate FiO2 01/03/22 07:00 97.5 110 19 133/74 (93) 93 Nasal Cannula 2.0 97.5 I & O 01/02/22 01/02/22 01/03/22 15:00 23:00 07:00 Intake Total 50 ml 0 ml 0 ml Balance 50 ml 0 ml 0 ml Physical Exam Physical Exam: GENERAL: Alert, but not oriented female, not in distress. VITAL SIGNS: stable HEENT: Both pupils are round and reacting. No conjunctival lesion, no lesion in the mouth. NECK: Supple, no JVP, no lymphadenopathy. LUNGS: Clear. HEART: S1, S2, regular. ABDOMEN: Soft, nontender, no organomegaly. EXTREMITIES: No edema, cyanosis. SKIN: Unremarkable. Hemodialysis tunneled catheter in the right upper chest, which is not showing obvious signs of infection. NEUROLOGIC: The patient is awake, mumbles few words, but really meaningful communication not possible. General: Alert, Cooperative, No acute distress Heart: Regular rate Lungs: Clear Abdomen: Soft Extremities: No edema Skin: No significant lesion Assessment and Plan Assessmemt and Plan Problems Medical Problems: (1) Decubitus ulcer Status: Acute (2) Sepsis Status: Acute (3) UTI (urinary tract infection) Status: Acute Comment Review of Relevant I have reviewed the following items mariaa (where applicable) has been applied. Justifications for Admission Other Justification AMANDA GERARDO MD Jan 03, 2022 10:16
--- NOTE | 2022-01-03 10:17 | PDOC ---
[facility] [facility] PROGRESS NOTE Date of Service DOS: DATE: 01/03/22 TIME: 10:16 Chief Complaint Chief Complaint MSSA bacteremia Acute metabolic/infectious encephalopathy ESRD, Sepsis, UTI, got vanc and rocephin, cont rocephin, check random vanc lab status post temp cath placement on 12/27/2021 Obese, BMI 33 Weakness, debility Sacral wound HTN Albumin infusion during dialysis Appreciate ID recommendations to continue vancomycin and cefepime Nephrology consult for hemodialysis IR consult for removal of permacath and replacement with temporary HD catheter. Plan for permanent HD catheter placement once clearance of staph aureus in the blood. Will coordinate with ID. History of Present Illness History of Present Illness Ms Cook is a 76yo female with PMHx dementia and new ESRD who was admitted through the ED for worsening confusion. 12/25: Blood cultures positive x2 for gram-positive cocci. Still pretty confused. Discussed with nephrology likely will need dialysis next 2 days and potential blood cultures versus her dialysis line may need it removed and temporary dialysis catheter inserted. Will consult infectious diseases in the meantime. 12/26/2021 No acute events overnight. Patient seen examined during dialysis. Still confused. Plan for permacath remova and placement with a temporary catheter. Patient's chart, labs, images were reviewed and discussed with RN 12/27/21 No acute events overnight. Pt seen and examined bedside. Pleasantly confused. AF and VSS. Plan for temp cath placement today. Patient's chart, labs, images were reviewed and discussed with RN 12/28/2021 No acute events overnight. Patient seen examined bedside. Patient still con fused. Hypotensive down into the 90s over 60s. Patient currently seen in dialysis and getting albumin transfusion. Patient's chart, labs, images were reviewed and discussed with RN 12/29/2021 No acute events overnight. Patient seen examined bedside. AF and VSS still confused and lethargic appearing. Blood pressures have improved after dialysis and albumin infusion. Blood culture still persistently positive. Repeat blood cultures drawn today. Patient's chart, labs, images were reviewed and discussed with RN 12/30 Patient evaluated examined at bedside. Quite lethargic and confused still but easily awoken. Blood culture still positive. Infectious disease following. Dialysis per nephrology. 12/31 Evaluated examined at bedside. Repeat cultures finally negative to date. Continue antibiotics. ID nephro following. 01/01 Patient seen and examined at bedside. Resting in bed and lethargic when I woke her and she quickly fell back asleep. Cultures have finally cleared consult to interventional radiology for permacath placement for antibiotics and dialysis. Hopeful for discharge in the next 24 hours. 01/02 Evaluate examined at bedside. Resting in bed. Still NPO. Planning for swallow study tomorrow. 01/03 Patient evaluated examined at bedside. Resting in bed. Lethargic today. Permacath in place and functioning. Dialysis today. Required one-time dose of digoxin. Remains NPO. Speech eval. Vitals/I&O Vitals/I&O: Vital Signs Date Time Temp Pulse Resp B/P (MAP) Pulse Ox O2 Delivery O2 Flow Rate FiO2 01/03/22 07:00 97.5 110 19 133/74 (93) 93 Nasal Cannula 2.0 97.5 I & O 01/02/22 01/02/22 01/03/22 15:00 23:00 07:00 Intake Total 50 ml 0 ml 0 ml Balance 50 ml 0 ml 0 ml Physical Exam Physical Exam: GENERAL: Alert, but not oriented female, not in distress. VITAL SIGNS: stable HEENT: Both pupils are round and reacting. No conjunctival lesion, no lesion in the mouth. NECK: Supple, no JVP, no lymphadenopathy. LUNGS: Clear. HEART: S1, S2, regular. ABDOMEN: Soft, nontender, no organomegaly. EXTREMITIES: No edema, cyanosis. SKIN: Unremarkable. Hemodialysis tunneled catheter in the right upper chest, which is not showing obvious signs of infection. NEUROLOGIC: The patient is awake, mumbles few words, but really meaningful communication not possible. General: Alert, Cooperative, No acute distress Heart: Regular rate Lungs: Clear Abdomen: Soft Extremities: No edema Skin: No significant lesion Assessment and Plan Assessmemt and Plan Problems Medical Problems: (1) Decubitus ulcer Status: Acute (2) Sepsis Status: Acute (3) UTI (urinary tract infection) Status: Acute Comment Review of Relevant I have reviewed the following items mariaa (where applicable) has been applied. Justifications for Admission Other Justification AMANDA GERARDO MD Jan 03, 2022 10:17
--- NOTE | 2022-01-03 10:35 | PDOC ---
DATE OF SERVICE DATE: 01/03/22 TIME: 10:32 SUBJECTIVE ROS States feeling cold, Denies any N/V. No SOB at rest OBJECTIVE Vital Signs Vital Signs Date Time Temp Pulse Resp B/P (MAP) Pulse Ox O2 Delivery O2 Flow Rate FiO2 01/03/22 10:30 105 100/47 01/03/22 07:00 97.5 19 93 Nasal Cannula 2.0 97.5 I & 0 Intake and Output 01/03/22 07:00 Intake Total 50 ml Balance 50 ml Intake Oral 50 ml # Voids 4 PHYSICAL EXAM Physical Exam GEN: NAD HEENT: Normal cephalic, atraumatic, O2 by NC NECK: Supple, LUNGS: Decreased at bases Non labored HEART: RRR, S!, S2 present. ABDOMEN: Soft, nontender. Positive bowel sounds, no organomegaly EXTREMITIES: Without clubbing, cyanosis, or edema. NEUROLOGIC: Awake , says only yes , moves all extremities PSYCHIATRIC: Unable to Obtain SKIN: No ulcerations or rashes, No Serrano, No CVA or SP tenderness Has Tunneled HDC Rt side DIAGNOSIS/ASSESSMENT Assessment & Plan DIAGNOSIS/ASSESSMENT Assessment & Plan ESRD - Dx with LOGAN on CKD 4 in Oct , initiated on Dialysis 10/2021, Sonogram does show some cortical thinning. Has been on Dialysis since- TTS at [facility] .No indication for dialysis today Access- Tunneled HDC replaced 01/02/22 Acute metabolic encephalopathy suspect 2/2 sepsis . Improved some, not sure if back to her baseline Sepsis/ Elevated WBC - Infected Tunneled HDC , removed, Tip Staph aureus . UA unremarkable, Repeat blood culture neg from 12/29 ID following Sacral wound HTN-BP's on the low side Hx of GI bleed December 2020 - Hospitalized at [facility], . Suspected diverticular bleed Anemia - hgb stable Hx of A Fib COMMENT/RELEVANT DATA Meds Current Medications Medications (Trade) Dose Ordered Sig/Cailin Start Time Stop Time Status Last Admin Dose Admin Acetaminophen (Tylenol) 500 mg PRN TID PRN 12/24/21 19:15 Albumin Human 500 ml @ 100 mls/hr 1X ONCE 12/29/21 14:00 12/29/21 18:59 DC 12/29/21 15:41 100 MLS/HR Apixaban (Eliquis) 5 mg BID 01/02/22 21:00 Ascorbic Acid (Vitamin C) 500 mg DAILY 12/31/21 15:00 01/02/22 08:43 500 MG Aspirin (Ecotrin) 81 mg DAILYWBKFT 12/26/21 08:00 01/02/22 08:44 81 MG Atorvastatin Calcium (Lipitor) 10 mg HS 12/24/21 21:00 12/31/21 21:10 10 MG Cefazolin Sodium (Ancef) 1 gm 1X ONCE 01/02/22 10:00 01/02/22 10:04 DC 01/02/22 10:00 1 GM Cefazolin Sodium 500 mg/Dextrose 50 ml @ 100 mls/hr Q12HR 12/25/21 21:00 UNV Ceftriaxone Sodium (Rocephin) 1 gm DAILY 12/25/21 09:00 12/25/21 13:01 DC 12/25/21 11:03 1 GM Citalopram Hydrobromide (CeleXA) 20 mg DAILY 12/26/21 09:00 01/02/22 08:43 20 MG Digoxin (Lanoxin) 250 mcg 1X ONCE 01/03/22 10:00 01/03/22 10:01 DC 01/03/22 10:30 250 MCG Diltiazem HCl (Cardizem 24hr Cd) 120 mg DAILY 01/01/22 18:00 01/02/22 13:33 DC 01/02/22 08:44 120 MG Fentanyl Citrate (Fentanyl 2ml Vial) 25 mcg PRN Q3HRS PRN 01/02/22 23:45 Heparin Sodium (Porcine) (Heparin Sodium) 5,000 unit Q8HRS 12/27/21 14:00 01/01/22 21:01 DC 01/01/22 05:57 5,000 UNIT Heparin Sodium/ Sodium Chloride 0 ml @ As Directed STK-MED ONCE 12/27/21 10:43 12/27/21 11:03 DC Info (PHARMACY MONITORING -- do not chart) 1 each PRN DAILY PRN 01/02/22 11:15 Iodixanol (Visipaque 320) 100 ml STK-MED ONCE 12/27/21 10:43 12/27/21 11:03 DC Lactobacillus Rhamnosus (Culturelle) 1 cap BID 01/01/22 21:00 01/02/22 08:44 1 CAP Lidocaine HCl (Buffered Lidocaine 1%) 6 ml 1X ONCE 12/27/21 13:00 12/27/21 13:01 DC 12/27/21 13:43 5 ML Lidocaine/ Epinephrine (LIDOCAINE 1%-EPI 1:100,000 Multi-Dose) 20 ml 1X ONCE 01/02/22 10:00 01/02/22 10:04 DC 01/02/22 10:00 12 ML Metoprolol Succinate (Toprol Xl) 50 mg BID 12/24/21 21:00 12/25/21 11:26 DC 12/24/21 21:00 50 MG Metoprolol Tartrate (Lopressor Vial) 5 mg Q6HRS 12/28/21 00:00 01/01/22 12:56 DC 12/31/21 23:38 5 MG Metoprolol Tartrate (Lopressor) 50 mg BID 01/03/22 09:00 Midazolam HCl (Versed) 2 mg 1X ONCE 01/02/22 10:00 01/02/22 10:04 DC 01/02/22 10:00 1 MG Midodrine (Proamatine) 2.5 mg [id number] 12/25/21 13:00 01/01/22 17:29 2.5 MG Multivitamins (Thera M Plus) 1 tab DAILY 12/31/21 15:00 01/02/22 08:44 1 TAB Nystatin (Nystop) 1 man BID 12/24/21 21:00 01/02/22 21:00 1 MAN Olanzapine (ZyPREXA ZYDIS) 5 mg PRN BID PRN 12/25/21 11:30 12/30/21 21:26 5 MG Senna/Docusate Sodium (Senna Plus) 1 tab BID 12/24/21 21:00 01/02/22 08:43 1 TAB Sodium Chloride 1,000 ml @ 400 mls/hr Q2H30M PRN 01/02/22 11:15 01/02/22 23:14 DC Vancomycin HCl (Vanco Per Pharmacy) 1 each PRN DAILY PRN 12/25/21 13:00 12/27/21 12:57 DC 12/26/21 14:13 1 EACH Vancomycin HCl (Vancomycin Random Level) 1 each 1X ONCE 12/28/21 05:00 12/27/21 12:58 DC Vancomycin HCl 1 gm/Sodium Chloride 250 ml @ 250 mls/hr 1X ONCE 12/25/21 20:00 12/25/21 20:59 DC 12/25/21 20:40 250 MLS/HR Results All relevant outside records, renal labs, imaging studies, telemetry/EKG's were reviewed. Justicifation of Admission Dx: Justifications for Admission: Justification of Admission Dx: Yes ADENIKE EDMONDS MD Jan 03, 2022 10:34
[2022-01-03 11:00] VITALS: BP 98/47
[2022-01-03] MEDS ORDERED: ASPI-886 PO (11:57)
[2022-01-03] MEDS ORDERED: METO50TA6 PO (11:57)
[2022-01-03] MEDS ORDERED: CITA20TA9 PO (11:57)
[2022-01-03] MEDS ORDERED: MIDO2.5T PO (11:57)
[2022-01-03] MEDS ORDERED: APIX5TAB PO (11:57)
--- NOTE | 2022-01-03 11:59 | SNU/HH DC ---
DISCHARGE ORDERS DISCHARGE INFORMATION: DISCHARGE DATE: Jan 03, 2022 FINAL DIAGNOSIS Problems Medical Problems: (1) Decubitus ulcer Status: Acute (2) Sepsis Status: Acute (3) UTI (urinary tract infection) Status: Acute CONDITION ON DISCHARGE: Stable CODE STATUS: Code Status: Full FPC: SNF STAY <30 DAYS: No POST DISCHARGE ORDERS: ACTIVITY ORDERS: Activity as tolerated WEIGHT BEARING STATUS: As tolerated DIET AFTER DISCHARGE: Cardiac CHECKS AFTER DISCHARGE: CHECKS AFTER DISCHARGE: Check blood press - daily COMMENTS: TDC TREATMENT/EQUIPMENT ORDERS: Physical Therapy For: Evalulation/Treatment Occupational Therapy For: Evaluation/Treatment DISCHARGE MEDICATIONS: Home Meds Active Scripts Aspirin (ASPIRIN EC) 81 Mg Tablet.dr, 81 MG PO DAILYWBKFT for cad for 30 Days, #30 TAB.SR Prov:AMANDA GERARDO MD 01/03/22 Citalopram Hydrobromide (CELEXA) 20 Mg Tablet, 20 MG PO DAILY for mdd for 30 Days, #30 TAB Prov:AMANDA GERARDO MD 01/03/22 Apixaban (ELIQUIS) 5 Mg Tablet, 5 MG PO BID for stroke for 30 Days, #60 TAB Prov:AMANDA GERARDO MD 01/03/22 Metoprolol Tartrate (METOPROLOL TARTRATE) 50 Mg Tablet, 50 MG PO BID for htn for 30 Days, #60 TAB Prov:AMANDA GERARDO MD 01/03/22 Midodrine Hcl (MIDODRINE HCL) 2.5 Mg Tablet, 2.5 MG PO [id number] for hypotension for 30 Days, #90 TAB Prov:AMANDA GERARDO MD 01/03/22 Sennosides/Docusate Sodium (Stool Softener-Stimulant Lax) 1 Each Tablet, 1 TAB PO BID for constipation for 30 Days, #60 TAB Prov:LORNE KWON MD 11/01/21 Reported Medications Glucosamine/D3/Boswellia Nancy (Osteo Bi-Flex Tablet) 1 Each Tablet, 1 EACH PO DAILY for supplement, TAB 12/17/20 Irbesartan (IRBESARTAN) 300 Mg Tablet, 300 MG PO DAILY for heart, TAB 12/17/20 Diphenhydramine Hcl (BENADRYL) 25 Mg Capsule, 1 CAP PO QHS for sleep for 30 Days, #30 CAP 0 Refills 12/17/20 Nystatin (NYSTATIN) 15 Gm Powder, 1 MARCIE TP BID for yeast for 7 Days, #1 BOTTLE 0 Refills apply to affected area(s) 12/17/20 Lactobacillus Rhamnosus Gg (CULTURELLE) 1 Each Capsule, 1 CAP PO BID for supplement for 30 Days, #60 CAP 0 Refills 12/17/20 Ezetimibe (ZETIA) 10 Mg Tablet, 10 MG PO DAILY for cholesterol, TAB 12/17/20 Cholecalciferol (Vitamin D3) (Vitamin D3) 50 Mcg Tablet, 50 MCG PO DAILY for supplement, TAB 12/17/20 Atorvastatin Calcium (ATORVASTATIN CALCIUM) 10 Mg Tablet, 10 MG PO HS for FOR CHOLESTEROL, #30 TAB 0 Refills 12/17/20 Acetaminophen (ACETAMINOPHEN) 500 Mg Tablet, 500 MG PO PRN TID PRN for MILD PAIN / TEMP > 100.3'F, TAB 12/17/20 Discontinued Reported Medications Diltiazem Hcl (DILTIAZEM 24HR CD) 120 Mg Cap.er.24h, 120 MG PO DAILY for heart rhythm, CAP.SR 12/17/20 Metoprolol Succinate (Toprol XL) 50 Mg Tab.er.24h, 50 MG PO BID for FOR HYPERTENSION, TAB.SR 12/17/20 AMANDA GERARDO MD Jan 03, 2022 11:58
--- NOTE | 2022-01-03 13:17 | NUR ---
SS following up with discharge planning. SS reviewed pt chart and discussed with pt RN. Pt is currently on room air. COVID19 negative. PO diet now. Discharge orders received for return to [facility] in [place], ; fax [phone]. IV antibiotics arranged through [facility], ; fax [phone]. Discharge orders sent to [facility]. Pt will discharge today and return to [facility] at 1330. [facility] to provide transportation. Pt's RN notified. Packet placed on chart.
--- NOTE | 2022-01-03 13:19 | PDOC ---
Infectious Disease Note Subjective Subjective Patient is awake able to say she is feeling better ROS ROS No nausea vomiting diarrhea Vital Sign Vital Signs Vital Signs Date Time Temp Pulse Resp B/P (MAP) Pulse Ox O2 Delivery O2 Flow Rate FiO2 01/03/22 11:00 97.3 109 19 98/47 (64) 92 Room Air 97.3 01/03/22 07:00 2.0 Physical Exam PHYSICAL EXAM GENERAL: Alert, but not oriented female, not in distress. VITAL SIGNS: stable HEENT: Both pupils are round and reacting. No conjunctival lesion, no lesion in the mouth. NECK: Supple, no JVP, no lymphadenopathy. LUNGS: Clear. HEART: S1, S2, regular. ABDOMEN: Soft, nontender, no organomegaly. EXTREMITIES: No edema, cyanosis. SKIN: Unremarkable. Hemodialysis tunneled catheter in the right upper chest, which is not showing obvious signs of infection. NEUROLOGIC: The patient is awake, mumbles few words, but really meaningful communication not possible. Labs Micro Microbiology 12/24/21 Blood Culture - Preliminary, Resulted Staphylococcus Aureus Objective Assessment IMPRESSION: 1. Encephalopathy. 2. Fever. 3. Leukocytosis. 4. MSSA bacteremia 12/24 and 12/27 5. End-stage renal disease, on hemodialysis. 6. Hypertension. 7. Congestive heart failure. Plan Plan of Care cont antibiotics Repeat blood culture neg from 12/29 Continue cefazolin Patient will need postdialysis 2 g to a gram and 3 g for 6 weeks Follow-up with us in 3 weeks MARTHA HARDY MD Jan 03, 2022 13:19
[2022-01-03] MEDS: ceFAZolin SODIUM IV Push 1 GM VIAL. IVP SCH (14:00)
[2022-01-03] MEDS: APIXABAN 5 MG TABLET. PO SCH (14:25)
[2022-01-03] MEDS: CITALOPRAM 20 MG TABLET. PO SCH (14:26)
[2022-01-03] MEDS: NYSTATIN TOPICAL POWDER 15GM BOTTLE. TP SCH (14:26)
[2022-01-03 15:00] VITALS: BP 93/60
--- NOTE | 2022-01-03 17:15 | NUR ---
Patient has been discharged for transfer back to [facility] after being evaluated by PT for ability to travel per w/. Patient unable to stand, but did tolerate sitting on side of bed with blood pressure actually going up a little and not dropping. Patient was transferred to / with use of lift. Patient's eyeglasses on patient at discharge, gown and washable "chux" returned with patient. Facility notifed that patient was leaving
--- NOTE | 2022-01-20 22:03 | PDOC3 ---
[facility]-Dis[facility] Summary Date of Admission: Date of Admission: Dec 24, 2021 Date of Discharge: Date of Discharge: Jan 03, 2022 Admission Diagnosis: Admitting Diagnosis: esrd bacteremia Hospital Course: Hospital Course: Chief Complaint MSSA bacteremia Acute metabolic/infectious encephalopathy ESRD, Sepsis, UTI, got vanc and rocephin, cont rocephin, check random vanc lab status post temp cath placement on 12/27/2021 Obese, BMI 33 Weakness, debility Sacral wound HTN Albumin infusion during dialysis Appreciate ID recommendations to continue vancomycin and cefepime Nephrology consult for hemodialysis IR consult for removal of permacath and replacement with temporary HD catheter. Plan for permanent HD catheter placement once clearance of staph aureus in the blood. Will coordinate with ID. History of Present Illness History of Present Illness Ms Cook is a 76yo female with PMHx dementia and new ESRD who was admitted through the ED for worsening confusion. 12/25: Blood cultures positive x2 for gram-positive cocci. Still pretty confused. Discussed with nephrology likely will need dialysis next 2 days and potential blood cultures versus her dialysis line may need it removed and temporary dialysis catheter inserted. Will consult infectious diseases in the meantime. 12/26/2021 No acute events overnight. Patient seen examined during dialysis. Still confused. Plan for permacath remova and placement with a temporary catheter. Patient's chart, labs, images were reviewed and discussed with RN 12/27/21 No acute events overnight. Pt seen and examined bedside. Pleasantly confused. AF and VSS. Plan for temp cath placement today. Patient's chart, labs, images were reviewed and discussed with RN 12/28/2021 No acute events overnight. Patient seen examined bedside. Patient still confused. Hypotensive down into the 90s over 60s. Patient currently seen in dialysis and getting albumin transfusion. Patient's chart, labs, images were reviewed and discussed with RN 12/29/2021 No acute events overnight. Patient seen examined bedside. AF and VSS still confused and lethargic appearing. Blood pressures have improved after dialysis and albumin infusion. Blood culture still persistently positive. Repeat blood cultures drawn today. Patient's chart, labs, images were reviewed and discussed with RN 12/30 Patient evaluated examined at bedside. Quite lethargic and confused still but easily awoken. Blood culture still positive. Infectious disease following. Dialysis per nephrology. 12/31 Evaluated examined at bedside. Repeat cultures finally negative to date. Continue antibiotics. ID nephro following. 01/01 Patient seen and examined at bedside. Resting in bed and lethargic when I woke her and she quickly fell back asleep. Cultures have finally cleared consult to interventional radiology for permacath placement for antibiotics and dialysis. Hopeful for discharge in the next 24 hours. 01/02 Evaluate examined at bedside. Resting in bed. Still NPO. Planning for swallow study tomorrow. 01/03 Patient evaluated examined at bedside. Resting in bed. Lethargic today. Permacath in place and functioning. Dialysis today. Required one-time dose of digoxin. Remains NPO. Speech eval. d/c today Disposition: Disposition/Orders: D/C to Another Facility Activity: Activity: Resume previous activity Diet: Diet: Renal Medications: Home Meds Active Scripts Sennosides/Docusate Sodium (Stool Softener-Stimulant Lax) 1 Each Tablet, 1 TAB PO BID for constipation for 30 Days, #60 TAB Prov:LRONE KWON MD 11/01/21 Reported Medications Glucosamine/D3/Boswellia Nancy (Osteo Bi-Flex Tablet) 1 Each Tablet, 1 EACH PO DAILY for supplement, TAB 12/17/20 Nystatin (NYSTATIN) 15 Gm Powder, 1 MARCIE TP BID for yeast for 7 Days, #1 BOTTLE 0 Refills apply to affected area(s) 12/17/20 Lactobacillus Rhamnosus Gg (CULTURELLE) 1 Each Capsule, 1 CAP PO BID for supplement for 30 Days, #60 CAP 0 Refills 12/17/20 Cholecalciferol (Vitamin D3) (Vitamin D3) 50 Mcg Tablet, 50 MCG PO DAILY for supplement, TAB 12/17/20 Discontinued Reported Medications Irbesartan (IRBESARTAN) 300 Mg Tablet, 300 MG PO DAILY for heart, TAB 12/17/20 Diphenhydramine Hcl (BENADRYL) 25 Mg Capsule, 1 CAP PO QHS for sleep for 30 Days, #30 CAP 0 Refills 12/17/20 Ezetimibe (ZETIA) 10 Mg Tablet, 10 MG PO DAILY for cholesterol, TAB 12/17/20 Atorvastatin Calcium (ATORVASTATIN CALCIUM) 10 Mg Tablet, 10 MG PO HS for FOR CHOLESTEROL, #30 TAB 0 Refills 12/17/20 Acetaminophen (ACETAMINOPHEN) 500 Mg Tablet, 500 MG PO PRN TID PRN for MILD PAIN / TEMP > 100.3'F, TAB 12/17/20 Discontinued Scripts Aspirin (ASPIRIN EC) 81 Mg Tablet.dr, 81 MG PO DAILYWBKFT for cad for 30 Days, #30 TAB.SR Prov:AMANDA GERARDO MD 01/03/22 Citalopram Hydrobromide (CELEXA) 20 Mg Tablet, 20 MG PO DAILY for mdd for 30 Days, #30 TAB Prov:AMANDA GERARDO MD 01/03/22 Apixaban (ELIQUIS) 5 Mg Tablet, 5 MG PO BID for stroke for 30 Days, #60 TAB Prov:AMANDA GERARDO MD 01/03/22 Metoprolol Tartrate (METOPROLOL TARTRATE) 50 Mg Tablet, 50 MG PO BID for htn for 30 Days, #60 TAB Prov:AMANDA GERARDO MD 01/03/22 Midodrine Hcl (MIDODRINE HCL) 2.5 Mg Tablet, 2.5 MG PO [id number] for hypotension for 30 Days, #90 TAB Prov:AMANDA GERARDO MD 01/03/22 Scheduled Cholecalciferol (Vitamin D3) (Vitamin D3), 50 MCG PO DAILY, (Reported) Glucosamine/D3/Boswellia Nancy (Osteo Bi-Flex Tablet), 1 EACH PO DAILY, (Reported) Lactobacillus Rhamnosus Gg (Culturelle), 1 CAP PO BID, (Reported) Nystatin (Nystatin), 1 MARCIE TP BID, (Reported) Sennosides/Docusate Sodium (Stool Softener-Stimulant Lax), 1 TAB PO BID Discontinued Medications Acetaminophen (Acetaminophen), 500 MG PO PRN TID PRN for MILD PAIN / TEMP > 100.3'F, (Reported) Apixaban (Eliquis), 5 MG PO BID Aspirin (Aspirin Ec), 81 MG PO DAILYWBKFT Atorvastatin Calcium (Atorvastatin Calcium), 10 MG PO HS, (Reported) Citalopram Hydrobromide (Celexa), 20 MG PO DAILY Diphenhydramine Hcl (Benadryl), 1 CAP PO QHS, (Reported) Ezetimibe (Zetia), 10 MG PO DAILY, (Reported) Irbesartan (Irbesartan), 300 MG PO DAILY, (Reported) Metoprolol Tartrate (Metoprolol Tartrate), 50 MG PO BID Midodrine Hcl (Midodrine Hcl), 2.5 MG PO [id number] Justicifation of Admission Dx: Justifications for Admission: Justification of Admission Dx: Yes AMANDA GERARDO MD Jan 20, 2022 22:03
== END 2022-01-03 17:15 | DRG 871 ==
LOC: ER 13:37 → 5 NORTH 16:40
PROVIDERS: ADMIT Internal Medicine; ATTEND Internal Medicine
PROC: 5A1D70Z Performance of Urinary Filtration, Intermittent, Less than 6 Hours Per Day (ICD-10-PCS; 2021-12-30)
PROC: 0JH63XZ Insertion of Tunneled Vascular Access Device into Chest Subcutaneous Tissue and Fascia, Percutaneous Approach (ICD-10-PCS; principal; 2022-01-02)
PROC: 02H633Z Insertion of Infusion Device into Right Atrium, Percutaneous Approach (ICD-10-PCS; 2022-01-02)
PROC: B5181ZA Fluoroscopy of Superior Vena Cava using Low Osmolar Contrast, Guidance (ICD-10-PCS; 2022-01-02)
PROC: 02PAX3Z Removal of Infusion Device from Heart, External Approach (ICD-10-PCS; 2022-01-02)
PROC: 02H633Z Insertion of Infusion Device into Right Atrium, Percutaneous Approach (ICD-10-PCS; 2022-01-02)
PROC: 0JH63XZ Insertion of Tunneled Vascular Access Device into Chest Subcutaneous Tissue and Fascia, Percutaneous Approach (ICD-10-PCS; 2022-01-02)
PROC: 5A1D70Z Performance of Urinary Filtration, Intermittent, Less than 6 Hours Per Day (ICD-10-PCS; 2022-01-02)
PROC: 5A1D70Z Performance of Urinary Filtration, Intermittent, Less than 6 Hours Per Day (ICD-10-PCS; 2022-01-03)
DX: A41.9 Sepsis, unspecified organism (principal); G93.41 Metabolic encephalopathy; N18.6 End stage renal disease; I13.2 Hypertensive heart and chronic kidney disease with heart failure and with stage 5 chronic kidney disease, or end stage renal disease; I48.20 Chronic atrial fibrillation, unspecified; I50.32 Chronic diastolic (congestive) heart failure; J98.11 Atelectasis; N39.0 Urinary tract infection, site not specified; A41.01 Sepsis due to Methicillin susceptible Staphylococcus aureus; D64.9 Anemia, unspecified; E66.9 Obesity, unspecified; E78.5 Hyperlipidemia, unspecified; F03.90 Unspecified dementia, unspecified severity, without behavioral disturbance, psychotic disturbance, mood disturbance, and anxiety; I25.10 Atherosclerotic heart disease of native coronary artery without angina pectoris; I73.9 Peripheral vascular disease, unspecified; L89.90 Pressure ulcer of unspecified site, unspecified stage; Z68.33 Body mass index [BMI] 33.0-33.9, adult; Z82.49 Family history of ischemic heart disease and other diseases of the circulatory system; Z99.2 Dependence on renal dialysis; F32.A Depression, unspecified; F41.9 Anxiety disorder, unspecified; M19.90 Unspecified osteoarthritis, unspecified site
CPT/HCPCS: 36415; 36556; 36581; 36589; 51702; 71045; 76937; 77001; 80048; 80053; 80202; 80307; 80329; 82550; 83605; 83690; 83735; 84484; 85007; 85025; 85610; 85730; 86140; 87040; 87071; 87077; 87186; 87428; 93005; 96365; 96366; 96375; 99152; C1750; C1892; G0480; J0690; J0696; J1160; J1644; J2250; J3010; J3370; J3490; J7030; J7050; P9045; P9046; U0003; 92526-GN; 92610-GN; 97530-GP; 99285-25; G0378

== ENCOUNTER 2022-01-04 10:48 | Inpatient (IN) | payer MEDICARE, BC ==
[~2022-01-04] VITALS: Ht 165.1 cm; Wt 78.6 kg
[~2022-01-04 10:48] MED LIST changes: +ASPI-886 PO; +CITA20TA9 PO; +METO50TA6 PO; +MIDO2.5T PO
[2022-01-04 11:49] LABS: BASO # 0.1 x10^3/uL (0.0-0.2); BASO % 0 % (0-3); EOS % 0 % (0-3); HEMATOCRIT 31.6 % (36.0-47.0); HEMOGLOBIN 10.2 g/dL (12.0-15.5); LYMPH # 1.4 x10^3/uL (1.0-4.8); LYMPH % 9 % (24-48); MEAN CORPUSCULAR HEMOGLOBIN 32 pg (25-35); MEAN CORPUSCULAR HGB CONC 32 g/dL (31-37); MEAN CORPUSCULAR VOLUME 99 fL (79-100); MONO # 1.2 x10^3/uL (0.0-1.1); MONO % 8 % (0-9); NEUT # 12.4 x10^3/uL (1.8-7.7); NEUT % 82 % (31-73); PLATELET COUNT 368 x10^3/uL (140-400); RED BLOOD COUNT 3.18 x10^6/uL (3.50-5.40); RED CELL DISTRIBUTION WIDTH 15.2 % (11.5-14.5)
[2022-01-04 12:00] LABS: ANION GAP 13 (6-14); BLOOD UREA NITROGEN 36 mg/dL (7-20); BUN/CREATININE RATIO 8 (6-20); CALCIUM 9.7 mg/dL (8.5-10.1); CARBON DIOXIDE 26 mmol/L (21-32); CHLORIDE 100 mmol/L (98-107); CREATININE 4.8 mg/dL (0.6-1.0); GFR 8.8; GLUCOSE 91 mg/dL (70-99); POTASSIUM 4.6 mmol/L (3.5-5.1); SODIUM 139 mmol/L (136-145)
--- NOTE | 2022-01-04 12:06 | RAD ---
CT Head W/O Contrast: History: Altered mental status Comparison: November 08, 2021 Axial images were obtained without contrast. There is moderate diffuse atrophy. There is no mass effect, extraaxial fluid collections or hydrocep halus. There is no gross bleed. Marked, patchy periventricular and subcortical white matter hypoatte nuation is seen. There is no focal loss of fisher-white matter distinction to suggest acute ischemia, i.e. stroke. Impression: Atrophy and chronic white matter changes. No acute findings. End of impression PQRS Compliance Statement: One or more of the following individualized dose reduction techniques were utilized for this examinat ion: 1. Automated exposure control 2. Adjustment of the mA and/or kV according to patient size 3. Use of iterative reconstruction technique Electronically signed by: Elan Ruiz III, MD (01/04/2022 12:03 PM) [facility]
[2022-01-04 12:08] LABS: ALBUMIN 2.2 g/dL (3.4-5.0); ALBUMIN/GLOBULIN RATIO 0.4 (1.0-1.7); ALK PHOS 105 U/L (46-116); AST (SGOT) 31 U/L (15-37); TOTAL BILIRUBIN 0.9 mg/dL (0.2-1.0)
--- NOTE | 2022-01-04 12:15 | RAD ---
PROCEDURE: XR CHEST 1V.01/04/2022 12:11 PM REASON FOR STUDY: Reason: ams / Spl. Instructions: / History: . COMPARISON: Study of 12/24/2021. FINDINGS: Dialysis catheter remains in place. No new infiltrate or effusion is seen. Prominent arthri tic changes are again shown at the shoulders. IMPRESSION: No acute abnormality. Electronically signed by: Cain Gerber Jr., MD (01/04/2022 12:12 PM) [id number]
[2022-01-04 12:17] LABS: ALT (SGPT) < 6 U/L (14-59)
[2022-01-04 12:32] LABS: BASE EXCESS ABG 1 mmol/L (-3-3); HCO3 ABG 23 mmol/L (21-28); PCO2 ABG 29 mmHg (35-46); PO2 ABG 85 mmHg (65-108); SAT O2 ABG 96 % (92-99)
[2022-01-04 12:33] LABS: FIO2 ABG 21
[2022-01-04 13:23] LABS: AMORPHOUS SEDIMENT,UR PRESENT /HPF; BACTERIA,URINE FEW /HPF (0-FEW); HYALINE CASTS, URINE OCCASIONAL /HPF
[2022-01-04] MEDS ORDERED: CEFEPIME HCL IV Push 2 GM VIAL. IVP ONE (13:45)
[2022-01-04] MEDS ORDERED: VANCOMYCIN PER PHARMACY MC ONE (13:45)
[2022-01-04] MEDS ORDERED: VANCOMYCIN 1.5 GM in IV NORMAL SALINE 500ML BAG 500 ML IV ONE (14:00)
[2022-01-04 14:23] LABS: PROTHROMBIN TIME PATIENT 25.7 SEC (11.7-14.0)
[2022-01-04] MEDS ORDERED: IV NORMAL SALINE 1000ML BAG 1,000 ML IV ONE (15:15)
--- NOTE | 2022-01-04 15:38 | PDOC1 ---
History and Physical Date of Admission Date of Admission DATE: 01/04/22 TIME: 15:38 Identification/Chief Complaint Chief Complaint Altered mental status Source Source: Caregiver, Chart review History of Present Illness History of Present Illness Ms Cook is a 76yo female with PMHx dementia and new ESRD who was admitted through the ED for worsening confusion. She was recently discharged from the hospital for acute encephalopathy secondary to presumed dialysis catheter infection comes in with altered mental status from her residential. Patient is lethargic but reported to be her baseline and her previous notes. History is limited due to patient's mental status. WBC elevated at 15. Labs otherwise consistent with ESRD. UA with large leukocyte esterase EKG by my interpretation is atrial fibrillation, rate relatively tachycardic Chest radiograph with dialysis catheter positioned well. CT head with no acute findings. Admitted for further care. Past Medical History Cardiovascular: HTN Renal/: Chronic renal failure Past Surgical History Past Surgical History: No pertinent history Family History Family History: Heart Disease, Hypertension Social History Smoke: No (unknown) ALCOHOL: none Drugs: None Current Medications Current Medications Current Medications Cefepime HCl (Maxipime) 2 gm 1X ONCE IVP Last administered on 01/04/22at 14:07; Start 01/04/22 at 13:45; Stop 01/04/22 at 13:46; Status DC Vancomycin HCl (Vanco Per Pharmacy) 1 each 1X ONCE [facility] ; Start 01/04/22 at 13:45; Stop 01/04/22 at 13:46; Status DC Vancomycin HCl 1.5 gm/Sodium Chloride 500 ml @ 250 mls/hr 1X ONCE IV Last administered on 01/04/22at 14:08; Start 01/04/22 at 14:00; Stop 01/04/22 at 15:59 Sodium Chloride 1,000 ml @ 1,000 mls/hr 1X ONCE IV ; Start 01/04/22 at 15:15; Stop 01/04/22 at 16:14 Active Scripts Active Aspirin Ec (Aspirin) 81 Mg Tablet.dr 81 Mg PO DAILYWBKFT 30 Days Celexa (Citalopram Hydrobromide) 20 Mg Tablet 20 Mg PO DAILY 30 Days Eliquis (Apixaban) 5 Mg Tablet 5 Mg PO BID 30 Days Metoprolol Tartrate 50 Mg Tablet 50 Mg PO BID 30 Days Midodrine Hcl 2.5 Mg Tablet 2.5 Mg PO [id number] 30 Days Stool Softener-Stimulant Lax (Sennosides/Docusate Sodium) 1 Each Tablet 1 Tab PO BID 30 Days Reported Osteo Bi-Flex Tablet (Glucosamine/D3/Boswellia Nancy) 1 Each Tablet 1 Each PO DAILY Irbesartan 300 Mg Tablet 300 Mg PO DAILY Benadryl (Diphenhydramine Hcl) 25 Mg Capsule 1 Cap PO QHS 30 Days Nystatin 15 Gm Powder 1 Bryan TP BID 7 Days apply to affected area(s) Culturelle (Lactobacillus Rhamnosus Gg) 1 Each Capsule 1 Cap PO BID 30 Days Zetia (Ezetimibe) 10 Mg Tablet 10 Mg PO DAILY Vitamin D3 (Cholecalciferol (Vitamin D3)) 50 Mcg Tablet 50 Mcg PO DAILY Atorvastatin Calcium 10 Mg Tablet 10 Mg PO HS Acetaminophen 500 Mg Tablet 500 Mg PO PRN TID PRN Allergies Allergies: Coded Allergies: No Known Drug Allergies (Unverified , 10/24/21) ROS Review of System Attempted 11 point ROS, patient moaning, unable to relate any of her history does not know she is on dialysis. Limited by confusion and dementia Physical Exam General: Alert, Cooperative, moderate distress HEENT: Atraumatic, PERRLA, EOMI, Mucous membr. moist/pink Lungs: Clear to auscultation, Normal air movement Heart: irregularly irregular Abdomen: Normal bowel sounds, Soft, No tenderness, No hepatosplenomegaly, No masses Extremities: Normal pulses Skin: Other (Gluteal ulcer) Neuro: Normal tone, Sensation intact, Cranial nerves 3-12 NL, Reflexes 2+ Psych/Mental Status: Other (Confused) Vitals Vitals Vital Signs Date Time Temp Pulse Resp B/P (MAP) Pulse Ox O2 Delivery O2 Flow Rate FiO2 01/04/22 10:48 97.9 107 18 131/61 (84) 94 Room Air 97.9 Labs Labs Laboratory Tests Test 01/04/22 11:15 01/04/22 12:20 01/04/22 12:30 01/04/22 12:43 White Blood Count 15.0 x10^3/uL (4.0-11.0) Red Blood Count 3.18 x10^6/uL (3.50-5.40) Hemoglobin 10.2 g/dL (12.0-15.5) Hematocrit 31.6 % (36.0-47.0) Mean Corpuscular Volume 99 fL (79-100) Mean Corpuscular Hemoglobin 32 pg (25-35) Mean Corpuscular Hemoglobin Concent 32 g/dL (31-37) Red Cell Distribution Width 15.2 % (11.5-14.5) Platelet Count 368 x10^3/uL (140-400) Neutrophils (%) (Auto) 82 % (31-73) Lymphocytes (%) (Auto) 9 % (24-48) Monocytes (%) (Auto) 8 % (0-9) Eosinophils (%) (Auto) 0 % (0-3) Basophils (%) (Auto) 0 % (0-3) Neutrophils # (Auto) 12.4 x10^3/uL (1.8-7.7) Lymphocytes # (Auto) 1.4 x10^3/uL (1.0-4.8) Monocytes # (Auto) 1.2 x10^3/uL (0.0-1.1) Eosinophils # (Auto) 0.0 x10^3/uL (0.0-0.7) Basophils # (Auto) 0.1 x10^3/uL (0.0-0.2) Prothrombin Time 25.7 SEC (11.7-14.0) Prothromb Time International Ratio 2.4 (0.8-1.1) Fibrinogen 686 mg/dL (200-440) Sodium Level 139 mmol/L (136-145) Potassium Level 4.6 mmol/L (3.5-5.1) Chloride Level 100 mmol/L (98-107) Carbon Dioxide Level 26 mmol/L (21-32) Anion Gap 13 (6-14) Blood Urea Nitrogen 36 mg/dL (7-20) Creatinine 4.8 mg/dL (0.6-1.0) Estimated GFR (Cockcroft-Gault) 8.8 BUN/Creatinine Ratio 8 (6-20) Glucose Level 91 mg/dL (70-99) Lactic Acid Level 2.2 mmol/L (0.4-2.0) Calcium Level 9.7 mg/dL (8.5-10.1) Total Bilirubin 0.9 mg/dL (0.2-1.0) Aspartate Amino Transf (AST/SGOT) 31 U/L (15-37) Alanine Aminotransferase (ALT/SGPT) < 6 U/L (14-59) Alkaline Phosphatase 105 U/L (46-116) Total Protein 8.0 g/dL (6.4-8.2) Albumin 2.2 g/dL (3.4-5.0) Albumin/Globulin Ratio 0.4 (1.0-1.7) Procalcitonin 1.47 ng/mL (0.00-0.10) O2 Saturation 96 % (92-99) Arterial Blood pH 7.52 (7.35-7.45) Arterial Blood pCO2 at Patient Temp 29 mmHg (35-46) Arterial Blood pO2 at Patient Temp 85 mmHg (65-108) Arterial Blood HCO3 23 mmol/L (21-28) Arterial Blood Base Excess 1 mmol/L (-3-3) FiO2 21 Ammonia < 10 mcmol/L (11-34) Urine Collection Type Unknown Urine Color (Auto) Fannin Urine Turbidity Turbid Urine pH (Auto) 5.5 (<5.0-8.0) Urine Specific [place] 1.025 (1.000-1.030) Urine Protein (Auto) 200 mg/dL (Negative) Urine Glucose (Auto)(UA) Negative mg/dL (Negative) Urine Ketones (Auto) Trace mg/dL (Negative) Urine Blood (Auto) Moderate (Negative) Urine Nitrite (Auto) Negative (Negative) Urine Bilirubin (Auto) Negative (Negative) Urine Urobilinogen (Auto) Normal mg/dL (Normal) Urine Leukocyte Esterase (Auto) Large (Negative) Urine RBC 1-2 /HPF (0-2) Urine WBC 5-10 /HPF (0-4) Urine Squamous Epithelial Cells Many /LPF Urine Amorphous Sediment Present /HPF Urine Bacteria Few /HPF (0-FEW) Urine Hyaline Casts Occasional /HPF Urine Mucus Slight /LPF Laboratory Tests Test 01/04/22 11:15 01/04/22 12:20 01/04/22 12:30 01/04/22 12:43 White Blood Count 15.0 x10^3/uL (4.0-11.0) Red Blood Count 3.18 x10^6/uL (3.50-5.40) Hemoglobin 10.2 g/dL (12.0-15.5) Hematocrit 31.6 % (36.0-47.0) Mean Corpuscular Volume 99 fL (79-100) Mean Corpuscular Hemoglobin 32 pg (25-35) Mean Corpuscular Hemoglobin Concent 32 g/dL (31-37) Red Cell Distribution Width 15.2 % (11.5-14.5) Platelet Count 368 x10^3/uL (140-400) Neutrophils (%) (Auto) 82 % (31-73) Lymphocytes (%) (Auto) 9 % (24-48) Monocytes (%) (Auto) 8 % (0-9) Eosinophils (%) (Auto) 0 % (0-3) Basophils (%) (Auto) 0 % (0-3) Neutrophils # (Auto) 12.4 x10^3/uL (1.8-7.7) Lymphocytes # (Auto) 1.4 x10^3/uL (1.0-4.8) Monocytes # (Auto) 1.2 x10^3/uL (0.0-1.1) Eosinophils # (Auto) 0.0 x10^3/uL (0.0-0.7) Basophils # (Auto) 0.1 x10^3/uL (0.0-0.2) Prothrombin Time 25.7 SEC (11.7-14.0) Prothromb Time International Ratio 2.4 (0.8-1.1) Fibrinogen 686 mg/dL (200-440) Sodium Level 139 mmol/L (136-145) Potassium Level 4.6 mmol/L (3.5-5.1) Chloride Level 100 mmol/L (98-107) Carbon Dioxide Level 26 mmol/L (21-32) Anion Gap 13 (6-14) Blood Urea Nitrogen 36 mg/dL (7-20) Creatinine 4.8 mg/dL (0.6-1.0) Estimated GFR (Cockcroft-Gault) 8.8 BUN/Creatinine Ratio 8 (6-20) Glucose Level 91 mg/dL (70-99) Lactic Acid Level 2.2 mmol/L (0.4-2.0) Calcium Level 9.7 mg/dL (8.5-10.1) Total Bilirubin 0.9 mg/dL (0.2-1.0) Aspartate Amino Transf (AST/SGOT) 31 U/L (15-37) Alanine Aminotransferase (ALT/SGPT) < 6 U/L (14-59) Alkaline Phosphatase 105 U/L (46-116) Total Protein 8.0 g/dL (6.4-8.2) Albumin 2.2 g/dL (3.4-5.0) Albumin/Globulin Ratio 0.4 (1.0-1.7) Procalcitonin 1.47 ng/mL (0.00-0.10) O2 Saturation 96 % (92-99) Arterial Blood pH 7.52 (7.35-7.45) Arterial Blood pCO2 at Patient Temp 29 mmHg (35-46) Arterial Blood pO2 at Patient Temp 85 mmHg (65-108) Arterial Blood HCO3 23 mmol/L (21-28) Arterial Blood Base Excess 1 mmol/L (-3-3) FiO2 21 Ammonia < 10 mcmol/L (11-34) Urine Collection Type Unknown Urine Color (Auto) [place]in Urine Turbidity Turbid Urine pH (Auto) 5.5 (<5.0-8.0) Urine Specific [place] 1.025 (1.000-1.030) Urine Protein (Auto) 200 mg/dL (Negative) Urine Glucose (Auto)(UA) Negative mg/dL (Negative) Urine Ketones (Auto) Trace mg/dL (Negative) Urine Blood (Auto) Moderate (Negative) Urine Nitrite (Auto) Negative (Negative) Urine Bilirubin (Auto) Negative (Negative) Urine Urobilinogen (Auto) Normal mg/dL (Normal) Urine Leukocyte Esterase (Auto) Large (Negative) Urine RBC 1-2 /HPF (0-2) Urine WBC 5-10 /HPF (0-4) Urine Squamous Epithelial Cells Many /LPF Urine Amorphous Sediment Present /HPF Urine Bacteria Few /HPF (0-FEW) Urine Hyaline Casts Occasional /HPF Urine Mucus Slight /LPF Images Images Chest radiograph: Dialysis catheter remains in place. No new infiltrate or effusion is seen. Prominent arthritic changes are again shown at the shoulders. IMPRESSION: No acute abnormality. CT Head W/O Contrast: There is moderate diffuse atrophy. There is no mass effect, extraaxial fluid collections or hydrocephalus. There is no gross bleed. Marked, patchy periventricular and subcortical white matter hypoattenuation is seen. There is no focal loss of fisher-white matter distinction to suggest acute ischemia, i.e. stroke. Impression: Atrophy and chronic white matter changes. No acute findings. VTE Prophylaxis Ordered VTE Prophylaxis Devices: No VTE Pharmacological Prophylaxi: Yes Assessment/Plan Assessment/Plan Acute metabolic encephalopathy - likely sepsis related, worsening advanced dementia Sepsis, UTI, got vanc and cefepime check random vanc lab Weakness, debility - appropriately in SNF Sacral wound - wound care. Antibiotics HTN - cont home meds Atrial fibrillation - on eliquis, will continue ESRD - nephrology consulted FEN - Renal diet PPX - heparin FULL CODE - patient's unfortunately is very confused himself and goals of care were discussed with friend who is a dual DPOA, apparently Dispo inpatient Justifications for Admission Other Justification AMANDA VELAZCO MD Jan 04, 2022 15:38
--- NOTE | 2022-01-04 16:02 | PHYS DOC ---
Past Medical History Additional Past Medical Histor: COVID-AUG 2021 Past Surgical History: Other Additional Past Surgical Histo: patient unsure Smoking Status: Unknown if ever smoked Alcohol Use: None General Adult EDM: Chief Complaint: RAPID HEART RATE HPI: HPI: Patient is a 76 year old female with a history of dementia who was recently discharged from the hospital for acute encephalopathy secondary to infection comes in with altered mental status from her retirement. Patient is lethargic but reported to be her baseline and her previous notes. History is limited due to patient's mental status Review of Systems: Review of Systems: Unable to obtain due to patient's mental status and decreased. Patient has a baseline dementia. Heart Score: C/O Chest Pain: No Risk Factors: Risk Factors: DM, Current or recent (<one month) smoker, HTN, HLP, family history of CAD, obesity. Risk Scores: Score 0 - 3: 2.5% MACE over next 6 weeks - Discharge Home Score 4 - 6: 20.3% MACE over next 6 weeks - Admit for Clinical Observation Score 7 - 10: 72.7% MACE over next 6 weeks - Early Invasive Strategies Current Medications: Current Medications Medications (Trade) Dose Ordered Sig/Cailin Start Time Stop Time Status Last Admin Dose Admin Cefepime HCl (Maxipime) 2 gm 1X ONCE 01/04/22 13:45 01/04/22 13:46 DC 01/04/22 14:07 2 GM Sodium Chloride 1,000 ml @ 1,000 mls/hr 1X ONCE 01/04/22 15:15 01/04/22 16:14 Vancomycin HCl (Vanco Per Pharmacy) 1 each 1X ONCE 01/04/22 13:45 01/04/22 13:46 DC Vancomycin HCl 1.5 gm/Sodium Chloride 500 ml @ 250 mls/hr 1X ONCE 01/04/22 14:00 01/04/22 15:59 01/04/22 14:08 250 MLS/HR Allergies: Allergies: Allergies Coded Allergies Type Severity Reaction Last Updated Verified No Known Drug Allergies 10/24/21 No Physical Exam: PE: Constitutional: Ill-appearing, with right-sided neglect which is her baseline HENT: Normocephalic, atraumatic, bilateral external ears normal, oropharynx moist, no oral exudates, nose normal. Eyes: PERRLA, EOMI, conjunctiva normal, no discharge. Neck: Normal range of motion, no tenderness, supple, no stridor. [ Cardiovascular: Tachycardic and irregular, no murmur Lungs & Thorax: Bilateral breath sounds clear to auscultation Abdomen: Bowel sounds normal, soft, no tenderness, no masses, no pulsatile masses. Skin: Warm, dry, no erythema, no rash. Back: No tenderness, no CVA tenderness. Extremities: No tenderness, no cyanosis, no clubbing, ROM intact, no edema. Neurologic: Patient awake not oriented to self place or time., Right-sided neglect Psychologic: Unable to obtain due to patient's mental status Current Patient Data: Labs: Laboratory Tests Test 01/04/22 11:15 01/04/22 12:20 01/04/22 12:30 01/04/22 12:43 White Blood Count 15.0 x10^3/uL (4.0-11.0) H Red Blood Count 3.18 x10^6/uL (3.50-5.40) L Hemoglobin 10.2 g/dL (12.0-15.5) L Hematocrit 31.6 % (36.0-47.0) L Mean Corpuscular Volume 99 fL (79-100) Mean Corpuscular Hemoglobin 32 pg (25-35) Mean Corpuscular Hemoglobin Concent 32 g/dL (31-37) Red Cell Distribution Width 15.2 % (11.5-14.5) H Platelet Count 368 x10^3/uL (140-400) Neutrophils (%) (Auto) 82 % (31-73) H Lymphocytes (%) (Auto) 9 % (24-48) L Monocytes (%) (Auto) 8 % (0-9) Eosinophils (%) (Auto) 0 % (0-3) Basophils (%) (Auto) 0 % (0-3) Neutrophils # (Auto) 12.4 x10^3/uL (1.8-7.7) H Lymphocytes # (Auto) 1.4 x10^3/uL (1.0-4.8) Monocytes # (Auto) 1.2 x10^3/uL (0.0-1.1) H Eosinophils # (Auto) 0.0 x10^3/uL (0.0-0.7) Basophils # (Auto) 0.1 x10^3/uL (0.0-0.2) Prothrombin Time 25.7 SEC (11.7-14.0) H Prothrombin Time INR 2.4 (0.8-1.1) H Fibrinogen 686 mg/dL (200-440) H Sodium Level 139 mmol/L (136-145) Potassium Level 4.6 mmol/L (3.5-5.1) Chloride Level 100 mmol/L (98-107) Carbon Dioxide Level 26 mmol/L (21-32) Anion Gap 13 (6-14) Blood Urea Nitrogen 36 mg/dL (7-20) H Creatinine 4.8 mg/dL (0.6-1.0) H Estimated GFR (Cockcroft-Gault) 8.8 BUN/Creatinine Ratio 8 (6-20) Glucose Level 91 mg/dL (70-99) Lactic Acid Level 2.2 mmol/L (0.4-2.0) H Calcium Level 9.7 mg/dL (8.5-10.1) Total Bilirubin 0.9 mg/dL (0.2-1.0) Aspartate Amino Transferase (AST) 31 U/L (15-37) Alanine Aminotransferase (ALT) < 6 U/L (14-59) L Alkaline Phosphatase 105 U/L (46-116) Total Protein 8.0 g/dL (6.4-8.2) Albumin 2.2 g/dL (3.4-5.0) L Albumin/Globulin Ratio 0.4 (1.0-1.7) L Procalcitonin 1.47 ng/mL (0.00-0.10) H O2 Saturation 96 % (92-99) Arterial Blood pH 7.52 (7.35-7.45) H Arterial Blood pCO2 at Patient Temp 29 mmHg (35-46) L Arterial Blood pO2 at Patient Temp 85 mmHg (65-108) Arterial Blood HCO3 23 mmol/L (21-28) Arterial Blood Base Excess 1 mmol/L (-3-3) FiO2 21 Ammonia < 10 mcmol/L (11-34) L Urine Collection Type Unknown Urine Color (Auto) [place] Urine Turbidity Turbid Urine pH (Auto) 5.5 (<5.0-8.0) Urine Specific [place] 1.025 (1.000-1.030) Urine Protein (Auto) 200 mg/dL (Negative) Urine Glucose (Auto)(UA) Negative mg/dL (Negative) Urine Ketones (Auto) Trace mg/dL (Negative) Urine Blood (Auto) Moderate (Negative) Urine Nitrite (Auto) Negative (Negative) Urine Bilirubin (Auto) Negative (Negative) Urine Urobilinogen (Auto) Normal mg/dL (Normal) Urine Leukocyte Esterase (Auto) Large (Negative) Urine RBC 1-2 /HPF (0-2) Urine WBC 5-10 /HPF (0-4) Urine Squamous Epithelial Cells Many /LPF Urine Amorphous Sediment Present /HPF Urine Bacteria Few /HPF (0-FEW) Urine Hyaline Casts Occasional /HPF Urine Mucus Slight /LPF Laboratory Tests 01/04/22 11:15 Laboratory Tests 01/04/22 11:15 Vital Signs: Vital Signs Date Time Temp Pulse Resp B/P (MAP) Pulse Ox O2 Delivery O2 Flow Rate FiO2 01/04/22 10:48 97.9 107 18 131/61 (84) 94 Room Air 97.9 EKG: EKG: [] Radiology/Procedures: Radiology/Procedures: []CT Head W/O Contrast: History: Altered mental status Comparison: November 08, 2021 Axial images were obtained without contrast. There is moderate diffuse atrophy. There is no mass effect, extraaxial fluid collections or hydrocephalus. There is no gross bleed. Marked, patchy periventricular and subcortical white matter hypoattenuation is seen. There is no focal loss of fisher-white matter distinction to suggest acute ischemia, i.e. stroke. Impression: Atrophy and chronic white matter changes. No acute findings. End of impression PQRS Compliance Statement: One or more of the following individualized dose reduction techniques were uti lized for this examination: 1. Automated exposure control 2. Adjustment of the mA and/or kV according to patient size 3. Use of iterative reconstruction technique Course & Med Decision Making: Course & Med Decision Making Pertinent Labs and Imaging studies reviewed. (See chart for details) Patient restarted on antibiotics. Discussed the case with hospitalist. Bety Disclaimer: Bety Disclaimer: This electronic medical record was generated, in whole or in part, using a voice recognition dictation system. Departure Departure Referrals: TSERING MATHIS (PCP) CHENG PROCTOR DO Jan 04, 2022 16:02
[2022-01-04 19:00] VITALS: BP 93/66
--- NOTE | 2022-01-04 19:02 | EKG ---
[facility] [address] [place] [address] Test Date: 2022-01-04 Test Time: 11:04:25 Pat Name: VICKY FOSTER Department: Room: 534 1 Gender: F Marzipan Molder: Sabine : 1945 Requested By: CHENG PROCTOR Order Number: [id number] Reading MD: Sawyer Galindo Measurements Intervals [place] Rate: 120 P: TX: QRS: -16 QRSD: 64 T: -11 QT: 310 QTc: 443 Interpretive Statements ATRIAL FIBRILLATION LEFTWARD AXIS QRS(T) CONTOUR ABNORMALITY CONSIDER INFERIOR MYOCARDIAL DAMAGE Electronically Signed On 01-04-2022 21:15:56 CDT by Sawyer Galindo
[2022-01-04] MEDS ORDERED: ACETAMINOPHEN 325 MG TABLET. PO PRN (20:00)
[2022-01-04] MEDS ORDERED: traMADol 50 MG TABLET PO PRN (20:00)
[2022-01-04] MEDS ORDERED: ONDANSETRON PF 4 MG/2 ML VIAL. IVP PRN (20:00)
[2022-01-04] MEDS: ATORVASTATIN CALCIUM 10 MG TABLET. PO SCH (21:00)
[2022-01-04] MEDS: METOPROLOL TART IMMED RELEASE 50 MG TABLET. PO SCH (21:00)
[2022-01-04] MEDS: APIXABAN 5 MG TABLET. PO SCH (21:00)
[2022-01-04] MEDS: fentaNYL PF VIAL 100 MCG/2 ML VIAL IVP PRN (21:03)
[2022-01-04] MEDS ORDERED: HEPARIN for SUB-Q USE 5,000 UNIT/ML VIAL. SQ SCH (22:00)
[2022-01-04 23:00] VITALS: BP 100/53
[2022-01-05 02:40] LABS: BASO % 0 % (0-3); EOS # 0.1 x10^3/uL (0.0-0.7); EOS % 1 % (0-3); HEMATOCRIT 25.4 % (36.0-47.0); HEMOGLOBIN 8.4 g/dL (12.0-15.5); LYMPH # 1.4 x10^3/uL (1.0-4.8); LYMPH % 11 % (24-48); MEAN CORPUSCULAR HEMOGLOBIN 33 pg (25-35); MEAN CORPUSCULAR HGB CONC 33 g/dL (31-37); MEAN CORPUSCULAR VOLUME 100 fL (79-100); MONO # 0.8 x10^3/uL (0.0-1.1); MONO % 7 % (0-9); NEUT # 9.8 x10^3/uL (1.8-7.7); NEUT % 81 % (31-73); PLATELET COUNT 262 x10^3/uL (140-400); RED BLOOD COUNT 2.55 x10^6/uL (3.50-5.40); RED CELL DISTRIBUTION WIDTH 15.5 % (11.5-14.5); WHITE BLOOD COUNT 12.1 x10^3/uL (4.0-11.0)
[2022-01-05 03:06] LABS: ALBUMIN 1.7 g/dL (3.4-5.0); ALBUMIN/GLOBULIN RATIO 0.4 (1.0-1.7); CALCIUM 9.1 mg/dL (8.5-10.1); CREATININE 5.3 mg/dL (0.6-1.0); GFR 7.8; POTASSIUM 4.1 mmol/L (3.5-5.1); TOTAL BILIRUBIN 0.6 mg/dL (0.2-1.0); TOTAL PROTEIN 6.5 g/dL (6.4-8.2)
[2022-01-05 03:22] VITALS: BP 95/44
[2022-01-05] MEDS ORDERED: VANCOMYCIN RANDOM LEVEL. MC ONE (06:00)
[2022-01-05] MEDS: MIDODRINE 2.5 MG TABLET PO SCH ×3 (06:12→17:17)
[2022-01-05] MEDS: fentaNYL PF VIAL 100 MCG/2 ML VIAL IVP PRN ×2 (06:13→23:36)
[2022-01-05 07:00] VITALS: BP 101/46
[2022-01-05] MEDS: ASPIRIN ENTERIC COATED 81 MG TABLET.DR. PO SCH (08:00)
[2022-01-05] MEDS: APIXABAN 5 MG TABLET. PO SCH ×2 (09:00→20:11)
[2022-01-05] MEDS: CITALOPRAM 20 MG TABLET. PO SCH (09:00)
[2022-01-05] MEDS: METOPROLOL TART IMMED RELEASE 50 MG TABLET. PO SCH ×2 (09:00→20:11)
--- NOTE | 2022-01-05 09:04 | PDOC ---
[employer] PROGRESS NOTE Date of Service DOS: DATE: 01/05/22 TIME: 09:03 Chief Complaint Chief Complaint Acute metabolic encephalopathy - likely sepsis related, worsening advanced dementia Sepsis, UTI, got vanc and cefepime check random vanc lab Weakness, debility - appropriately in SNF Sacral wound - wound care. Antibiotics HTN - cont home meds Atrial fibrillation - on eliquis, will continue ESRD - nephrology consulted FEN - Renal diet PPX - heparin FULL CODE - patient's unfortunately is very confused himself and goals of care were discussed with friend who is a dual DPOA, apparently Dispo inpatient History of Present Illness History of Present Illness Ms Cook is a 76yo female with PMHx dementia and new ESRD who was admitted through the ED for worsening confusion. She was recently discharged from the hospital for acute encephalopathy secondary to presumed dialysis catheter infection comes in with altered mental status from her snf. Patient is lethargic but reported to be her baseline and her previous notes. History is limited due to patient's mental status. WBC elevated at 15. Labs otherwise consistent with ESRD. UA with large leukocyte esterase EKG by my interpretation is atrial fibrillation, rate relatively tachycardic Chest radiograph with dialysis catheter positioned well. CT head with no acute findings. Admitted for further care. 01/05: Hb dropped from 10.2-8.4 overnight. No overt signs of blood loss. Patient still randomly moaning in pain more so on her right ankle. She is not allowing examination of her gluteal wound today. Encouraged to allow us to do so. Vitals/I&O Vitals/I&O: Vital Signs Date Time Temp Pulse Resp B/P (MAP) Pulse Ox O2 Delivery O2 Flow Rate FiO2 01/05/22 07:34 18 96 Room Air 01/05/22 07:00 97.9 51 101/46 (64) 97.9 I & O 01/04/22 01/04/22 01/05/22 15:00 23:00 07:00 Intake Total 1500 ml 0 ml Balance 1500 ml 0 ml Physical Exam General: Alert, Cooperative, moderate distress Lungs: Clear Abdomen: Normal bowel sounds, Soft, No tenderness, No hepatosplenomegaly, No masses Extremities: Normal pulses Skin: Other (Gluteal ulcer) Labs Labs: Laboratory Tests Test 01/04/22 11:15 01/04/22 12:20 01/04/22 12:30 01/04/22 12:43 White Blood Count 15.0 x10^3/uL (4.0-11.0) Red Blood Count 3.18 x10^6/uL (3.50-5.40) Hemoglobin 10.2 g/dL (12.0-15.5) Hematocrit 31.6 % (36.0-47.0) Mean Corpuscular Volume 99 fL (79-100) Mean Corpuscular Hemoglobin 32 pg (25-35) Mean Corpuscular Hemoglobin Concent 32 g/dL (31-37) Red Cell Distribution Width 15.2 % (11.5-14.5) Platelet Count 368 x10^3/uL (140-400) Neutrophils (%) (Auto) 82 % (31-73) Lymphocytes (%) (Auto) 9 % (24-48) Monocytes (%) (Auto) 8 % (0-9) Eosinophils (%) (Auto) 0 % (0-3) Basophils (%) (Auto) 0 % (0-3) Neutrophils # (Auto) 12.4 x10^3/uL (1.8-7.7) Lymphocytes # (Auto) 1.4 x10^3/uL (1.0-4.8) Monocytes # (Auto) 1.2 x10^3/uL (0.0-1.1) Eosinophils # (Auto) 0.0 x10^3/uL (0.0-0.7) Basophils # (Auto) 0.1 x10^3/uL (0.0-0.2) Prothrombin Time 25.7 SEC (11.7-14.0) Prothromb Time International Ratio 2.4 (0.8-1.1) Fibrinogen 686 mg/dL (200-440) Sodium Level 139 mmol/L (136-145) Potassium Level 4.6 mmol/L (3.5-5.1) Chloride Level 100 mmol/L (98-107) Carbon Dioxide Level 26 mmol/L (21-32) Anion Gap 13 (6-14) Blood Urea Nitrogen 36 mg/dL (7-20) Creatinine 4.8 mg/dL (0.6-1.0) Estimated GFR (Cockcroft-Gault) 8.8 BUN/Creatinine Ratio 8 (6-20) Glucose Level 91 mg/dL (70-99) Lactic Acid Level 2.2 mmol/L (0.4-2.0) Calcium Level 9.7 mg/dL (8.5-10.1) Total Bilirubin 0.9 mg/dL (0.2-1.0) Aspartate Amino Transf (AST/SGOT) 31 U/L (15-37) Alanine Aminotransferase (ALT/SGPT) < 6 U/L (14-59) Alkaline Phosphatase 105 U/L (46-116) Total Protein 8.0 g/dL (6.4-8.2) Albumin 2.2 g/dL (3.4-5.0) Albumin/Globulin Ratio 0.4 (1.0-1.7) Procalcitonin 1.47 ng/mL (0.00-0.10) O2 Saturation 96 % (92-99) Arterial Blood pH 7.52 (7.35-7.45) Arterial Blood pCO2 at Patient Temp 29 mmHg (35-46) Arterial Blood pO2 at Patient Temp 85 mmHg (65-108) Arterial Blood HCO3 23 mmol/L (21-28) Arterial Blood Base Excess 1 mmol/L (-3-3) FiO2 21 Ammonia < 10 mcmol/L (11-34) Urine Collection Type Unknown Urine Color (Auto) [place] Urine Turbidity Turbid Urine pH (Auto) 5.5 (<5.0-8.0) Urine Specific [place] 1.025 (1.000-1.030) Urine Protein (Auto) 200 mg/dL (Negative) Urine Glucose (Auto)(UA) Negative mg/dL (Negative) Urine Ketones (Auto) Trace mg/dL (Negative) Urine Blood (Auto) Moderate (Negative) Urine Nitrite (Auto) Negative (Negative) Urine Bilirubin (Auto) Negative (Negative) Urine Urobilinogen (Auto) Normal mg/dL (Normal) Urine Leukocyte Esterase (Auto) Large (Negative) Urine RBC 1-2 /HPF (0-2) Urine WBC 5-10 /HPF (0-4) Urine Squamous Epithelial Cells Many /LPF Urine Amorphous Sediment Present /HPF Urine Bacteria Few /HPF (0-FEW) Urine Hyaline Casts Occasional /HPF Urine Mucus Slight /LPF Test 01/05/22 01:55 White Blood Count 12.1 x10^3/uL (4.0-11.0) Red Blood Count 2.55 x10^6/uL (3.50-5.40) Hemoglobin 8.4 g/dL (12.0-15.5) Hematocrit 25.4 % (36.0-47.0) Mean Corpuscular Volume 100 fL (79-100) Mean Corpuscular Hemoglobin 33 pg (25-35) Mean Corpuscular Hemoglobin Concent 33 g/dL (31-37) Red Cell Distribution Width 15.5 % (11.5-14.5) Platelet Count 262 x10^3/uL (140-400) Neutrophils (%) (Auto) 81 % (31-73) Lymphocytes (%) (Auto) 11 % (24-48) Monocytes (%) (Auto) 7 % (0-9) Eosinophils (%) (Auto) 1 % (0-3) Basophils (%) (Auto) 0 % (0-3) Neutrophils # (Auto) 9.8 x10^3/uL (1.8-7.7) Lymphocytes # (Auto) 1.4 x10^3/uL (1.0-4.8) Monocytes # (Auto) 0.8 x10^3/uL (0.0-1.1) Eosinophils # (Auto) 0.1 x10^3/uL (0.0-0.7) Basophils # (Auto) 0.0 x10^3/uL (0.0-0.2) Sodium Level 141 mmol/L (136-145) Potassium Level 4.1 mmol/L (3.5-5.1) Chloride Level 105 mmol/L (98-107) Carbon Dioxide Level 25 mmol/L (21-32) Anion Gap 11 (6-14) Blood Urea Nitrogen 46 mg/dL (7-20) Creatinine 5.3 mg/dL (0.6-1.0) Estimated GFR (Cockcroft-Gault) 7.8 BUN/Creatinine Ratio 9 (6-20) Glucose Level 86 mg/dL (70-99) Lactic Acid Level 0.9 mmol/L (0.4-2.0) Calcium Level 9.1 mg/dL (8.5-10.1) Total Bilirubin 0.6 mg/dL (0.2-1.0) Aspartate Amino Transf (AST/SGOT) 22 U/L (15-37) Alanine Aminotransferase (ALT/SGPT) 7 U/L (14-59) Alkaline Phosphatase 79 U/L (46-116) Total Protein 6.5 g/dL (6.4-8.2) Albumin 1.7 g/dL (3.4-5.0) Albumin/Globulin Ratio 0.4 (1.0-1.7) Assessment and Plan Assessmemt and Plan Problems Medical Problems: (1) Acute encephalopathy Status: Acute (2) Paroxysmal A-fib Status: Acute (3) UTI (urinary tract infection) Status: Acute Comment Review of Relevant I have reviewed the following items mariaa (where applicable) has been applied. Medications: Current Medications Medications (Trade) Dose Ordered Sig/Cailin Route PRN Reason Start Time Stop Time Status Last Admin Dose Admin Cefepime HCl (Maxipime) 2 gm 1X ONCE IVP 01/04/22 13:45 01/04/22 13:46 DC 01/04/22 14:07 Vancomycin HCl 1.5 gm/Sodium Chloride 500 ml @ 250 mls/hr 1X ONCE IV 01/04/22 14:00 01/04/22 15:59 DC 01/04/22 14:08 Sodium Chloride 1,000 ml @ 1,000 mls/hr 1X ONCE IV 01/04/22 15:15 01/04/22 16:14 DC 01/04/22 15:15 Olanzapine (ZyPREXA ZYDIS) 5 mg PRN BID PRN PO ANXIETY / AGITATION 01/04/22 20:00 01/04/22 21:00 Fentanyl Citrate (Fentanyl 2ml Vial) 25 mcg PRN Q3HRS PRN IVP SEVERE PAIN 7-10 01/04/22 20:00 01/05/22 06:13 Apixaban (Eliquis) 5 mg BID PO 01/04/22 21:00 01/04/22 21:00 Atorvastatin Calcium (Lipitor) 10 mg HS PO 01/04/22 21:00 01/04/22 21:00 Midodrine (Proamatine) 2.5 mg [id number] PO 01/05/22 07:00 01/05/22 06:12 Justifications for Admission Other Justification AMANDA VELAZCO MD Jan 05, 2022 09:04
[2022-01-05 10:22] VITALS: BP 97/52
--- NOTE | 2022-01-05 10:31 | RAD ---
XR EXAM OF ANKLE_RIGHT 2 VIEWS dated 01/05/2022 9:54 AM. History: Reason: Pain, unable to bear weight. Concern for occult fracture. / Spl. Instructions: / Hi story: Comparison: None. Findings: There is some osteopenia. No fracture or dislocation is seen. There is no apparent destructive proces s. There were mild degenerative changes at the tibiotalar joint. Impression: 1. No apparent acute abnormality. Electronically signed by: Cain Gerber Jr., MD (01/05/2022 10:29 AM) [id number]
[2022-01-05 15:00] VITALS: BP 114/54
[2022-01-05] MEDS ORDERED: ceFAZolin SODIUM IV Push 1 GM VIAL. IVP SCH (15:00)
--- NOTE | 2022-01-05 15:02 | PDOC2 ---
NEUROLOGY CONSULT Date of Service DOS: DATE: 01/05/22 TIME: 14:51 Reason for Consult Reason for Consult: Altered mental status Referring Physician Referring Physician: Dr. Miller Source Source: Chart review History of Present Illness History of Present Illness The patient is a 76-year-old female with history of dementia. This neurologist has never seen this patient. She was here 12/24-01/03 with encephalopathy due to dialysis catheter infection with MSSA bacteremia. She also had fever, leukocytosis, hypertension, and congestive heart failure. At the detention she had hypotension, lethargy, has been found here to have leukocytosis, continued renal failure, and pyuria. There is no given history of stroke, seizure, or head injury. Past Medical History Cardiovascular: AFIB (On apixaban), CAD, CHF CENTRAL NERVOUS SYSTEM: Dementia Psych: Anxiety, Depression Musculoskeletal: Osteoarthritis Renal/: Chronic renal failure Family History Family History: No pertinent hx (Unobtainable) Social History Social History [facility] resident Current Medications Current Medications Current Medications Cefepime HCl (Maxipime) 2 gm 1X ONCE IVP Last administered on 01/04/22at 14:07; Start 01/04/22 at 13:45; Stop 01/04/22 at 13:46; Status DC Vancomycin HCl (Vanco Per Pharmacy) 1 each 1X ONCE MC ; Start 01/04/22 at 13:45; Stop 01/04/22 at 13:46; Status DC Vancomycin HCl 1.5 gm/Sodium Chloride 500 ml @ 250 mls/hr 1X ONCE IV Last administered on 01/04/22at 14:08; Start 01/04/22 at 14:00; Stop 01/04/22 at 15:59; Status DC Sodium Chloride 1,000 ml @ 1,000 mls/hr 1X ONCE IV Last administered on 01/04/22at 15:15; Start 01/04/22 at 15:15; Stop 01/04/22 at 16:14; Status DC Acetaminophen (Tylenol) 650 mg PRN Q6HRS PRN PO MILD PAIN / TEMP > 100.3'F; Start 01/04/22 at 20:00 Olanzapine (ZyPREXA ZYDIS) 5 mg PRN BID PRN PO ANXIETY / AGITATION Last administered on 01/04/22at 21:00; Start 01/04/22 at 20:00 Ondansetron HCl (Zofran) 4 mg PRN Q4HRS PRN IVP NAUSEA/VOMITING; Start 01/04/22 at 20:00 Tramadol HCl (Ultram) 50 mg PRN Q6HRS PRN PO MODERATE PAIN; Start 01/04/22 at 20:00 Fentanyl Citrate (Fentanyl 2ml Vial) 25 mcg PRN Q3HRS PRN IVP SEVERE PAIN 7-10 Last administered on 01/05/22at 06:13; Start 01/04/22 at 20:00 Heparin Sodium (Porcine) (Heparin Sodium) 5,000 unit Q8HRS SQ ; Start 01/04/22 at 22:00; Status UNV Apixaban (Eliquis) 5 mg BID PO Last administered on 01/04/22at 21:00; Start 01/04/22 at 21:00 Aspirin (Ecotrin) 81 mg DAILYWBKFT PO ; Start 01/05/22 at 08:00 Atorvastatin Calcium (Lipitor) 10 mg HS PO Last administered on 01/04/22at 21:00; Start 01/04/22 at 21:00 Citalopram Hydrobromide (CeleXA) 20 mg DAILY PO ; Start 01/05/22 at 09:00 Metoprolol Tartrate (Lopressor) 50 mg BID PO ; Start 01/04/22 at 21:00 Midodrine (Proamatine) 2.5 mg PRN997 PO Last administered on 01/05/22at 06:12; Start 01/05/22 at 07:00 Vancomycin HCl (Vancomycin Random Level) 1 each 1X ONCE MC ; Start 01/05/22 at 06:00; Stop 01/05/22 at 06:01; Status Cancel Cefazolin Sodium (Ancef) 1 gm Q12HR IVP ; Start 01/05/22 at 15:00 Lactobacillus Rhamnosus (Culturelle) 1 cap BID PO ; Start 01/05/22 at 21:00 Active Scripts Active Aspirin Ec (Aspirin) 81 Mg Tablet.dr 81 Mg PO DAILYWBKFT 30 Days Celexa (Citalopram Hydrobromide) 20 Mg Tablet 20 Mg PO DAILY 30 Days Eliquis (Apixaban) 5 Mg Tablet 5 Mg PO BID 30 Days Metoprolol Tartrate 50 Mg Tablet 50 Mg PO BID 30 Days Midodrine Hcl 2.5 Mg Tablet 2.5 Mg PO [id number] 30 Days Stool Softener-Stimulant Lax (Sennosides/Docusate Sodium) 1 Each Tablet 1 Tab PO BID 30 Days Reported Osteo Bi-Flex Tablet (Glucosamine/D3/Boswellia Nancy) 1 Each Tablet 1 Each PO DAILY Irbesartan 300 Mg Tablet 300 Mg PO DAILY Benadryl (Diphenhydramine Hcl) 25 Mg Capsule 1 Cap PO QHS 30 Days Nystatin 15 Gm Powder 1 Bryan TP BID 7 Days apply to affected area(s) Culturelle (Lactobacillus Rhamnosus Gg) 1 Each Capsule 1 Cap PO BID 30 Days Zetia (Ezetimibe) 10 Mg Tablet 10 Mg PO DAILY Vitamin D3 (Cholecalciferol (Vitamin D3)) 50 Mcg Tablet 50 Mcg PO DAILY Atorvastatin Calcium 10 Mg Tablet 10 Mg PO HS Acetaminophen 500 Mg Tablet 500 Mg PO PRN TID PRN Allergies Allergies: Coded Allergies: No Known Drug Allergies (Unverified , 10/24/21) ROS Review of System Unobtainable Physical Exam Physical Examination General: Well-developed, well-nourished white female in no acute distress HEENT: Normocephalic andatraumatic. Temporal arteriespulsatile and nontender. Neck: Supple without bruit, no meningismus Musculoskeletal: Stability:see neurologic. Gait exam:see neurologic. Tone:see neurologic.Strength:see neurologic. Neurological: Mental Status:orientation, memory, attention span/concentration, language, fund of knowledge: Arouses to voice, does not follow commands, nonverbal. Cranial Nerves:Pupils equal and reactive to light, extraocular movements areintact, visual hodgson are full to threat. Facial sensation is normal. There is no facial asymmetry. All other cranial related problems are negative except as mentioned before.Reflexes:1+ and symmetric with flexor plantar responses. There are bilateral grasp reflexes. Motor:Moves all extremities. Coordination and gait:Not cooperative. Sensory:Responds to pinprick in all 4 extremities Vitals VITALS Vital Signs Date Time Temp Pulse Resp B/P (MAP) Pulse Ox O2 Delivery O2 Flow Rate FiO2 01/05/22 10:22 98.4 94 18 97/52 (67) 97 Room Air 98.4 Labs Labs Laboratory Tests Test 01/04/22 11:15 01/04/22 12:20 01/04/22 12:30 01/04/22 12:43 White Blood Count 15.0 x10^3/uL (4.0-11.0) Red Blood Count 3.18 x10^6/uL (3.50-5.40) Hemoglobin 10.2 g/dL (12.0-15.5) Hematocrit 31.6 % (36.0-47.0) Mean Corpuscular Volume 99 fL (79-100) Mean Corpuscular Hemoglobin 32 pg (25-35) Mean Corpuscular Hemoglobin Concent 32 g/dL (31-37) Red Cell Distribution Width 15.2 % (11.5-14.5) Platelet Count 368 x10^3/uL (140-400) Neutrophils (%) (Auto) 82 % (31-73) Lymphocytes (%) (Auto) 9 % (24-48) Monocytes (%) (Auto) 8 % (0-9) Eosinophils (%) (Auto) 0 % (0-3) Basophils (%) (Auto) 0 % (0-3) Neutrophils # (Auto) 12.4 x10^3/uL (1.8-7.7) Lymphocytes # (Auto) 1.4 x10^3/uL (1.0-4.8) Monocytes # (Auto) 1.2 x10^3/uL (0.0-1.1) Eosinophils # (Auto) 0.0 x10^3/uL (0.0-0.7) Basophils # (Auto) 0.1 x10^3/uL (0.0-0.2) Prothrombin Time 25.7 SEC (11.7-14.0) Prothromb Time International Ratio 2.4 (0.8-1.1) Fibrinogen 686 mg/dL (200-440) Sodium Level 139 mmol/L (136-145) Potassium Level 4.6 mmol/L (3.5-5.1) Chloride Level 100 mmol/L (98-107) Carbon Dioxide Level 26 mmol/L (21-32) Anion Gap 13 (6-14) Blood Urea Nitrogen 36 mg/dL (7-20) Creatinine 4.8 mg/dL (0.6-1.0) Estimated GFR (Cockcroft-Gault) 8.8 BUN/Creatinine Ratio 8 (6-20) Glucose Level 91 mg/dL (70-99) Lactic Acid Level 2.2 mmol/L (0.4-2.0) Calcium Level 9.7 mg/dL (8.5-10.1) Total Bilirubin 0.9 mg/dL (0.2-1.0) Aspartate Amino Transf (AST/SGOT) 31 U/L (15-37) Alanine Aminotransferase (ALT/SGPT) < 6 U/L (14-59) Alkaline Phosphatase 105 U/L (46-116) Total Protein 8.0 g/dL (6.4-8.2) Albumin 2.2 g/dL (3.4-5.0) Albumin/Globulin Ratio 0.4 (1.0-1.7) Procalcitonin 1.47 ng/mL (0.00-0.10) O2 Saturation 96 % (92-99) Arterial Blood pH 7.52 (7.35-7.45) Arterial Blood pCO2 at Patient Temp 29 mmHg (35-46) Arterial Blood pO2 at Patient Temp 85 mmHg (65-108) Arterial Blood HCO3 23 mmol/L (21-28) Arterial Blood Base Excess 1 mmol/L (-3-3) FiO2 21 Ammonia < 10 mcmol/L (11-34) Urine Collection Type Unknown Urine Color (Auto) [place] Urine Turbidity Turbid Urine pH (Auto) 5.5 (<5.0-8.0) Urine Specific [place] 1.025 (1.000-1.030) Urine Protein (Auto) 200 mg/dL (Negative) Urine Glucose (Auto)(UA) Negative mg/dL (Negative) Urine Ketones (Auto) Trace mg/dL (Negative) Urine Blood (Auto) Moderate (Negative) Urine Nitrite (Auto) Negative (Negative) Urine Bilirubin (Auto) Negative (Negative) Urine Urobilinogen (Auto) Normal mg/dL (Normal) Urine Leukocyte Esterase (Auto) Large (Negative) Urine RBC 1-2 /HPF (0-2) Urine WBC 5-10 /HPF (0-4) Urine Squamous Epithelial Cells Many /LPF Urine Amorphous Sediment Present /HPF Urine Bacteria Few /HPF (0-FEW) Urine Hyaline Casts Occasional /HPF Urine Mucus Slight /LPF Test 01/05/22 01:55 White Blood Count 12.1 x10^3/uL (4.0-11.0) Red Blood Count 2.55 x10^6/uL (3.50-5.40) Hemoglobin 8.4 g/dL (12.0-15.5) Hematocrit 25.4 % (36.0-47.0) Mean Corpuscular Volume 100 fL (79-100) Mean Corpuscular Hemoglobin 33 pg (25-35) Mean Corpuscular Hemoglobin Concent 33 g/dL (31-37) Red Cell Distribution Width 15.5 % (11.5-14.5) Platelet Count 262 x10^3/uL (140-400) Neutrophils (%) (Auto) 81 % (31-73) Lymphocytes (%) (Auto) 11 % (24-48) Monocytes (%) (Auto) 7 % (0-9) Eosinophils (%) (Auto) 1 % (0-3) Basophils (%) (Auto) 0 % (0-3) Neutrophils # (Auto) 9.8 x10^3/uL (1.8-7.7) Lymphocytes # (Auto) 1.4 x10^3/uL (1.0-4.8) Monocytes # (Auto) 0.8 x10^3/uL (0.0-1.1) Eosinophils # (Auto) 0.1 x10^3/uL (0.0-0.7) Basophils # (Auto) 0.0 x10^3/uL (0.0-0.2) Sodium Level 141 mmol/L (136-145) Potassium Level 4.1 mmol/L (3.5-5.1) Chloride Level 105 mmol/L (98-107) Carbon Dioxide Level 25 mmol/L (21-32) Anion Gap 11 (6-14) Blood Urea Nitrogen 46 mg/dL (7-20) Creatinine 5.3 mg/dL (0.6-1.0) Estimated GFR (Cockcroft-Gault) 7.8 BUN/Creatinine Ratio 9 (6-20) Glucose Level 86 mg/dL (70-99) Lactic Acid Level 0.9 mmol/L (0.4-2.0) Calcium Level 9.1 mg/dL (8.5-10.1) Total Bilirubin 0.6 mg/dL (0.2-1.0) Aspartate Amino Transf (AST/SGOT) 22 U/L (15-37) Alanine Aminotransferase (ALT/SGPT) 7 U/L (14-59) Alkaline Phosphatase 79 U/L (46-116) Total Protein 6.5 g/dL (6.4-8.2) Albumin 1.7 g/dL (3.4-5.0) Albumin/Globulin Ratio 0.4 (1.0-1.7) Laboratory Tests Test 01/05/22 01:55 White Blood Count 12.1 x10^3/uL (4.0-11.0) Red Blood Count 2.55 x10^6/uL (3.50-5.40) Hemoglobin 8.4 g/dL (12.0-15.5) Hematocrit 25.4 % (36.0-47.0) Mean Corpuscular Volume 100 fL (79-100) Mean Corpuscular Hemoglobin 33 pg (25-35) Mean Corpuscular Hemoglobin Concent 33 g/dL (31-37) Red Cell Distribution Width 15.5 % (11.5-14.5) Platelet Count 262 x10^3/uL (140-400) Neutrophils (%) (Auto) 81 % (31-73) Lymphocytes (%) (Auto) 11 % (24-48) Monocytes (%) (Auto) 7 % (0-9) Eosinophils (%) (Auto) 1 % (0-3) Basophils (%) (Auto) 0 % (0-3) Neutrophils # (Auto) 9.8 x10^3/uL (1.8-7.7) Lymphocytes # (Auto) 1.4 x10^3/uL (1.0-4.8) Monocytes # (Auto) 0.8 x10^3/uL (0.0-1.1) Eosinophils # (Auto) 0.1 x10^3/uL (0.0-0.7) Basophils # (Auto) 0.0 x10^3/uL (0.0-0.2) Sodium Level 141 mmol/L (136-145) Potassium Level 4.1 mmol/L (3.5-5.1) Chloride Level 105 mmol/L (98-107) Carbon Dioxide Level 25 mmol/L (21-32) Anion Gap 11 (6-14) Blood Urea Nitrogen 46 mg/dL (7-20) Creatinine 5.3 mg/dL (0.6-1.0) Estimated GFR (Cockcroft-Gault) 7.8 BUN/Creatinine Ratio 9 (6-20) Glucose Level 86 mg/dL (70-99) Lactic Acid Level 0.9 mmol/L (0.4-2.0) Calcium Level 9.1 mg/dL (8.5-10.1) Total Bilirubin 0.6 mg/dL (0.2-1.0) Aspartate Amino Transf (AST/SGOT) 22 U/L (15-37) Alanine Aminotransferase (ALT/SGPT) 7 U/L (14-59) Alkaline Phosphatase 79 U/L (46-116) Total Protein 6.5 g/dL (6.4-8.2) Albumin 1.7 g/dL (3.4-5.0) Albumin/Globulin Ratio 0.4 (1.0-1.7) Images Images CT Head W/O Contrast: History: Altered mental status Comparison: November 08, 2021 Axial images were obtained without contrast. There is moderate diffuse atrophy. There is no mass effect, extraaxial fluid collections or hydrocephalus. There is no gross bleed. Marked, patchy periventricular and subcortical white matter hypoattenuation is seen. There is no focal loss of fisher-white matter distinction to suggest acute ischemia, i.e. stroke. Impression: Atrophy and chronic white matter changes. No acute findings. Assessment/Plan Assessment/Plan Impression: Metabolic encephalopathy with sepsis, urinary tract infection, sacral wound, hypertension, atrial fibrillation, congestive heart failure, end-stage renal disease on dialysis. This is in the setting of chronic dementia. It appears she has been in and out of nursing homes. According to Dr. Miller's note, husb and is also confused. I find no evidence of any acute primary neurological issue that would require electroencephalogram or lumbar puncture. Recommendations: Treatment of medical issues No need for additional neurological studies at this time. Thank you for letting me help with the patient's care BRAYAN MOLINA MD Jan 05, 2022 15:01
[2022-01-05 19:00] VITALS: BP 124/47
[2022-01-05] MEDS: LACTOBACILLUS RHAMNOSUS GG 1 CAPSULE. PO SCH (20:10)
[2022-01-05] MEDS: ATORVASTATIN CALCIUM 10 MG TABLET. PO SCH (20:11)
[2022-01-05 23:00] VITALS: BP 114/61
[2022-01-06 03:00] VITALS: BP 99/46
[2022-01-06] MEDS: MIDODRINE 2.5 MG TABLET PO SCH ×3 (06:21→18:00)
[2022-01-06 07:00] VITALS: BP 124/73
[2022-01-06] MEDS: ASPIRIN ENTERIC COATED 81 MG TABLET.DR. PO SCH (08:00)
--- NOTE | 2022-01-06 08:53 | PDOC ---
PROGRESS NOTES Date of Service DATE: 01/06/22 TIME: 08:51 Assessment Problems Medical Problems: (1) Acute encephalopathy Status: Acute (2) Paroxysmal A-fib Status: Acute (3) UTI (urinary tract infection) Status: Acute Metabolic encephalopathy with sepsis, urinary tract infection, sacral wound, hypertension, atrial fibrillation, congestive heart failure, end-stage renal disease on dialysis. This is in the setting of chronic dementia. It appears she has been in and out of nursing homes. According to Dr. Miller's note, is also confused. Plan Treatment of medical issues No need for additional neurological studies at this time. Subjective None Objective Vital Signs Date Time Temp Pulse Resp B/P (MAP) Pulse Ox O2 Delivery O2 Flow Rate FiO2 01/06/22 07:00 98.3 107 20 124/73 (90) 95 Room Air 98.3 Intake and Output 01/06/22 07:00 Intake Total 0 ml Balance 0 ml Intake Oral 0 ml # Bowel Movements 1 PHYSICAL EXAM Alert. Does say the word "yes," when I call out her name, otherwise nonverbal, does not follow commands PERRL. EOMI. CN: no focal findings. Muscle tone: normal. Muscle strength: Moves all extremities DTR: 1+ Plantar reflex: Flexor Bilateral grasp reflexes Gait: not examined in bed. Sensory exam: no abnormal findings. No cerebellar signs elicited. Review of Relevant I have reviewed the following items mariaa (where applicable) has been applied. Labs Laboratory Tests Test 01/04/22 11:15 01/04/22 12:20 01/04/22 12:30 01/04/22 12:43 White Blood Count 15.0 x10^3/uL (4.0-11.0) Red Blood Count 3.18 x10^6/uL (3.50-5.40) Hemoglobin 10.2 g/dL (12.0-15.5) Hematocrit 31.6 % (36.0-47.0) Mean Corpuscular Volume 99 fL (79-100) Mean Corpuscular Hemoglobin 32 pg (25-35) Mean Corpuscular Hemoglobin Concent 32 g/dL (31-37) Red Cell Distribution Width 15.2 % (11.5-14.5) Platelet Count 368 x10^3/uL (140-400) Neutrophils (%) (Auto) 82 % (31-73) Lymphocytes (%) (Auto) 9 % (24-48) Monocytes (%) (Auto) 8 % (0-9) Eosinophils (%) (Auto) 0 % (0-3) Basophils (%) (Auto) 0 % (0-3) Neutrophils # (Auto) 12.4 x10^3/uL (1.8-7.7) Lymphocytes # (Auto) 1.4 x10^3/uL (1.0-4.8) Monocytes # (Auto) 1.2 x10^3/uL (0.0-1.1) Eosinophils # (Auto) 0.0 x10^3/uL (0.0-0.7) Basophils # (Auto) 0.1 x10^3/uL (0.0-0.2) Prothrombin Time 25.7 SEC (11.7-14.0) Prothromb Time International Ratio 2.4 (0.8-1.1) Fibrinogen 686 mg/dL (200-440) Sodium Level 139 mmol/L (136-145) Potassium Level 4.6 mmol/L (3.5-5.1) Chloride Level 100 mmol/L (98-107) Carbon Dioxide Level 26 mmol/L (21-32) Anion Gap 13 (6-14) Blood Urea Nitrogen 36 mg/dL (7-20) Creatinine 4.8 mg/dL (0.6-1.0) Estimated GFR (Cockcroft-Gault) 8.8 BUN/Creatinine Ratio 8 (6-20) Glucose Level 91 mg/dL (70-99) Lactic Acid Level 2.2 mmol/L (0.4-2.0) Calcium Level 9.7 mg/dL (8.5-10.1) Total Bilirubin 0.9 mg/dL (0.2-1.0) Aspartate Amino Transf (AST/SGOT) 31 U/L (15-37) Alanine Aminotransferase (ALT/SGPT) < 6 U/L (14-59) Alkaline Phosphatase 105 U/L (46-116) Total Protein 8.0 g/dL (6.4-8.2) Albumin 2.2 g/dL (3.4-5.0) Albumin/Globulin Ratio 0.4 (1.0-1.7) Procalcitonin 1.47 ng/mL (0.00-0.10) O2 Saturation 96 % (92-99) Arterial Blood pH 7.52 (7.35-7.45) Arterial Blood pCO2 at Patient Temp 29 mmHg (35-46) Arterial Blood pO2 at Patient Temp 85 mmHg (65-108) Arterial Blood HCO3 23 mmol/L (21-28) Arterial Blood Base Excess 1 mmol/L (-3-3) FiO2 21 Ammonia < 10 mcmol/L (11-34) Urine Collection Type Unknown Urine Color (Auto) [place] Urine Turbidity Turbid Urine pH (Auto) 5.5 (<5.0-8.0) Urine Specific [place] 1.025 (1.000-1.030) Urine Protein (Auto) 200 mg/dL (Negative) Urine Glucose (Auto)(UA) Negative mg/dL (Negative) Urine Ketones (Auto) Trace mg/dL (Negative) Urine Blood (Auto) Moderate (Negative) Urine Nitrite (Auto) Negative (Negative) Urine Bilirubin (Auto) Negative (Negative) Urine Urobilinogen (Auto) Normal mg/dL (Normal) Urine Leukocyte Esterase (Auto) Large (Negative) Urine RBC 1-2 /HPF (0-2) Urine WBC 5-10 /HPF (0-4) Urine Squamous Epithelial Cells Many /LPF Urine Amorphous Sediment Present /HPF Urine Bacteria Few /HPF (0-FEW) Urine Hyaline Casts Occasional /HPF Urine Mucus Slight /LPF Test 01/05/22 01:55 White Blood Count 12.1 x10^3/uL (4.0-11.0) Red Blood Count 2.55 x10^6/uL (3.50-5.40) Hemoglobin 8.4 g/dL (12.0-15.5) Hematocrit 25.4 % (36.0-47.0) Mean Corpuscular Volume 100 fL (79-100) Mean Corpuscular Hemoglobin 33 pg (25-35) Mean Corpuscular Hemoglobin Concent 33 g/dL (31-37) Red Cell Distribution Width 15.5 % (11.5-14.5) Platelet Count 262 x10^3/uL (140-400) Neutrophils (%) (Auto) 81 % (31-73) Lymphocytes (%) (Auto) 11 % (24-48) Monocytes (%) (Auto) 7 % (0-9) Eosinophils (%) (Auto) 1 % (0-3) Basophils (%) (Auto) 0 % (0-3) Neutrophils # (Auto) 9.8 x10^3/uL (1.8-7.7) Lymphocytes # (Auto) 1.4 x10^3/uL (1.0-4.8) Monocytes # (Auto) 0.8 x10^3/uL (0.0-1.1) Eosinophils # (Auto) 0.1 x10^3/uL (0.0-0.7) Basophils # (Auto) 0.0 x10^3/uL (0.0-0.2) Sodium Level 141 mmol/L (136-145) Potassium Level 4.1 mmol/L (3.5-5.1) Chloride Level 105 mmol/L (98-107) Carbon Dioxide Level 25 mmol/L (21-32) Anion Gap 11 (6-14) Blood Urea Nitrogen 46 mg/dL (7-20) Creatinine 5.3 mg/dL (0.6-1.0) Estimated GFR (Cockcroft-Gault) 7.8 BUN/Creatinine Ratio 9 (6-20) Glucose Level 86 mg/dL (70-99) Lactic Acid Level 0.9 mmol/L (0.4-2.0) Calcium Level 9.1 mg/dL (8.5-10.1) Total Bilirubin 0.6 mg/dL (0.2-1.0) Aspartate Amino Transf (AST/SGOT) 22 U/L (15-37) Alanine Aminotransferase (ALT/SGPT) 7 U/L (14-59) Alkaline Phosphatase 79 U/L (46-116) Total Protein 6.5 g/dL (6.4-8.2) Albumin 1.7 g/dL (3.4-5.0) Albumin/Globulin Ratio 0.4 (1.0-1.7) Microbiology 01/04/22 Blood Culture - Preliminary, Resulted NO GROWTH AFTER 1 DAY Medications Current Medications Cefepime HCl (Maxipime) 2 gm 1X ONCE IVP Last administered on 01/04/22at 14:07; Start 01/04/22 at 13:45; Stop 01/04/22 at 13:46; Status DC Vancomycin HCl (Vanco Per Pharmacy) 1 each 1X ONCE MC ; Start 01/04/22 at 13:45; Stop 01/04/22 at 13:46; Status DC Vancomycin HCl 1.5 gm/Sodium Chloride 500 ml @ 250 mls/hr 1X ONCE IV Last administered on 01/04/22at 14:08; Start 01/04/22 at 14:00; Stop 01/04/22 at 15:59; Status DC Sodium Chloride 1,000 ml @ 1,000 mls/hr 1X ONCE IV Last administered on 01/04/22at 15:15; Start 01/04/22 at 15:15; Stop 01/04/22 at 16:14; Status DC Acetaminophen (Tylenol) 650 mg PRN Q6HRS PRN PO MILD PAIN / TEMP > 100.3'F; Start 01/04/22 at 20:00 Olanzapine (ZyPREXA ZYDIS) 5 mg PRN BID PRN PO ANXIETY / AGITATION Last administered on 01/06/22at 06:21; Start 01/04/22 at 20:00 Ondansetron HCl (Zofran) 4 mg PRN Q4HRS PRN IVP NAUSEA/VOMITING; Start 01/04/22 at 20:00 Tramadol HCl (Ultram) 50 mg PRN Q6HRS PRN PO MODERATE PAIN; Start 01/04/22 at 20:00 Fentanyl Citrate (Fentanyl 2ml Vial) 25 mcg PRN Q3HRS PRN IVP SEVERE PAIN 7-10 Last administered on 01/05/22at 23:36; Start 01/04/22 at 20:00 Heparin Sodium (Porcine) (Heparin Sodium) 5,000 unit Q8HRS SQ ; Start 01/04/22 at 22:00; Status UNV Apixaban (Eliquis) 5 mg BID PO Last administered on 01/04/22at 21:00; Start 01/04/22 at 21:00 Aspirin (Ecotrin) 81 mg DAILYWBKFT PO ; Start 01/05/22 at 08:00 Atorvastatin Calcium (Lipitor) 10 mg HS PO Last administered on 01/04/22at 21:00; Start 01/04/22 at 21:00 Citalopram Hydrobromide (CeleXA) 20 mg DAILY PO ; Start 01/05/22 at 09:00 Metoprolol Tartrate (Lopressor) 50 mg BID PO ; Start 01/04/22 at 21:00 Midodrine (Proamatine) 2.5 mg [id number] PO Last administered on 01/06/22at 06:21; Start 01/05/22 at 07:00 Vancomycin HCl (Vancomycin Random Level) 1 each 1X ONCE MC ; Start 01/05/22 at 06:00; Stop 01/05/22 at 06:01; Status Cancel Cefazolin Sodium (Ancef) 1 gm Q12HR IVP Last administered on 01/05/22at 17:17; Start 01/05/22 at 15:00; Stop 01/05/22 at 19:59; Status DC Lactobacillus Rhamnosus (Culturelle) 1 cap BID PO ; Start 01/05/22 at 21:00 Cefazolin Sodium (Ancef) 1 gm Q12H IVP ; Start 01/06/22 at 08:00 Active Scripts Active Aspirin Ec (Aspirin) 81 Mg Tablet.dr 81 Mg PO DAILYWBKFT 30 Days Celexa (Citalopram Hydrobromide) 20 Mg Tablet 20 Mg PO DAILY 30 Days Eliquis (Apixaban) 5 Mg Tablet 5 Mg PO BID 30 Days Metoprolol Tartrate 50 Mg Tablet 50 Mg PO BID 30 Days Midodrine Hcl 2.5 Mg Tablet 2.5 Mg PO [id number] 30 Days Stool Softener-Stimulant Lax (Sennosides/Docusate Sodium) 1 Each Tablet 1 Tab PO BID 30 Days Reported Osteo Bi-Flex Tablet (Glucosamine/D3/Boswellia Nancy) 1 Each Tablet 1 Each PO DAILY Irbesartan 300 Mg Tablet 300 Mg PO DAILY Benadryl (Diphenhydramine Hcl) 25 Mg Capsule 1 Cap PO QHS 30 Days Nystatin 15 Gm Powder 1 Bryan TP BID 7 Days apply to affected area(s) Culturelle (Lactobacillus Rhamnosus Gg) 1 Each Capsule 1 Cap PO BID 30 Days Zetia (Ezetimibe) 10 Mg Tablet 10 Mg PO DAILY Vitamin D3 (Cholecalciferol (Vitamin D3)) 50 Mcg Tablet 50 Mcg PO DAILY Atorvastatin Calcium 10 Mg Tablet 10 Mg PO HS Acetaminophen 500 Mg Tablet 500 Mg PO PRN TID PRN Vitals/I & O Vital Sign - Last 24 Hours 01/05/22 01/05/22 01/05/22 01/05/22 09:00 10:22 13:00 15:00 Temp 98.4 98.8 98.4 98.8 Pulse 94 94 66 66 Resp 18 18 B/P (MAP) 97/52 97/52 (67) 114/54 114/54 (74) Pulse Ox 97 95 O2 Delivery Room Air Room Air 01/05/22 01/05/22 01/05/22 01/05/22 17:17 19:00 20:05 23:00 Temp 98.1 97.6 98.1 97.6 Pulse 66 79 124 Resp 16 16 B/P (MAP) 114/54 124/47 (72) 114/61 (78) Pulse Ox 92 95 O2 Delivery Room Air Room Air Room Air 01/05/22 01/06/22 01/06/22 01/06/22 23:36 00:39 03:00 06:21 Temp 97.5 97.5 Pulse 63 63 Resp 18 18 18 B/P (MAP) 99/46 (63) 99/46 Pulse Ox 92 92 95 O2 Delivery Room Air Room Air Room Air 01/06/22 07:00 Temp 98.3 98.3 Pulse 107 Resp 20 B/P (MAP) 124/73 (90) Pulse Ox 95 O2 Delivery Room Air Intake and Output 01/05/22 01/05/22 01/06/22 15:00 23:00 07:00 Intake Total 0 ml 0 ml 0 ml Balance 0 ml 0 ml 0 ml Justicifation of Admission Dx: Justifications for Admission: Justification of Admission Dx: Yes BRAYAN MOLINA MD Jan 06, 2022 08:53
[2022-01-06] MEDS: APIXABAN 5 MG TABLET. PO SCH ×2 (09:00→20:43)
[2022-01-06] MEDS: METOPROLOL TART IMMED RELEASE 50 MG TABLET. PO SCH ×2 (09:00→20:43)
[2022-01-06] MEDS: LACTOBACILLUS RHAMNOSUS GG 1 CAPSULE. PO SCH ×2 (09:00→20:43)
[2022-01-06] MEDS: CITALOPRAM 20 MG TABLET. PO SCH (09:00)
--- NOTE | 2022-01-06 09:25 | PDOC2 ---
CONSULT Date of Consult Date of Consult DATE: 01/06/22 TIME: 09:25 Reason for Consult Reason for Consult: ESRD Identification/Chief Complaint Chief Complaint Unable to Obtain 11/06 AMS Source Source: Chart review History of Present Illness Reason for Visit: Patient is a 76yo CF with PMHx dementia and new ESRD who was admitted through the ED for worsening confusion.She was recently discharged from the hospital for acute encephalopathy secondary to presumed dialysis catheter infection comes in with altered mental status from her retirement. Patient is lethargic - new since her last admission. Prior her to last admission, she was more alert and responsive . No reported N/V/D. No F/C reported by NH . Unable to Obtain history from patient 11/06 AMS WBC elevated at 15. Labs otherwise consistent with ESRD. UA with large leukocyte esterase. EKG atrial fibrillation, rate relatively tachycardic.Chest radiograph with dialysis catheter positioned well. CT head with no acute findings. Past Medical History Cardiovascular: AFIB (On apixaban), CAD, CHF CENTRAL NERVOUS SYSTEM: Dementia Psych: Anxiety, Depression Musculoskeletal: Osteoarthritis Renal/: Chronic renal failure Past Surgical History Past Surgical History: No pertinent history Family History Family History: Heart Disease, Hypertension Social History No (unknown) ALCOHOL: none Drugs: None Lives: Alf Current Problem List Problem List Problems Medical Problems: (1) Acute encephalopathy Status: Acute (2) Paroxysmal A-fib Status: Acute (3) UTI (urinary tract infection) Status: Acute Current Medications Current Medications Current Medications Cefepime HCl (Maxipime) 2 gm 1X ONCE IVP Last administered on 01/04/22at 14:07; Start 01/04/22 at 13:45; Stop 01/04/22 at 13:46; Status DC Vancomycin HCl (Vanco Per Pharmacy) 1 each 1X ONCE MC ; Start 01/04/22 at 13:45; Stop 01/04/22 at 13:46; Status DC Vancomycin HCl 1.5 gm/Sodium Chloride 500 ml @ 250 mls/hr 1X ONCE IV Last administered on 01/04/22at 14:08; Start 01/04/22 at 14:00; Stop 01/04/22 at 15:59; Status DC Sodium Chloride 1,000 ml @ 1,000 mls/hr 1X ONCE IV Last administered on 01/04/22at 15:15; Start 01/04/22 at 15:15; Stop 01/04/22 at 16:14; Status DC Acetaminophen (Tylenol) 650 mg PRN Q6HRS PRN PO MILD PAIN / TEMP > 100.3'F; Start 01/04/22 at 20:00 Olanzapine (ZyPREXA ZYDIS) 5 mg PRN BID PRN PO ANXIETY / AGITATION Last administered on 01/06/22at 06:21; Start 01/04/22 at 20:00 Ondansetron HCl (Zofran) 4 mg PRN Q4HRS PRN IVP NAUSEA/VOMITING; Start 01/04/22 at 20:00 Tramadol HCl (Ultram) 50 mg PRN Q6HRS PRN PO MODERATE PAIN; Start 01/04/22 at 20:00 Fentanyl Citrate (Fentanyl 2ml Vial) 25 mcg PRN Q3HRS PRN IVP SEVERE PAIN 7-10 Last administered on 01/05/22at 23:36; Start 01/04/22 at 20:00 Heparin Sodium (Porcine) (Heparin Sodium) 5,000 unit Q8HRS SQ ; Start 01/04/22 at 22:00; Status UNV Apixaban (Eliquis) 5 mg BID PO Last administered on 01/04/22at 21:00; Start 01/04/22 at 21:00 Aspirin (Ecotrin) 81 mg DAILYWBKFT PO ; Start 01/05/22 at 08:00 Atorvastatin Calcium (Lipitor) 10 mg HS PO Last administered on 01/04/22at 21:00; Start 01/04/22 at 21:00 Citalopram Hydrobromide (CeleXA) 20 mg DAILY PO ; Start 01/05/22 at 09:00 Metoprolol Tartrate (Lopressor) 50 mg BID PO ; Start 01/04/22 at 21:00 Midodrine (Proamatine) 2.5 mg [id number] PO Last administered on 01/06/22at 06:21; Start 01/05/22 at 07:00 Vancomycin HCl (Vancomycin Random Level) 1 each 1X ONCE MC ; Start 01/05/22 at 06:00; Stop 01/05/22 at 06:01; Status Cancel Cefazolin Sodium (Ancef) 1 gm Q12HR IVP Last administered on 01/05/22at 17:17; Start 01/05/22 at 15:00; Stop 01/05/22 at 19:59; Status DC Lactobacillus Rhamnosus (Culturelle) 1 cap BID PO ; Start 01/05/22 at 21:00 Cefazolin Sodium (Ancef) 1 gm Q12H IVP ; Start 01/06/22 at 08:00 Active Scripts Active Aspirin Ec (Aspirin) 81 Mg Tablet.dr 81 Mg PO [id number] 30 Days Celexa (Citalopram Hydrobromide) 20 Mg Tablet 20 Mg PO DAILY 30 Days Eliquis (Apixaban) 5 Mg Tablet 5 Mg PO BID 30 Days Metoprolol Tartrate 50 Mg Tablet 50 Mg PO BID 30 Days Midodrine Hcl 2.5 Mg Tablet 2.5 Mg PO [id number] 30 Days Stool Softener-Stimulant Lax (Sennosides/Docusate Sodium) 1 Each Tablet 1 Tab PO BID 30 Days Reported Osteo Bi-Flex Tablet (Glucosamine/D3/Boswellia Nancy) 1 Each Tablet 1 Each PO DAILY Irbesartan 300 Mg Tablet 300 Mg PO DAILY Benadryl (Diphenhydramine Hcl) 25 Mg Capsule 1 Cap PO QHS 30 Days Nystatin 15 Gm Powder 1 Bryan TP BID 7 Days apply to affected area(s) Culturelle (Lactobacillus Rhamnosus Gg) 1 Each Capsule 1 Cap PO BID 30 Days Zetia (Ezetimibe) 10 Mg Tablet 10 Mg PO DAILY Vitamin D3 (Cholecalciferol (Vitamin D3)) 50 Mcg Tablet 50 Mcg PO DAILY Atorvastatin Calcium 10 Mg Tablet 10 Mg PO HS Acetaminophen 500 Mg Tablet 500 Mg PO PRN TID PRN Allergies Allergies: Coded Allergies: No Known Drug Allergies (Unverified , 10/24/21) ROS Review of System Unable to Obtain history from patient 2/2 AMS Physical Exam Physical Exam GEN: NAD HEENT: Normal cephalic, atraumatic, O2 by NC NECK: Supple, LUNGS: Decreased at bases Non labored HEART: RRR, S!, S2 present. ABDOMEN: Soft, nontender. Positive bowel sounds, no organomegaly EXTREMITIES: Without clubbing, cyanosis NEUROLOGIC: says "yes," when I call out her name, otherwise nonverbal, does not follow commands PSYCHIATRIC: Unable to Obtain SKIN: No rashes, No Serrano, No CVA or SP tenderness Has Tunneled HDC Rt side Vital Signs Vital Signs Date Time Temp Pulse Resp B/P (MAP) Pulse Ox O2 Delivery O2 Flow Rate FiO2 01/06/22 07:00 98.3 107 20 124/73 (90) 95 Room Air 98.3 Assessment & Plan New Onset ESRD - Dx with LOGAN on CKD 4 in Oct , initiated on Dialysis 10/2021, Sonogram does show some cortical thinning. Has been on Dialysis since- TTS at [facility] .No indication for dialysis today Access- Tunneled HDC replaced 01/02/22/ Infected catheter Acute metabolic encephalopathy ? UTI - Primary following Sepsis - Recent Infected Tunneled HDC ,was replaced recently 01/02 Sacral wound HTN- BP stable Hx of GI bleed December 2020 - Hospitalized at [facility], Suspected diverticular bleed Anemia - hgb trending down Hx of A Fib Labs Labs Laboratory Tests Test 01/04/22 11:15 01/04/22 12:20 01/04/22 12:30 01/04/22 12:43 White Blood Count 15.0 x10^3/uL (4.0-11.0) Red Blood Count 3.18 x10^6/uL (3.50-5.40) Hemoglobin 10.2 g/dL (12.0-15.5) Hematocrit 31.6 % (36.0-47.0) Mean Corpuscular Volume 99 fL (79-100) Mean Corpuscular Hemoglobin 32 pg (25-35) Mean Corpuscular Hemoglobin Concent 32 g/dL (31-37) Red Cell Distribution Width 15.2 % (11.5-14.5) Platelet Count 368 x10^3/uL (140-400) Neutrophils (%) (Auto) 82 % (31-73) Lymphocytes (%) (Auto) 9 % (24-48) Monocytes (%) (Auto) 8 % (0-9) Eosinophils (%) (Auto) 0 % (0-3) Basophils (%) (Auto) 0 % (0-3) Neutrophils # (Auto) 12.4 x10^3/uL (1.8-7.7) Lymphocytes # (Auto) 1.4 x10^3/uL (1.0-4.8) Monocytes # (Auto) 1.2 x10^3/uL (0.0-1.1) Eosinophils # (Auto) 0.0 x10^3/uL (0.0-0.7) Basophils # (Auto) 0.1 x10^3/uL (0.0-0.2) Prothrombin Time 25.7 SEC (11.7-14.0) Prothromb Time International Ratio 2.4 (0.8-1.1) Fibrinogen 686 mg/dL (200-440) Sodium Level 139 mmol/L (136-145) Potassium Level 4.6 mmol/L (3.5-5.1) Chloride Level 100 mmol/L (98-107) Carbon Dioxide Level 26 mmol/L (21-32) Anion Gap 13 (6-14) Blood Urea Nitrogen 36 mg/dL (7-20) Creatinine 4.8 mg/dL (0.6-1.0) Estimated GFR (Cockcroft-Gault) 8.8 BUN/Creatinine Ratio 8 (6-20) Glucose Level 91 mg/dL (70-99) Lactic Acid Level 2.2 mmol/L (0.4-2.0) Calcium Level 9.7 mg/dL (8.5-10.1) Total Bilirubin 0.9 mg/dL (0.2-1.0) Aspartate Amino Transf (AST/SGOT) 31 U/L (15-37) Alanine Aminotransferase (ALT/SGPT) < 6 U/L (14-59) Alkaline Phosphatase 105 U/L (46-116) Total Protein 8.0 g/dL (6.4-8.2) Albumin 2.2 g/dL (3.4-5.0) Albumin/Globulin Ratio 0.4 (1.0-1.7) Procalcitonin 1.47 ng/mL (0.00-0.10) O2 Saturation 96 % (92-99) Arterial Blood pH 7.52 (7.35-7.45) Arterial Blood pCO2 at Patient Temp 29 mmHg (35-46) Arterial Blood pO2 at Patient Temp 85 mmHg (65-108) Arterial Blood HCO3 23 mmol/L (21-28) Arterial Blood Base Excess 1 mmol/L (-3-3) FiO2 21 Ammonia < 10 mcmol/L (11-34) Urine Collection Type Unknown Urine Color (Auto) [place] Urine Turbidity Turbid Urine pH (Auto) 5.5 (<5.0-8.0) Urine Specific Marty 1.025 (1.000-1.030) Urine Protein (Auto) 200 mg/dL (Negative) Urine Glucose (Auto)(UA) Negative mg/dL (Negative) Urine Ketones (Auto) Trace mg/dL (Negative) Urine Blood (Auto) Moderate (Negative) Urine Nitrite (Auto) Negative (Negative) Urine Bilirubin (Auto) Negative (Negative) Urine Urobilinogen (Auto) Normal mg/dL (Normal) Urine Leukocyte Esterase (Auto) Large (Negative) Urine RBC 1-2 /HPF (0-2) Urine WBC 5-10 /HPF (0-4) Urine Squamous Epithelial Cells Many /LPF Urine Amorphous Sediment Present /HPF Urine Bacteria Few /HPF (0-FEW) Urine Hyaline Casts Occasional /HPF Urine Mucus Slight /LPF Test 01/05/22 01:55 White Blood Count 12.1 x10^3/uL (4.0-11.0) Red Blood Count 2.55 x10^6/uL (3.50-5.40) Hemoglobin 8.4 g/dL (12.0-15.5) Hematocrit 25.4 % (36.0-47.0) Mean Corpuscular Volume 100 fL (79-100) Mean Corpuscular Hemoglobin 33 pg (25-35) Mean Corpuscular Hemoglobin Concent 33 g/dL (31-37) Red Cell Distribution Width 15.5 % (11.5-14.5) Platelet Count 262 x10^3/uL (140-400) Neutrophils (%) (Auto) 81 % (31-73) Lymphocytes (%) (Auto) 11 % (24-48) Monocytes (%) (Auto) 7 % (0-9) Eosinophils (%) (Auto) 1 % (0-3) Basophils (%) (Auto) 0 % (0-3) Neutrophils # (Auto) 9.8 x10^3/uL (1.8-7.7) Lymphocytes # (Auto) 1.4 x10^3/uL (1.0-4.8) Monocytes # (Auto) 0.8 x10^3/uL (0.0-1.1) Eosinophils # (Auto) 0.1 x10^3/uL (0.0-0.7) Basophils # (Auto) 0.0 x10^3/uL (0.0-0.2) Sodium Level 141 mmol/L (136-145) Potassium Level 4.1 mmol/L (3.5-5.1) Chloride Level 105 mmol/L (98-107) Carbon Dioxide Level 25 mmol/L (21-32) Anion Gap 11 (6-14) Blood Urea Nitrogen 46 mg/dL (7-20) Creatinine 5.3 mg/dL (0.6-1.0) Estimated GFR (Cockcroft-Gault) 7.8 BUN/Creatinine Ratio 9 (6-20) Glucose Level 86 mg/dL (70-99) Lactic Acid Level 0.9 mmol/L (0.4-2.0) Calcium Level 9.1 mg/dL (8.5-10.1) Total Bilirubin 0.6 mg/dL (0.2-1.0) Aspartate Amino Transf (AST/SGOT) 22 U/L (15-37) Alanine Aminotransferase (ALT/SGPT) 7 U/L (14-59) Alkaline Phosphatase 79 U/L (46-116) Total Protein 6.5 g/dL (6.4-8.2) Albumin 1.7 g/dL (3.4-5.0) Albumin/Globulin Ratio 0.4 (1.0-1.7) Review All relevant outside records, renal labs, imaging studies, telemetry/EKG's were reviewed. Images Images PORTABLE CHEST 1V PROCEDURE: XR CHEST 1V.01/04/2022 12:11 PM REASON FOR STUDY: Reason: ams / Spl. Instructions: / History: . COMPARISON: Study of 12/24/2021. FINDINGS: Dialysis catheter remains in place. No new infiltrate or effusion is seen. Prominent arthritic changes are again shown at the shoulders. IMPRESSION: No acute abnormality. ADENIKE EDMONDS MD Jan 06, 2022 09:25
[2022-01-06] MEDS: ceFAZolin SODIUM IV Push 1 GM VIAL. IVP SCH ×2 (09:36→20:24)
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
[2022-01-06 11:00] VITALS: BP 106/37
[2022-01-06] MEDS ORDERED: ANTI-COAG MONITOR BY PHARMACY. MC PRN (12:00)
[2022-01-06] MEDS: fentaNYL PF VIAL 100 MCG/2 ML VIAL IVP PRN (12:25)
[2022-01-06 15:00] VITALS: BP 114/62
[2022-01-06 19:00] VITALS: BP 120/57
[2022-01-06] MEDS ORDERED: IV DEXTROSE 5% 250 ML BAG. IV PRN (20:30)
[2022-01-06] MEDS ORDERED: DEXTROSE 50% 25 GM / 50ML DISP.SYRIN. IV PRN (20:30)
[2022-01-06] MEDS: ATORVASTATIN CALCIUM 10 MG TABLET. PO SCH (20:43)
[2022-01-06] MEDS: IV DEXTROSE 5 %-0.45 % NACL 1,000 ML IV SCH (21:00)
[2022-01-06] MEDS: HEPARIN for SUB-Q USE 5,000 UNIT/ML VIAL. SQ SCH (21:06)
[2022-01-06 23:05] VITALS: BP 111/47
[2022-01-07 03:13] VITALS: BP 113/67
[2022-01-07 07:00] VITALS: BP 109/65
[2022-01-07] MEDS: MIDODRINE 2.5 MG TABLET PO SCH ×3 (07:00→17:07)
[2022-01-07] MEDS ORDERED: DIALYSIS PATIENT. MC PRN ×2 (07:45)
[2022-01-07] MEDS ORDERED: IV NORMAL SALINE 1000ML BAG 1,000 ML IV PRN ×2 (07:45)
[2022-01-07] MEDS: ASPIRIN ENTERIC COATED 81 MG TABLET.DR. PO SCH (08:00)
[2022-01-07 08:39] LABS: CALCIUM 8.9 mg/dL (8.5-10.1); CREATININE 7.6 mg/dL (0.6-1.0); GFR 5.2; POTASSIUM 4.5 mmol/L (3.5-5.1)
--- NOTE | 2022-01-07 08:56 | PDOC ---
PROGRESS NOTES Date of Service DATE: 01/07/22 TIME: 08:55 Assessment Problems Medical Problems: (1) Acute encephalopathy Status: Acute (2) Paroxysmal A-fib Status: Acute (3) UTI (urinary tract infection) Status: Acute Metabolic encephalopathy with sepsis, urinary tract infection, sacral wound, hypertension, atrial fibrillation, congestive heart failure, end-stage renal disease on dialysis. This is in the setting of chronic dementia. It appears she has been in and out of nursing homes. According to Dr. Miller's note, is also confused. Plan Treatment of medical issues No need for additional neurological studies at this time. Return to [facility] when medically stable Subjective None Objective Vital Signs Date Time Temp Pulse Resp B/P (MAP) Pulse Ox O2 Delivery O2 Flow Rate FiO2 01/07/22 07:00 98.2 105 24 109/65 (80) 96 Room Air 98.2 Intake and Output 01/07/22 07:00 Intake Total 0 ml Output Total 0 ml Balance 0 ml Intake Oral 0 ml Output Urine Total 0 ml # Bowel Movements 1 PHYSICAL EXAM Alert, nonverbal, does not follow commands PERRL. EOMI. CN: no focal findings. Muscle tone: normal. Muscle strength: Moves all extremities DTR: 1+ Plantar reflex: Flexor Bilateral grasp reflexes Gait: not examined in bed. Sensory exam: no abnormal findings. No cerebellar signs elicited. Review of Relevant I have reviewed the following items mariaa (where applicable) has been applied. Labs Laboratory Tests Test 01/06/22 20:17 01/06/22 21:38 01/07/22 00:52 01/07/22 05:34 Glucose (Fingerstick) 58 mg/dL (70-99) 77 mg/dL (70-99) 81 mg/dL (70-99) 92 mg/dL (70-99) Test 01/07/22 07:00 Sodium Level 144 mmol/L (136-145) Potassium Level 4.5 mmol/L (3.5-5.1) Chloride Level 107 mmol/L (98-107) Carbon Dioxide Level 23 mmol/L (21-32) Anion Gap 14 (6-14) Blood Urea Nitrogen 70 mg/dL (7-20) Creatinine 7.6 mg/dL (0.6-1.0) Estimated GFR (Cockcroft-Gault) 5.2 Glucose Level 96 mg/dL (70-99) Calcium Level 8.9 mg/dL (8.5-10.1) Laboratory Tests Test 01/06/22 20:17 01/06/22 21:38 01/07/22 00:52 01/07/22 05:34 Glucose (Fingerstick) 58 mg/dL (70-99) 77 mg/dL (70-99) 81 mg/dL (70-99) 92 mg/dL (70-99) Test 01/07/22 07:00 Sodium Level 144 mmol/L (136-145) Potassium Level 4.5 mmol/L (3.5-5.1) Chloride Level 107 mmol/L (98-107) Carbon Dioxide Level 23 mmol/L (21-32) Anion Gap 14 (6-14) Blood Urea Nitrogen 70 mg/dL (7-20) Creatinine 7.6 mg/dL (0.6-1.0) Estimated GFR (Cockcroft-Gault) 5.2 Glucose Level 96 mg/dL (70-99) Calcium Level 8.9 mg/dL (8.5-10.1) Microbiology 01/04/22 Blood Culture - Preliminary, Resulted NO GROWTH AFTER 2 DAYS Medications Current Medications Cefepime HCl (Maxipime) 2 gm 1X ONCE IVP Last administered on 01/04/22at 14:07; Start 01/04/22 at 13:45; Stop 01/04/22 at 13:46; Status DC Vancomycin HCl (Vanco Per Pharmacy) 1 each 1X ONCE MC ; Start 01/04/22 at 13:45; Stop 01/04/22 at 13:46; Status DC Vancomycin HCl 1.5 gm/Sodium Chloride 500 ml @ 250 mls/hr 1X ONCE IV Last administered on 01/04/22at 14:08; Start 01/04/22 at 14:00; Stop 01/04/22 at 15:59; Status DC Sodium Chloride 1,000 ml @ 1,000 mls/hr 1X ONCE IV Last administered on 01/04/22at 15:15; Start 01/04/22 at 15:15; Stop 01/04/22 at 16:14; Status DC Acetaminophen (Tylenol) 650 mg PRN Q6HRS PRN PO MILD PAIN / TEMP > 100.3'F; Start 01/04/22 at 20:00 Olanzapine (ZyPREXA ZYDIS) 5 mg PRN BID PRN PO ANXIETY / AGITATION Last administered on 01/06/22at 06:21; Start 01/04/22 at 20:00 Ondansetron HCl (Zofran) 4 mg PRN Q4HRS PRN IVP NAUSEA/VOMITING; Start 01/04/22 at 20:00 Tramadol HCl (Ultram) 50 mg PRN Q6HRS PRN PO MODERATE PAIN; Start 01/04/22 at 20:00 Fentanyl Citrate (Fentanyl 2ml Vial) 25 mcg PRN Q3HRS PRN IVP SEVERE PAIN 7-10 Last administered on 01/06/22at 12:25; Start 01/04/22 at 20:00 Heparin Sodium (Porcine) (Heparin Sodium) 5,000 unit Q8HRS SQ ; Start 01/04/22 at 22:00; Status UNV Apixaban (Eliquis) 5 mg BID PO Last administered on 01/04/22at 21:00; Start 01/04/22 at 21:00 Aspirin (Ecotrin) 81 mg DAILYWBKFT PO ; Start 01/05/22 at 08:00 Atorvastatin Calcium (Lipitor) 10 mg HS PO Last administered on 01/04/22at 21:00; Start 01/04/22 at 21:00 Citalopram Hydrobromide (CeleXA) 20 mg DAILY PO ; Start 01/05/22 at 09:00 Metoprolol Tartrate (Lopressor) 50 mg BID PO ; Start 01/04/22 at 21:00 Midodrine (Proamatine) 2.5 mg [id number] PO Last administered on 01/06/22at 06:21; Start 01/05/22 at 07:00 Vancomycin HCl (Vancomycin Random Level) 1 each 1X ONCE MC ; Start 01/05/22 at 06:00; Stop 01/05/22 at 06:01; Status Cancel Cefazolin Sodium (Ancef) 1 gm Q12HR IVP Last administered on 01/05/22at 17:17; Start 01/05/22 at 15:00; Stop 01/05/22 at 19:59; Status DC Lactobacillus Rhamnosus (Culturelle) 1 cap BID PO ; Start 01/05/22 at 21:00 Cefazolin Sodium (Ancef) 1 gm Q12H IVP Last administered on 4/4/22at 20:24; Start 01/06/22 at 08:00 Info (Anti-Coagulation Monitoring By Pharmacy) 1 each PRN DAILY PRN MC PER PROTOCOL Last administered on 01/06/22at 11:54; Start 01/06/22 at 12:00 Dextrose (Dextrose 50%-Water Syringe) 12.5 gm PRN Q15MIN PRN IV SEE COMMENTS; Start 01/06/22 at 20:30 Dextrose (Iv Dextrose 5%) 250 ml PRN Q15MIN PRN IV SEE COMMENTS Last administered on 01/06/22at 20:33; Start 01/06/22 at 20:30 Dextrose/Sodium Chloride 1,000 ml @ 65 mls/hr [id number] IV Last administered on 01/06/22at 21:00; Start 01/06/22 at 21:00 Heparin Sodium (Porcine) (Heparin Sodium) 5,000 unit Q12HR SQ Last administered on 01/06/22at 21:06; Start 01/06/22 at 21:00 Sodium Chloride 1,000 ml @ 1,000 mls/hr Q1H PRN IV hypotension; Start 01/07/22 at 07:45; Stop 01/07/22 at 13:44 Sodium Chloride 1,000 ml @ 400 mls/hr Q2H30M PRN IV PATENCY; Start 01/07/22 at 07:45; Stop 01/07/22 at 19:44 Info (PHARMACY MONITORING -- do not chart) 1 each PRN DAILY PRN MC SEE COMMENTS; Start 01/07/22 at 07:45; Status UNV Info (PHARMACY MONITORING -- do not chart) 1 each PRN DAILY PRN MC SEE COMMENTS; Start 01/07/22 at 07:45 Active Scripts Active Aspirin Ec (Aspirin) 81 Mg Tablet. 81 Mg PO DAILYWBKFT 30 Days Celexa (Citalopram Hydrobromide) 20 Mg Tablet 20 Mg PO DAILY 30 Days Eliquis (Apixaban) 5 Mg Tablet 5 Mg PO BID 30 Days Metoprolol Tartrate 50 Mg Tablet 50 Mg PO BID 30 Days Midodrine Hcl 2.5 Mg Tablet 2.5 Mg PO [id number] 30 Days Stool Softener-Stimulant Lax (Sennosides/Docusate Sodium) 1 Each Tablet 1 Tab PO BID 30 Days Reported Osteo Bi-Flex Tablet (Glucosamine/D3/Boswellia Nancy) 1 Each Tablet 1 Each PO DAILY Irbesartan 300 Mg Tablet 300 Mg PO DAILY Benadryl (Diphenhydramine Hcl) 25 Mg Capsule 1 Cap PO QHS 30 Days Nystatin 15 Gm Powder 1 Bryan TP BID 7 Days apply to affected area(s) Culturelle (Lactobacillus Rhamnosus Gg) 1 Each Capsule 1 Cap PO BID 30 Days Zetia (Ezetimibe) 10 Mg Tablet 10 Mg PO DAILY Vitamin D3 (Cholecalciferol (Vitamin D3)) 50 Mcg Tablet 50 Mcg PO DAILY Atorvastatin Calcium 10 Mg Tablet 10 Mg PO HS Acetaminophen 500 Mg Tablet 500 Mg PO PRN TID PRN Vitals/I & O Vital Sign - Last 24 Hours 01/06/22 01/06/22 01/06/22 01/06/22 09:00 11:00 12:25 13:00 Temp 98.7 98.7 Pulse 110 120 110 Resp 18 20 B/P (MAP) 114/62 106/37 (60) 114/62 Pulse Ox 93 93 O2 Delivery Room Air Room Air 01/06/22 01/06/22 01/06/22 01/06/22 13:05 15:00 18:00 19:00 Temp 98.5 98.6 98.5 98.6 Pulse 110 110 121 Resp 19 18 20 B/P (MAP) 114/62 (79) 114/62 120/57 (78) Pulse Ox 94 95 96 O2 Delivery Room Air Room Air Room Air 01/06/22 01/06/22 01/07/22 01/07/22 20:00 23:05 03:13 07:00 Temp 98.4 98.2 98.2 98.4 98.2 98.2 Pulse 104 107 105 Resp 20 20 24 B/P (MAP) 111/47 (68) 113/67 (82) 109/65 (80) Pulse Ox 92 96 96 O2 Delivery Room Air Room Air Room Air Room Air Intake and Output 01/06/22 01/06/22 01/07/22 15:00 23:00 07:00 Intake Total 0 ml Output Total 0 ml Balance 0 ml 0 ml Justicifation of Admission Dx: Justifications for Admission: Justification of Admission Dx: Yes BRAYAN MOLINA MD Jan 07, 2022 08:56
[2022-01-07] MEDS: CITALOPRAM 20 MG TABLET. PO SCH (09:00)
[2022-01-07] MEDS: METOPROLOL TART IMMED RELEASE 50 MG TABLET. PO SCH ×2 (09:00→20:55)
[2022-01-07] MEDS: LACTOBACILLUS RHAMNOSUS GG 1 CAPSULE. PO SCH ×2 (09:00→20:55)
[2022-01-07 12:18] VITALS: BP 121/52
[2022-01-07] MEDS: ceFAZolin SODIUM IV Push 1 GM VIAL. IVP SCH (12:22)
[2022-01-07] MEDS: IV DEXTROSE 5 %-0.45 % NACL 1,000 ML IV SCH (12:22)
[2022-01-07] MEDS: HEPARIN for SUB-Q USE 5,000 UNIT/ML VIAL. SQ SCH ×2 (12:33→20:48)
--- NOTE | 2022-01-07 13:07 | NUR ---
SS following for discharge planning. SS reviewed pt chart and discussed with pt RN. Pt is resident from [facility] in [place], ; fax [phone]. Pt is currently on room air. Pt on IV Cefazolin. Pt has outpatient hemodialysis at [facility]. Neurology and Nephrology following. Clinical updates phoned and faxed to [facility] in [place]. Pt is able to return to [facility] when medically ready for discharge. No COVID19 test required per Paolo at [facility]. SS will continue to follow for discharge planning.
--- NOTE | 2022-01-07 13:29 | PDOC ---
DATE OF SERVICE DATE: 01/07/22 TIME: 13:29 SUBJECTIVE ROS stable , non verbal but nodding appropriately OBJECTIVE Vital Signs Vital Signs Date Time Temp Pulse Resp B/P (MAP) Pulse Ox O2 Delivery O2 Flow Rate FiO2 01/07/22 12:18 97.9 118 20 121/52 (75) 95 Room Air 97.9 I & 0 Intake and Output 01/07/22 07:00 Intake Total 0 ml Output Total 0 ml Balance 0 ml Intake Oral 0 ml Output Urine Total 0 ml # Bowel Movements 1 PHYSICAL EXAM Physical Exam GEN: NAD HEENT: Normal cephalic, atraumatic, NECK: Supple, LUNGS: Decreased at bases Non labored HEART: RRR, S!, S2 present. ABDOMEN: Soft, nontender. Positive bowel sounds, no organomegaly EXTREMITIES: nonverbal, but Nods appropriately PSYCHIATRIC: Unable to Obtain SKIN: No rashes, No Serrano, No CVA or SP tenderness Has Tunneled HDC Rt side DIAGNOSIS/ASSESSMENT Assessment & Plan New Onset ESRD - Dx with LOGAN on CKD 4 in Oct , initiated on Dialysis 10/2021, Sonogram does show some cortical thinning. Has been on Dialysis since- TTS at [facility] . Tolerated dialysis. Discussed treatment plan with Bruce Access- Tunneled HDC replaced 01/02/2211/06 Infected catheter Acute metabolic encephalopathy UTI - Primary managing Sepsis - Recent Infected Tunneled HDC ,was replaced recently 01/02 Sacral wound HTN- BP stable Hx of GI bleed December 2020 - Hospitalized at [facility], Suspected diverticular bleed Anemia - hgb trended down . No labs this am Hx of A Fib COMMENT/RELEVANT DATA Meds Current Medications Medications (Trade) Dose Ordered Sig/Cailin Start Time Stop Time Status Last Admin Dose Admin Acetaminophen (Tylenol) 650 mg PRN Q6HRS PRN 01/04/22 20:00 Apixaban (Eliquis) 5 mg BID 01/04/22 21:00 01/07/22 11:40 DC 01/04/22 21:00 5 MG Aspirin (Ecotrin) 81 mg [id number] 01/05/22 08:00 Atorvastatin Calcium (Lipitor) 10 mg HS 01/04/22 21:00 01/04/22 21:00 10 MG Cefazolin Sodium (Ancef) 1 gm Q12H 01/06/22 08:00 01/07/22 12:22 1 GM Cefepime HCl (Maxipime) 2 gm 1X ONCE 01/04/22 13:45 01/04/22 13:46 DC 01/04/22 14:07 2 GM Citalopram Hydrobromide (CeleXA) 20 mg DAILY 01/05/22 09:00 Dextrose (Dextrose 50%-Water Syringe) 12.5 gm PRN Q15MIN PRN 01/06/22 20:30 Dextrose (Iv Dextrose 5%) 250 ml PRN Q15MIN PRN 01/06/22 20:30 01/06/22 20:33 250 ML Dextrose/Sodium Chloride 1,000 ml @ 65 mls/hr [id number] 01/06/22 21:00 01/07/22 12:22 65 MLS/HR Fentanyl Citrate (Fentanyl 2ml Vial) 25 mcg PRN Q3HRS PRN 01/04/22 20:00 01/06/22 12:25 25 MCG Heparin Sodium (Porcine) (Heparin Sodium) 5,000 unit Q12HR 01/06/22 21:00 01/07/22 12:33 5,000 UNIT Info (Anti-Coagulation Monitoring By Pharmacy) 1 each PRN DAILY PRN 01/06/22 12:00 01/07/22 11:41 DC 01/06/22 11:54 1 EACH Info (PHARMACY MONITORING -- do not chart) 1 each PRN DAILY PRN 01/07/22 07:45 Lactobacillus Rhamnosus (Culturelle) 1 cap BID 01/05/22 21:00 Metoprolol Tartrate (Lopressor) 50 mg BID 01/04/22 21:00 Midodrine (Proamatine) 2.5 mg [id number] 01/05/22 07:00 01/06/22 06:21 2.5 MG Olanzapine (ZyPREXA ZYDIS) 5 mg PRN BID PRN 01/04/22 20:00 01/06/22 06:21 5 MG Ondansetron HCl (Zofran) 4 mg PRN Q4HRS PRN 01/04/22 20:00 Sodium Chloride 1,000 ml @ 400 mls/hr Q2H30M PRN 01/07/22 07:45 01/07/22 19:44 Tramadol HCl (Ultram) 50 mg PRN Q6HRS PRN 01/04/22 20:00 Vancomycin HCl (Vanco Per Pharmacy) 1 each 1X ONCE 01/04/22 13:45 01/04/22 13:46 DC Vancomycin HCl (Vancomycin Random Level) 1 each 1X ONCE 01/05/22 06:00 01/05/22 06:01 Cancel Vancomycin HCl 1.5 gm/Sodium Chloride 500 ml @ 250 mls/hr 1X ONCE 01/04/22 14:00 01/04/22 15:59 DC 01/04/22 14:08 250 MLS/HR Lab Laboratory Tests Test 01/06/22 20:17 01/06/22 21:38 01/07/22 00:52 01/07/22 05:34 Glucose (Fingerstick) 58 mg/dL (70-99) 77 mg/dL (70-99) 81 mg/dL (70-99) 92 mg/dL (70-99) Test 01/07/22 07:00 01/07/22 12:29 Sodium Level 144 mmol/L (136-145) Potassium Level 4.5 mmol/L (3.5-5.1) Chloride Level 107 mmol/L (98-107) Carbon Dioxide Level 23 mmol/L (21-32) Anion Gap 14 (6-14) Blood Urea Nitrogen 70 mg/dL (7-20) Creatinine 7.6 mg/dL (0.6-1.0) Estimated GFR (Cockcroft-Gault) 5.2 Glucose Level 96 mg/dL (70-99) Calcium Level 8.9 mg/dL (8.5-10.1) Glucose (Fingerstick) 88 mg/dL (70-99) Results All relevant outside records, renal labs, imaging studies, telemetry/EKG's were reviewed. Justicifation of Admission Dx: Justifications for Admission: Justification of Admission Dx: Yes ADENIKE EDMONDS MD Jan 07, 2022 13:29
[2022-01-07] MEDS ORDERED: PIP/TAZO PER PHARMACY MC PRN (14:45)
[2022-01-07 15:00] VITALS: BP 108/61
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
[2022-01-07 19:00] VITALS: BP 121/61
[2022-01-07] MEDS: ATORVASTATIN CALCIUM 10 MG TABLET. PO SCH (20:55)
[2022-01-07] MEDS: PIPERACILLIN/TAZOBACTAM 2.25 GM in IV NORMAL SALINE 50ML 50 ML IV SCH (22:14)
[2022-01-07 23:05] VITALS: BP 108/53
[2022-01-08] MEDS: IV DEXTROSE 5 %-0.45 % NACL 1,000 ML IV SCH ×2 (02:44→18:42)
[2022-01-08 03:07] VITALS: BP 97/54
[2022-01-08] MEDS: PIPERACILLIN/TAZOBACTAM 2.25 GM in IV NORMAL SALINE 50ML 50 ML IV SCH ×3 (05:32→21:31)
[2022-01-08 07:00] VITALS: BP 101/43
[2022-01-08] MEDS: MIDODRINE 2.5 MG TABLET PO SCH ×3 (07:00→16:34)
[2022-01-08] MEDS: ASPIRIN ENTERIC COATED 81 MG TABLET.DR. PO SCH (08:00)
[2022-01-08 08:12] LABS: BASO % 0 % (0-3); EOS # 0.2 x10^3/uL (0.0-0.7); EOS % 2 % (0-3); HEMATOCRIT 28.2 % (36.0-47.0); LYMPH # 1.1 x10^3/uL (1.0-4.8); LYMPH % 13 % (24-48); MEAN CORPUSCULAR HEMOGLOBIN 32 pg (25-35); MEAN CORPUSCULAR HGB CONC 32 g/dL (31-37); MEAN CORPUSCULAR VOLUME 101 fL (79-100); MONO # 0.7 x10^3/uL (0.0-1.1); MONO % 8 % (0-9); NEUT # 6.5 x10^3/uL (1.8-7.7); NEUT % 77 % (31-73); PLATELET COUNT 243 x10^3/uL (140-400); RED CELL DISTRIBUTION WIDTH 15.4 % (11.5-14.5); WHITE BLOOD COUNT 8.5 x10^3/uL (4.0-11.0)
[2022-01-08] MEDS: HEPARIN for SUB-Q USE 5,000 UNIT/ML VIAL. SQ SCH ×2 (08:24→21:37)
[2022-01-08 08:28] LABS: ALBUMIN 1.6 g/dL (3.4-5.0); ALBUMIN/GLOBULIN RATIO 0.4 (1.0-1.7); ALK PHOS 92 U/L (46-116); ANION GAP 10 (6-14); AST (SGOT) 21 U/L (15-37); BLOOD UREA NITROGEN 23 mg/dL (7-20); BUN/CREATININE RATIO 6 (6-20); CALCIUM 8.4 mg/dL (8.5-10.1); CARBON DIOXIDE 28 mmol/L (21-32); CHLORIDE 104 mmol/L (98-107); CREATININE 3.6 mg/dL (0.6-1.0); GFR 12.2; GLUCOSE 87 mg/dL (70-99); POTASSIUM 3.9 mmol/L (3.5-5.1); SODIUM 142 mmol/L (136-145); TOTAL BILIRUBIN 0.4 mg/dL (0.2-1.0)
[2022-01-08 08:30] LABS: ALT (SGPT) < 6 U/L (14-59)
[2022-01-08] MEDS: METOPROLOL TART IMMED RELEASE 50 MG TABLET. PO SCH ×2 (09:00→21:00)
[2022-01-08] MEDS: CITALOPRAM 20 MG TABLET. PO SCH (09:00)
[2022-01-08] MEDS: LACTOBACILLUS RHAMNOSUS GG 1 CAPSULE. PO SCH ×2 (09:00→21:00)
--- NOTE | 2022-01-08 09:49 | PDOC ---
DATE OF SERVICE DATE: 01/08/22 TIME: 09:46 SUBJECTIVE ROS stable OBJECTIVE Vital Signs Vital Signs Date Time Temp Pulse Resp B/P (MAP) Pulse Ox O2 Delivery O2 Flow Rate FiO2 01/08/22 07:00 98.0 109 20 101/43 (62) 94 98.0 01/08/22 03:07 Room Air I & 0 Intake and Output 01/08/22 07:00 Output Total 0 ml Balance 0 ml Output Urine Total 0 ml PHYSICAL EXAM Physical Exam GEN: NAD HEENT: Normal cephalic, atraumatic, NECK: Supple, LUNGS: Decreased at bases Non labored HEART: RRR, S!, S2 present. ABDOMEN: Soft, nontender. Positive bowel sounds, no organomegaly EXTREMITIES: nonverbal, but Nods appropriately PSYCHIATRIC: Unable to Obtain SKIN: No rashes, No Serrano, No CVA or SP tenderness Has Tunneled HDC Rt side DIAGNOSIS/ASSESSMENT Assessment & Plan ESRD - Dx with LOGAN on CKD 4 in Oct , initiated on Dialysis 10/2021, Sonogram does show some cortical thinning. Has been on Dialysis since- TTS at [facility] . No indication for dialysis today Access- Tunneled HDC replaced 01/02/2211/06 Infected catheter Acute metabolic encephalopathy UTI - Primary managing Sepsis - Recent Infected Tunneled HDC ,was replaced recently 01/02 Sacral wound HTN- BP stable Hx of GI bleed December 2020 - Hospitalized at [facility], Suspected diverticular bleed Anemia - hgb trended down . No labs this am Hx of A Fib COMMENT/RELEVANT DATA Meds Current Medications Medications (Trade) Dose Ordered Sig/Cailin Start Time Stop Time Status Last Admin Dose Admin Acetaminophen (Tylenol) 650 mg PRN Q6HRS PRN 01/04/22 20:00 Apixaban (Eliquis) 5 mg BID 01/04/22 21:00 01/07/22 11:40 DC 01/04/22 21:00 5 MG Aspirin (Ecotrin) 81 mg [id number] 01/05/22 08:00 Atorvastatin Calcium (Lipitor) 10 mg HS 01/04/22 21:00 01/04/22 21:00 10 MG Cefazolin Sodium (Ancef) 1 gm Q12H 01/06/22 08:00 01/07/22 14:32 DC 01/07/22 12:22 1 GM Cefepime HCl (Maxipime) 2 gm 1X ONCE 01/04/22 13:45 01/04/22 13:46 DC 01/04/22 14:07 2 GM Citalopram Hydrobromide (CeleXA) 20 mg DAILY 01/05/22 09:00 Dextrose (Dextrose 50%-Water Syringe) 12.5 gm PRN Q15MIN PRN 01/06/22 20:30 Dextrose (Iv Dextrose 5%) 250 ml PRN Q15MIN PRN 01/06/22 20:30 01/06/22 20:33 250 ML Dextrose/Sodium Chloride 1,000 ml @ 65 mls/hr [id number] 01/06/22 21:00 01/08/22 02:44 65 MLS/HR Fentanyl Citrate (Fentanyl 2ml Vial) 25 mcg PRN Q3HRS PRN 01/04/22 20:00 01/06/22 12:25 25 MCG Heparin Sodium (Porcine) (Heparin Sodium) 5,000 unit Q12HR 01/06/22 21:00 01/08/22 08:24 5,000 UNIT Info (Anti-Coagulation Monitoring By Pharmacy) 1 each PRN DAILY PRN 01/06/22 12:00 01/07/22 11:41 DC 01/06/22 11:54 1 EACH Info (PHARMACY MONITORING -- do not chart) 1 each PRN DAILY PRN 01/07/22 07:45 Lactobacillus Rhamnosus (Culturelle) 1 cap BID 01/05/22 21:00 Metoprolol Tartrate (Lopressor) 50 mg BID 01/04/22 21:00 Midodrine (Proamatine) 2.5 mg [id number] 01/05/22 07:00 01/06/22 06:21 2.5 MG Olanzapine (ZyPREXA ZYDIS) 5 mg PRN BID PRN 01/04/22 20:00 01/06/22 06:21 5 MG Ondansetron HCl (Zofran) 4 mg PRN Q4HRS PRN 01/04/22 20:00 Piperacillin Sod/ Tazobactam Sod (Zosyn Per Pharmacy) 1 each PRN DAILY PRN 01/07/22 14:45 Piperacillin Sod/ Tazobactam Sod 2.25 gm/Sodium Chloride 50 ml @ 100 mls/hr Q8HRS 01/07/22 22:00 01/08/22 05:32 100 MLS/HR Sodium Chloride 1,000 ml @ 400 mls/hr Q2H30M PRN 01/07/22 07:45 01/07/22 19:44 DC Tramadol HCl (Ultram) 50 mg PRN Q6HRS PRN 01/04/22 20:00 Vancomycin HCl (Vanco Per Pharmacy) 1 each 1X ONCE 01/04/22 13:45 01/04/22 13:46 DC Vancomycin HCl (Vancomycin Random Level) 1 each 1X ONCE 01/05/22 06:00 01/05/22 06:01 Cancel Vancomycin HCl 1.5 gm/Sodium Chloride 500 ml @ 250 mls/hr 1X ONCE 01/04/22 14:00 01/04/22 15:59 DC 01/04/22 14:08 250 MLS/HR Lab Laboratory Tests Test 01/07/22 12:29 01/07/22 18:52 01/08/22 05:29 01/08/22 06:55 Glucose (Fingerstick) 88 mg/dL (70-99) 106 mg/dL (70-99) 110 mg/dL (70-99) White Blood Count 8.5 x10^3/uL (4.0-11.0) Red Blood Count 2.80 x10^6/uL (3.50-5.40) Hemoglobin 9.0 g/dL (12.0-15.5) Hematocrit 28.2 % (36.0-47.0) Mean Corpuscular Volume 101 fL (79-100) Mean Corpuscular Hemoglobin 32 pg (25-35) Mean Corpuscular Hemoglobin Concent 32 g/dL (31-37) Red Cell Distribution Width 15.4 % (11.5-14.5) Platelet Count 243 x10^3/uL (140-400) Neutrophils (%) (Auto) 77 % (31-73) Lymphocytes (%) (Auto) 13 % (24-48) Monocytes (%) (Auto) 8 % (0-9) Eosinophils (%) (Auto) 2 % (0-3) Basophils (%) (Auto) 0 % (0-3) Neutrophils # (Auto) 6.5 x10^3/uL (1.8-7.7) Lymphocytes # (Auto) 1.1 x10^3/uL (1.0-4.8) Monocytes # (Auto) 0.7 x10^3/uL (0.0-1.1) Eosinophils # (Auto) 0.2 x10^3/uL (0.0-0.7) Basophils # (Auto) 0.0 x10^3/uL (0.0-0.2) Sodium Level 142 mmol/L (136-145) Potassium Level 3.9 mmol/L (3.5-5.1) Chloride Level 104 mmol/L (98-107) Carbon Dioxide Level 28 mmol/L (21-32) Anion Gap 10 (6-14) Blood Urea Nitrogen 23 mg/dL (7-20) Creatinine 3.6 mg/dL (0.6-1.0) Estimated GFR (Cockcroft-Gault) 12.2 BUN/Creatinine Ratio 6 (6-20) Glucose Level 87 mg/dL (70-99) Calcium Level 8.4 mg/dL (8.5-10.1) Total Bilirubin 0.4 mg/dL (0.2-1.0) Aspartate Amino Transf (AST/SGOT) 21 U/L (15-37) Alanine Aminotransferase (ALT/SGPT) < 6 U/L (14-59) Alkaline Phosphatase 92 U/L (46-116) Total Protein 6.0 g/dL (6.4-8.2) Albumin 1.6 g/dL (3.4-5.0) Albumin/Globulin Ratio 0.4 (1.0-1.7) Results All relevant outside records, renal labs, imaging studies, telemetry/EKG's were reviewed. Justicifation of Admission Dx: Justifications for Admission: Justification of Admission Dx: Yes ADENIKE EDMONDS MD Jan 08, 2022 09:48
--- NOTE | 2022-01-08 10:40 | PDOC ---
PROGRESS NOTES Date of Service DATE: 01/08/22 TIME: 10:33 Assessment Problems Medical Problems: (1) Acute encephalopathy Status: Acute (2) Paroxysmal A-fib Status: Acute (3) UTI (urinary tract infection) Status: Acute Metabolic encephalopathy with sepsis, urinary tract infection, sacral wound, hypertension, atrial fibrillation, congestive heart failure, end-stage renal disease on dialysis. This is in the setting of chronic dementia. It appears she has been in and out of nursing homes. Symptoms much worse in past month. According to Dr. Miller's note, is also confused. Plan Treatment of medical issues No need for additional neurological studies at this time. Return to alf when medically stable Discussed with Job ARCHIBALD, especially regarding DNR, he is agreeable to DNR Subjective None Objective Vital Signs Date Time Temp Pulse Resp B/P (MAP) Pulse Ox O2 Delivery O2 Flow Rate FiO2 01/08/22 07:00 98.0 109 20 101/43 (62) 94 98.0 01/08/22 03:07 Room Air Intake and Output 01/08/22 07:00 Output Total 0 ml Balance 0 ml Output Urine Total 0 ml PHYSICAL EXAM Alert, nonverbal, does not follow commands PERRL. EOMI. CN: no focal findings. Muscle tone: normal. Muscle strength: Moves all extremities DTR: 1+ Plantar reflex: Flexor Bilateral grasp reflexes Gait: not examined in bed. Sensory exam: no abnormal findings. No cerebellar signs elicited. Review of Relevant I have reviewed the following items mariaa (where applicable) has been applied. Labs Laboratory Tests Test 01/06/22 20:17 01/06/22 21:38 01/07/22 00:52 01/07/22 05:34 Glucose (Fingerstick) 58 mg/dL (70-99) 77 mg/dL (70-99) 81 mg/dL (70-99) 92 mg/dL (70-99) Test 01/07/22 07:00 01/07/22 12:29 01/07/22 18:52 01/08/22 05:29 Sodium Level 144 mmol/L (136-145) Potassium Level 4.5 mmol/L (3.5-5.1) Chloride Level 107 mmol/L (98-107) Carbon Dioxide Level 23 mmol/L (21-32) Anion Gap 14 (6-14) Blood Urea Nitrogen 70 mg/dL (7-20) Creatinine 7.6 mg/dL (0.6-1.0) Estimated GFR (Cockcroft-Gault) 5.2 Glucose Level 96 mg/dL (70-99) Calcium Level 8.9 mg/dL (8.5-10.1) Glucose (Fingerstick) 88 mg/dL (70-99) 106 mg/dL (70-99) 110 mg/dL (70-99) Test 01/08/22 06:55 White Blood Count 8.5 x10^3/uL (4.0-11.0) Red Blood Count 2.80 x10^6/uL (3.50-5.40) Hemoglobin 9.0 g/dL (12.0-15.5) Hematocrit 28.2 % (36.0-47.0) Mean Corpuscular Volume 101 fL (79-100) Mean Corpuscular Hemoglobin 32 pg (25-35) Mean Corpuscular Hemoglobin Concent 32 g/dL (31-37) Red Cell Distribution Width 15.4 % (11.5-14.5) Platelet Count 243 x10^3/uL (140-400) Neutrophils (%) (Auto) 77 % (31-73) Lymphocytes (%) (Auto) 13 % (24-48) Monocytes (%) (Auto) 8 % (0-9) Eosinophils (%) (Auto) 2 % (0-3) Basophils (%) (Auto) 0 % (0-3) Neutrophils # (Auto) 6.5 x10^3/uL (1.8-7.7) Lymphocytes # (Auto) 1.1 x10^3/uL (1.0-4.8) Monocytes # (Auto) 0.7 x10^3/uL (0.0-1.1) Eosinophils # (Auto) 0.2 x10^3/uL (0.0-0.7) Basophils # (Auto) 0.0 x10^3/uL (0.0-0.2) Sodium Level 142 mmol/L (136-145) Potassium Level 3.9 mmol/L (3.5-5.1) Chloride Level 104 mmol/L (98-107) Carbon Dioxide Level 28 mmol/L (21-32) Anion Gap 10 (6-14) Blood Urea Nitrogen 23 mg/dL (7-20) Creatinine 3.6 mg/dL (0.6-1.0) Estimated GFR (Cockcroft-Gault) 12.2 BUN/Creatinine Ratio 6 (6-20) Glucose Level 87 mg/dL (70-99) Calcium Level 8.4 mg/dL (8.5-10.1) Total Bilirubin 0.4 mg/dL (0.2-1.0) Aspartate Amino Transf (AST/SGOT) 21 U/L (15-37) Alanine Aminotransferase (ALT/SGPT) < 6 U/L (14-59) Alkaline Phosphatase 92 U/L (46-116) Total Protein 6.0 g/dL (6.4-8.2) Albumin 1.6 g/dL (3.4-5.0) Albumin/Globulin Ratio 0.4 (1.0-1.7) Laboratory Tests Test 01/07/22 12:29 01/07/22 18:52 01/08/22 05:29 01/08/22 06:55 Glucose (Fingerstick) 88 mg/dL (70-99) 106 mg/dL (70-99) 110 mg/dL (70-99) White Blood Count 8.5 x10^3/uL (4.0-11.0) Red Blood Count 2.80 x10^6/uL (3.50-5.40) Hemoglobin 9.0 g/dL (12.0-15.5) Hematocrit 28.2 % (36.0-47.0) Mean Corpuscular Volume 101 fL (79-100) Mean Corpuscular Hemoglobin 32 pg (25-35) Mean Corpuscular Hemoglobin Concent 32 g/dL (31-37) Red Cell Distribution Width 15.4 % (11.5-14.5) Platelet Count 243 x10^3/uL (140-400) Neutrophils (%) (Auto) 77 % (31-73) Lymphocytes (%) (Auto) 13 % (24-48) Monocytes (%) (Auto) 8 % (0-9) Eosinophils (%) (Auto) 2 % (0-3) Basophils (%) (Auto) 0 % (0-3) Neutrophils # (Auto) 6.5 x10^3/uL (1.8-7.7) Lymphocytes # (Auto) 1.1 x10^3/uL (1.0-4.8) Monocytes # (Auto) 0.7 x10^3/uL (0.0-1.1) Eosinophils # (Auto) 0.2 x10^3/uL (0.0-0.7) Basophils # (Auto) 0.0 x10^3/uL (0.0-0.2) Sodium Level 142 mmol/L (136-145) Potassium Level 3.9 mmol/L (3.5-5.1) Chloride Level 104 mmol/L (98-107) Carbon Dioxide Level 28 mmol/L (21-32) Anion Gap 10 (6-14) Blood Urea Nitrogen 23 mg/dL (7-20) Creatinine 3.6 mg/dL (0.6-1.0) Estimated GFR (Cockcroft-Gault) 12.2 BUN/Creatinine Ratio 6 (6-20) Glucose Level 87 mg/dL (70-99) Calcium Level 8.4 mg/dL (8.5-10.1) Total Bilirubin 0.4 mg/dL (0.2-1.0) Aspartate Amino Transf (AST/SGOT) 21 U/L (15-37) Alanine Aminotransferase (ALT/SGPT) < 6 U/L (14-59) Alkaline Phosphatase 92 U/L (46-116) Total Protein 6.0 g/dL (6.4-8.2) Albumin 1.6 g/dL (3.4-5.0) Albumin/Globulin Ratio 0.4 (1.0-1.7) Microbiology 01/04/22 Blood Culture - Preliminary, Resulted NO GROWTH AFTER 3 DAYS Medications Current Medications Cefepime HCl (Maxipime) 2 gm 1X ONCE IVP Last administered on 01/04/22at 14:07; Start 01/04/22 at 13:45; Stop 01/04/22 at 13:46; Status DC Vancomycin HCl (Vanco Per Pharmacy) 1 each 1X ONCE MC ; Start 01/04/22 at 13:45; Stop 01/04/22 at 13:46; Status DC Vancomycin HCl 1.5 gm/Sodium Chloride 500 ml @ 250 mls/hr 1X ONCE IV Last administered on 01/04/22at 14:08; Start 01/04/22 at 14:00; Stop 01/04/22 at 15:59; Status DC Sodium Chloride 1,000 ml @ 1,000 mls/hr 1X ONCE IV Last administered on 01/04/22at 15:15; Start 01/04/22 at 15:15; Stop 01/04/22 at 16:14; Status DC Acetaminophen (Tylenol) 650 mg PRN Q6HRS PRN PO MILD PAIN / TEMP > 100.3'F; Start 01/04/22 at 20:00 Olanzapine (ZyPREXA ZYDIS) 5 mg PRN BID PRN PO ANXIETY / AGITATION Last administered on 01/06/22at 06:21; Start 01/04/22 at 20:00 Ondansetron HCl (Zofran) 4 mg PRN Q4HRS PRN IVP NAUSEA/VOMITING; Start 01/04/22 at 20:00 Tramadol HCl (Ultram) 50 mg PRN Q6HRS PRN PO MODERATE PAIN; Start 01/04/22 at 20:00 Fentanyl Citrate (Fentanyl 2ml Vial) 25 mcg PRN Q3HRS PRN IVP SEVERE PAIN 7-10 Last administered on 01/06/22at 12:25; Start 01/04/22 at 20:00 Heparin Sodium (Porcine) (Heparin Sodium) 5,000 unit Q8HRS SQ ; Start 01/04/22 at 22:00; Status UNV Apixaban (Eliquis) 5 mg BID PO Last administered on 01/04/22at 21:00; Start 01/04/22 at 21:00; Stop 01/07/22 at 11:40; Status DC Aspirin (Ecotrin) 81 mg DAILYWBKFT PO ; Start 01/05/22 at 08:00 Atorvastatin Calcium (Lipitor) 10 mg HS PO Last administered on 01/04/22at 21:00; Start 01/04/22 at 21:00 Citalopram Hydrobromide (CeleXA) 20 mg DAILY PO ; Start 01/05/22 at 09:00 Metoprolol Tartrate (Lopressor) 50 mg BID PO ; Start 01/04/22 at 21:00 Midodrine (Proamatine) 2.5 mg [id number] PO Last administered on 01/06/22at 06:21; Start 01/05/22 at 07:00 Vancomycin HCl (Vancomycin Random Level) 1 each 1X ONCE MC ; Start 01/05/22 at 06:00; Stop 01/05/22 at 06:01; Status Cancel Cefazolin Sodium (Ancef) 1 gm Q12HR IVP Last administered on 01/05/22at 17:17; Start 01/05/22 at 15:00; Stop 01/05/22 at 19:59; Status DC Lactobacillus Rhamnosus (Culturelle) 1 cap BID PO ; Start 01/05/22 at 21:00 Cefazolin Sodium (Ancef) 1 gm Q12H IVP Last administered on 01/07/22at 12:22; Start 01/06/22 at 08:00; Stop 01/07/22 at 14:32; Status DC Info (Anti-Coagulation Monitoring By Pharmacy) 1 each PRN DAILY PRN MC PER PROTOCOL Last administered on 01/06/22at 11:54; Start 01/06/22 at 12:00; Stop 01/07/22 at 11:41; Status DC Dextrose (Dextrose 50%-Water Syringe) 12.5 gm PRN Q15MIN PRN IV SEE COMMENTS; Start 01/06/22 at 20:30 Dextrose (Iv Dextrose 5%) 250 ml PRN Q15MIN PRN IV SEE COMMENTS Last administered on 01/06/22at 20:33; Start 01/06/22 at 20:30 Dextrose/Sodium Chloride 1,000 ml @ 65 mls/hr [id number] IV Last administered on 01/08/22at 02:44; Start 01/06/22 at 21:00 Heparin Sodium (Porcine) (Heparin Sodium) 5,000 unit Q12HR SQ Last administered on 01/08/22at 08:24; Start 01/06/22 at 21:00 Sodium Chloride 1,000 ml @ 1,000 mls/hr Q1H PRN IV hypotension; Start 01/07/22 at 07:45; Stop 01/07/22 at 13:44; Status DC Sodium Chloride 1,000 ml @ 400 mls/hr Q2H30M PRN IV PATENCY; Start 01/07/22 at 07:45; Stop 01/07/22 at 19:44; Status DC Info (PHARMACY MONITORING -- do not chart) 1 each PRN DAILY PRN MC SEE COMMENTS; Start 01/07/22 at 07:45; Status UNV Info (PHARMACY MONITORING -- do not chart) 1 each PRN DAILY PRN MC SEE COMMENTS; Start 01/07/22 at 07:45 Piperacillin Sod/ Tazobactam Sod (Zosyn Per Pharmacy) 1 each PRN DAILY PRN MC SEE COMMENTS; Start 01/07/22 at 14:45 Piperacillin Sod/ Tazobactam Sod 2.25 gm/Sodium Chloride 50 ml @ 100 mls/hr Q8HRS IV Last administered on 01/08/22at 05:32; Start 01/07/22 at 22:00 Epoetin Raul-epbx (RETACRIT for ESRD PTS) 10,000 unit MoWeFr@2100 SQ ; Start 01/08/22 at 21:00 Active Scripts Active Aspirin Ec (Aspirin) 81 Mg Tablet.dr 81 Mg PO DAILYWBKFT 30 Days Celexa (Citalopram Hydrobromide) 20 Mg Tablet 20 Mg PO DAILY 30 Days Eliquis (Apixaban) 5 Mg Tablet 5 Mg PO BID 30 Days Metoprolol Tartrate 50 Mg Tablet 50 Mg PO BID 30 Days Midodrine Hcl 2.5 Mg Tablet 2.5 Mg PO [id number] 30 Days Stool Softener-Stimulant Lax (Sennosides/Docusate Sodium) 1 Each Tablet 1 Tab PO BID 30 Days Reported Osteo Bi-Flex Tablet (Glucosamine/D3/Boswellia Nancy) 1 Each Tablet 1 Each PO DAILY Irbesartan 300 Mg Tablet 300 Mg PO DAILY Benadryl (Diphenhydramine Hcl) 25 Mg Capsule 1 Cap PO QHS 30 Days Nystatin 15 Gm Powder 1 Bryan TP BID 7 Days apply to affected area(s) Culturelle (Lactobacillus Rhamnosus Gg) 1 Each Capsule 1 Cap PO BID 30 Days Zetia (Ezetimibe) 10 Mg Tablet 10 Mg PO DAILY Vitamin D3 (Cholecalciferol (Vitamin D3)) 50 Mcg Tablet 50 Mcg PO DAILY Atorvastatin Calcium 10 Mg Tablet 10 Mg PO HS Acetaminophen 500 Mg Tablet 500 Mg PO PRN TID PRN Vitals/I & O Vital Sign - Last 24 Hours 01/07/22 01/07/22 01/07/22 01/07/22 12:18 13:00 15:00 17:07 Temp 97.9 98.3 97.9 98.3 Pulse 118 118 105 105 Resp 20 22 B/P (MAP) 121/52 (75) 121/52 108/61 (77) 108/61 Pulse Ox 95 100 O2 Delivery Room Air Room Air 01/07/22 01/07/22 01/07/22 01/08/22 19:00 20:00 23:05 03:07 Temp 98.5 98.2 99.1 98.5 98.2 99.1 Pulse 116 121 98 Resp 20 20 20 B/P (MAP) 121/61 (81) 108/53 (71) 97/54 (68) Pulse Ox 92 91 93 O2 Delivery Room Air Room Air Room Air Room Air 01/08/22 07:00 Temp 98.0 98.0 Pulse 109 Resp 20 B/P (MAP) 101/43 (62) Pulse Ox 94 Intake and Output 01/07/22 01/07/22 01/08/22 15:00 23:00 07:00 Output Total 0 ml Balance 0 ml Justicifation of Admission Dx: Justifications for Admission: Justification of Admission Dx: Yes BRAYAN MOLINA MD Jan 08, 2022 10:40
[2022-01-08 11:00] VITALS: BP 93/42
--- NOTE | 2022-01-08 12:52 | NUR ---
SS following up with discharge planning. SS reviewed pt chart and discussed with pt RN. Pt is resident from [facility] in [place], ; fax [phone]. Pt is currently on room air. Pt on IV Zosyn. Pt has outpatient hemodialysis at [facility], [place]. Neurology and Nephrology following. Pt now DNR. Pt is able to return to facility when medically ready for discharge. SS will continue to follow for discharge planning.
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
[2022-01-08 15:00] VITALS: BP 95/55
--- NOTE | 2022-01-08 17:19 | NUR ---
event promotions coordinator already changed dressing today, WC is painful, will follow up tomorrow
[2022-01-08 19:00] VITALS: BP 106/49
[2022-01-08] MEDS: ATORVASTATIN CALCIUM 10 MG TABLET. PO SCH (21:00)
[2022-01-08] MEDS: EPOETIN ALFA-EPBX for ESRD 20,000 UNIT/ML VIAL. SQ SCH (21:30)
[2022-01-08 23:00] VITALS: BP 97/36
[2022-01-09 03:00] VITALS: BP 112/60
[2022-01-09] MEDS: PIPERACILLIN/TAZOBACTAM 2.25 GM in IV NORMAL SALINE 50ML 50 ML IV SCH ×3 (06:11→22:12)
[2022-01-09 07:00] VITALS: BP 90/37
[2022-01-09] MEDS: MIDODRINE 2.5 MG TABLET PO SCH ×3 (07:00→18:00)
[2022-01-09] MEDS ORDERED: DIALYSIS PATIENT. MC PRN (07:45)
[2022-01-09] MEDS ORDERED: IV NORMAL SALINE 1000ML BAG 1,000 ML IV PRN ×2 (07:45)
[2022-01-09] MEDS: ASPIRIN ENTERIC COATED 81 MG TABLET.DR. PO SCH (08:00)
[2022-01-09] MEDS: CITALOPRAM 20 MG TABLET. PO SCH (09:00)
[2022-01-09] MEDS: METOPROLOL TART IMMED RELEASE 50 MG TABLET. PO SCH ×2 (09:00→21:00)
[2022-01-09] MEDS: LACTOBACILLUS RHAMNOSUS GG 1 CAPSULE. PO SCH ×2 (09:00→21:00)
--- NOTE | 2022-01-09 09:33 | PDOC ---
DATE OF SERVICE DATE: 01/09/22 TIME: 09:28 SUBJECTIVE ROS stable , responsive, follows commands , Trying to speak , speech unclear OBJECTIVE Vital Signs Vital Signs Date Time Temp Pulse Resp B/P (MAP) Pulse Ox O2 Delivery O2 Flow Rate FiO2 01/09/22 07:00 98.2 103 18 90/37 (54) 94 Room Air 98.2 I & 0 Intake and Output 01/09/22 07:00 Intake Total 50 ml Output Total 0 ml Balance 50 ml IV Total 50 ml Output Urine Total 0 ml # Voids 1 # Bowel Movements 1 PHYSICAL EXAM Physical Exam GEN: NAD HEENT: Normal cephalic, atraumatic, NECK: Supple, LUNGS: Decreased at bases Non labored HEART: RRR, S!, S2 present. ABDOMEN: Soft, nontender. Positive bowel sounds, no organomegaly EXTREMITIES: nonverbal, but Nods appropriately PSYCHIATRIC: Unable to Obtain SKIN: No rashes, No Serrano, No CVA or SP tenderness Has Tunneled HDC Rt side DIAGNOSIS/ASSESSMENT Assessment & Plan ESRD - Dx with LOGAN on CKD 4 in Oct , initiated on Dialysis 10/2021, Sonogram does show some cortical thinning. Has been on Dialysis since- TTS at [facility] . Seen on dialysis, tolerating well . Continue as ordered . Gavin MELÉNDEZ Access- Tunneled HDC replaced 01/02/22/ Infected catheter . Acute metabolic encephalopathy -responsive,, follows commands . Speech unclear . UTI - Primary managing Sepsis - Recent Infected Tunneled HDC ,was replaced recently 01/02 Sacral wound HTN- BP stable Hx of GI bleed December 2020 - Hospitalized at [facility], Suspected diverticular bleed Anemia - hgb trended down . No labs this am Hx of A Fib COMMENT/RELEVANT DATA Meds Current Medications Medications (Trade) Dose Ordered Sig/Cailin Start Time Stop Time Status Last Admin Dose Admin Acetaminophen (Tylenol) 650 mg PRN Q6HRS PRN 01/04/22 20:00 Apixaban (Eliquis) 5 mg BID 01/04/22 21:00 01/07/22 11:40 DC 01/04/22 21:00 5 MG Aspirin (Ecotrin) 81 mg DAILYWBKFT 01/05/22 08:00 Atorvastatin Calcium (Lipitor) 10 mg HS 01/04/22 21:00 01/04/22 21:00 10 MG Cefazolin Sodium (Ancef) 1 gm Q12H 01/06/22 08:00 01/07/22 14:32 DC 01/07/22 12:22 1 GM Cefepime HCl (Maxipime) 2 gm 1X ONCE 01/04/22 13:45 01/04/22 13:46 DC 01/04/22 14:07 2 GM Citalopram Hydrobromide (CeleXA) 20 mg DAILY 01/05/22 09:00 Dextrose (Dextrose 50%-Water Syringe) 12.5 gm PRN Q15MIN PRN 01/06/22 20:30 Dextrose (Iv Dextrose 5%) 250 ml PRN Q15MIN PRN 01/06/22 20:30 01/06/22 20:33 250 ML Dextrose/Sodium Chloride 1,000 ml @ 65 mls/hr [id number] 01/06/22 21:00 01/08/22 18:42 65 MLS/HR Epoetin Raul-epbx (RETACRIT for ESRD PTS) 10,000 unit MoWeFr@2100 01/08/22 21:00 01/08/22 21:30 10,000 UNIT Fentanyl Citrate (Fentanyl 2ml Vial) 25 mcg PRN Q3HRS PRN 01/04/22 20:00 01/06/22 12:25 25 MCG Heparin Sodium (Porcine) (Heparin Sodium) 5,000 unit Q12HR 01/06/22 21:00 01/08/22 21:37 5,000 UNIT Info (Anti-Coagulation Monitoring By Pharmacy) 1 each PRN DAILY PRN 01/06/22 12:00 01/07/22 11:41 DC 01/06/22 11:54 1 EACH Info (PHARMACY MONITORING -- do not chart) 1 each PRN DAILY PRN 01/09/22 07:45 Lactobacillus Rhamnosus (Culturelle) 1 cap BID 01/05/22 21:00 Metoprolol Tartrate (Lopressor) 50 mg BID 01/04/22 21:00 Midodrine (Proamatine) 2.5 mg [id number] 01/05/22 07:00 01/06/22 06:21 2.5 MG Olanzapine (ZyPREXA ZYDIS) 5 mg PRN BID PRN 01/04/22 20:00 01/06/22 06:21 5 MG Ondansetron HCl (Zofran) 4 mg PRN Q4HRS PRN 01/04/22 20:00 Piperacillin Sod/ Tazobactam Sod (Zosyn Per Pharmacy) 1 each PRN DAILY PRN 01/07/22 14:45 Piperacillin Sod/ Tazobactam Sod 2.25 gm/Sodium Chloride 50 ml @ 100 mls/hr Q8HRS 01/07/22 22:00 01/09/22 06:11 100 MLS/HR Sodium Chloride 1,000 ml @ 400 mls/hr Q2H30M PRN 01/09/22 07:45 01/09/22 19:44 Tramadol HCl (Ultram) 50 mg PRN Q6HRS PRN 01/04/22 20:00 Vancomycin HCl (Vanco Per Pharmacy) 1 each 1X ONCE 01/04/22 13:45 01/04/22 13:46 DC Vancomycin HCl (Vancomycin Random Level) 1 each 1X ONCE 01/05/22 06:00 01/05/22 06:01 Cancel Vancomycin HCl 1.5 gm/Sodium Chloride 500 ml @ 250 mls/hr 1X ONCE 01/04/22 14:00 01/04/22 15:59 DC 01/04/22 14:08 250 MLS/HR Lab Laboratory Tests Test 01/08/22 12:45 01/08/22 17:43 01/09/22 07:38 Glucose (Fingerstick) 101 mg/dL (70-99) 114 mg/dL (70-99) 92 mg/dL (70-99) Results All relevant outside records, renal labs, imaging studies, telemetry/EKG's were reviewed. Justicifation of Admission Dx: Justifications for Admission: Justification of Admission Dx: Yes ADENIKE EDMONDS MD Jan 09, 2022 09:33
[2022-01-09 10:02] LABS: CALCIUM 8.5 mg/dL (8.5-10.1); CREATININE 4.7 mg/dL (0.6-1.0); POTASSIUM 3.9 mmol/L (3.5-5.1)
--- NOTE | 2022-01-09 11:30 | NUR ---
wound care patient in dialysis at this time, wound care will f/u tomorrow
[2022-01-09 12:38] VITALS: BP 109/56
[2022-01-09] MEDS: IV DEXTROSE 5 %-0.45 % NACL 1,000 ML IV SCH (12:58)
[2022-01-09] MEDS: HEPARIN for SUB-Q USE 5,000 UNIT/ML VIAL. SQ SCH ×2 (13:02→21:26)
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
[2022-01-09] MEDS ORDERED: SALIVA STIMULANT AGENT 44ML SPRAY BOTTLE. PO PRN (13:45)
[2022-01-09 15:00] VITALS: BP 116/60
--- NOTE | 2022-01-09 15:50 | NUR ---
SS following up with discharge planning. SS reviewed pt chart and discussed with pt RN. Pt is resident from [facility] in [place], ; fax [phone]. Pt is currently on room air. Pt on IV Zosyn. Pt has outpatient hemodialysis at [facility]. Neurology and Nephrology following. DNR. NPO. Pt on tube feeds through dobhoff. Not ready. SS will continue to follow for discharge planning.
--- NOTE | 2022-01-09 16:15 | NUR ---
DOBBHOFF PLACED PER NURSING BREAKER OFF AND THIS CREATIVE DESIGNER, STAT KUB ORDERED, PATIENT PULLED OUT DOBBHOFF BEFORE KUB COULD BE COMPLETED, NURSING BREAKER OFF INFORMED, PATIENT ALERT, MAKES EYE CONTACT AND VERBALLY RESPONSIVE, THIS CREATIVE DESIGNER WILL RE CONSULT SPEECH THERAPY PATIENT IS MORE ALERT AND RESPONSIVE AT THIS TIME.
[2022-01-09 19:00] VITALS: BP 90/48
[2022-01-09] MEDS: ATORVASTATIN CALCIUM 10 MG TABLET. PO SCH (21:00)
[2022-01-09 23:00] VITALS: BP 94/47
[2022-01-10] MEDS: IV DEXTROSE 5 %-0.45 % NACL 1,000 ML IV SCH (02:00)
[2022-01-10 03:00] VITALS: BP 116/65
[2022-01-10] MEDS: PIPERACILLIN/TAZOBACTAM 2.25 GM in IV NORMAL SALINE 50ML 50 ML IV SCH ×3 (06:19→21:17)
[2022-01-10 06:37] LABS: ALBUMIN 1.4 g/dL (3.4-5.0); ALBUMIN/GLOBULIN RATIO 0.3 (1.0-1.7); ALK PHOS 90 U/L (46-116); ANION GAP 6 (6-14); AST (SGOT) 21 U/L (15-37); BLOOD UREA NITROGEN 13 mg/dL (7-20); BUN/CREATININE RATIO 5 (6-20); CALCIUM 8.4 mg/dL (8.5-10.1); CARBON DIOXIDE 29 mmol/L (21-32); CHLORIDE 103 mmol/L (98-107); CREATININE 2.7 mg/dL (0.6-1.0); GLUCOSE 84 mg/dL (70-99); POTASSIUM 3.4 mmol/L (3.5-5.1); SODIUM 138 mmol/L (136-145); TOTAL BILIRUBIN 0.4 mg/dL (0.2-1.0); TOTAL PROTEIN 6.1 g/dL (6.4-8.2)
[2022-01-10 06:39] LABS: BASO % 0 % (0-3); EOS # 0.3 x10^3/uL (0.0-0.7); EOS % 4 % (0-3); HEMATOCRIT 25.3 % (36.0-47.0); HEMOGLOBIN 8.1 g/dL (12.0-15.5); LYMPH # 1.2 x10^3/uL (1.0-4.8); LYMPH % 17 % (24-48); MEAN CORPUSCULAR HEMOGLOBIN 32 pg (25-35); MEAN CORPUSCULAR HGB CONC 32 g/dL (31-37); MEAN CORPUSCULAR VOLUME 101 fL (79-100); MONO # 0.6 x10^3/uL (0.0-1.1); MONO % 8 % (0-9); NEUT # 5.2 x10^3/uL (1.8-7.7); NEUT % 71 % (31-73); PLATELET COUNT 254 x10^3/uL (140-400); RED BLOOD COUNT 2.51 x10^6/uL (3.50-5.40); RED CELL DISTRIBUTION WIDTH 15.3 % (11.5-14.5); WHITE BLOOD COUNT 7.3 x10^3/uL (4.0-11.0)
[2022-01-10 06:47] LABS: ALT (SGPT) < 6 U/L (14-59)
[2022-01-10 07:00] VITALS: BP 102/49
[2022-01-10] MEDS: MIDODRINE 2.5 MG TABLET PO SCH ×3 (07:00→18:00)
[2022-01-10] MEDS: ASPIRIN ENTERIC COATED 81 MG TABLET.DR. PO SCH (08:00)
[2022-01-10] MEDS: LACTOBACILLUS RHAMNOSUS GG 1 CAPSULE. PO SCH ×2 (09:00→19:43)
[2022-01-10] MEDS: METOPROLOL TART IMMED RELEASE 50 MG TABLET. PO SCH ×2 (09:00→19:44)
[2022-01-10] MEDS: CITALOPRAM 20 MG TABLET. PO SCH (09:00)
[2022-01-10] MEDS: HEPARIN for SUB-Q USE 5,000 UNIT/ML VIAL. SQ SCH ×2 (09:18→21:11)
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
--- NOTE | 2022-01-10 10:07 | NUR ---
Wound/Ostomy Care Wound Type/Assessment: WC consult for buttock wounds. Pt has stage III PU to bilateral buttocks/sacrum. Cleansed, assessed and redressed wounds. LLE skin tear is resolved, RLE has resolving skin tear Treatment Recommendations/Plan: Cleanse wounds. APply calazime to buttocks BID and PRN. Apply xeroform and foam Q2-3 days to RLE. Education provided: PU prevention, WC POC. pt will need reinforcement of teaching d/t mental status Offloading surface/device: TQ2H, float heels Recommended Referrals/Tests: na Discharge Recommendations for dressings: see above
[2022-01-10 10:29] LABS: % BANDS 1 % (0-9); % EOS 1 % (0-5); % LYMPHS 18 % (24-48); % MONOS 4 % (0-10); % SEGS 76 % (35-66); PLT ESTIMATE ADEQUATE (ADEQUATE)
[2022-01-10 11:00] VITALS: BP 90/42
--- NOTE | 2022-01-10 12:22 | PDOC ---
DATE OF SERVICE DATE: 01/10/22 TIME: 12:19 SUBJECTIVE ROS stable follows commands , More alert. States feeling cold. Asking water or [place] OBJECTIVE Vital Signs Vital Signs Date Time Temp Pulse Resp B/P (MAP) Pulse Ox O2 Delivery O2 Flow Rate FiO2 01/10/22 11:00 98.7 97 16 90/42 (58) 95 98.7 01/10/22 03:00 Room Air I & 0 Intake and Output 01/10/22 07:00 Output Total 0 ml Balance 0 ml Output Urine Total 0 ml # Voids 1 PHYSICAL EXAM Physical Exam GEN: NAD HEENT: Normal cephalic, atraumatic, NECK: Supple, LUNGS: Decreased at bases Non labored HEART: RRR, S!, S2 present. ABDOMEN: Soft, nontender. Positive bowel sounds, no organomegaly EXTREMITIES: nonverbal, but Nods appropriately PSYCHIATRIC: Unable to Obtain SKIN: No rashes, No Serrano, No CVA or SP tenderness Has Tunneled HDC Rt side DIAGNOSIS/ASSESSMENT Assessment & Plan ESRD - Dx with LOGAN on CKD 4 in Oct , initiated on Dialysis 10/2021, Sonogram does show some cortical thinning. Has been on Dialysis since- TTS at [facility] . No indication for dialysis today Access- Tunneled HDC replaced 01/02/22/ Infected catheter . Acute metabolic encephalopathy Improved , More alert and verbal today . Has Chronic dementia UTI - Primary managing Sepsis - Recent Infected Tunneled HDC ,was replaced recently 01/02 Sacral wound HTN- BP stable Hx of GI bleed December 2020 - Hospitalized at [facility], Suspected diverticular bleed Anemia - hgb trended down . No labs this am Hx of A Fib COMMENT/RELEVANT DATA Meds Current Medications Medications (Trade) Dose Ordered Sig/Cailin Start Time Stop Time Status Last Admin Dose Admin Acetaminophen (Tylenol) 650 mg PRN Q6HRS PRN 01/04/22 20:00 Apixaban (Eliquis) 5 mg BID 01/04/22 21:00 01/07/22 11:40 DC 01/04/22 21:00 5 MG Aspirin (Ecotrin) 81 mg DAILYWBKFT 01/05/22 08:00 Atorvastatin Calcium (Lipitor) 10 mg HS 01/04/22 21:00 01/04/22 21:00 10 MG Cefazolin Sodium (Ancef) 1 gm Q12H 01/06/22 08:00 01/07/22 14:32 DC 01/07/22 12:22 1 GM Cefepime HCl (Maxipime) 2 gm 1X ONCE 01/04/22 13:45 01/04/22 13:46 DC 01/04/22 14:07 2 GM Citalopram Hydrobromide (CeleXA) 20 mg DAILY 01/05/22 09:00 Dextrose (Dextrose 50%-Water Syringe) 12.5 gm PRN Q15MIN PRN 01/06/22 20:30 Dextrose (Iv Dextrose 5%) 250 ml PRN Q15MIN PRN 01/06/22 20:30 01/06/22 20:33 250 ML Dextrose/Sodium Chloride 1,000 ml @ 65 mls/hr [id number] 01/06/22 21:00 01/10/22 02:00 65 MLS/HR Epoetin Raul-epbx (RETACRIT for ESRD PTS) 10,000 unit MoWeFr@2100 01/08/22 21:00 01/08/22 21:30 10,000 UNIT Fentanyl Citrate (Fentanyl 2ml Vial) 25 mcg PRN Q3HRS PRN 01/04/22 20:00 01/06/22 12:25 25 MCG Heparin Sodium (Porcine) (Heparin Sodium) 5,000 unit Q12HR 01/06/22 21:00 01/10/22 09:18 5,000 UNIT Info (Anti-Coagulation Monitoring By Pharmacy) 1 each PRN DAILY PRN 01/06/22 12:00 01/07/22 11:41 DC 01/06/22 11:54 1 EACH Info (PHARMACY MONITORING -- do not chart) 1 each PRN DAILY PRN 01/09/22 07:45 Info (Tpn Per Pharmacy) 1 each PRN DAILY PRN 01/10/22 12:15 UNV Lactobacillus Rhamnosus (Culturelle) 1 cap BID 01/05/22 21:00 Metoprolol Tartrate (Lopressor) 50 mg BID 01/04/22 21:00 Midodrine (Proamatine) 2.5 mg [id number] 01/05/22 07:00 01/06/22 06:21 2.5 MG Olanzapine (ZyPREXA ZYDIS) 5 mg PRN BID PRN 01/04/22 20:00 01/06/22 06:21 5 MG Ondansetron HCl (Zofran) 4 mg PRN Q4HRS PRN 01/04/22 20:00 Piperacillin Sod/ Tazobactam Sod (Zosyn Per Pharmacy) 1 each PRN DAILY PRN 01/07/22 14:45 Piperacillin Sod/ Tazobactam Sod 2.25 gm/Sodium Chloride 50 ml @ 100 mls/hr Q8HRS 01/07/22 22:00 01/10/22 06:19 100 MLS/HR Saliva Substitute (Biotene Moisturizing Mouth) 2 spray PRN Q15MIN PRN 01/09/22 13:45 Sodium Chloride 1,000 ml @ 400 mls/hr Q2H30M PRN 01/09/22 07:45 01/09/22 19:44 DC Tramadol HCl (Ultram) 50 mg PRN Q6HRS PRN 01/04/22 20:00 Vancomycin HCl (Vanco Per Pharmacy) 1 each 1X ONCE 01/04/22 13:45 01/04/22 13:46 DC Vancomycin HCl (Vancomycin Random Level) 1 each 1X ONCE 01/05/22 06:00 01/05/22 06:01 Cancel Vancomycin HCl 1.5 gm/Sodium Chloride 500 ml @ 250 mls/hr 1X ONCE 01/04/22 14:00 01/04/22 15:59 DC 01/04/22 14:08 250 MLS/HR Lab Laboratory Tests Test 01/09/22 12:33 01/09/22 17:55 01/10/22 05:05 01/10/22 11:30 Glucose (Fingerstick) 84 mg/dL (70-99) 122 mg/dL (70-99) 93 mg/dL (70-99) White Blood Count 7.3 x10^3/uL (4.0-11.0) Red Blood Count 2.51 x10^6/uL (3.50-5.40) Hemoglobin 8.1 g/dL (12.0-15.5) Hematocrit 25.3 % (36.0-47.0) Mean Corpuscular Volume 101 fL (79-100) Mean Corpuscular Hemoglobin 32 pg (25-35) Mean Corpuscular Hemoglobin Concent 32 g/dL (31-37) Red Cell Distribution Width 15.3 % (11.5-14.5) Platelet Count 254 x10^3/uL (140-400) Neutrophils (%) (Auto) 71 % (31-73) Lymphocytes (%) (Auto) 17 % (24-48) Monocytes (%) (Auto) 8 % (0-9) Eosinophils (%) (Auto) 4 % (0-3) Basophils (%) (Auto) 0 % (0-3) Neutrophils # (Auto) 5.2 x10^3/uL (1.8-7.7) Lymphocytes # (Auto) 1.2 x10^3/uL (1.0-4.8) Monocytes # (Auto) 0.6 x10^3/uL (0.0-1.1) Eosinophils # (Auto) 0.3 x10^3/uL (0.0-0.7) Basophils # (Auto) 0.0 x10^3/uL (0.0-0.2) Segmented Neutrophils % 76 % (35-66) Band Neutrophils % 1 % (0-9) Lymphocytes % 18 % (24-48) Monocytes % 4 % (0-10) Eosinophils % 1 % (0-5) Platelet Estimate Adequate (ADEQUATE) Sodium Level 138 mmol/L (136-145) Potassium Level 3.4 mmol/L (3.5-5.1) Chloride Level 103 mmol/L (98-107) Carbon Dioxide Level 29 mmol/L (21-32) Anion Gap 6 (6-14) Blood Urea Nitrogen 13 mg/dL (7-20) Creatinine 2.7 mg/dL (0.6-1.0) Estimated GFR (Cockcroft-Gault) 17.0 BUN/Creatinine Ratio 5 (6-20) Glucose Level 84 mg/dL (70-99) Calcium Level 8.4 mg/dL (8.5-10.1) Total Bilirubin 0.4 mg/dL (0.2-1.0) Aspartate Amino Transf (AST/SGOT) 21 U/L (15-37) Alanine Aminotransferase (ALT/SGPT) < 6 U/L (14-59) Alkaline Phosphatase 90 U/L (46-116) Total Protein 6.1 g/dL (6.4-8.2) Albumin 1.4 g/dL (3.4-5.0) Albumin/Globulin Ratio 0.3 (1.0-1.7) Results All relevant outside records, renal labs, imaging studies, telemetry/EKG's were reviewed. Justicifation of Admission Dx: Justifications for Admission: Justification of Admission Dx: Yes ADENIKE EDMONDS MD Jan 10, 2022 12:22
[2022-01-10 12:52] LABS: MAGNESIUM 1.8 mg/dL (1.8-2.4); PHOSPHORUS 3.7 mg/dL (2.6-4.7)
--- NOTE | 2022-01-10 14:33 | NUR ---
SS following up with discharge planning. SS reviewed pt chart and discussed with pt RN. Pt is resident from [facility] in [place], ; fax [phone]. Pt on IV Zosyn. Pt is currently on room air. Neurology and Nephrology following. NPO. ST following. Hemodialysis. Pt's family considering hospice. SS will continue to follow for discharge planning.
[2022-01-10 15:00] VITALS: BP 90/51
[2022-01-10] MEDS ORDERED: HEPARIN PF 500 UNIT/5 ML DISP.SYRIN. IVP ONE ×2 (15:22→16:00)
[2022-01-10] MEDS ORDERED: LIDOCAINE 1%/EPI 1:100,000 20 ML VIAL. ONE (15:22)
[2022-01-10] MEDS: TPN PER PHARMACY MC PRN (15:23)
--- NOTE | 2022-01-10 15:25 | NUR ---
Pharmacy TPN Dosing Note S: VICKY FOSTER is a 76 year old F Currently receiving Central Continuous TPN started 01/10/22 B:Pertinent PMH: NPO Height: 5 feet, 5 inches Weight: 79.8 kg Current diet: NPO LABS: Sodium: 138 Potassium: 3.4 Chloride: 103 Calcium: 8.4 Corrected Calcium: 10.48 Magnesium: 1.8 CO2: 29 SCr: 2.7 Glucose: 84-122 Albumin: 1.4 AST: 21 ALT: <6 TPN FORMULA: TPN TYPE: Central Continuous AMINO ACIDS: 60 gm DEXTROSE: 195 gm LIPIDS: 20 gm SODIUM CHLORIDE: 90 mEq POTASSIUM CHLORIDE: 50 mEq POTASSIUM PHOSPHATE: 13.6 mmol MAGNESIUM: 10 mEq MULTIPLE VITAMIN: 10 ml TRACE ELEMENTS: 1 ml(s) TPN PLAN: Initiate house formula TPN. Labs ordered for am. R: Begin TPN Will monitor electrolytes, glucose, and tolerance to TPN. Bhavna Stevens [facility], 01/10/22 1529
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
[2022-01-10] MEDS ORDERED: LIDOCAINE 1%/EPI 1:100,000 20 ML VIAL. INJ ONE (16:00)
[2022-01-10 19:00] VITALS: BP 94/52
[2022-01-10] MEDS: ATORVASTATIN CALCIUM 10 MG TABLET. PO SCH (19:43)
[2022-01-10] MEDS: EPOETIN ALFA-EPBX for ESRD 20,000 UNIT/ML VIAL. SQ SCH (21:09)
[2022-01-10] MEDS ORDERED: TOTAL PARENTERAL NUTRITION 1,446.4667 ML, AMINO ACID 15% 60 GM, DEXTROSE 70 % IN WATER ... IV SCH (22:00)
[2022-01-10 23:00] VITALS: BP 111/57
[2022-01-11 03:06] VITALS: BP 113/57
[2022-01-11] MEDS: PIPERACILLIN/TAZOBACTAM 2.25 GM in IV NORMAL SALINE 50ML 50 ML IV SCH ×3 (05:25→21:08)
[2022-01-11] MEDS: MIDODRINE 2.5 MG TABLET PO SCH ×3 (05:26→18:00)
[2022-01-11 07:00] VITALS: BP 100/42
[2022-01-11] MEDS: ASPIRIN ENTERIC COATED 81 MG TABLET.DR. PO SCH (08:00)
[2022-01-11 08:26] LABS: CALCIUM 8.3 mg/dL (8.5-10.1); CREATININE 4.2 mg/dL (0.6-1.0); GFR 10.2; POTASSIUM 3.5 mmol/L (3.5-5.1)
[2022-01-11 08:33] LABS: MAGNESIUM 1.9 mg/dL (1.8-2.4); PHOSPHORUS 4.5 mg/dL (2.6-4.7)
[2022-01-11] MEDS: CITALOPRAM 20 MG TABLET. PO SCH (09:00)
[2022-01-11] MEDS: METOPROLOL TART IMMED RELEASE 50 MG TABLET. PO SCH ×2 (09:00→20:09)
[2022-01-11] MEDS: LACTOBACILLUS RHAMNOSUS GG 1 CAPSULE. PO SCH ×2 (09:00→20:09)
[2022-01-11] MEDS ORDERED: DIALYSIS PATIENT. MC PRN ×2 (09:15)
[2022-01-11] MEDS: TPN PER PHARMACY MC PRN (09:52)
--- NOTE | 2022-01-11 09:53 | NUR ---
Pharmacy TPN Dosing Note S: VICKY FOSTER is a 76 year old F Currently receiving Central Continuous TPN started 01/10/22 B:Pertinent PMH: NPO Height: 5 feet, 5 inches Weight: 79.2 kg Current diet: NPO LABS: Sodium: 138 Potassium: 3.5 Chloride: 104 Calcium: 8.3 Corrected Calcium: 10.38 Magnesium: 1.9 CO2: 26 SCr: 4.2 Glucose: 122 Albumin: 1.4 AST: 21 ALT: <6 TPN FORMULA: TPN TYPE: Central Continuous AMINO ACIDS: 60 gm DEXTROSE: 195 gm LIPIDS: 20 gm SODIUM CHLORIDE: 90 mEq SODIUM ACETATE: mEq SODIUM PHOSPHATE: mmol POTASSIUM CHLORIDE: 60 mEq POTASSIUM ACETATE: mEq POTASSIUM PHOSPHATE: 8 mmol MAGNESIUM: 10 mEq CALCIUM: - mEq INSULIN: units MULTIPLE VITAMIN: 10 ml TRACE ELEMENTS: 1 ml(s) TPN PLAN: Phos increasing, will decrease KPhos and increase KCl in TPN Labs ordered for am. R: Continue TPN as written above. Will monitor electrolytes, glucose, and tolerance to TPN. JACKY FONTENOT [facility], 01/11/22 0953
[2022-01-11 11:00] VITALS: BP 109/50
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
[2022-01-11] MEDS: HEPARIN for SUB-Q USE 5,000 UNIT/ML VIAL. SQ SCH ×2 (13:00→21:00)
--- NOTE | 2022-01-11 14:04 | PDOC ---
PROGRESS NOTES Date of Service DATE: 01/11/22 TIME: 14:03 Subjective Subjective SEEN IN FOLLOW UP OF ESRD Objective Objective Vital Signs Date Time Temp Pulse Resp B/P (MAP) Pulse Ox O2 Delivery O2 Flow Rate FiO2 01/11/22 07:00 97.3 78 18 100/42 (61) 95 97.3 01/11/22 03:06 Room Air Intake and Output 01/11/22 06:59 Intake Total 1150 ml Output Total 0 ml Balance 1150 ml IV Total 1150 ml Output Urine Total 0 ml Physical Exam Abdomen: Normal bowel sounds, Soft, No tenderness, No hepatosplenomegaly, No masses Heart: Regular rate, Normal S1, Normal S2, No murmurs, Gallops Extremities: No clubbing, No cyanosis, No edema, Normal pulses, No tenderness/swelling General: Other (CONFUSED) Lungs: Clear to auscultation, Normal air movement Diagnosis RENAL FAILURE: ESRD Assessment Assessment Problems Medical Problems: (1) Acute encephalopathy Status: Acute (2) Paroxysmal A-fib Status: Acute (3) UTI (urinary tract infection) Status: Acute Plan Plan of Care DIALYSIS TODAY AND TOLERATED WELL. Comment Review of Relevant I have reviewed the following items mariaa (where applicable) has been applied. Labs Laboratory Tests Test 01/09/22 17:55 01/10/22 04:05 01/10/22 05:05 01/10/22 11:30 Glucose (Fingerstick) 122 mg/dL (70-99) 93 mg/dL (70-99) Phosphorus Level 3.7 mg/dL (2.6-4.7) Magnesium Level 1.8 mg/dL (1.8-2.4) White Blood Count 7.3 x10^3/uL (4.0-11.0) Red Blood Count 2.51 x10^6/uL (3.50-5.40) Hemoglobin 8.1 g/dL (12.0-15.5) Hematocrit 25.3 % (36.0-47.0) Mean Corpuscular Volume 101 fL (79-100) Mean Corpuscular Hemoglobin 32 pg (25-35) Mean Corpuscular Hemoglobin Concent 32 g/dL (31-37) Red Cell Distribution Width 15.3 % (11.5-14.5) Platelet Count 254 x10^3/uL (140-400) Neutrophils (%) (Auto) 71 % (31-73) Lymphocytes (%) (Auto) 17 % (24-48) Monocytes (%) (Auto) 8 % (0-9) Eosinophils (%) (Auto) 4 % (0-3) Basophils (%) (Auto) 0 % (0-3) Neutrophils # (Auto) 5.2 x10^3/uL (1.8-7.7) Lymphocytes # (Auto) 1.2 x10^3/uL (1.0-4.8) Monocytes # (Auto) 0.6 x10^3/uL (0.0-1.1) Eosinophils # (Auto) 0.3 x10^3/uL (0.0-0.7) Basophils # (Auto) 0.0 x10^3/uL (0.0-0.2) Segmented Neutrophils % 76 % (35-66) Band Neutrophils % 1 % (0-9) Lymphocytes % 18 % (24-48) Monocytes % 4 % (0-10) Eosinophils % 1 % (0-5) Platelet Estimate Adequate (ADEQUATE) Sodium Level 138 mmol/L (136-145) Potassium Level 3.4 mmol/L (3.5-5.1) Chloride Level 103 mmol/L (98-107) Carbon Dioxide Level 29 mmol/L (21-32) Anion Gap 6 (6-14) Blood Urea Nitrogen 13 mg/dL (7-20) Creatinine 2.7 mg/dL (0.6-1.0) Estimated GFR (Cockcroft-Gault) 17.0 BUN/Creatinine Ratio 5 (6-20) Glucose Level 84 mg/dL (70-99) Calcium Level 8.4 mg/dL (8.5-10.1) Total Bilirubin 0.4 mg/dL (0.2-1.0) Aspartate Amino Transf (AST/SGOT) 21 U/L (15-37) Alanine Aminotransferase (ALT/SGPT) < 6 U/L (14-59) Alkaline Phosphatase 90 U/L (46-116) Total Protein 6.1 g/dL (6.4-8.2) Albumin 1.4 g/dL (3.4-5.0) Albumin/Globulin Ratio 0.3 (1.0-1.7) Test 01/10/22 18:54 01/10/22 23:25 01/11/22 05:26 01/11/22 07:45 Glucose (Fingerstick) 75 mg/dL (70-99) 118 mg/dL (70-99) 118 mg/dL (70-99) Sodium Level 138 mmol/L (136-145) Potassium Level 3.5 mmol/L (3.5-5.1) Chloride Level 104 mmol/L (98-107) Carbon Dioxide Level 26 mmol/L (21-32) Anion Gap 8 (6-14) Blood Urea Nitrogen 23 mg/dL (7-20) Creatinine 4.2 mg/dL (0.6-1.0) Estimated GFR (Cockcroft-Gault) 10.2 Glucose Level 122 mg/dL (70-99) Calcium Level 8.3 mg/dL (8.5-10.1) Phosphorus Level 4.5 mg/dL (2.6-4.7) Magnesium Level 1.9 mg/dL (1.8-2.4) Triglycerides Level 118 mg/dL (0-150) Test 01/11/22 12:01 Glucose (Fingerstick) 109 mg/dL (70-99) Laboratory Tests Test 01/10/22 18:54 01/10/22 23:25 01/11/22 05:26 01/11/22 07:45 Glucose (Fingerstick) 75 mg/dL (70-99) 118 mg/dL (70-99) 118 mg/dL (70-99) Sodium Level 138 mmol/L (136-145) Potassium Level 3.5 mmol/L (3.5-5.1) Chloride Level 104 mmol/L (98-107) Carbon Dioxide Level 26 mmol/L (21-32) Anion Gap 8 (6-14) Blood Urea Nitrogen 23 mg/dL (7-20) Creatinine 4.2 mg/dL (0.6-1.0) Estimated GFR (Cockcroft-Gault) 10.2 Glucose Level 122 mg/dL (70-99) Calcium Level 8.3 mg/dL (8.5-10.1) Phosphorus Level 4.5 mg/dL (2.6-4.7) Magnesium Level 1.9 mg/dL (1.8-2.4) Triglycerides Level 118 mg/dL (0-150) Test 01/11/22 12:01 Glucose (Fingerstick) 109 mg/dL (70-99) Microbiology 01/04/22 Blood Culture - Final, Complete NO GROWTH AFTER 5 DAYS Medications Current Medications Cefepime HCl (Maxipime) 2 gm 1X ONCE IVP Last administered on 01/04/22at 14:07; Start 01/04/22 at 13:45; Stop 01/04/22 at 13:46; Status DC Vancomycin HCl (Vanco Per Pharmacy) 1 each 1X ONCE MC ; Start 01/04/22 at 13:45; Stop 01/04/22 at 13:46; Status DC Vancomycin HCl 1.5 gm/Sodium Chloride 500 ml @ 250 mls/hr 1X ONCE IV Last administered on 01/04/22at 14:08; Start 01/04/22 at 14:00; Stop 01/04/22 at 15:59; Status DC Sodium Chloride 1,000 ml @ 1,000 mls/hr 1X ONCE IV Last administered on 01/04/22at 15:15; Start 01/04/22 at 15:15; Stop 01/04/22 at 16:14; Status DC Acetaminophen (Tylenol) 650 mg PRN Q6HRS PRN PO MILD PAIN / TEMP > 100.3'F; Start 01/04/22 at 20:00 Olanzapine (ZyPREXA ZYDIS) 5 mg PRN BID PRN PO ANXIETY / AGITATION Last administered on 01/06/22at 06:21; Start 01/04/22 at 20:00 Ondansetron HCl (Zofran) 4 mg PRN Q4HRS PRN IVP NAUSEA/VOMITING; Start 01/04/22 at 20:00 Tramadol HCl (Ultram) 50 mg PRN Q6HRS PRN PO MODERATE PAIN; Start 01/04/22 at 20:00 Fentanyl Citrate (Fentanyl 2ml Vial) 25 mcg PRN Q3HRS PRN IVP SEVERE PAIN 7-10 Last administered on 01/06/22at 12:25; Start 01/04/22 at 20:00 Heparin Sodium (Porcine) (Heparin Sodium) 5,000 unit Q8HRS SQ ; Start 01/04/22 at 22:00; Status UNV Apixaban (Eliquis) 5 mg BID PO Last administered on 01/04/22at 21:00; Start 01/04/22 at 21:00; Stop 01/07/22 at 11:40; Status DC Aspirin (Ecotrin) 81 mg DAILYWBKFT PO ; Start 01/05/22 at 08:00 Atorvastatin Calcium (Lipitor) 10 mg HS PO Last administered on 01/04/22at 21:00; Start 01/04/22 at 21:00 Citalopram Hydrobromide (CeleXA) 20 mg DAILY PO ; Start 01/05/22 at 09:00 Metoprolol Tartrate (Lopressor) 50 mg BID PO ; Start 01/04/22 at 21:00 Midodrine (Proamatine) 2.5 mg [id number] PO Last administered on 01/06/22at 06:21; Start 01/05/22 at 07:00 Vancomycin HCl (Vancomycin Random Level) 1 each 1X ONCE MC ; Start 01/05/22 at 06:00; Stop 01/05/22 at 06:01; Status Cancel Cefazolin Sodium (Ancef) 1 gm Q12HR IVP Last administered on 01/05/22at 17:17; Start 01/05/22 at 15:00; Stop 01/05/22 at 19:59; Status DC Lactobacillus Rhamnosus (Culturelle) 1 cap BID PO ; Start 01/05/22 at 21:00 Cefazolin Sodium (Ancef) 1 gm Q12H IVP Last administered on 01/07/22at 12:22; Start 01/06/22 at 08:00; Stop 01/07/22 at 14:32; Status DC Info (Anti-Coagulation Monitoring By Pharmacy) 1 each PRN DAILY PRN MC PER PROTOCOL Last administered on 01/06/22at 11:54; Start 01/06/22 at 12:00; Stop 01/07/22 at 11:41; Status DC Dextrose (Dextrose 50%-Water Syringe) 12.5 gm PRN Q15MIN PRN IV SEE COMMENTS; Start 01/06/22 at 20:30 Dextrose (Iv Dextrose 5%) 250 ml PRN Q15MIN PRN IV SEE COMMENTS Last administered on 01/06/22at 20:33; Start 01/06/22 at 20:30 Dextrose/Sodium Chloride 1,000 ml @ 65 mls/hr [id number] IV Last administered on 01/10/22at 02:00; Start 01/06/22 at 21:00; Stop 01/10/22 at 19:59; Status DC Heparin Sodium (Porcine) (Heparin Sodium) 5,000 unit Q12HR SQ Last administered on 01/11/22at 13:00; Start 01/06/22 at 21:00 Sodium Chloride 1,000 ml @ 1,000 mls/hr Q1H PRN IV hypotension; Start 01/07/22 at 07:45; Stop 01/07/22 at 13:44; Status DC Sodium Chloride 1,000 ml @ 400 mls/hr Q2H30M PRN IV PATENCY; Start 01/07/22 at 07:45; Stop 01/07/22 at 19:44; Status DC Info (PHARMACY MONITORING -- do not chart) 1 each PRN DAILY PRN MC SEE COMMENTS; Start 01/07/22 at 07:45; Status UNV Info (PHARMACY MONITORING -- do not chart) 1 each PRN DAILY PRN MC SEE COMMENTS; Start 01/07/22 at 07:45; Stop 01/09/22 at 07:39; Status DC Piperacillin Sod/ Tazobactam Sod (Zosyn Per Pharmacy) 1 each PRN DAILY PRN MC SEE COMMENTS; Start 01/07/22 at 14:45 Piperacillin Sod/ Tazobactam Sod 2.25 gm/Sodium Chloride 50 ml @ 100 mls/hr Q8HRS IV Last administered on 01/11/22at 13:50; Start 01/07/22 at 22:00 Epoetin Raul-epbx (RETACRIT for ESRD PTS) 10,000 unit MoWeFr@2100 SQ Last administered on 01/10/22at 21:09; Start 01/08/22 at 21:00 Sodium Chloride 1,000 ml @ 1,000 mls/hr Q1H PRN IV hypotension; Start 01/09/22 at 07:45; Stop 01/09/22 at 13:44; Status DC Sodium Chloride 1,000 ml @ 400 mls/hr Q2H30M PRN IV PATENCY; Start 01/09/22 at 07:45; Stop 01/09/22 at 19:44; Status DC Info (PHARMACY MONITORING -- do not chart) 1 each PRN DAILY PRN MC SEE COMMENTS; Start 01/09/22 at 07:45; Stop 01/11/22 at 09:10; Status DC Saliva Substitute (Biotene Moisturizing Mouth) 2 spray PRN Q15MIN PRN PO DRY MOUTH; Start 01/09/22 at 13:45 Info (Tpn Per Pharmacy) 1 each PRN DAILY PRN MC SEE COMMENTS Last administered on 01/11/22at 09:52; Start 01/10/22 at 12:15 Sodium Chloride 90 meq/Potassium Chloride 50 meq/ Potassium Phosphate 13.6 mmol/Magnesium Sulfate 10 meq/ Multivitamins 10 ml/Zinc/Copper/ Manganese/ Selenium 1 ml/ Total Parenteral Nutrition/Amino Acids/Dextrose/ Fat Emulsion I ntravenous 1,512 ml @ 63 mls/hr TPN CONT IV Last administered on 01/10/22at 21:17; Start 01/10/22 at 22:00; Stop 01/11/22 at 21:59 Lidocaine/ Epinephrine (LIDOCAINE 1%-EPI 1:100,000 Multi-Dose) 20 ml STK-MED ONCE .ROUTE ; Start 01/10/22 at 15:22; Stop 01/10/22 at 15:22; Status DC Heparin Sodium (Porcine) (Hep Lock Adult) 500 unit STK-MED ONCE IVP ; Start 01/10/22 at 15:22; Stop 01/10/22 at 15:23; Status DC Lidocaine/ Epinephrine (LIDOCAINE 1%-EPI 1:100,000 Multi-Dose) 20 ml 1X ONCE INJ Last administered on 01/10/22at 15:57; Start 01/10/22 at 16:00; Stop 01/10/22 at 16:01; Status DC Heparin Sodium (Porcine) (Hep Lock Adult) 500 unit 1X ONCE IVP Last administered on 01/10/22at 15:58; Start 01/10/22 at 16:00; Stop 01/10/22 at 16:01; Status DC Info (PHARMACY MONITORING -- do not chart) 1 each PRN DAILY PRN MC SEE COMMENTS; Start 01/11/22 at 09:15; Stop 01/11/22 at 09:11; Status DC Info (PHARMACY MONITORING -- do not chart) 1 each PRN DAILY PRN MC SEE COMMENTS; Start 01/11/22 at 09:15 Sodium Chloride 90 meq/Potassium Chloride 60 meq/ Potassium Phosphate 8 mmol/ Magnesium Sulfate 10 meq/ Multivitamins 10 ml/Zinc/Copper/ Manganese/ Selenium 1 ml/ Total Parenteral Nutrition/Amino Acids/Dextrose/ Fat Emulsion Intravenous 1,512 ml @ 63 mls/hr TPN CONT IV ; Start 01/11/22 at 22:00; Stop 01/12/22 at 21:59 Active Scripts Active Aspirin Ec (Aspirin) 81 Mg Tablet.dr 81 Mg PO DAILYWBKFT 30 Days Celexa (Citalopram Hydrobromide) 20 Mg Tablet 20 Mg PO DAILY 30 Days Eliquis (Apixaban) 5 Mg Tablet 5 Mg PO BID 30 Days Metoprolol Tartrate 50 Mg Tablet 50 Mg PO BID 30 Days Midodrine Hcl 2.5 Mg Tablet 2.5 Mg PO [id number] 30 Days Stool Softener-Stimulant Lax (Sennosides/Docusate Sodium) 1 Each Tablet 1 Tab PO BID 30 Days Reported Osteo Bi-Flex Tablet (Glucosamine/D3/Boswellia Nancy) 1 Each Tablet 1 Each PO DAILY Irbesartan 300 Mg Tablet 300 Mg PO DAILY Benadryl (Diphenhydramine Hcl) 25 Mg Capsule 1 Cap PO QHS 30 Days Nystatin 15 Gm Powder 1 Bryan TP BID 7 Days apply to affected area(s) Culturelle (Lactobacillus Rhamnosus Gg) 1 Each Capsule 1 Cap PO BID 30 Days Zetia (Ezetimibe) 10 Mg Tablet 10 Mg PO DAILY Vitamin D3 (Cholecalciferol (Vitamin D3)) 50 Mcg Tablet 50 Mcg PO DAILY Atorvastatin Calcium 10 Mg Tablet 10 Mg PO HS Acetaminophen 500 Mg Tablet 500 Mg PO PRN TID PRN Vitals/I & O Vital Sign - Last 24 Hours 01/10/22 01/10/22 01/10/22 01/10/22 15:00 19:00 19:20 23:00 Temp 99.0 99.1 98.5 99.0 99.1 98.5 Pulse 87 99 100 Resp 18 20 20 B/P (MAP) 90/51 (64) 94/52 (66) 111/57 (75) Pulse Ox 94 99 96 O2 Delivery Room Air Room Air Room Air 01/11/22 01/11/22 03:06 07:00 Temp 98.4 97.3 98.4 97.3 Pulse 106 78 Resp 20 18 B/P (MAP) 113/57 (75) 100/42 (61) Pulse Ox 96 95 O2 Delivery Room Air Intake and Output 01/10/22 01/10/22 01/11/22 14:59 22:59 06:59 Intake Total 1100 ml 50 ml Output Total 0 ml Balance 1100 ml 50 ml Justifications for Admission Other Justification Nutrition Consultation Dietary Evaluation: Recommendations by RD: Dietary education by RD Comments: REC diet per [employer]ACER with oral nutrition supplements Expected Outcomes/Goals: to meet >70% est nutr needs via po intake Interpretation of weight loss: >7.5% in 3 months Malnutrition Findings: Food and Nutrition Intake (Sev: <50% est energy req 5days Body Fat Depletion (Non Severe: Mod to Severe Weight Status: Appropriate LAW BERRY MD Jan 11, 2022 14:04
[2022-01-11 15:00] VITALS: BP 110/52
[2022-01-11 19:00] VITALS: BP 129/66
--- NOTE | 2022-01-11 19:00 | NUR ---
During shift change this evening around 1900, patient pulled out right chest dialysis catheter. Pressure was applied an minimal bleeding noted. Dressing applied to site. Dr. Ye was notified and order placed for new dialysis catheter.
[2022-01-11] MEDS: ATORVASTATIN CALCIUM 10 MG TABLET. PO SCH (20:09)
[2022-01-11] MEDS ORDERED: DEXTROSE 70% IV SCH (22:00)
[2022-01-11] MEDS ORDERED: [UNRECOGNIZED DRUG - OTHER] IV SCH (22:00)
[2022-01-11] MEDS ORDERED: AMINO ACID IV SCH (22:00)
[2022-01-11] MEDS ORDERED: TOTAL PARENTERAL NUTRITION IV SCH (22:00)
[2022-01-11 23:00] VITALS: BP 126/66
[2022-01-12 03:00] VITALS: BP 115/64
[2022-01-12] MEDS: MIDODRINE 2.5 MG TABLET PO SCH ×3 (05:26→17:03)
[2022-01-12] MEDS: PIPERACILLIN/TAZOBACTAM 2.25 GM in IV NORMAL SALINE 50ML 50 ML IV SCH ×3 (05:27→22:04)
[2022-01-12 07:00] VITALS: BP 140/68
[2022-01-12] MEDS: ASPIRIN ENTERIC COATED 81 MG TABLET.DR. PO SCH (08:00)
[2022-01-12 08:08] LABS: CALCIUM 8.7 mg/dL (8.5-10.1); CREATININE 2.7 mg/dL (0.6-1.0); PHOSPHORUS 2.6 mg/dL (2.6-4.7); POTASSIUM 3.8 mmol/L (3.5-5.1)
[2022-01-12] MEDS: TPN PER PHARMACY MC PRN (08:50)
--- NOTE | 2022-01-12 08:50 | NUR ---
Pharmacy TPN Dosing Note S: VICKY FOSTER is a 76 year old F Currently receiving Central Continuous TPN started 01/10/22 B:Pertinent PMH: NPO Height: 5 feet, 5 inches Weight: 77.5 kg Current diet: NPO LABS: Sodium: 141 Potassium: 3.8 Chloride: 107 Calcium: 8.7 Corrected Calcium: 10.78 Magnesium: 2 CO2: 27 SCr: 2.7 Glucose: 117 Albumin: 1.4 AST: 21 ALT: <6 TPN FORMULA: TPN TYPE: Central Continuous AMINO ACIDS: 60 gm DEXTROSE: 195 gm LIPIDS: 20 gm SODIUM CHLORIDE: 90 mEq SODIUM ACETATE: mEq SODIUM PHOSPHATE: mmol POTASSIUM CHLORIDE: 50 mEq POTASSIUM ACETATE: mEq POTASSIUM PHOSPHATE: 13.6 mmol MAGNESIUM: 10 mEq CALCIUM: - mEq INSULIN: units MULTIPLE VITAMIN: 10 ml TRACE ELEMENTS: 1 ml(s) TPN PLAN: Large drop in phos, will revert back to previous amount of Kphos and Kcl Can supplement in the am if needed. No HD today. Labs ordered for am. R: Continue TPN as written above. Will monitor electrolytes, glucose, and tolerance to TPN. JACKY FONTENOT [facility]OPER [facility], 01/12/22 [id number]
[2022-01-12] MEDS: LACTOBACILLUS RHAMNOSUS GG 1 CAPSULE. PO SCH ×2 (09:00→20:21)
[2022-01-12] MEDS: CITALOPRAM 20 MG TABLET. PO SCH (09:00)
[2022-01-12] MEDS: METOPROLOL TART IMMED RELEASE 50 MG TABLET. PO SCH ×2 (09:00→20:21)
[2022-01-12] MEDS: HEPARIN for SUB-Q USE 5,000 UNIT/ML VIAL. SQ SCH (09:48)
[2022-01-12 11:00] VITALS: BP 117/62
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
[2022-01-12 15:00] VITALS: BP 126/65
[2022-01-12 19:00] VITALS: BP 136/69
[2022-01-12] MEDS: ATORVASTATIN CALCIUM 10 MG TABLET. PO SCH (20:21)
[2022-01-12] MEDS ORDERED: TOTAL PARENTERAL NUTRITION 1,446.4667 ML, AMINO ACID 15% 60 GM, DEXTROSE 70 % IN WATER ... IV SCH (22:00)
[2022-01-12 22:47] VITALS: BP 130/64
[2022-01-13] MEDS: HEPARIN for SUB-Q USE 5,000 UNIT/ML VIAL. SQ SCH ×3 (02:05→21:07)
[2022-01-13 02:43] VITALS: BP 134/68
[2022-01-13] MEDS: MIDODRINE 2.5 MG TABLET PO SCH ×3 (05:36→18:00)
[2022-01-13] MEDS: PIPERACILLIN/TAZOBACTAM 2.25 GM in IV NORMAL SALINE 50ML 50 ML IV SCH ×3 (06:14→21:08)
--- NOTE | 2022-01-13 06:53 | NUR ---
Pics not done on wounds, Could not get camera to work. foam place on coccyx and right leg
[2022-01-13 07:00] VITALS: BP 133/75
[2022-01-13] MEDS: ASPIRIN ENTERIC COATED 81 MG TABLET.DR. PO SCH (08:00)
[2022-01-13 08:27] LABS: CALCIUM 9.3 mg/dL (8.5-10.1); CREATININE 3.9 mg/dL (0.6-1.0); GFR 11.1; MAGNESIUM 2.2 mg/dL (1.8-2.4); PHOSPHORUS 2.7 mg/dL (2.6-4.7); POTASSIUM 4.5 mmol/L (3.5-5.1)
[2022-01-13] MEDS ORDERED: LIDOCAINE 1%/EPI 1:100,000 20 ML VIAL. ONE (08:42)
[2022-01-13] MEDS ORDERED: MIDAZOLAM HCL/PF 2 MG/2 ML VIAL. ONE (08:55)
[2022-01-13] MEDS ORDERED: fentaNYL PF VIAL 100 MCG/2 ML VIAL ONE (08:56)
[2022-01-13] MEDS: CITALOPRAM 20 MG TABLET. PO SCH (09:00)
[2022-01-13] MEDS: LACTOBACILLUS RHAMNOSUS GG 1 CAPSULE. PO SCH ×2 (09:00→21:00)
[2022-01-13] MEDS: METOPROLOL TART IMMED RELEASE 50 MG TABLET. PO SCH ×2 (09:00→21:00)
[2022-01-13] MEDS ORDERED: fentaNYL PF VIAL 100 MCG/2 ML VIAL IV ONE (09:30)
[2022-01-13] MEDS ORDERED: LIDOCAINE 1%/EPI 1:100,000 20 ML VIAL. INJ ONE (09:30)
[2022-01-13] MEDS ORDERED: MIDAZOLAM HCL/PF 2 MG/2 ML VIAL. IV ONE (09:30)
[2022-01-13 09:44] VITALS: BP 137/65
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
--- NOTE | 2022-01-13 10:36 | PDOC ---
Renal-Progress Notes Subjective Notes Notes CONFUSED History of Present Illness Hx of present illness NO ACUTE CHANGES Vitals Vitals Vital Signs Date Time Temp Pulse Resp B/P (MAP) Pulse Ox O2 Delivery O2 Flow Rate FiO2 01/13/22 09:44 91 21 98 Nasal Cannula 2.0 01/13/22 07:00 98.4 133/75 (94) 98.4 Weight Weight [ ] I.O. Intake and Output Intake and Output 01/13/22 07:00 # Voids 2 # Bowel Movements 1 Labs Labs Laboratory Tests Test 01/12/22 19:00 01/13/22 07:20 01/13/22 08:25 Glucose (Fingerstick) 113 mg/dL (70-99) 96 mg/dL (70-99) Sodium Level 142 mmol/L (136-145) Potassium Level 4.5 mmol/L (3.5-5.1) Chloride Level 108 mmol/L (98-107) Carbon Dioxide Level 24 mmol/L (21-32) Anion Gap 10 (6-14) Blood Urea Nitrogen 25 mg/dL (7-20) Creatinine 3.9 mg/dL (0.6-1.0) Estimated GFR (Cockcroft-Gault) 11.1 Glucose Level 112 mg/dL (70-99) Calcium Level 9.3 mg/dL (8.5-10.1) Phosphorus Level 2.7 mg/dL (2.6-4.7) Magnesium Level 2.2 mg/dL (1.8-2.4) Micro Micro Microbiology 01/04/22 Blood Culture - Final, Complete NO GROWTH AFTER 5 DAYS Review of Systems Constitutional: yes: other (CONFUSED) Physical Exam General Appearance: no apparent distress Skin: warm Respiratory: decreased breath sounds Heart: S1S2 Abdomen: soft, bowel sounds present Genitourinary: bladder flat Extremities: pulses present Neurology: confused Musculoskeletal: Osteoarthritis Assessment Assessment IMP ESRD-PULLED OUT TDC S/P NEW TDC THIS AM ANEMIA OF ESRD SEPSIS UTI ENCEPHALOPATHY SACRAL WOUND AFIB PLAN ON TPN CONT EPO OP HD FOR LEAVENWOR[facility] ANTIBIOTICS HD TODAY UF TO TW MINIMUM WILL FOLLOW CHANI NARAYAN MD Jan 13, 2022 10:36
--- NOTE | 2022-01-13 10:49 | RAD ---
Placement of a left internal jugular tunneled central line Clinical Indication: TPN, dialysis patient. Sterility: All elements of maximal sterile barrier technique including the use of a cap, mask, steril e gown, sterile gloves, large sterile sheet, appropriate hand hygiene, and 2% chlorhexidine for cutan eous antisepsis (or acceptable alternative antiseptic per current guidelines) were followed for this procedure. Consent: The procedure was explained in its entirety to the patient or the patients designated repres entative by a member of the treatment team, including a discussion of the risks, benefits and commonl y accepted alternatives to the procedure, as well as the expected consequences of no therapy whatsoev er. Discussion of the risks included, but was not limited to, those that are most frequent and thos e that are rare but possibly severe or life-threatening, as well as the possibility of unforeseen com plications. Technique and Findings: Following informed consent, the patient was prepped and draped in the usual s terile fashion. Ultrasound interrogation of the left neck revealed patency and compressibility of th e left internal jugular vein. A 21-gauge micropuncture was then used to gain access to this vein und er ultrasound guidance. A hard copy ultrasound image was recorded. The needle was exchanged over a wire for a 4 Panamanian sheath which was used to guide a wire into the IVC. The skin over the right anter ior chest wall was copiously anesthetized with 1% Lidocaine plus Epinephrine and a small dermatotomy was made. A power line was trimmed to length and tunneled subcutaneously towards the neck dermatotomy and deployed through a peel-away sheath under fluoroscopic guidance such that the distal tip reside d in the proximal right atrium. Manual flow rates were assessed and found to be excellent. The cath eter was then flushed, packed with Heparin, capped, and sutured to the skin. The neck dermatotomy wa s closed with Dermabond. Fluoroscopy time: 1 minute Dose area product 1 Alvares centimeter squared Complications: None Impression: Placement of a left internal jugular tunneled central line Electronically signed by: Elpidio Day MD (01/13/2022 10:47 AM) [id number]
[2022-01-13 11:00] VITALS: BP 126/64
[2022-01-13] MEDS: fentaNYL PF VIAL 100 MCG/2 ML VIAL IVP PRN (13:44)
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
--- NOTE | 2022-01-13 13:59 | SNU/HH DC ---
DISCHARGE ORDERS DISCHARGE INFORMATION: DISCHARGE DATE: Jan 13, 2022 FINAL DIAGNOSIS Problems Medical Problems: (1) Acute encephalopathy Status: Acute (2) Paroxysmal A-fib Status: Acute (3) UTI (urinary tract infection) Status: Acute CONDITION ON DISCHARGE: Stable CODE STATUS: Code Status: DNR/DNI HOSPICE: HOSPICE: Yes HOSPICE EVAL & TREAT: Yes POST DISCHARGE ORDERS: ACTIVITY ORDERS: Activity as tolerated WEIGHT BEARING STATUS: As tolerated DIET AFTER DISCHARGE: Pleasure feedings with pureed diet and honey thickened liquids CHECKS AFTER DISCHARGE: CHECKS AFTER DISCHARGE: Check blood press - daily COMMENTS: IJ/chest FOLLOW-UP: PHYSICIAN FOLLOW-UP: Hospice physician DISCHARGE MEDICATIONS: Home Meds Active Scripts Sennosides/Docusate Sodium (Stool Softener-Stimulant Lax) 1 Each Tablet, 1 TAB PO BID for constipation for 30 Days, #60 TAB Prov:LORNE KWON MD 11/01/21 Reported Medications Glucosamine/D3/Boswellia Nancy (Osteo Bi-Flex Tablet) 1 Each Tablet, 1 EACH PO DAILY for supplement, TAB 12/17/20 Nystatin (NYSTATIN) 15 Gm Powder, 1 MARCIE TP BID for yeast for 7 Days, #1 BOTTLE 0 Refills apply to affected area(s) 12/17/20 Lactobacillus Rhamnosus Gg (CULTURELLE) 1 Each Capsule, 1 CAP PO BID for supplement for 30 Days, #60 CAP 0 Refills 12/17/20 Cholecalciferol (Vitamin D3) (Vitamin D3) 50 Mcg Tablet, 50 MCG PO DAILY for supplement, TAB 12/17/20 Discontinued Reported Medications Irbesartan (IRBESARTAN) 300 Mg Tablet, 300 MG PO DAILY for heart, TAB 12/17/20 Diphenhydramine Hcl (BENADRYL) 25 Mg Capsule, 1 CAP PO QHS for sleep for 30 Days, #30 CAP 0 Refills 12/17/20 Ezetimibe (ZETIA) 10 Mg Tablet, 10 MG PO DAILY for cholesterol, TAB 12/17/20 Atorvastatin Calcium (ATORVASTATIN CALCIUM) 10 Mg Tablet, 10 MG PO HS for FOR CHOLESTEROL, #30 TAB 0 Refills 12/17/20 Acetaminophen (ACETAMINOPHEN) 500 Mg Tablet, 500 MG PO PRN TID PRN for MILD PAIN / TEMP > 100.3'F, TAB 12/17/20 Discontinued Scripts Aspirin (ASPIRIN EC) 81 Mg Tablet., 81 MG PO DAILYWBKFT for cad for 30 Days, #30 TAB.SR Prov:AMANDA GERARDO MD 01/03/22 Citalopram Hydrobromide (CELEXA) 20 Mg Tablet, 20 MG PO DAILY for mdd for 30 Days, #30 TAB Prov:AMANDA GERARDO MD 01/03/22 Apixaban (ELIQUIS) 5 Mg Tablet, 5 MG PO BID for stroke for 30 Days, #60 TAB Prov:AMANDA GERARDO MD 01/03/22 Metoprolol Tartrate (METOPROLOL TARTRATE) 50 Mg Tablet, 50 MG PO BID for htn for 30 Days, #60 TAB Prov:AMANDA GERARDO MD 01/03/22 Midodrine Hcl (MIDODRINE HCL) 2.5 Mg Tablet, 2.5 MG PO [id number] for hypotension for 30 Days, #90 TAB Prov:AMANDA GERARDO MD 01/03/22 LORNE KWON MD Jan 13, 2022 13:59
[2022-01-13] MEDS: TPN PER PHARMACY MC PRN (14:19)
[2022-01-13 15:00] VITALS: BP 129/67
[2022-01-13 19:00] VITALS: BP 143/88
[2022-01-13] MEDS: ATORVASTATIN CALCIUM 10 MG TABLET. PO SCH (21:00)
[2022-01-13] MEDS: EPOETIN ALFA-EPBX for ESRD 20,000 UNIT/ML VIAL. SQ SCH (21:08)
[2022-01-13] MEDS ORDERED: AMINO ACID IV SCH (22:00)
[2022-01-13] MEDS ORDERED: DEXTROSE 70% IV SCH (22:00)
[2022-01-13] MEDS ORDERED: TOTAL PARENTERAL NUTRITION IV SCH (22:00)
[2022-01-13] MEDS ORDERED: [UNRECOGNIZED DRUG - OTHER] IV SCH (22:00)
[2022-01-13] MEDS ORDERED: IV NORMAL SALINE 1000ML BAG 1,000 ML IV PRN ×2 (22:15)
[2022-01-13] MEDS ORDERED: ALBUMIN HUMAN 25% 200 ML IV PRN (22:15)
[2022-01-13] MEDS ORDERED: 0.9 % SODIUM CHLORIDE 10 ML DISP.SYRIN. IV PRN ×2 (22:15)
[2022-01-13] MEDS ORDERED: DIALYSIS PATIENT. MC PRN ×2 (22:15)
--- NOTE | 2022-01-14 01:10 | NUR ---
Pt. back from dialysis at this time. 1L pulled off. VSS. Denies pain or other needs.
[2022-01-14 03:00] VITALS: BP 117/73
[2022-01-14] MEDS: MIDODRINE 2.5 MG TABLET PO SCH ×3 (04:54→17:25)
[2022-01-14 05:23] LABS: CALCIUM 8.5 mg/dL (8.5-10.1); CREATININE 1.9 mg/dL (0.6-1.0); GFR 25.6
[2022-01-14] MEDS: PIPERACILLIN/TAZOBACTAM 2.25 GM in IV NORMAL SALINE 50ML 50 ML IV SCH ×3 (05:32→21:02)
[2022-01-14 07:00] VITALS: BP 109/61
[2022-01-14] MEDS ORDERED: IV NORMAL SALINE 1000ML BAG 1,000 ML IV PRN ×2 (07:15)
[2022-01-14] MEDS ORDERED: DIALYSIS PATIENT. MC PRN ×2 (07:15)
[2022-01-14] MEDS: ASPIRIN ENTERIC COATED 81 MG TABLET.DR. PO SCH (08:00)
[2022-01-14] MEDS: CITALOPRAM 20 MG TABLET. PO SCH (09:00)
[2022-01-14] MEDS: METOPROLOL TART IMMED RELEASE 50 MG TABLET. PO SCH ×2 (09:00→21:00)
[2022-01-14] MEDS: LACTOBACILLUS RHAMNOSUS GG 1 CAPSULE. PO SCH ×2 (09:00→21:00)
[2022-01-14] MEDS: HEPARIN for SUB-Q USE 5,000 UNIT/ML VIAL. SQ SCH ×2 (09:17→21:00)
--- NOTE | 2022-01-14 10:37 | PDOC ---
Renal-Progress Notes Subjective Notes Notes NONE History of Present Illness Hx of present illness CONFUSED Vitals Vitals Vital Signs Date Time Temp Pulse Resp B/P (MAP) Pulse Ox O2 Delivery O2 Flow Rate FiO2 01/14/22 09:00 103 109/61 01/14/22 08:00 Room Air 01/14/22 07:00 98.7 18 99 98.7 01/13/22 09:44 2.0 Weight Weight [ ] I.O. Intake and Output Intake and Output 01/14/22 07:00 Intake Total 1612 ml Balance 1612 ml Intake Oral 0 ml IV Total 1612 ml # Voids 1 # Bowel Movements 2 Labs Labs Laboratory Tests Test 01/14/22 03:45 01/14/22 05:27 Sodium Level 143 mmol/L (136-145) Potassium Level 4.0 mmol/L (3.5-5.1) Chloride Level 107 mmol/L (98-107) Carbon Dioxide Level 32 mmol/L (21-32) Anion Gap 4 (6-14) Blood Urea Nitrogen 10 mg/dL (7-20) Creatinine 1.9 mg/dL (0.6-1.0) Estimated GFR (Cockcroft-Gault) 25.6 Glucose Level 110 mg/dL (70-99) Calcium Level 8.5 mg/dL (8.5-10.1) Glucose (Fingerstick) 114 mg/dL (70-99) Micro Micro Microbiology 01/04/22 Blood Culture - Final, Complete NO GROWTH AFTER 5 DAYS Review of Systems Constitutional: yes: other (CONFUSED) Physical Exam General Appearance: no apparent distress Skin: warm Respiratory: decreased breath sounds Heart: S1S2 Abdomen: soft, bowel sounds present Genitourinary: bladder flat Extremities: pulses present Neurology: confused Musculoskeletal: Osteoarthritis Assessment Assessment IMP ESRD ANEMIA OF ESRD SEPSIS UTI ENCEPHALOPATHY SACRAL WOUND AFIB PLAN HOSPICE PLANS NOTED I WILL SIGN OFF CHANI NARAYAN MD Jan 14, 2022 10:37
[2022-01-14 11:00] VITALS: BP 126/81
[2022-01-14 15:00] VITALS: BP 126/66
[2022-01-14] MEDS: fentaNYL PF VIAL 100 MCG/2 ML VIAL IVP PRN (17:09)
[2022-01-14 19:00] VITALS: BP 137/64
[2022-01-14] MEDS: ATORVASTATIN CALCIUM 10 MG TABLET. PO SCH (21:00)
[2022-01-15 03:00] VITALS: BP 116/67
[2022-01-15] MEDS: PIPERACILLIN/TAZOBACTAM 2.25 GM in IV NORMAL SALINE 50ML 50 ML IV SCH (05:29)
[2022-01-15] MEDS: MIDODRINE 2.5 MG TABLET PO SCH ×2 (05:30→10:08)
[2022-01-15 07:00] VITALS: BP 106/76
[2022-01-15] MEDS: CITALOPRAM 20 MG TABLET. PO SCH (07:21)
[2022-01-15] MEDS: LACTOBACILLUS RHAMNOSUS GG 1 CAPSULE. PO SCH (07:21)
[2022-01-15] MEDS: METOPROLOL TART IMMED RELEASE 50 MG TABLET. PO SCH (07:21)
[2022-01-15] MEDS: HEPARIN for SUB-Q USE 5,000 UNIT/ML VIAL. SQ SCH (07:21)
[2022-01-15] MEDS: ASPIRIN ENTERIC COATED 81 MG TABLET.DR. PO SCH (07:21)
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
--- NOTE | 2022-01-15 08:37 | RAD ---
Removal of right internal jugular tunnel hemodialysis catheter and left internal jugular tunneled pow er line 01/15/2022 Discussion/ impression: Under physician supervision, both the right internal jugular tunneled hemodialysis cathet er and left internal jugular tunneled power line removed with traction by the boiler testing technician. M anual pressure was held to achieve hemostasis. Sterile dressings were applied. No immediate complicat ions were identified. Electronically signed by: Elpidio Day MD (01/15/2022 8:35 AM) [id number]
--- NOTE | 2022-01-15 08:37 | RAD ---
Removal of right internal jugular tunnel hemodialysis catheter and left internal jugular tunneled pow er line 01/15/2022 Discussion/ impression: Under physician supervision, both the right internal jugular tunneled hemodialysis cathet er and left internal jugular tunneled power line removed with traction by the clock repair technician. M anual pressure was held to achieve hemostasis. Sterile dressings were applied. No immediate complicat ions were identified. Electronically signed by: Elpidio Day MD (01/15/2022 8:35 AM) [id number]
[2022-01-15 10:08] VITALS: BP 116/67
--- NOTE | 2022-01-15 11:29 | NUR ---
SS following up with discharge planning. SS reviewed pt chart and discussed with pt RN. Pt is currently on room air. COVID19 negative. Discharge orders received for return to [facility] in [place], ; fax [phone], with [facility]. Discharge orders faxed to [facility] and [facility]. Pt will discharge today and return to facility with hospice at 1300 via stretcher transportation. Pt, pt's family, and pt's RN notified.
--- NOTE | 2022-01-15 11:38 | NUR ---
Discharge Note: CHARLOTTE FOSTER Discharge instructions and discharge home medications reviewed with Other facility and a copy given. All questions have been answered and understanding verbalized. The following instructions and handouts were given: d/c instructions faxed to other facility. Report called to Fiona RAIN at [facility] at 1135 Discontinued lines and drains: Peripheral IV intact. Patient discharged to Hospice with Ambulance Personnel via Stretcher
--- NOTE | 2022-01-15 12:17 | RAD ---
Procedure: Tunneled hemodialysis catheter placement Clinical Indication: End-stage renal disease Sedation: Conscious sedation was administered for 26 minutes. The patient was monitored by a [facility] independent observer throughout the time of sedation. Please refer to the medical record for exac t doses of medications utilized to achieve moderate sedation. Total fluoroscopy time 0.3 minutes Dose area product 0.3 Alvares centimeter squared Sterility: All elements of maximal sterile barrier technique including the use of a cap, mask, steril e gown, sterile gloves, large sterile sheet, appropriate hand hygiene, and 2% chlorhexidine for cutan eous antisepsis (or acceptable alternative antiseptic per current guidelines) were followed for this procedure. Consent: The procedure was explained in its entirety to the patient or the patients designated repres entative by a member of the treatment team, including a discussion of the risks, benefits and commonl y accepted alternatives to the procedure, as well as the expected consequences of no therapy whatsoev er. Discussion of the risks included, but was not limited to, those that are most frequent and thos e that are rare but possibly severe or life-threatening, as well as the possibility of unforeseen com plications. Technique and Findings: Following informed consent, the patient was prepped and draped in the usual s terile fashion. Ultrasound interrogation of the right neck revealed patency and compressibility of t he right internal jugular vein. A 21-gauge micropuncture was then used to gain access to this vein u nder ultrasound guidance. A hard copy ultrasound image was recorded. The needle was exchanged over a wire for a 4 Serbian sheath which was used to guide an Amplatz wire into the IVC. The skin over the right anterior chest wall was copiously anesthetized with 1% Lidocaine plus Epinephrine and a small dermatotomy was made. A 19 cm tip to cuff palindrome hemodialysis catheter was then tunneled subcutan eously towards the neck dermatotomy and deployed through a large caliber peel-away sheath under fluor oscopic guidance such that the distal tip resided in the mid right atrium. Manual flow rates were as sessed and found to be excellent. The catheter was then flushed,, packed, and sutured to the skin. T he neck dermatotomy was closed with Dermabond. No immediate complications were identified. Impression: Ultrasound of fluoroscopically guided placement of right internal jugular tunnel hemodial ysis catheter Electronically signed by: Elpidio Day MD (01/15/2022 12:15 PM) [id number]
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
== END 2022-01-15 13:13 | disposition hospice, inpatient (51) | DRG 871 ==
LOC: ER 10:48 → 5 NORTH 16:12
PROVIDERS: ADMIT Internal Medicine; ATTEND Internal Medicine
PROC: 5A1D70Z Performance of Urinary Filtration, Intermittent, Less than 6 Hours Per Day (ICD-10-PCS; 2022-01-07)
PROC: 5A1D70Z Performance of Urinary Filtration, Intermittent, Less than 6 Hours Per Day (ICD-10-PCS; 2022-01-11)
PROC: 5A1D70Z Performance of Urinary Filtration, Intermittent, Less than 6 Hours Per Day (ICD-10-PCS; 2022-01-13)
PROC: 0JH63XZ Insertion of Tunneled Vascular Access Device into Chest Subcutaneous Tissue and Fascia, Percutaneous Approach (ICD-10-PCS; 2022-01-13)
PROC: 02H633Z Insertion of Infusion Device into Right Atrium, Percutaneous Approach (ICD-10-PCS; 2022-01-13)
PROC: B5181ZA Fluoroscopy of Superior Vena Cava using Low Osmolar Contrast, Guidance (ICD-10-PCS; 2022-01-13)
PROC: B548ZZA Ultrasonography of Superior Vena Cava, Guidance (ICD-10-PCS; 2022-01-13)
PROC: 5A1D70Z Performance of Urinary Filtration, Intermittent, Less than 6 Hours Per Day (ICD-10-PCS; principal; 2022-01-14)
PROC: 0JH63XZ Insertion of Tunneled Vascular Access Device into Chest Subcutaneous Tissue and Fascia, Percutaneous Approach (ICD-10-PCS; 2022-01-15)
PROC: 02H633Z Insertion of Infusion Device into Right Atrium, Percutaneous Approach (ICD-10-PCS; 2022-01-15)
PROC: B5181ZA Fluoroscopy of Superior Vena Cava using Low Osmolar Contrast, Guidance (ICD-10-PCS; 2022-01-15)
PROC: B548ZZA Ultrasonography of Superior Vena Cava, Guidance (ICD-10-PCS; 2022-01-15)
PROC: 0JPT3XZ Removal of Tunneled Vascular Access Device from Trunk Subcutaneous Tissue and Fascia, Percutaneous Approach (ICD-10-PCS; 2022-01-15)
PROC: 02PAX3Z Removal of Infusion Device from Heart, External Approach (ICD-10-PCS; 2022-01-15)
DX: A41.9 Sepsis, unspecified organism (principal); G93.41 Metabolic encephalopathy; N18.6 End stage renal disease; N39.0 Urinary tract infection, site not specified; I13.2 Hypertensive heart and chronic kidney disease with heart failure and with stage 5 chronic kidney disease, or end stage renal disease; I48.0 Paroxysmal atrial fibrillation; L89.159 Pressure ulcer of sacral region, unspecified stage; F03.90 Unspecified dementia, unspecified severity, without behavioral disturbance, psychotic disturbance, mood disturbance, and anxiety; I50.9 Heart failure, unspecified; D63.1 Anemia in chronic kidney disease; I25.10 Atherosclerotic heart disease of native coronary artery without angina pectoris; Z51.5 Encounter for palliative care; Z79.01 Long term (current) use of anticoagulants; Z82.49 Family history of ischemic heart disease and other diseases of the circulatory system; Z86.73 Personal history of transient ischemic attack (TIA), and cerebral infarction without residual deficits; Z99.2 Dependence on renal dialysis; F32.A Depression, unspecified; F41.9 Anxiety disorder, unspecified; M19.90 Unspecified osteoarthritis, unspecified site
CPT/HCPCS: 36415; 36558; 36589; 36600; 70450; 71045; 73600; 76937; 77001; 80048; 80053; 81001; 82140; 82805; 82962; 83605; 83735; 84100; 84145; 84478; 85007; 85025; 85384; 85610; 87040; 93005; 96361; 96365; 96366; 99152; 99153; C1750; C1751; C1892; J0690; J0692; J1642; J1644; J2250; J2543; J3010; J3370; J3475; J3480; J3490; J7030; J7040; J7042; J7060; 92526-GN; 92610-GN; 99285-25; G0378